=== PATIENT | female | born 1970 | race Caucasian/White ===

== ENCOUNTER → 2020-08-01 13:06 | Outpatient (CLI) | payer BC, SELFPAY ==
[2014-10-18 15:56] VITALS: BMI 43.9
[2020-08-03 12:58] LABS: HPV Reflexed? NOT INDICATED
== END ==
PROVIDERS: PCP Internal Medicine; Visit Provider Obstetrics & Gynecology
DX: Z12.4 Encounter for screening for malignant neoplasm of cervix (principal)
CPT/HCPCS: 88175; G0145

== ENCOUNTER → 2020-08-15 16:06 | Outpatient (CLI) | payer BC, SELFPAY ==
[2014-10-18 15:56] VITALS: BMI 43.9
--- NOTE | 2020-08-15 15:30 | EMB_PTH ---
PATIENT: ANTONINA KEITH LOC: [facility] U#:[id number] AGE/SX: 54/F ROOM: RE08/15/[address]: Dr. Kenneth Christian MD : 1970 BED: DIS: SPEC #: [id number] RECD: 08/15/20 17:12 STATUS: EMELINA REQ #: [id number] MT: 08/15/20 15:[address]: Kenneth Christian DEPT: SURGICAL PATHOLOGY RECD BY: Radha Mcwilliams ENTERED: 08/16/20 10:20 SP TYPE: ENDOM BX/C AARON DR: Dr. Ana Prakash MD Tissues: Endometrium, NOS Procedures: Surgery Specimen Level IV HEADER OPERATION: Endometrial biopsy PRE-OP DIAGNOSIS: N92.0 TISSUE SUBMITTED: Endometrial biopsy MICROSCOPIC DIAGNOSIS Endometrial biopsy: Proliferative endometrium. SJ:danielle 08/17/2020 MICROSCOPIC DESCRIPTION Slides are reviewed. GROSS DESCRIPTION Received in fixative is one container labeled with the patient's name and designated EM biopsy. The specimen consists of multiple fragments of hemorrhagic soft tissue mixed with campuzano mucoid tissue that in aggregate measure 3 x 2.5 x 0.3 cm. The specimen is totally submitted in one cassette. / SJ:danielle 08/16/20 TC:4 CPT: 74721
== END ==
PROVIDERS: PCP Internal Medicine; Visit Provider Obstetrics & Gynecology
DX: N92.0 Excessive and frequent menstruation with regular cycle (principal)
CPT/HCPCS: 88305

== ENCOUNTER 2020-09-24 05:22 | Day surgery (SDC) | payer BC, SELFPAY ==
[2020-09-19 17:45] LABS: Hematocrit 33.1 % (37-47); Hemoglobin 10.2 g/dL (12.0-15.0); Mean Corp Hgb Conc 30.8 g/dL (32-36); Mean Corpuscular Hgb 26.3 pg (27.0-32.0); Mean Corpuscular Volume 85.3 fL (81-99); Mean Platelet Vol. 9.5 fl (6.2-12.0); Platelet Count 312 K/mm3 (150-450); RBC Distribution Width CV 14.1 % (11.6-14.6); RBC Distribution Width SD 43.7 fl (35.1-43.9); Red Blood Count 3.88 M/mm3 (4.2-5.4); White Blood Count 10.7 K/mm3 (4.4-11.0)
[2020-09-19 18:23] LABS: ALB/GLOB Ratio 0.9 RATIO (0.9-2.4); AST(SGOT) 12 U/L (15-37); Alanine Aminotransfer ALT/SGPT 24 U/L (13-56); Albumin, Serum 3.5 g/dL (3.2-5.0); Alkaline Phosphatase 68 U/L (45-117); Anion Gap 4 (5-15); BUN 16 mg/dL (7-18); BUN/Creat Ratio 24.7 RATIO (10-20); Calcium,Total 8.4 mg/dL (8.5-10.1); Chloride 109 mmol/L (98-107); Creatinine, Serum 0.65 mg/dL (0.55-1.02); EST Glomerular Filtration Rate 103 mL/min (>60); Est Glom Filt Rate - Afr Amer 124 mL/min (>60); Globulin 3.7 g/dL (2.2-4.2); Glucose 90 mg/dL (74-106); Magnesium 2.1 mg/dL (1.6-2.6); Potassium 3.6 mmol/L (3.5-5.1); Protein, Total 7.2 g/dL (6.4-8.2); Sodium Level 139 mmol/L (136-145)
[2020-09-19 18:29] LABS: International Normalized Ratio 0.9
[2020-09-19 19:10] LABS: Partial Thromboplast Time 31.9 Seconds (24.1-36.2)
--- NOTE | 2020-09-21 11:49 | EKG12_ITS ---
Test Reason : PREOP Blood Pressure : / mmHG Vent. Rate : 078 BPM Atrial Rate : 078 BPM P-R Int : 172 ms QRS Dur : 084 ms QT Int : 398 ms P-R-T Axes : 040 011 036 degrees QTc Int : 453 ms Normal sinus rhythm Normal ECG Confirmed by SAAD FREEMAN, KAYLA ([id number]), city editor JEANNE CAMACHO ([id number]) on 09/24/2020 10:55:20 A M Referred By: Kenneth Christian Confirmed By:BRYAN NASH MD
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
[2020-09-24] VITALS (22 sets, daily range): BP systolic 122–167; BP diastolic 73–112; PULSE 65–95; RESP 16–22; TEMP 36.3–37.1; O2SAT 92–100; BMI 42.4
[2020-09-24 06:13] LABS: Internal QC Validated? YES +Cl - CLEAR BKGD; Pregnancy, Urine Negative Negative
[2020-09-24] MEDS: Lactated Ringers 1,000 ML 40 ML IV ×2 (06:31→11:24)
[2020-09-24] MEDS: Acetaminophen 500 MG Tablet 1000 MG PO ×2 (06:32→15:00)
[2020-09-24] MEDS: Gabapentin 600 MG Tablet PO (06:32)
[2020-09-24 07:20] LABS: Bedside Glucose 114 mg/dL (70-110)
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
[2020-09-24] MEDS: Cefazolin 2 GM in 0.9% Normal Saline 100 ML IV (07:27)
--- NOTE | 2020-09-24 07:27 | PCM.DC ---
Discharge Instructions Diet Discharge Diet: No restrictions Activity Discharge Activity: May Shower and May Take a Tub Bath May resume sexual activity in: 6 weeks (nothing in the vagina.) Lifting Restrictions: 25 pounds for 6 weeks. Dressing / Incision Call your doctor if your incision/area has: Continuous Slow Oozing, Sudden Increased Bleeding, Increased Pain/ Swelling, Increased Redness and Foul Smelling Discharge Call your doctor if you observe: Fever of 101 or Higher, Inability to urinate, Inability to have a bowel movement, Using more than 1 pad per hour and - (Some vaginal bleeding may be noted for up to 4-8 weeks.) Cleanse incision/area with: - (Let the soapy water run over your incision, rinse and pat dry.) Additional Dressing/Incision Instructions:: The white strips (Steri Strips) on your incisions will fall off on their own. If they fall off and it bothers you it is okay to put Band-Aids across the incisions. Follow Up Care Please Follow Up With: Kenneth Christian MD When: Call [phone] for an appointment to be seen in 2 weeks. Test Results: Test results from this visit will be discussed in further detail at your follow-up appointment, if applicable. Discharge Plan Admission Primary Reason for Your Visit: Robotic Vaginal Hysterectomy Attending Provider: Kenneth Christian Primary Care Provider: Ana Prakash Discharge Orders/Prescriptions Prescriptions: New oxycodone 5 mg capsule 5 mg PO Q6H PRN (Reason: pain) 7 Days Qty: 10 RF: 0 docusate sodium 100 mg tablet 100 mg PO BID PRN (Reason: constipation) Qty: 60 RF: 1 Continued acetaminophen 650 mg Tablet Extended Release 1,300 mg PO DAILY RF: 0 ascorbate calcium (vitamin C) 500 mg Tablet 1 g PO DAILY RF: 0 multivitamin Capsule 1 cap PO DAILY RF: 0 omega-3 fatty acids-vitamin E 1,000 mg Capsule 2,000 cap PO DAILY RF: 0 cholecalciferol (vitamin D3) [Vitamin D3] 125 mcg (5,000 unit) Tablet 125 mcg PO DAILY RF: 0 turmeric 400 mg Capsule 800 mg PO DAILY RF: 0 Pennsaid 2 % Solution In Packet 1 packet TOPICAL BID PRN (Reason: arthritis) RF: 0 Referrals / Follow Up: Ana Prakash MD [Primary Care Provider] - Disposition Disposition (needs filled in before D/C Order can be placed): Home, self care
--- NOTE | 2020-09-24 07:30 | HYST_PTH ---
PATIENT: ANTONINA KEITH LOC: [facility] [place] U#:[id number] AGE/SX: 50/F ROOM: RE09/24/[address]: Dr. Kenneth Christian MD : 1970 BED: DIS: 09/24/2020 SPEC #: [id number] RECD: 09/24/20 12:28 STATUS: EMELINA REManny #: [id number] MT: 09/24/20 07:[address]: Kenneth Christian DEPT: SURGICAL PATHOLOGY RECD BY: Radha Mcwilliams ENTERED: 09/24/20 12:49 SP TYPE: HYSTERECT OTHR DR: Dr. Ana Prakash MD Tissues: Uterus, NOS Procedures: Surgery Specimen Level V HEADER OPERATION: ERAS, lap robotic hysterectomy, BSO PRE-OP DIAGNOSIS: Menorrhagia, pelvic pain, dysmenorrhea TISSUE SUBMITTED: Uterus, bilateral fallopian tubes and ovaries MICROSCOPIC DIAGNOSIS Uterus, hysterectomy: Cervix ? nabothian cysts, squamous metaplasia and mild chronic inflammation. Endometrium ? secretory endometrium. Myometrium ? leiomyomas. Right ovary ? corpus luteal cysts and corpora albicantia. Right fallopian tube ? no pathologic change. Left ovary ? follicular cysts and corpora albicantia. Left fallopian tube ? no pathologic change. AM:danielle 09/25/2020 MICROSCOPIC DESCRIPTION Slides are reviewed. GROSS DESCRIPTION Received in fixative is one container labeled with the patient's name and designated uterus, bilateral fallopian tubes and ovaries. The specimen consists of a hysterectomy specimen consisting of uterus with cervix with portion of anterior uterine wall missing and several detached pieces and attached bilateral fallopian tubes and ovary. The uterus with cervix and detached pieces weigh in aggregate 251 gm. The uterus with cervix measures 11 x 8 x 9 cm. The detached pieces of uterine measures in aggregate 6 x 5 x 3.5 cm. The serosal surface is campuzano, glistening. The ectocervical mucosa is unremarkable. The external os is circular in contour. The endocervical canal measures 5 cm in length and the endocervical mucosa is campuzano, glistening and unremarkable. The triangular endometrial cavity measures 4.5 cm in length and up to 4 cm in width. The endometrium is congested and measures up to 0.2 cm in thickness. No mass lesion is identified. The endometrium measures up to 0.7 cm in thickness. Sections of the attached pieces of anterior uterine wall do not reveal any mass lesion. Sections of the posterior uterine wall reveal multiple intramural nodular masses. The largest mass measures 5 cm in greatest dimension. Sections of these masses reveal campuzano whorled cut surfaces without areas of hemorrhage, necrosis or cystic degeneration. The uninvolved uterine wall measures up to 3 cm in thickness. Sections of the uterine wall in the right cornu shows a metallic coil device consistent with Essure device. The right fallopian tube measures 6 cm in length and up to 0.5 cm in diameter. The fimbrial end is identified. No tubo-ovarian adhesions are noted. Sections reveal unremarkable cut surfaces. The soft to cystic right ovary measures 4.5 x 3 x 2 cm. Sections of the ovary reveal multiple cysts filled with clear to hemorrhagic fluid. A corpus luteum is also noted measuring 1.5 cm in greatest dimension. The left fallopian tube measures 7 cm in length and 0.5 cm in diameter. The fimbrial end is identified. No tubo-ovarian adhesions are noted. Sections of the proximal portion of the fallopian tube shows a metallic coil device consistent with Essure device. The soft to cystic left ovary measures 2.5 x 2.5 x 1.5 cm. Sections reveal a few cysts filled with clear to hemorrhagic fluid. Front End Manager sections are submitted in 14 cassettes as follows: 1 - anterior cervix, 2 - posterior cervix, 3 & 4 - anterior uterine wall, 5 & 6 - posterior uterine wall, 7 - largest nodular mass, 8 - intermediate size nodular mass, 9 - smaller nodular masses, 10 - right fallopian tube and ovary, 11 & 12 - more sections of right ovary, 13 - left fallopian tube and ovary, 14 - more sections of left ovary. / IRENE:danielle 09/24/20 TC:1 CPT: 54666
[2020-09-24] MEDS: Ropivacaine 0.5% 30 ML Vial (08:30)
[2020-09-24 11:25] LABS: Bedside Glucose 141 mg/dL (70-110)
[2020-09-24] MEDS: Ondansetron 4 MG/2 ML Vial IV (12:36)
[2020-09-24] MEDS: oxyCODONE 5 MG Tablet PO (13:02)
[2020-09-24] MEDS: Ipratropium/Albuterol Sulfate 3 ML AMPUL.NEB INHALATION (14:46)
== END 2020-09-24 17:22 | disposition home or self-care (01) ==
LOC: SDC 05:22 → AC 05:24
PROVIDERS: Anesthesiology; PCP Internal Medicine; Referring Provider Obstetrics & Gynecology; Visit Provider Obstetrics & Gynecology
PROC: 0UT94ZZ Resection of Uterus, Percutaneous Endoscopic Approach (ICD-10-PCS; CPT 58552; principal; 2020-09-24 07:10)
DX: N94.6 Dysmenorrhea, unspecified (principal); N92.0 Excessive and frequent menstruation with regular cycle; N73.6 Female pelvic peritoneal adhesions (postinfective); D25.0 Submucous leiomyoma of uterus; M19.90 Unspecified osteoarthritis, unspecified site; Z88.0 Allergy status to penicillin; Z98.891 History of uterine scar from previous surgery
CPT/HCPCS: 58552; 58660; 36415; 80053; 81025; 82962; 83735; 85027; 85610; 85730; 86850; 86900; 86901; 87426; 88307; 93005; 94640; C9803; J7120; J2405

== ENCOUNTER 2021-08-07 14:46 | Emergency (ER) | payer BC, SELFPAY ==
[2021-08-07 14:47] VITALS: BP 207/101; PULSE 95; RESP 18; TEMP 36.6; O2SAT 100; BMI 44.1
--- NOTE | 2021-08-07 15:05 | EKG12_ITS ---
Test Reason : NECK PAIN Blood Pressure : / mmHG Vent. Rate : 092 BPM Atrial Rate : 092 BPM P-R Int : 184 ms QRS Dur : 088 ms QT Int : 368 ms P-R-T Axes : 039 -07 069 degrees QTc Int : 455 ms Normal sinus rhythm Normal ECG Confirmed by SAAD FREEMAN, KAYLA ([id number]), digital editor JEANNE CAMACHO ([id number]) on 08/09/2021 8:13:37 AM Referred By: PHILLIP Confirmed By:BRYAN NASH MD
[2021-08-07] MEDS: Mag Hydrox/Al Hydrox/Simeth 30 ML UDC PO (15:17)
--- NOTE | 2021-08-07 15:23 | EX.ED.DYSGE1 ---
HPI History of Present Illness Chief Complaint: Other, Pain/Inj Detail of Chief Complaint: Chest pain, neck pain Informant: patient Onset/Context/Timing Onset: Today (Chest pain started this morning and was intermittent) and Yesterday (Posterior neck pain started yesterday and has been continuous) Context: Gradual Onset Timing: Continuous (Neck pain) and Intermittent (Chest pain) Quality: Chest discomfort described as a burning achy sensation, neck pain Location: Anterior mid chest and posterior neck bilaterally Current Severity: The chest pain is resolved. The neck pain has been persistent Maximum Severity: Moderate Worsened by: Chest pain now is worse with having patient flex her neck. Relieved by: Nothing Associated Symptoms Associated Symptoms: Nausea Narrative Narrative: Patient is a 51-year-old woman with history of gestational diabetes and elevated cholesterol who presents because of neck pain that is bilateral and started yesterday. There is no radicular pain. There is no paresthesia, anesthesia or motor weakness in the upper extremities. Nothing makes the pain better or worse. She informed me that she has history of L4-5 herniated disc. She has had no imaging of her neck. This morning while at work she has had intermittent chest pain described as burning sensation lasted 1 to 2 minutes. She denies history of GERD, reflux or hiatal hernia. She denies black or maroon-colored stool. She denies sour eructation. She states she has not taste anything sour in the back of her mouth because she lost taste and smell due to COVID contracted November 2020. Patient denies history of smoking. There is no family history of coronary disease at young age. She denies any dyspnea with exertion or chest discomfort with exertion. She denies history of VTE. She denies leg pain, swelling discoloration. Prior similar symptoms: No Recent Illness/Hospitalization: No [facility] Medical History Arthritis Encounter for Essure implantation History of edema History of pain when walking Injury of back Leg cramps Non-smoker Shortness of breath on exertion Wears glasses Home Medications Pennsaid 1 packet TOPICAL BID PRN 09/17/20 [History Last Taken Unknown] acetaminophen 1,300 mg PO DAILY 09/17/20 [History Last Taken Unknown] ascorbate calcium (vitamin C) 1 g PO DAILY 09/17/20 [History Last Taken Unknown] cholecalciferol (vitamin D3) [Vitamin D3] 125 mcg PO DAILY 09/17/20 [History Last Taken Unknown] multivitamin 1 cap PO DAILY 09/17/20 [History Last Taken Unknown] omega-3 fatty acids-vitamin E 2,000 cap PO DAILY 09/17/20 [History Last Taken Unknown] turmeric 800 mg PO DAILY 09/17/20 [History Last Taken Unknown] docusate sodium 100 mg PO BID PRN #60 tab 09/24/20 [Rx Last Taken Unknown] oxycodone 5 mg PO Q6H PRN 7 Days #10 cap 09/24/20 [Rx Last Taken Unknown] pantoprazole [Protonix] 40 mg PO DAILY #30 tab 08/07/21 [Rx Last Taken Unknown] Allergy/AdvReac Type Severity Reaction Status Date / Time penicillin Allergy Unknown Verified 08/07/21 14:49 Surgical History History of History of nephrectomy, left Hx of discectomy Hx of foot surgery Social History (Updated 08/07/21 @ 15:[address] Pj Powell MD) household members: none Smoking Status: Never smoker substance use type: does not use ROS ROS ED Constitutional Constitutional ED: Denies chills, fever(s), subjective, sweats or weight loss Eyes Eyes: Denies blurry vision, change in vision or diplopia ENT ENT ED: Denies ear pain, rhinorrhea or sore throat Cardiovascular Cardiovascular: Reports chest pain; Denies orthopnea, palpitations, paroxysmal nocturnal dyspnea or racing heartbeat Respiratory/Chest Respiratory/Chest: Denies cough, dyspnea, dyspnea on exertion, orthopnea, paroxysmal nocturnal dyspnea or sputum Gastrointestinal Gastrointestinal: Reports nausea; Denies abdominal pain, constipation, diarrhea, melena or vomiting Genitourinary Genitourinary ED: Denies dysuria, hematuria or urinary frequency Musculoskeletal Musculoskeletal: Reports neck pain; Denies arthralgias, back pain or myalgias Integumentary Denies rash Neurologic Neurologic: Denies headache(s), paresthesias or weakness Allergic/Immunologic Allergic/Immunologic ED: Denies mouth swelling, tongue swelling or urticaria EXAM Physical Exam Const Vital Signs: 08/07/21 14:47 08/07/21 15:24 08/07/21 15:42 Temperature 98 F Temperature Source Temporal Pulse Rate 95 87 Respiratory Rate 18 24 H Blood Pressure 207/101 H Blood Pressure Mean 136 Pulse Ox 100 97 Oxygen Delivery Method Room Air Room Air Room Air Positive well nourished, well developed and obese General Appearance ED: well developed, NAD and pallor; Negative for cyanotic or diaphoretic Nutritional Appearance: obese HEENT Reports TM's clear and moist mucous membranes HEENT Narrative: Nares patent. Posterior pharynx not erythema or exudate. Uvula is midline. Negative for trauma or tenderness Tympanic Membrane ED: Yes TM's clear Eyes PERRL and EOMs intact bilaterally General Eye ED: Negative for pale conjunctiva or scleral icterus Neck no lymphadenopathy, supple and no JVD Neck Narrative: There is no carotid bruit. There is no reproducible pain. There is no cervical lymphadenopathy. Chest Wall inspection of chest normal and palpation of chest normal Resp normal respiratory effort and clear to auscultation bilaterally Cardio regular rate, regular rhythm, S1 normal heart sound, S2 normal heart sound and no murmurs GI normal to inspection, nondistended, normoactive bowel sounds, non-tender and non-distended GI Narrative: Patient is status post , hysterectomy and cholecystectomy. Palpation: soft Back/Spine no CVA tenderness Cervical Spine: cervical spine tenderness Thoracic Spine / Upper Back: paraspinal muscle tenderness; Negative for thoracic spinal tenderness Lumbar Spine / Lower Back: Negative for lumbar spinal tenderness Extremity normal to inspection Extremity Narrative: There is no asymmetry, swelling, discoloration, leg vein distention, palpable cords or tenderness along the distribution of the deep venous system. General Extremety ED: Negative for edema or tenderness General Extremity: Negative for edema Neuro oriented x3, CN's II-XII intact bilaterally and no sensory deficits noted Sensorium / Orientation: alert Motor Exam: strength 5/5 throughout Psych mental status grossly normal Skin no rashes or lesions noted, no wounds and skin turgor normal General Skin Exam: pallor; Negative for elasticity normal or jaundice MDM MDM MDM Narrative Medical decision making narrative: Believe patient's neck pain is musculoskeletal. X-ray was obtained since she is never had imaging. Chest pain is probably noncardiac. Since she is a middle-aged woman will obtain EKG and appropriate blood work. Lab Data Attestation: I reviewed the patient's lab results. Lab results narrative: With a troponin less than 3 negative predictive value for cardiac disease is 100%. Patient's is now in the examination room. He informed that she has been taking a lot of ibuprofen over the past several days because of back pain due to L4-5 herniated disc. Patient was instructed to stop taking the Advil especially since she only has 1 kidney. Furthermore, the GI cocktail helped her discomfort markedly. Will discharge patient on PPI. Labs: Laboratory Results - last 24 hr 08/07/21 08/07/21 15:40 15:40 WBC 10.6 RBC 4.12 L Hgb 11.2 L Hct 35.0 L MCV 85.0 MCH 27.2 MCHC 32.0 RDW Std Deviation 40.7 RDW Coeff of Fior 13.2 Plt Count 284 MPV 9.3 Immature Gran % (Auto) 0.600 Neut % (Auto) 74.2 H Lymph % (Auto) 17.8 L [place] % (Auto) 5.1 Eos % (Auto) 2.0 Baso % (Auto) 0.3 Absolute Neuts (auto) 7.9 H Absolute Lymphs (auto) 1.89 Nucleated RBC % 0 Sodium 140 Potassium 3.7 Chloride 107 Carbon Dioxide 29.0 Anion Gap 4 L BUN 16 Creatinine 0.70 Estim Creat Clear Calc 78.65 Est GFR (MDRD) Af Amer 114 Est GFR (MDRD) Non-Af 94 BUN/Creatinine Ratio 23.0 H Glucose 90 Calcium 9.0 Troponin I High Sens < 3 L Radiography Chest X-Ray - ED: 1 View (Independently reviewed and interpreted chest x-ray by me at 1622), Read by ED Physician (Three-view x-ray of the C-spine reveals mild degenerative changes. There is no evidence of fracture, no spondylolisthesis or spondylolisthesis. There is no malalignment.), Normal, Heart, Mediastinum, Bony Structures, No Acute Disease and Chronic Changes Diagnostic Testing: Clinical Impression(s) from Imaging Studies Cervical Spine X-Ray 08/07/21 16:00 IMPRESSION: No evidence of acute fracture or spondylolisthesis. Mild multilevel degenerative disc disease and spondylosis. Electronically Signed: Young Martinez MD at 16:31 EDT , Chest X-Ray 08/07/21 16:00 IMPRESSION: No acute radiographic abnormalities. Electronically Signed: Young Martinez MD at 16:31 EDT , EKG Initial EKG: Attestation: I personally reviewed and interpreted this EKG as follows: Interpretation: Sinus Rhythm (The EKG is normal. Rate is 92. [place] interval is 184 ms. QRS duration 88 ms. QT duration 368 ms. [place] is normal.) Discharge Plan Triage Chief Complaint: Other, Pain/Inj ED Provider: Pj Powell Dx/Rx/DC Orders Clinical Impression: Gastritis, Esophagitis, DDD (degenerative disc disease), cervical Instructions: ED Gastritis (Adult), ED Neck Pain Prescriptions: New pantoprazole [Protonix] 40 mg tablet,delayed release (DR/EC) 40 mg PO DAILY Qty: 30 RF: 0 No Action acetaminophen 650 mg Tablet Extended Release 1,300 mg PO DAILY RF: 0 ascorbate calcium (vitamin C) 500 mg Tablet 1 g PO DAILY RF: 0 multivitamin Capsule 1 cap PO DAILY RF: 0 omega-3 fatty acids-vitamin E 1,000 mg Capsule 2,000 cap PO DAILY RF: 0 cholecalciferol (vitamin D3) [Vitamin D3] 125 mcg (5,000 unit) Tablet 125 mcg PO DAILY RF: 0 turmeric 400 mg Capsule 800 mg PO DAILY RF: 0 Pennsaid 2 % Solution In Packet 1 packet TOPICAL BID PRN (Reason: arthritis) RF: 0 oxycodone 5 mg capsule 5 mg PO Q6H PRN (Reason: pain) 7 Days Qty: 10 RF: 0 docusate sodium 100 mg tablet 100 mg PO BID PRN (Reason: constipation) Qty: 60 RF: 1 Primary Care Provider: Ana Prakash Referrals: Ana Prakash MD [Primary Care Provider] - 1-2 Weeks Activity Restrictions/Additional Instructions: 1. You should not take ibuprofen or Aleve for your pain since you only have 1 kidney and the medicine is causing irritation of your esophagus and stomach Disposition Disposition: Home, Self Care
[2021-08-07 15:42] VITALS: PULSE 87; RESP 24; O2SAT 97
[2021-08-07 15:54] LABS: Absolute Lymphocyte Count 1.89 X10^3/uL (0.83-4.51); Absolute Neutrophil Count 7.9 X10^3/uL (2.0-7.7); Basophil# 0.03 X10^3/uL; Basophil% 0.3 % (0-1); Eosinophil# 0.21 X10^3/uL; Hemoglobin 11.2 g/dL (12.0-15.0); Lymphocyte # 1.89 X10^3/ul (0.83-4.51); Lymphocyte % 17.8 % (19-41); Mean Corpuscular Hgb 27.2 pg (27.0-32.0); Mean Platelet Vol. 9.3 fl (6.2-12.0); Monocyte# 0.54 X10^3/uL; Monocyte% 5.1 % (0-10); NRBC Flagged by Analyzer 0 % (0-5); Neutrophil # 7.87 X10^3/uL (2.7-7.7); Neutrophil % 74.2 % (47-70); Platelet Count 284 K/mm3 (150-450); RBC Distribution Width CV 13.2 % (11.6-14.6); RBC Distribution Width SD 40.7 fl (35.1-43.9); Red Blood Count 4.12 M/mm3 (4.2-5.4); White Blood Count 10.6 K/mm3 (4.4-11.0)
--- NOTE | 2021-08-07 16:00 | RAD_ITS ---
INDICATION: chest pain EXAMINATION/TECHNIQUE: X-RAY - XR Chest 1 View COMPARISON: None. FINDINGS: The lungs are clear. The cardiomediastinal silhouette is unremarkable. No pleural effusion or pneumothorax. No acute osseous abnormalities. RAD/Chest 1 View (Portable) IMPRESSION: No acute radiographic abnormalities. Electronically Signed: Young Martinez MD at 16:31 EDT ,
--- NOTE | 2021-08-07 16:00 | RAD_ITS ---
INDICATION: posterior neck pain EXAMINATION/TECHNIQUE: X-RAY - XR Spine Cervical 2 or 3 Views COMPARISON: None. FINDINGS: VERTEBRAE: Preserved vertebral body height. No fracture. No spondylolisthesis. Preservation of the normal cervical lordosis. Mild multilevel facet arthropathy. DISCS: Mild multilevel degenerative disc disease and spondylosis. NECK SOFT TISSUES: No prevertebral soft tissue widening. LUNG APICES: Clear. RAD/Cerv Spine 2 or 3 Views IMPRESSION: No evidence of acute fracture or spondylolisthesis. Mild multilevel degenerative disc disease and spondylosis. Electronically Signed: Young Martinez MD at 16:31 EDT ,
[2021-08-07 16:13] LABS: Anion Gap 4 (5-15); BUN 16 mg/dL (7-18); Chloride 107 mmol/L (98-107); EST Glomerular Filtration Rate 94 mL/min (>60); Est Glom Filt Rate - Afr Amer 114 mL/min (>60); Estimated Creatinine Clearance 78.65 ml/min; Glucose 90 mg/dL (74-106); Potassium 3.7 mmol/L (3.5-5.1); Sodium Level 140 mmol/L (136-145); Troponin-I HS (w/2H Reflex) < 3 pg/mL (3.0-54.0)
[2021-08-07 17:11] VITALS: PULSE 86; RESP 18; O2SAT 97
[2021-08-07 17:45] LABS: Reflex Troponin-HS? (from REC) Y
== END 2021-08-07 17:12 | disposition home or self-care (01) ==
PROVIDERS: Emergency Provider Emergency Medicine; PCP Internal Medicine; Visit Provider Emergency Medicine
DX: K29.70 Gastritis, unspecified, without bleeding (principal); M51.26 Other intervertebral disc displacement, lumbar region; M50.30 Other cervical disc degeneration, unspecified cervical region; K20.90 Esophagitis, unspecified without bleeding; E78.00 Pure hypercholesterolemia, unspecified
CPT/HCPCS: 71045; 72040; 80048; 84484; 85025; 93005; 99284

== ENCOUNTER → 2022-11-06 | Outpatient (CLI) | payer BC, SELFPAY ==
--- NOTE | 2022-11-06 17:47 | MRI_ITS ---
STUDY: MRI LEFT KNEE REASON FOR EXAM: Female, 52 years old. Knee pain. TECHNIQUE: Standardized fat and water weighted pulse sequences were obtained in all 3 orthogonal planes. COMPARISON: Left knee x-rays dated October 20, 2022 showing mild medial and patellofemoral compartmental arthrosis. FINDINGS: Complex tear posterior horn of medial meniscus including a partial thickness radial tear near the meniscal root with extrusion of the truncated body and anterior horn of the meniscus. Moderate thinning of the articular cartilage of the medial femorotibial compartment (coronal series 7 images 15-27). Mild MCL sprain (coronal series 7 image 21). Normal distal semimembranosus, gracilis and semitendinosus tendons. Normal lateral meniscus. Moderate thinning of the articular cartilage of the lateral femorotibial compartment (coronal series 7 images 17-24). Normal lateral femoral condyle and tibial plateau. Normal proximal tibiofibular articulation. Normal lateral collateral (fibular) ligament. Normal popliteus tendon. Normal biceps femoris tendon. Normal anterior cruciate ligament (ACL). Normal posterior cruciate ligament (PCL). Normal congruent patellofemoral articulation. Mild thinning of the articular cartilage of the femoral trochlea and central portion of the patellar articular cartilage (axial series 3 images 8-15). Normal medial and lateral patellar retinaculum. Normal quadriceps tendon. Normal patellar tendon. Normal Hoffa''s fat pad. Moderate-sized joint effusion with both medial and lateral plicae (axial series 3 images 1-7). Large septated dissecting popliteal cyst with a rupture distally (axial series 3 images 8-27). Marked prepatellar subcutaneous soft tissue edema (sagittal series 5 images 9-17). Normal visualized osseous structures. MRI/Lower Ext Joint Only (Routine) IMPRESSION: Complex tear of the posterior horn of the medial meniscus with extrusion of the truncated body and anterior horn. Moderate thinning of the articular cartilage of the medial femorotibial compartment. Mild MCL sprain. Moderate thinning of the articular cartilage of the lateral femorotibial compartment. Mild thinning of the central portion of the articular cartilage of the patellofemoral compartment. Marked prepatellar subcutaneous soft tissue edema. Moderate-sized joint effusion with medial and lateral plicae. Large septated dissecting popliteal cyst which has ruptured distally. Electronically Signed: Enrico Hook MD at 11:30 EDT ,
== END | disposition home or self-care (01) ==
LOC: MRI 17:45
PROVIDERS: PCP Internal Medicine; Referring Provider Orthopaedic Surgery; Visit Provider Orthopaedic Surgery
DX: M23.92 Unspecified internal derangement of left knee (principal)
CPT/HCPCS: 73721

== ENCOUNTER 2022-12-02 05:57 | Day surgery (SDC) | payer BC, SELFPAY ==
[2022-12-02] VITALS (8 sets, daily range): BP systolic 139–157; BP diastolic 84–99; PULSE 71–91; RESP 16–18; TEMP 36.1–36.6; O2SAT 95–100; BMI 44.5
[2022-12-02] MEDS: Lactated Ringers 1,000 ML 15 ML IV ×2 (06:30→09:04)
--- NOTE | 2022-12-02 07:14 | PCM.HP.BLA ---
History and Physical Date of Admission: 12/02/22 [facility] [id number] [place] [address] OFFICE VISIT Date of Service: 11/12/22 MR#: [id number] Acct: [id number] Name: ANTONINA KEITH Rep #: [id number] : 1970 Provider: Dr. Toy Soriano DO Age/Sex: 52/F Location: [email or web address] Status: Signed Intake Vital Signs 10/20/2312:18 Height 5 ft 3 in Weight: 251 lb BMI 44.4 Intake Visit Reasons: LEFT KNEE Chief Complaint: left knee Is patient in pain?: Yes (left knee) Pain scale (1-10): 8 Allergies penicillin Allergy (Verified 11/12/22 13:53) Unknown Medications acetaminophen 650 mg tablet,extended release 1,300 mg PO DAILY 09/17/20 [History Confirmed 11/12/22] ibuprofen 200 mg tablet 800 mg PO Q6H PRN 10/20/22 [History Confirmed 11/12/22] losartan 100 mg tablet 100 mg PO DAILY 10/20/22 [History Confirmed 11/12/22] PFSH Medical History Arthritis Encounter for Essure implantation History of edema History of pain when walking Injury of back Leg cramps Non-smoker Shortness of breath on exertion Wears glasses Surgical History History of History of nephrectomy, left Hx of discectomy Hx of foot surgery Social History household members: none Smoking Status: Never smoker substance use type: does not use HPI LEFT KNEE Chief Complaint: left knee pain Details: Parts of this documentation were recorded by a scribe, this documentation accurately reflects the service provided and the decisions made by me, Dr. Toy Soriano DO 11/12/22 0910. ANTONINA KEITH is a 52 year old F here today for left knee MRI review. Pt. advises her constant left knee pain continues. She states it feels warm and slightly swollen which restricts her ROM. No redness noted. She states her pain worsens as she is on it as the day goes on. She continues to have painful medial sided mechanical knee pain of her left knee. She has failed bracing and NSAIDs. Ortho Exam General General: Yes no acute distress Neurologic: Yes alert and Yes oriented x3 Psychologic: Yes reasonable and appropriate Left Knee Skin/Wound: Yes CDI, No ecchymosis, No erythema and No swelling Homans Sign: No Knee ROM: Yes ROM-Extension -20 to 0, Yes ROM-Flexion 0-140 (78) and Yes ROM-Passive Flexion 0-140 (painful- 80) Examination: Yes med jt line tenderness, No Lat jt line tenderness, Yes Misael's Test, No Paula's and No TTP Pes Anserine Stability: NML: Anterior Drawer, NML: Posterior Drawer, NML: Valgus 30 (3mm medial gapping) and NML: Varus 30 Apprehension with Lateral Translation: No Patella Grind: No KNEE: synovial hypertrophy. no pop but pain with medial misael, lateral misael caused medial click and pain head: Normocephalic Atraumatic Chest: symmetrical rise, non-labored breathing, no audible wheeze Abdomen: no guarding, non-rigid Supplemental Info 11/06/2022 MRI left knee: Complex tear posterior horn medial meniscus with extrusion of the truncated body and anterior horn, there is moderate thinning of the articular cartilage of the medial compartment mild thinning of the patellofemoral compartment marked prepatellar soft tissue edema, joint effusion 10/20/2022 x-ray left knee :there is medial joint space narrowing Coding Level of Care Code Off vis,est,level 3 Diagnoses Complex tear of medial meniscus of left knee as current injury, subsequent encounter S83.232D Tear current or old: current Encounter type: subsequent encounter Meniscus tear of knee type: complex Primary osteoarthritis of left knee M17.12 Osteoarthritis type: primary Assessment and Plan Assessment and Plan (1) Tear of medial meniscus of left knee: Status: Acute Qualifiers: Tear current or old: current Encounter type: subsequent encounter Meniscus tear of knee type: complex Qualified Code(s): S83.232D - Complex tear of medial meniscus, current injury, left knee, subsequent encounter (2) Osteoarthritis of left knee: Status: Acute Qualifiers: Osteoarthritis type: primary Qualified Code(s): M17.12 - Unilateral primary osteoarthritis, left knee Plan Patient educated that she does have a complex medial meniscus tear along with some arthritis of the knee. Recommended treatment is to have a left knee arthroscopic partial medial meniscectomy. Reviewed the pre-operative plans with the patient. Risks and benefits of the procedure were fully explained, including but not limited to infection, neurovascular injury, continued pain, arthritis, stiffness, need for further surgery, re-injury, DVT, PE, general risks of anesthesia, and loss of limb or life. The patient understands all the risks and does wish to proceed with written consent. Educated that she may still have pain after surgery from inflammation and arthritis of the knee which can then be treated with injections and NSAIDs post op. She would be off work for 2-8 weeks from surgery . Follow up 2 weeks post op or sooner if pain, swelling, numbness or associated symptoms, or concerns develop. All questions answered. Patient in agreement of plan. 11/12/22 1457 <Electronically signed by Toy Soriano DO> Date Toy Soriano DO Cosigner Signature: Date (if applicable) I have examined the patient and the H&P has been reviewed. There are no clinical changes since date of exam.
[2022-12-02] MEDS: Cefazolin 2 GM in 0.9% Normal Saline 100 ML IV (07:35)
[2022-12-02] MEDS: Lidocaine 1%/Epi 1:100 (30ml) 30 ML VIAL (07:54)
[2022-12-02] MEDS: Epinephrine (1 mg/ml) 1 MG/ML VIAL (07:54)
[2022-12-02] MEDS: MethylPREDNISolone Acetate 40 MG/ML Vial IM (08:20)
[2022-12-02] MEDS: Bupivacaine Mpf 0.5% 30 ML VIAL (08:20)
--- NOTE | 2022-12-02 08:30 | OP.PCM_ITS ---
Operative Report Date of Procedure: 12/02/22 Preop diagnosis: Left knee medial meniscus tear DJD Postoperative diagnosis: Left knee complex tear posterior horn and anterior horn medial meniscus grade IV chondromalacia medial femoral condyle and small area of trochlea diffuse grade 3 remainder of trochlea and patella Procedure: Left knee arthroscopic partial medial meniscectomy and chondroplasty Anesthesia: General Estimated blood loss: 5 mL Tourniquet time: 25 minutes 300 mmHg Complications: none Indication for procedure: 52-year-old female patient who has had ongoing mechanical knee pain who did have MRI evidence of medial meniscus tear and DJD the patient did wish to proceed with an elective arthroscopic surgery to attempt to alleviate the symptoms. Risk benefits and alternatives of the procedure were reviewed including risk of bleeding infection nerve artery tissue damage need for further surgery continued pain and expected postoperative course. Procedure: The patient was met in the preoperative holding area. The operative extremity was identified by both patient and physician and family and marked. Patient was brought back to the operating room on a wheeled cart and transferred to the operating table in the supine position. Anesthesia was started. A well- padded tourniquet was placed on the operative extremity. A lower extremity leg ewing was secured to the operative extremity. The contralateral extremity was well-padded and the end of the bed was flexed to 90 degrees. The patient was prepped and draped in the usual sterile fashion. A timeout was called to ensure the proper patient, procedure, and extremity were being contemplated. 0.5% Marcaine with epinephrine was injected into the planned incisional areas under the skin only. An Esmarch was used to exsanguinate the extremity and the tourniquet was inflated. An 11 blade scalpel was used to make a stab incision in the anterior lateral portal. The arthroscope was inserted into the intercondylar notch and inflow and outflow tubes were attached. Arthroscopic visualization began. The medial compartment was entered. An 18-gauge spinal needle was used to establish the placement for anterior medial portal. An 11 blade scalpel was used to make a stab incision. Blunt probe was inserted followed by a meniscal probe. The medial compartment did have high-grade cartilage wear of the entire medial femoral condyle with most areas of grade 3 and 4 changes there was loose cartilage that was debrided with a shaver performing a gentle chondroplasty there was a complex tear of the posterior horn and anterior horn of the medial meniscus which was debrided with a shaver performing a partial medial meniscectomy the ACL was found to be intact. The lateral compartment was entered was free of meniscal or cartilage pathology The arthroscope was switched to the medial portal to complete the procedure. The medial and lateral gutters were inspected and were free of loose bodies. The patellofemoral joint was inspected and had small area of grade 4 in the remainder of the trochlea had areas of grade II and III chondromalacia as well as the patella. There was good patellar tracking. The knee was thoroughly irrigated and drained. An intra-articular injection with 5 cc 0.5% Marcaine plain and 40 mg of Depo-Medrol was injected intra-articularly. The arthroscope was removed the portals were closed with 3-0 nylon arthroscopic stitches. Followed by Xeroform 4 x 4's ABDs web roll and an Anthony wrap. The tourniquet was let down and the drapes were removed. All counts were correct. The patient was brought back to the PACU in stable condition.
--- NOTE | 2022-12-02 08:33 | DCINST_ITS ---
Discharge Instructions Diet Discharge Diet: No restrictions Activity Keep extremity elevated above heart level: Operative Extremity Dressing / Incision Call your doctor if you observe: Shortness of breath and Chest pain Additional Dressing/Incision Instructions:: Ice and elevate next 72 hours .keep dressing on clean and dry for 48 hours then may remove begin showering daily but do not submerge in tub or pool. After shower may apply Band-Aids . Encourage knee range of motion weightbearing as tolerated, use crutches until confident in knee then may discontinue. No strenuous activity. When not ambulating keep iced and elevated next 72 hours. Do not mix pain medication with recreational drugs or alcohol only take as prescribed can be addictive and abusive, call with any questions or concerns. Follow Up Care Please Follow Up With: Toy Soriano DO When: 2 weeks Test Results: Test results from this visit will be discussed in further detail at your follow- up appointment, if applicable. Discharge Plan Admission Primary Reason for Your Visit: Left knee arthroscopy Attending Provider: Toy Soriano Primary Care Provider: Ana Prakash Discharge Orders/Prescriptions Prescriptions: New oxycodone 5 mg tablet 5 - 10 mg PO Q4H PRN (Reason: pain) 5 Days Qty: 25 0RF Continued losartan 100 mg tablet 100 mg PO DAILY ibuprofen 200 mg tablet 800 mg PO BID acetaminophen 650 mg Tablet Extended Release 1,300 mg PO BID Referrals / Follow Up: Ana Prakash MD [Primary Care Provider] - Disposition Disposition (needs filled in before D/C Order can be placed): Home, Self Care
[2022-12-02] MEDS: Oxycodone/Apap 5/325 Tablet PO (09:59)
== END 2022-12-02 11:04 | disposition home or self-care (01) ==
LOC: SDC 05:58 → AC 06:02
PROVIDERS: PCP Internal Medicine; Referring Provider Orthopaedic Surgery; Visit Provider Orthopaedic Surgery
PROC: (CPT 29870; principal; 2022-12-02 07:10)
DX: M17.12 Unilateral primary osteoarthritis, left knee (principal); S83.232D Complex tear of medial meniscus, current injury, left knee, subsequent encounter; I10 Essential (primary) hypertension; Z96.619 Presence of unspecified artificial shoulder joint
CPT/HCPCS: 29881; 01400; J7120; J2405

== ENCOUNTER → 2023-02-02 | Outpatient (CLI) | payer BC, SELFPAY ==
--- NOTE | 2023-02-02 14:45 | MRI_ITS ---
INDICATION: pain, LOW BACK PAIN RADIATING DOWN LEGS EXAMINATION: MRI - MR Spine Lumbar W/O Contrast TECHNIQUE: Multiplanar and multisequence MR images of the lumbar spine without contrast. IV Contrast Dosage and Agent: None. COMPARISON: Lumbar spine radiograph January 15, 2023. Lumbar spine MRI March 05, 2015. FINDINGS: VERTEBRAE: Normal bone marrow signal. No fracture or compression deformity. Facet no aggressive osseous lesion. Preserved lumbar lordosis. Minimal degenerative grade 1 anterolisthesis L4 on L5 . CORD: Conus medullaris at T12-L1. Imaged portion of the cord is normal signal. Cauda equina layer dependently.. T9-T10: Circumferential disc bulge with small broad-based posterior disc protrusion, causing mild spinal canal stenosis without cord compression. L1/L2: Normal disc height and morphology. Normal spinal canal, lateral recesses and neuroforamina. L2/L3: Normal disc height and morphology. Normal spinal canal, lateral recesses and neuroforamina. L3/L4: Normal disc height and morphology. Mild bilateral ligamentum flavum hypertrophy. No evidence of significant spinal canal, lateral recess or neuroforamina stenosis.. L4/L5: Slight uncovering of the posterior superior disc due to grade 1 listhesis. Severe bilateral facet arthropathy with mild ligamentum flavum hypertrophy. Moderate spinal canal narrowing. Moderate right neural foraminal narrowing with disc likely contacting the exiting L4 nerve root. Mild left neural foraminal narrowing.. L5/S1: Disc height loss with minimal posterior disc bulge. Moderate to severe bilateral facet arthropathy. Together findings cause no significant central spinal canal stenosis. Mild left neural foraminal narrowing. SOFT TISSUES: Unremarkable. MRI/Spine Lumbar (Routine) IMPRESSION: Lower thoracic and lower lumbar spondylosis as above with up to moderate view spinal canal stenosis at L4-5. Up to moderate right neural foraminal narrowing L4-5 with disc likely contacting the exiting L4 nerve root, new or worsened from March 05, 2015. Electronically Signed: Jesús Rangel MD at 2:54 EDT ,
== END | disposition home or self-care (01) ==
LOC: MRI 14:16
PROVIDERS: PCP Internal Medicine; Referring Provider Orthopaedic Surgery; Visit Provider Orthopaedic Surgery
DX: M43.10 Spondylolisthesis, site unspecified (principal)
CPT/HCPCS: 72148

== ENCOUNTER 2023-04-09 15:00 | Outpatient (RCR) | payer BC, SELFPAY ==
--- NOTE | 2023-03-26 08:58 | HP.PTEVAL_ITS ---
Patient's Visit Information Visit Information Visit Information: ANTONINA KEITH is a 52 year old F referred to Physical Therapy by Dr. Tamara Martinez DPM with a diagnosis of Achilles tendonitis, M76.61. Date of Evaluation: 03/26/23 Physical Therapist: Efren Vicente Visit Plan Frequency: 2x /Week Duration: 6 Weeks Plan: Continue with eccentric calf strengthening, ankle strengthening, and bal ance exercises. Use manual therapy and modalities as needed for pain control. Subjective Subjective: Pt. is a 52 y.o. female who has been having right Achilles tendon pain for about a year with no specific injury that she is aware of. Her PLOF includes history of right foot plantar fasciitis. She has x-ray of her ankle which showed bone spur on her calcaneus. Pt. denies any numbness or tingling in her foot. She has difficulty with standing/walking while wearing shoes, occasionally sleeping, walking on uneven ground, housework, yard work, and work activity. Pt. works at [employer]. Her goal with physical therapy is to be pain free. Pt. has had previous physical therapy for her back and shoulder. Pt. rates Achilles pain at 1/10 currently, at worst 8/10 and describes the pain as throbbing. She takes Tylenol for pain. Her PMH includes right total shoulder replacement, left knee meniscectomy, kidney removed, lumbar L5-S1 discectomy, hysterectomy, and left plantar fascia surgery. Her hobbies include farming and gardening. Objective Objective: Palpation- No tenderness to palpation Left ankle DF 10 degrees, PF 37 degrees, Inv 32 degrees, Eversion 15 degrees Right ankle DF 8 degrees, PF 36 degrees, Inv 30 degrees, Eversion 17 degrees Left LE strength hip flexion 5/5, abduction 5/5, adduction 5/5, extension 5/5, knee flexion 5/5, knee extension 5/5, ankle DF 5/5, PF 5/5, Inv 5/5, Ev 5/5 Right LE strength hip flexion 5/5, abduction 5/5, adduction 5/5, extension 5/5, knee flexion 5/5, knee extension 5/5, ankle DF 5/5, PF 4+/5, Inv 5/5, Ev 5/5 Tandem stance right 30 secs, left 30 secs SLS right 8 secs, left 10 secs Special tests- Anterior drawer [-], Talar tilt [-], Metatarsal squeeze [-], Windlass test [-] Gait- Pt. ambulates with no noticeable gait deviations. Balance/Special Test Scores Lower Extremity Functional Score: 40 Goals Goal 1:: Pt. will improve right ankle strength to 5/5 for all motions in order to ambulate longer distances. Goal Time Frame: 4-6 Weeks Goal 2:: Pt. will be able to stand/walk for at least 20 minutes with right heel pain < 3/10. Goal Time Frame: 4-6 Weeks Goal 3:: Pt. will be able to sleep a full night with no right heel pain. Goal Time Frame: 4-6 Weeks Goal 4:: Pt. will rate right heel pain at worst at 3/10 after a full day of work activity. Goal Time Frame: 4-6 Weeks Goal 5:: Pt. will improve LEFS score < 40% disability in order to improve ADL's and IADL's. Goal Time Frame: 4-6 Weeks Rehabilitation Potential Physical Therapy Diagnosis: Decreased right ankle strength, difficulty walking, and pain. Pt. 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 Rehabilitation Potential: Good Anticipated Interventions Patient/Client Instruction: Educate patient on: Condition, Plan of Care and Benefits of Fitness Program For the Purpose of:: To decrease pain, To improve ability to perform ADL's, To improve performance and independence with ADL's, To increase flexibility/ROM, To assume or resume ADL's and To improve tolerance to ADL's Therapeutic Exercise to Include: Strength training, Balance training, Gait and locomotor training, Passive ROM and Active ROM Comment: Continue with ankle strengthening and balance exercises. For the Purpose of:: To decrease pain, To increase ROM, To improve ability to perform ADL's, To improve performance and independence with ADL's, To increase flexibility/ROM, To assume or resume ADL's and To improve tolerance to ADL's Functional Training to Include: ADL Training and Gait training For the Purpose of:: To decrease pain, To improve ability to perform ADL's, To improve performance and independence with ADL's, To assume or resume ADL's and To improve tolerance to ADL's Manual Therapy Techniques to Include: Mobilization, Passive ROM and Soft tissue mobilization For the Purpose of:: To decrease pain, To decrease swelling/inflammation, To increase ROM, To improve ability to perform ADL's, To improve performance and independence with ADL's, To increase flexibility/ROM, To assume or resume ADL's and To improve tolerance to ADL's Iontophoresis (with Dexamethozone, with Acetic acid): Yes TENS: Yes IF ES: Yes Cryotherapy (ice pack, ice massage): Yes Thermo therapy (hot pack): Yes Ultrasound (thermal/non thermal): Yes For the Purpose of:: To decrease pain, To decrease swelling/inflammation, To increase ROM, To improve ability to perform ADL's, To improve performance and independence with ADL's, To decrease soft tissue restriction, To increase flexibility/ROM, To assume or resume ADL's and To improve tolerance to ADL's Text: Thank you for the opportunity to evaluate your patient. For Medicare and Medicare HMO plans, please review the plan of care and approve it. It will need to be FAXED BACK to us at [phone] for Medicare purposes. For Medicare only, by signing this I certify the plan of care. Please let me know if there are questions or concerns regarding this plan of care. Physician Signature: Date:
--- NOTE | 2023-07-14 15:50 | HP.PT.NRP ---
Patient Information Patient Information: ANTONINA KEITH was seen in my office for initial evaluation on 03/26/23. The following Plan of Care was established for this patient: POC Established Initial Frequency: 2x /Week Initial Duration: 6 Weeks Anticipated Interventions Patient/Client Instruction: Educate patient on: Condition, Plan of Care and Benefits of Fitness Program For the Purpose of:: To decrease pain, To improve ability to perform ADL's, To improve performance and independence with ADL's, To increase flexibility/ROM, To assume or resume ADL's and To improve tolerance to ADL's Therapeutic Exercise to Include: Strength training, Balance training, Gait and locomotor training, Passive ROM and Active ROM For the Purpose of:: To decrease pain, To increase ROM, To improve ability to perform ADL's, To improve performance and independence with ADL's, To increase flexibility/ROM, To assume or resume ADL's and To improve tolerance to ADL's Functional Training to Include: ADL Training and Gait training For the Purpose of:: To decrease pain, To improve ability to perform ADL's, To improve performance and independence with ADL's, To assume or resume ADL's and To improve tolerance to ADL's Manual Therapy Techniques to Include: Mobilization, Passive ROM and Soft tissue mobilization For the Purpose of:: To decrease pain, To decrease swelling/inflammation, To increase ROM, To improve ability to perform ADL's, To improve performance and independence with ADL's, To increase flexibility/ROM, To assume or resume ADL's and To improve tolerance to ADL's Iontophoresis (with Dexamethozone, with Acetic acid): Yes TENS: Yes IF ES: Yes Cryotherapy (ice pack, ice massage): Yes Thermo therapy (hot pack): Yes Ultrasound (thermal/non thermal): Yes For the Purpose of:: To decrease pain, To decrease swelling/inflammation, To increase ROM, To improve ability to perform ADL's, To improve performance and independence with ADL's, To decrease soft tissue restriction, To increase flexibility/ROM, To assume or resume ADL's and To improve tolerance to ADL's Last Seen Last Seen: This patient was last seen in our office 04/07/23. Pertinent comments regarding their Physical therapy will appear below: Pt seen 5 visits of POC but did not return for any further visits. At this point, it has been over 3 months and I will discontinue due to nonattendance. At this point I will be discontinuing this patient from physical therapy. I would be happy to see this patient again in the future if found appropriate by the physician. Thank you! Celso Looney, DPT, OCS, CSCS Balance/Gait/Functional tests Balance/Special Test Scores Lower Extremity Functional Score: 40
== END 2023-04-09 19:00 | disposition home or self-care (01) ==
LOC: PT 15:00
PROVIDERS: PCP Internal Medicine; Referring Provider Podiatrist; Visit Provider Podiatrist
DX: M76.61 Achilles tendinitis, right leg (principal)
CPT/HCPCS: 97035; 97110; 97140; 97161

== ENCOUNTER → 2023-04-11 | Outpatient (CLI) | payer BC, SELFPAY ==
--- NOTE | 2023-04-11 08:59 | MRI_ITS ---
EXAM: MR RIGHT LOWER EXTREMITY WITHOUT INTRAVENOUS CONTRAST, ANKLE CLINICAL INDICATION: ACHILLES TENDONITIS, PAINFUL LUMP X 1 YR TECHNIQUE: Multiplanar and multisequence MR images of the right ankle without intravenous contrast. COMPARISON: No relevant prior studies available. FINDINGS: LIGAMENTS: ANTERIOR TALOFIBULAR: Unremarkable. Intact. POSTERIOR TALOFIBULAR: Thickening of the anterior and posterior talofibular ligaments and calcaneofibular ligament from a previous injury. ANTERIOR TIBIOFIBULAR: Unremarkable. Intact. POSTERIOR TIBIOFIBULAR: Unremarkable. Intact. CALCANEOFIBULAR: See above. DELTOID: Signal alteration concerning for a moderate grade sprain injury involving the superficial and deep fibers of the deltoid ligamentous complex. SPRING: Unremarkable. Intact. LISFRANC: Unremarkable. Intact. TENDONS: ACHILLES: Moderate grade focal partial thickness tear involving the Achilles tendon with failure located at the calcaneal attachment of the Achilles tendon. FLEXOR: Mild medial flexor tenosynovitis without tendon tear. EXTENSOR: Unremarkable. Intact. PERONEAL: Mild peroneal tenosynovitis without tendon tear. TIBIALIS ANTERIOR: Unremarkable. Intact. TIBIALIS POSTERIOR: Unremarkable. Intact. MUSCLES: Unremarkable. Normal bulk and signal. FLUID: Moderate posterior subtalar and posterior tibiotalar joint effusion. Moderate thickening of the central cord of plantar aponeurosis with no adjacent fluid or inflammation to suggest active fasciitis. SINUS TARSI: Unremarkable. Normal fat in the sinus tarsi. TARSAL TUNNEL: Unremarkable. PLANTAR FASCIA: Prominent plantar calcaneal spur and moderate thickening of the central cord of plantar aponeurosis without adjacent fluid or inflammation. CARTILAGE: Unremarkable. No osteochondral lesion. Articular cartilage intact. BONES/JOINTS: Ankle mortise is intact. Focal edema involving the lateral talar dome may reflect an overlying subtle osteochondral injury. OTHER SOFT TISSUES: Unremarkable. MRI/Lower Ext Joint Only (Routine) IMPRESSION: 1. Moderate grade focal intrasubstance partial-thickness tear of the Achilles tendon at the proximal calcaneal attachment on a background of at least moderate Achilles tendinosis. 2. Moderate deltoid ligamentous complex sprain. 3. Remote injury involving the lateral collateral ligamentous complex. 4. Focal edema involving the lateral talar dome may reflect an overlying subtle osteochondral injury. Electronically Signed: Cyrus Ly, MD at 4:53 EST ,
--- OUTSIDE RECORDS SUMMARY | 2023-04-11 09:17 | XMS RPT_ITS | CCD ---
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 - Closed Specialty Diagnoses / Procedures Referred By Contac t Referred To Contact XR IMAGING Diagnoses Injury of right shoulder, initial encounter Procedures XR SHOULDER GENERAL 3V OR MORE AP/TRUE AP/OTHER RIGHT RADEX SHOULDER COMPLETE MINIMUM 2 VIEWS Douglas Tee APRN.BONE DRIER OPERATOR [address] [place] [address] Xr Imaging Referral ID Status Reason Start Date Expiration Date V isits Requested Visits Authorized [id number] Closed Auto-Generate d Referral 09/27/2021 10/27/2022 1 1 * Diagnostic Procedure Only (Urgent) - Closed Specialty Diagnoses / Procedures Referred By Contac t Referred To Contact XR IMAGING Diagnoses Acute pain of left knee Procedures XR KNEE GENERAL 4V AP BOTH/PA BOTH/LAT/MERC LEFT RADIOLOGIC EXAM KNEE COMPLETE 4/MORE VIEWS Douglas Tee APRN.BONE DRIER OPERATOR [address] [place] [address] Xr Imaging Referral ID Status Reason Start Date Expiration Date V isits Requested Visits Authorized [id number] Closed Auto-Generate d Referral 09/27/2021 10/27/2022 1 1 [facility] for referral (narrative)* Outpatient Procedure (Routine) - Additional Clinical Info Needed Specialty Diagnoses / Procedures Referred By Contac t Referred To Contact [facility] Diagnoses Pain of left lower extremity Procedures US LEG VEIN DVT UNL VAS LAB DUP-SCAN XTR VEINS UNILATERAL/LIMITED STUDY Trell Lau MD [address] [place] [address] [facility] [address] [place] [address] Referral ID Status Reason Start Date Expiration Date Visits Requested Visits Authorized [id number] Additional Clinical Info Needed Auto-Generat ed Referral 08/15/2022 08/15/2023 1 1 [facility] for referral (narrative)* Diagnostic Procedure Only (Routine) - Closed Specialty Diagnoses / Procedures Referred By Raymond t Referred To Contact BR IMAGING Diagnoses Encounter for screening mammogram for breast cancer Procedures THIERNO SCREENING W CONNIE SCREENING DIGITAL BREAST TOMOSYNTHESIS BI SCREENING MAMMOGRAPHY BI 2-VIEW BREAST INC CAD Trell Lau MD [address] [place] [address] [facility] [address] [place] [address] Referral ID Status Reason Start Date Expiration Date V isits Requested Visits Authorized [id number] Closed Auto-Generate d Referral 09/18/2021 10/18/2022 1 1 [facility] for visit Narrative* Diagnostic Procedure Only (Routine) - Closed Specialty Diagnoses / Procedures Referred By Contac t Referred To Contact XR IMAGING Diagnoses Radiculopathy, lumbar region Procedures XR LUMBAR LIMITED 2V FLEX/EXT RADEX SPINE LUMBOSACRAL 2/3 VIEWS Arlette Wilson I, MD [address] [place] [address] Xr Imaging Referral ID Status Reason Start Date Expiration Date V isits Requested Visits Authorized [id number] Closed Auto-Generate d Referral 09/06/2021 10/06/2022 1 1 [facility] for visit Narrative* Diagnostic Procedure Only (Routine) - Closed Specialty Diagnoses / Procedures Referred By Contdeandre t Referred To Contact BR IMAGING Diagnoses Encounter for screening mammogram for breast cancer Procedures THIERNO SCREENING W CONNIE SCREENING DIGITAL BREAST TOMOSYNTHESIS BI SCREENING MAMMOGRAPHY BI 2-VIEW BREAST INC CAD Trell Lau MD [address] [place] [address] [facility] [address] [place] [address] Referral ID Status Reason Start Date Expiration Date V isits Requested Visits Authorized [id number] Closed Auto-Generate d Referral 09/18/2021 10/18/2022 1 1 [facility] Summary Purpose Family History No Family History Records FoundNo Family History Records FoundNo Family History Records Found Advance Directives No Advanced Directives Records FoundDocuments on File Type Date Recorded 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 Advance Directive(s) 08/15/2011 9:14 PM Documents on File Type Date Recorded 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 Advance Directive(s) 08/15/2011 9:14 PM Reason for Referral Specialty Diagnoses / Procedures Referred By Raymond henriquez Referred To Contact [facility] Diagnoses Right-sided low back pain with right-sided sciatica, unspecified chronicity Procedures CONSULT TO PHYSICAL THERAPY PHYSICAL THERAPY EVALUATION HIGH COMPLEX 45 MINS Trell Lau MD [address] [place] [address] [facility] [address] [place] [address] Referral ID Status Reason Start Date Expiration Date Visits Requested Visits Authorized [id number] Pending Review Auto-Generat ed Referral 06/25/2021 06/25/2022 1 1 Specialty Diagnoses / Procedures Referred By Raymond henriquez Referred To Contact XR IMAGING Diagnoses Right-sided low back pain with right-sided sciatica, unspecified chronicity Procedures XR LUMBAR GENERAL 3V AP/LAT/L5-S1 RADEX SPINE LUMBOSACRAL 2/3 VIEWS Trell Lau MD [address] [place] [address] Xr Imaging Referral ID Status Reason Start Date Expiration Date V isits Requested Visits Authorized [id number] Closed Auto-Generate d Referral 06/25/2021 07/25/2022 1 1 Specialty Diagnoses / Procedures Referred By Contac t Referred To Contact MR IMAGING Diagnoses Spinal stenosis of lumbar region with neurogenic claudication Procedures MRI LUMBAR SPINE WO IVCON MRI SPINAL CANAL LUMBAR W/O CONTRAST MATERIAL Trell Lau MD [address] [place] [address] Mr Imaging Referral ID Status Reason Start Date Expiration Date V isits Requested Visits Authorized [id number] Closed Auto-Generate d Referral 07/17/2021 08/15/2021 1 1 Specialty Diagnoses / Procedures Referred By Contac t Referred To Contact [facility] [place] [facility] Diagnoses Spinal stenosis at L4-L5 level Facet hypertrophy Procedures CONSULT TO [facility] OFF[facility]/OUTPATIENT [facility] MDM 60-74 MINUTES Older, CLEM Townsend.BONE DRIER OPERATOR [address] [place] [address] [facility] [address] [place] [address] Referral ID Status Reason Start Date Expiration Date Visits Requested Visits Authorized [id number] Authorized PCP Requested Referral 08/01/2021 08/01/2022 1 1 Specialty Diagnoses / Procedures Referred By Contac t Referred To Contact Pain Management Diagnoses Radiculopathy, lumbar region Spondylolisthesis of lumbar region Procedures CONSULT TO PAIN MGT Arlette Wilson I, MD [address] [place] [address] Referral ID Status Reason Start Date Expiration Date Visits Requested Visits Authorized [id number] Ref Not Required PCP Requested Referral 09/16/2021 12/15/2021 3 3 Specialty Diagnoses / Procedures Referred By Contac t Referred To Contact XR IMAGING Diagnoses Radiculopathy, lumbar region Procedures XR LUMBAR LIMITED 2V FLEX/EXT RADEX SPINE LUMBOSACRAL 2/3 VIEWS Arlette Wilson I, MD [address] [facility] [place] [address] Xr Imaging Referral ID Status Reason Start Date Expiration Date V isits Requested Visits Authorized [id number] Closed Auto-Generate d Referral 09/06/2021 10/06/2022 1 1 Specialty Diagnoses / Procedures Referred By Contac t Referred To Contact Orthopedics Diagnoses Pain Procedures CONSULT TO ORTHOPAEDICS OFFICE/OUTPATIENT [facility] MDM 60-74 MINUTES Adelaide Richards APRN.BONE DRIER OPERATOR [address] [place] [address] Referral ID Status Reason Start Date Expiration Date Visits Requested Visits Authorized [id number] Authorized PCP Requested Referral 02/17/2024 1 1 Specialty Diagnoses / Procedures Referred By Contac t Referred To Contact XR IMAGING Diagnoses Pain Procedures XR SHOULDER LIMITED 2V AP/TRUE AP LEFT RADEX SHOULDER COMPLETE MINIMUM 2 VIEWS Adelaide Richards APRN.BONE DRIER OPERATOR [address] [place] [address] [place] [address] Referral ID Status Reason Start Date Expiration Date V isits Requested Visits Authorized [id number] Closed Auto-Generate d Referral 02/17/2023 03/18/2024 1 1 Medications Administered Section Inactive Administered Medications - up to 3 most recent administrations Medication Order MAR Action Action Date Dose Rate Site 0.9% NaCl 10 mL flush 10 mL, OTHER, ONCE, 1 dose, On Thu09/24/21 at 1430 Given by [facility] 09/24/2021 2:15 PM EDT 10 mL iohexol 300 mg IV injection (OMNIPAQUE 300) 300 mg, OTHER, ONCE, 1 dose, On Thu09/24/21 at 1430 Given by [facility] 09/24/2021 2:16 PM EDT 300 mg lidocaine (PF) 10 mg/mL (1 %) 50 mg injection (XYLOCAINE) 50 mg (5 mL), OTHER, ONCE, 1 dose, On Thu09/24/21 at 1430 Given by [facility] 09/24/2021 2:16 PM EDT 50 mg lidocaine (PF) 20 mg/mL (2 %) 100 mg injection (XYLOCAINE) 100 mg (5 mL), OTHER, ONCE, 1 dose, On Thu09/24/21 at 1430 Given by [facility] 09/24/2021 2:17 PM EDT 100 mg methylPREDNISolone acetate 40 mg injection (DEPO-Medrol) 40 mg, OTHER, ONCE, 1 dose, On Thu09/24/21 at 1430 Given by [facility] 09/24/2021 2:17 PM EDT 40 mg Inactive Administered Medications - up to 3 most recent administrations Medication Order MAR Action Action Date Dose Rate Site 0.9% NaCl 5 mL flush 5 mL, OTHER, ONCE, 1 dose, On Thu05/05/22 at 1530 Given by [facility] 05/05/2022 3:07 PM EST 5 mL iohexol 300 mg IV injection (OMNIPAQUE 300) 300 mg, OTHER, ONCE, 1 dose, On Thu05/05/22 at 1530 Given by [facility] 05/05/2022 3:07 PM EST 300 mg lidocaine (PF) 10 mg/mL (1 %) 50 mg injection (XYLOCAINE) 50 mg (5 mL), OTHER, ONCE, 1 dose, On Thu05/05/22 at 1530 Given by [facility] 05/05/2022 3:06 PM EST 50 mg lidocaine (PF) 20 mg/mL (2 %) 100 mg injection (XYLOCAINE) 100 mg (5 mL), OTHER, ONCE, 1 dose, On Thu05/05/22 at 1530 Given by [facility] 05/05/2022 3:06 PM EST 100 mg methylPREDNISolone acetate 40 mg injection (DEPO-Medrol) 40 mg, OTHER, ONCE, 1 dose, On Thu05/05/22 at 1530 Given by [facility] 05/05/2022 3:07 PM EST 40 mg Inactive Administered Medications - up to 3 most recent administrations Medication Order MAR Action Action Date Dose Rate Site 0.9% NaCl 10 mL flush 10 mL, OTHER, ONCE, 1 dose, On Thu12/29/22 at 1430 Given by [facility] 12/29/2022 3:55 PM EDT 10 mL iohexol 300 mg IV injection (OMNIPAQUE 300) 300 mg, OTHER, ONCE, 1 dose, On Thu12/29/22 at 1430 Given by [facility] 12/29/2022 3:55 PM EDT 300 mg lidocaine (PF) 10 mg/mL (1 %) 100 mg injection (XYLOCAINE) 100 mg, OTHER, ONCE, 1 dose, On Thu12/29/22 at 1430 Given by [facility] 12/29/2022 3:55 PM EDT 100 mg methylPREDNISolone acetate 40 mg injection (DEPO-Medrol) 40 mg, OTHER, ONCE, 1 dose, On Thu12/29/22 at 1430 Given by [facility] 12/29/2022 3:56 PM EDT 40 mg Additional Source Comments INFORMATION SOURCE (unrecogn ized section and content) DATE CREATED AUTHOR AUTHOR'S ORGANIZ ATION 03/16/2023 [facility] DATE CREATED AUTHOR AUTHOR'S ORGANIZ ATION 03/19/2023 [facility] Source Comments (unrecognize d section and content) In the event this informatio n is protected by the Federal Confidentiality of Alcohol and Drug Abuse Patient Records regulations: The Federal rules restrict any use of the information to criminally investigate or prosecute any alcohol or drug abuse patient.[facility] the event this information is protected by the Federal Confidentiality of Alcohol and Drug Abuse Patient Records regulations: The Federal rules restrict any use of the information to criminally investigate or prosecute any alcohol or drug abuse patient.[facility] the event this information is protected by the Federal Confidentiality of Alcohol and Drug Abuse Patient Records regulations: The Federal rules restrict any use of the information to criminally investigate or prosecute any alcohol or drug abuse patient.[facility] the event this information is protected by the Federal Confidentiality of Alcohol and Drug Abuse Patient Records regulations: The Federal rules restrict any use of the information to criminally investigate or prosecute any alcohol or drug abuse patient.[facility] the event this information is protected by the Federal Confidentiality of Alcohol and Drug Abuse Patient Records regulations: The Federal rules restrict any use of the information to criminally investigate or prosecute any alcohol or drug abuse patient.[facility] the event this information is protected by the Federal Confidentiality of Alcohol and Drug Abuse Patient Records regulations: The Federal rules restrict any use of the information to criminally investigate or prosecute any alcohol or drug abuse patient.[facility] Hospital[facility] the event this information is protected by the Federal Confidentiality of Alcohol and Drug Abuse Patient Records regulations: The Federal rules restrict any use of the information to criminally investigate or prosecute any alcohol or drug abuse patient.[facility] the event this information is protected by the Federal Confidentiality of Alcohol and Drug Abuse Patient Records regulations: The Federal rules restrict any use of the information to criminally investigate or prosecute any alcohol or drug abuse patient.[facility] the event this information is protected by the Federal Confidentiality of Alcohol and Drug Abuse Patient Records regulations: The Federal rules restrict any use of the information to criminally investigate or prosecute any alcohol or drug abuse patient.[facility] the event this information is protected by the Federal Confidentiality of Alcohol and Drug Abuse Patient Records regulations: The Federal rules restrict any use of the information to criminally investigate or prosecute any alcohol or drug abuse patient.[facility] HospitalIn the event this information is protected by the Federal Confidentiality of Alcohol and Drug Abuse Patient Records regulations: The Federal rules restrict any use of the information to criminally investigate or prosecute any alcohol or drug abuse patient.[facility] HospitalIn the event this information is protected by the Federal Confidentiality of Alcohol and Drug Abuse Patient Records regulations: The Federal rules restrict any use of the information to criminally investigate or prosecute any alcohol or drug abuse patient.[facility] HospitalIn the event this information is protected by the Federal Confidentiality of Alcohol and Drug Abuse Patient Records regulations: The Federal rules restrict any use of the information to criminally investigate or prosecute any alcohol or drug abuse patient.[facility] Hospital[facility] the event this information is protected by the Federal Confidentiality of Alcohol and Drug Abuse Patient Records regulations: The Federal rules restrict any use of the information to criminally investigate or prosecute any alcohol or drug abuse patient.[facility] HospitalIn the event this information is protected by the Federal Confidentiality of Alcohol and Drug Abuse Patient Records regulations: The Federal rules restrict any use of the information to criminally investigate or prosecute any alcohol or drug abuse patient.[facility] HospitalIn the event this information is protected by the Federal Confidentiality of Alcohol and Drug Abuse Patient Records regulations: The Federal rules restrict any use of the information to criminally investigate or prosecute any alcohol or drug abuse patient.[facility] HospitalIn the event this information is protected by the Federal Confidentiality of Alcohol and Drug Abuse Patient Records regulations: The Federal rules restrict any use of the information to criminally investigate or prosecute any alcohol or drug abuse patient.[facility] HospitalIn the event this information is protected by the Federal Confidentiality of Alcohol and Drug Abuse Patient Records regulations: The Federal rules restrict any use of the information to criminally investigate or prosecute any alcohol or drug abuse patient.[facility] HospitalIn the event this information is protected by the Federal Confidentiality of Alcohol and Drug Abuse Patient Records regulations: The Federal rules restrict any use of the information to criminally investigate or prosecute any alcohol or drug abuse patient.[facility] HospitalIn the event this information is protected by the Federal Confidentiality of Alcohol and Drug Abuse Patient Records regulations: The Federal rules restrict any use of the information to criminally investigate or prosecute any alcohol or drug abuse patient.[facility] HospitalIn the event this information is protected by the Federal Confidentiality of Alcohol and Drug Abuse Patient Records regulations: The Federal rules restrict any use of the information to criminally investigate or prosecute any alcohol or drug abuse patient.[facility] HospitalIn the event this information is protected by the Federal Confidentiality of Alcohol and Drug Abuse Patient Records regulations: The Federal rules restrict any use of the information to criminally investigate or prosecute any alcohol or drug abuse patient.[facility] HospitalIn the event this information is protected by the Federal Confidentiality of Alcohol and Drug Abuse Patient Records regulations: The Federal rules restrict any use of the information to criminally investigate or prosecute any alcohol or drug abuse patient.[facility] HospitalIn the event this information is protected by the Federal Confidentiality of Alcohol and Drug Abuse Patient Records regulations: The Federal rules restrict any use of the information to criminally investigate or prosecute any alcohol or drug abuse patient.[facility] HospitalIn the event this information is protected by the Federal Confidentiality of Alcohol and Drug Abuse Patient Records regulations: The Federal rules restrict any use of the information to criminally investigate or prosecute any alcohol or drug abuse patient.[facility] HospitalIn the event this information is protected by the Federal Confidentiality of Alcohol and Drug Abuse Patient Records regulations: The Federal rules restrict any use of the information to criminally investigate or prosecute any alcohol or drug abuse patient.[facility] HospitalIn the event this information is protected by the Federal Confidentiality of Alcohol and Drug Abuse Patient Records regulations: The Federal rules restrict any use of the information to criminally investigate or prosecute any alcohol or drug abuse patient.[facility] HospitalIn the event this information is protected by the Federal Confidentiality of Alcohol and Drug Abuse Patient Records regulations: The Federal rules restrict any use of the information to criminally investigate or prosecute any alcohol or drug abuse patient.[facility] HospitalIn the event this information is protected by the Federal Confidentiality of Alcohol and Drug Abuse Patient Records regulations: The Federal rules restrict any use of the information to criminally investigate or prosecute any alcohol or drug abuse patient.[facility] HospitalIn the event this information is protected by the Federal Confidentiality of Alcohol and Drug Abuse Patient Records regulations: The Federal rules restrict any use of the information to criminally investigate or prosecute any alcohol or drug abuse patient.[facility] HospitalIn the event this information is protected by the Federal Confidentiality of Alcohol and Drug Abuse Patient Records regulations: The Federal rules restrict any use of the information to criminally investigate or prosecute any alcohol or drug abuse patient.[facility] HospitalIn the event this information is protected by the Federal Confidentiality of Alcohol and Drug Abuse Patient Records regulations: The Federal rules restrict any use of the information to criminally investigate or prosecute any alcohol or drug abuse patient.[facility] Reason for Visit (unrecogniz ed section and content) Specialty Diagnoses / Procedures Referred By Contdeandre t Referred To Contact [facility] Diagnoses Right-sided low back pain with right-sided sciatica, unspecified chronicity Procedures CONSULT TO PHYSICAL THERAPY PHYSICAL THERAPY EVALUATION HIGH COMPLEX 45 MINS THERAPEUTIC EXERCISES RE, EA 15 MIN. Trell Lau MD [address] [place] [address] [facility] [place] [address] [place] [address] Referral ID Status Reason Start Date Expiration Date V isits Requested Visits Authorized [id number] Authorized 06/26/2021 04/05/2022 20 20 Reason Comments F/U 3 Month Reason Comments Results Reason Comments PT Eval Specialty Diagnoses / Procedures Referred By Raymond t Referred To Contact [facility] IMAGING Diagnoses Spinal stenosis of lumbar region with neurogenic claudication Procedures MRI LUMBAR SPINE WO IVCON MRI SPINAL CANAL LUMBAR W/O CONTRAST MATERIAL Trell Lau MD [address] [place] [address] Mr Imaging Referral ID Status Reason Start Date Expiration Date V isits Requested Visits Authorized [id number] Closed Auto-Generate d Referral 07/17/2021 08/15/2021 1 1 Reason Comments Orders Reason Comments neck and shoulder pain x 1.5 days also h tin to swallow Reason Comments New Patient Evaluation Reason Comments Procedure Specialty Diagnoses / Procedures Referred By Contac t Referred To Contact PAIN MANAGEMENT Diagnoses Postlaminectomy syndrome, not elsewhere classified Procedures NJX DX/THER SBST INTRLMNR LMBR/SAC W/IMG GDN Ramy Jeffries MD [address] [address] [facility] [place] [address] [facility] [address] [place] [address] Referral ID Status Reason Start Date Expiration Date Visits Re quested Visits Authorized [id number] Closed 09/17/2021 04/05/2022 1 1 Reason Comments Procedure Follow Up Reason Comments Knee Pain L knee pain, fell do wn stairs last night Shoulder Injury R shoulder and upper back pain, fell down stairs last night Reason Comments Patient Question Reason Comments Cough Cough, sinus and sor e throat x 2 weks Reason Comments Follow Up Specialty Diagnoses / Procedures Referred By Contac t Referred To Contact Pain Management / PAIN MANAGEMENT Diagnoses Postlaminectomy syndrome, not elsewhere classified Caudal NASIR under fluro, no restrictions Procedures NJX DX/THER SBST INTRLMNR LMBR/SAC W/IMG GDN PROCEDURE Becki Beasley PA-C [address] [address] Ramy Jeffries MD [address] [place] [address] Referral ID Status Reason Start Date Expiration Date Visits Re quested Visits Authorized [id number] Closed 05/05/2022 04/05/2023 1 1 Specialty Diagnoses / Procedures Referred By Contac t Referred To Contact Pain Management / PAIN MANAGEMENT Diagnoses Follow-up exam follow up from NASIR Procedures OFFICE/OUTPATIENT ESTABLISHED MOD MDM 30-39 MIN PROVIDER SPECIALTY PHONE CALL Becki Beasley PA-C [address] [address] Becki Beasley PA-C [address] [facility] [address] [place] [address] Referral ID Status Reason Start Date Expiration Date Visits Re quested Visits Authorized [id number] Closed 04/06/2022 04/05/2023 1 1 Reason Comments Same Day Appointment high blood pressure issues and 1 montha go had left arm pain and left ankle swelling Reason Comments Physical Reason Comments Results Electronic Communication Reason Comments Appointment Reason Comments injection questions Specialty Diagnoses / Procedures Referred By Contac t Referred To Contact Pain Management / PAIN MANAGEMENT Diagnoses Postlaminectomy syndrome, not elsewhere classified caudal NASIR Procedures NJX DX/THER SBST INTRLMNR LMBR/SAC W/IMG GDN FLUOR NEEDLE/CATH SPINE/PARASPINAL DX/THER ADDON PROCEDURE Trell Lau MD [address] [place] [address] Ramy Jeffries MD [address] [facility] [address] [place] [address] Referral ID Status Reason Start Date Expiration Date Visits Re quested Visits Authorized [id number] Closed 04/06/2022 04/05/2023 1 1 Reason Comments Follow Up 12/29/22 caudal injec tion . Reason Comments Shoulder Injury Pain in left shoulde r x3 weeks. Reason Comments Follow Up Injection request Care Teams (unrecognized sec tion and content) Child Psychiatrist Relationship Specialty Start Date End Date Trell Lau MD [address] [place], [place] [id number] PCP - General Internal Medicine 05/02/13 Child Psychiatrist Relationship Specialty Start Date End Date Trell Lau MD [address] [place], [place] [id number] PCP - General Internal Medicine 05/02/13 Child Psychiatrist Relationship Specialty Start Date End Date Trell Lau MD [address] [place] [address] PCP - General Internal Medicine 05/02/13 Child Psychiatrist Relationship Specialty Start Date End Date Trell Lau MD [address] [place] [address] PCP - General Internal Medicine 05/02/13 Child Psychiatrist Relationship Specialty Start Date End Date Trell Lau MD [address] [place] [address] PCP - General Internal Medicine 05/02/13 Child Psychiatrist Relationship Specialty Start Date End Date Trell Lau MD [address] [place] [address] PCP - General Internal Medicine 05/02/13 Child Psychiatrist Relationship Specialty Start Date End Date Trell Lau MD [address] [place] [address] PCP - General Internal Medicine 05/02/13 Child Psychiatrist Relationship Specialty Start Date End Date Trell Lau MD [address] [place] [address] PCP - General Internal Medicine 05/02/13 Child Psychiatrist Relationship Specialty Start Date End Date Trell Lau MD [address] [place] [address] PCP - General Internal Medicine 05/02/13 Child Psychiatrist Relationship Specialty Start Date End Date Trell Lau MD [address] [place] [address] PCP - General Internal Medicine 05/02/13 Child Psychiatrist Relationship Specialty Start Date End Date Trell Lau MD [address] [place] [address] PCP - General Internal Medicine 05/02/13 Child Psychiatrist Relationship Specialty Start Date End Date Trell Lau MD [address] [place] [address] PCP - General Internal Medicine 05/02/13 Child Psychiatrist Relationship Specialty Start Date End Date Trell Lau MD [address] [place] [address] PCP - General Internal Medicine 05/02/13 Child Psychiatrist Relationship Specialty Start Date End Date Trell Lau MD [address] [place] [address] PCP - General Internal Medicine 05/02/13 Child Psychiatrist Relationship Specialty Start Date End Date Trell Lau MD [address] [place] [address] PCP - General Internal Medicine 05/02/13 Child Psychiatrist Relationship Specialty Start Date End Date Trell Lau MD [address] [place] [address] PCP - General Internal Medicine 05/02/13 Child Psychiatrist Relationship Specialty Start Date End Date Trell Lau MD [address] [place] [address] PCP - General Internal Medicine 05/02/13 Child Psychiatrist Relationship Specialty Start Date End Date Trell Lau MD [address] [place] [address] PCP - General Internal Medicine 05/02/13 Child Psychiatrist Relationship Specialty Start Date End Date Trell Lau MD [address] [place] [address] PCP - General Internal Medicine 05/02/13 Child Psychiatrist Relationship Specialty Start Date End Date Trell Lau MD [address] [place] [address] PCP - General Internal Medicine 05/02/13 Child Psychiatrist Relationship Specialty Start Date End Date Trell Lau MD [address] [facility] [place] [address] PCP - General Internal Medicine 05/02/13 Child Psychiatrist Relationship Specialty Start Date End Date Trell Lau MD [address] [facility] [place] [address] PCP - General Internal Medicine 05/02/13 Child Psychiatrist Relationship Specialty Start Date End Date Trell Lau MD [address] [facility] [place] [address] PCP - General Internal Medicine 05/02/13 Child Psychiatrist Relationship Specialty Start Date End Date Trell Lau MD [address] [facility] [place], [place] [address] PCP - General Internal Medicine 05/02/13 Child Psychiatrist Relationship Specialty Start Date End Date Trell Lau MD [address] [facility] [place], [place] [address] PCP - General Internal Medicine 05/02/13 FOR RECORDS PERTAINING TO PATIENTS WHO ARE OR HAVE BEEN ENROLLED IN A CHEMICAL DEPENDENCY/SUBSTANCEABUSE PROGRAM, SOME INFORMATION MAY BE OMITTED. This clinical summary was aggregated from multiple sources. Caution should be exercised in using it in the provision of clinical care. This summary normalizes information from multiple sources, and as a consequence, information in this document may materially change the coding, format and clinical context of patient data. In addition, data may be omitted in some cases. CLINICAL DECISIONS SHOULD BE BASED ON THE PRIMARY CLINICAL RECORDS. [employer] provides no warranty or guarantee of the accuracy or completeness of information in this document.
== END | disposition home or self-care (01) ==
PROVIDERS: PCP Internal Medicine; Referring Provider Podiatrist; Visit Provider Podiatrist
DX: M76.61 Achilles tendinitis, right leg (principal)
CPT/HCPCS: 73721

== ENCOUNTER 2023-12-25 14:30 | Outpatient (RCR) | payer BC, SELFPAY ==
--- NOTE | 2023-12-09 08:53 | HP.PTEVAL_ITS ---
Patient's Visit Information Visit Information Visit Information: ANTONINA KEITH is a 53 year old F referred to Physical Therapy by GERMÁN Saravia with a diagnosis of SPONDYLOLIISYHESIS ,LUMBAR. Date of Evaluation: 12/08/23 Physical Therapist: Noah Bolden, PT, Cert MDT, OCS Visit Plan Frequency: 2x /Week Duration: 4 Weeks Plan: PATIENT PLANS TO HAVE TSR 3 WEEKS AVOID USING LEFT SHOULDER [place] PT INTERVENTIONS FOCUSING ON DLS ,POSTURAL EX'S ,LE FLEXABILITY ACTIVITY MODIFICATION Subjective Subjective: This 53 y/o female presents to physical therapy with lumbar radiculopathy right > left leg . Patient has h/o lumbar discectomy 2014 . Patient has been intermittent over the years . Patient sees pain management with getting epidural injection ~ Nov [address] Jeffries. Patient symptoms worse in legs so seen Spine DR GERMÁN did x-rays showed spondylolisthesis 4 mm of anterolisthesis of L4 on L5 in the neutral position which increases to 9 mm on flexion and reduces to 2 mm on extension. Diffuse moderate lower thoracic and lumbosacral facet sclerosis.Intervertebral disc space narrowing at L3-4, L4-5 and to the greatest degree at L5-S1.Recommended PT and plan for MRI . Also patient will TSR on Dec 27 DR Rios in [place]. Patient located lumbar symmetrical with lateral hips knee below knee. Described throbbing . Patient has paresthesia/tingling . Aggravating walking ,standing extended ,extension backwards. Alleviating factors sitting ,bending ,ice/heat. Coughing/sneezing-. Bowel/bladder-. Patient pain affects sleeping. Patient condition affects QOL and function/job demands. 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 Pain Bilateral Back: Pain Intensity (Out of 10): 6 Pain Intensity Range: 10 Left Lower Extremity: Pain Intensity (Out of 10): 4 Pain Intensity Range: 10 Right Lower Extremity: Pain Intensity (Out of 10): 3 Pain Intensity Range: 10 Objective Objective: POSTURE: mild forward posture ,slight increase lordosis PALPATION: paraspinals lumbar /LS ,L4 GAIT: reciprocal pattern SYMMETRIES: align FLEXABILITY: hamstrings min tight LUMBAR ROM: flexion min/mod loss ,extension mod loss pain, side glides min loss MMT: quads/ham 4/5 ,hip flexion 4-/5 ,ankle 4/5 Special Tests L/S Slump test left side: Negative L/S Slump test right side: Negative L/S Left Straight Leg Raise: Negative L/S Right Straight Leg Raise: Negative Lumbar Standing: Flexion - Mechanical Response: No effect Lumbar Standing: Flexion - Symptoms During Testing: Increases Lumbar Standing: Flexion - Symptoms After Testing: No worse Lumbar Standing: Extension - Mechanical Response: No effect Lumbar Standing: Extension - Symptoms During Testing: Increases Lumbar Standing: Extension - Symptoms After Testing: No worse Lumbar Standing: Right Side Glides - Mechanical Response: No effect Lumbar Standing: Right Side [place] - Symptoms During Testing: No effect Lumbar Standing: Right Side [place] - Symptoms After Testing: No effect Lumbar Standing: Left Side [place] - Mechanical Response: No effect Lumbar Standing: Left Side [place] - Symptoms During Testing: No effect Lumbar Standing: Left Side [place] - Symptoms After Testing: No effect Lumbar Lying: Flexion - Mechanical Response: No effect Lumbar Lying: Flexion - Symptoms During Testing: Increases Lumbar Lying: Flexion - Symptoms After Testing: No worse Balance/Special Test Scores Oswestry Low Back Score: 27 Goals Goal 1:: Patient to be I with HEP for back Goal Time Frame: 4-6 Weeks Goal 2:: Patient to demonstrate 40% improvement with less pain and improved function Goal Time Frame: 4-6 Weeks Goal 3:: Patient to improve lumbar ROM for function of recovery to put on shoes Goal Time Frame: 4-6 Weeks Goal 4:: Patient to improve back oswestry score by 5 points to improve QOL Goal Time Frame: 4-6 Weeks Rehabilitation Potential Physical Therapy Diagnosis: This patient lumbar pain with radicular symptoms in leg with h/o lumbar discectomy 2015 with MRI last year showed severe stenosis and current x ray showed spondylolisthesis with symptoms worse with walking/standing position an motion testing thus benefit from skilled PT PT Rehabilitation Potential: Good Anticipated Interventions Patient/Client Instruction: Educate patient on: Condition and Plan of Care For the Purpose of:: To decrease pain, To increase ROM, To improve muscle performance and motor function, To improve ability to perform ADL's, To increase tolerance to activity/condition/position, To improve ability of physical actions for home/community/work/leisure, To improve health of tissue, To decrease soft tissue restriction, To increase flexibility/ROM and To prevent re-injury Therapeutic Exercise to Include: Strength training, Endurance training, Balance training, Body mechanics, Postural training, Flexibilty training and Dynamic Lumbar Stabilization For the Purpose of:: To decrease pain, To increase ROM, To improve muscle performance and motor function, To improve ability to perform ADL's, To increase tolerance to activity/condition/position, To improve gait and locomotor functions, To improve health of tissue, To decrease soft tissue restriction and To reduce risk of recurrence TENS: Yes IF ES: Yes Cryotherapy (ice pack, ice massage): Yes Thermo therapy (hot pack): Yes For the Purpose of:: To decrease pain, To increase ROM, To improve muscle performance and motor function, To improve health of tissue and To decrease soft tissue restriction Text: Thank you for the opportunity to evaluate your patient. For Medicare and Medicare HMO plans, please review the plan of care and approve it. It will need to be FAXED BACK to us at [phone] for Medicare purposes. For Medicare only, by signing this I certify the plan of care. Please let me know if there are questions or concerns regarding this plan of care. Physician Signature: Date:
--- NOTE | 2023-12-25 14:58 | HP.PTDCSUM ---
Discharge Summary D/C summary: It has been my pleasure to treat ANTONINA KEITH referred by GERMÁN Saravia, with the diagnosis of SPONDYLOLIISYHESIS ,LUMBAR for a total of 6 visit(s). Discharge Date: 12/25/23 Please see the following information for a summary of their discharge status. Subjective Subjective: Plan for surgery Thursday FOR TSR Pain Bilateral Back: Pain Intensity (Out of 10): 6 Left Lower Extremity: Pain Intensity (Out of 10): 6 Right Lower Extremity: Pain Intensity (Out of 10): 6 Overall Improvement % Improvement: 10 Objective Objective/Function: POSTURE: mild forward posture ,slight increase lordosis PALPATION: paraspinals lumbar /LS ,L4 GAIT: reciprocal pattern SYMMETRIES: align FLEXABILITY: hamstrings min tight LUMBAR ROM: flexion min/mod loss ,extension mod loss pain, side glides min loss MMT: quads/ham 4/5 ,hip flexion 4-/5 ,ankle 4/5 Goals Goal 1:: Patient to be I with HEP for back Goal Progress: Progressing Goal 2:: Patient to demonstrate 40% improvement with less pain and improved function Goal Progress: Progressing Goal 3:: Patient to improve lumbar ROM for function of recovery to put on shoes Goal Progress: Progressing Goal 4:: Patient to improve back oswestry score by 5 points to improve QOL Goal Progress: Progressing Goal Progress: Progressing Plan Plan: D/C D/C Information Discharge Comments: SCHEDULED FOR TSR d/c sentence: If there are questions or concerns regarding this patient's physical therapy, please feel free to call me at [phone]. Thank you for the referral of this patient. Sincerely, Noah Bolden, PT, Cert MDT, OCS Balance/Gait/Functional tests Balance/Special Test Scores Oswestry Low Back Score: 27 Improvement % Improvement: 10
== END 2023-12-25 15:03 | disposition home or self-care (01) ==
LOC: PT 14:30
PROVIDERS: PCP Nurse Practitioner; Referring Provider Student in an Organized Health Care Education/Training Program; Visit Provider Student in an Organized Health Care Education/Training Program
DX: M43.16 Spondylolisthesis, lumbar region (principal)
CPT/HCPCS: 97110; 97162; 97530

== ENCOUNTER 2024-10-22 09:14 | Emergency (ER) | payer BC, SELFPAY ==
[2024-10-22 09:15] VITALS: BP 189/83; PULSE 72; RESP 16; TEMP 37.1; O2SAT 100; BMI 45.0
--- NOTE | 2024-10-22 10:17 | EDS_ITS ---
HPI History of Present Illness Chief Complaint: Back Detail of Chief Complaint: Atraumatic back pain began yesterday. No fall injury or trauma. Informant: patient and spouse/S.O. Onset/Context/Timing Onset: Today and Yesterday Context: Gradual Onset Timing: Continuous Quality: Sharp Location: Lumbar, Buttock and Right Leg Current Severity: Moderate Maximum Severity: Moderate Worsened by: improves with Movement Relieved by: Nothing Associated Symptoms Associated Symptoms: Radiation to Right Leg; Negative for Numbness, Tingling, Fever, Abdominal Pain, Dysuria, Unable to Ambulate, Unable to Transfer, Urinary Retention, Urinary Incontinence, Constipation or Fecal Incontinence Narrative Narrative: 54-year-old female history of prior back problems with an L5-S1 discectomy. She also gets back injections every several months. She sees pains management through the [facility]. 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 She started developing right lower back pain over the buttock into her right groin and down her right leg since yesterday morning. Denies any fall injury or trauma. No fever. She is on no blood thinners. Denies any weakness to her lower extremities. Denies any bowel or bladder incontinence. This is similar to her prior back pain except for the radiation to her groin. Prior similar symptoms: Yes Recent Illness/Hospitalization: No [facility] Medical History Primary osteoarthritis, left shoulder Calcific tendonitis of left shoulder Impingement of left shoulder Left shoulder pain Wears glasses Low iron Back pain Hypertension Arthritis Injury of back Non-smoker Shortness of breath on exertion Leg cramps History of pain when walking History of edema Encounter for Essure implantation Home Medications ?Medication ?Instructions ?Recorded ?Last Taken ?Type acetaminophen 650 mg 1,300 mg PO BID 09/17/20 Unk nown History tablet,extended release ibuprofen 200 mg tablet 800 mg PO BID 10/20/22 Unkno wn History losartan 100 mg tablet 100 mg PO DAILY 10/20/22 History estradiol 1 mg tablet 1 mg PO QDAY 11/26/23 Unknow n History hydrocodone-acetaminophen 5-325mg 1 tab PO Q4H PRN patricia n 5 days #14 10/22/24 Unknown Rx 5mg-325mg tabs methylprednisolone 4 mg tablets in See Rx Instructions PO .COMPLEX 10/22/24 Unknown Rx a dose pack (Medrol (Mauricio)) #21 tabs Allergy/AdvReac Type Severity Reaction Status Date / Time penicillin Allergy Unknown Verified 10/22/24 09:14 Family History Father Hypertension Diabetes Mother Diabetes Surgical History History of left shoulder replacement Hx of hysterectomy Hx of shoulder replacement History of nephrectomy, left Hx of foot surgery History of Hx of discectomy Social History household members: none Smoking Status: Never smoker alcohol intake: never substance use type: does not use caffeine: Yes what type of physical activity do you participate in: none seatbelt use: always do you feel safe at home: Yes additional social history: - Amandeep ROS ROS ED ROS Narrative Denies recent illness. Constitutional Constitutional ED: Denies chills or fever(s) Eyes Eyes: Denies blurry vision ENT ENT ED: Denies ear pain Cardiovascular Cardiovascular: Denies chest pain or palpitations Respiratory/Chest Respiratory/Chest: Denies dyspnea or dyspnea on exertion Gastrointestinal Gastrointestinal: Denies abdominal pain Genitourinary Genitourinary ED: Denies dysuria or hematuria Musculoskeletal Musculoskeletal: Reports back pain; Denies arthralgias, myalgias or neck pain Integumentary Denies abscess or Abrasions Neurologic Neurologic: Denies headache(s) Psychiatric Psychiatric: Denies anxiety or depression Endocrine Endocrinology: Denies cold intolerance Hematologic/Lymphatic Hematologic/Lymphatic: Denies easy bleeding or easy bruising Allergic/Immunologic Allergic/Immunologic ED: Denies mouth swelling, tongue swelling or urticaria EXAM Physical Exam Narrative Exam Narrative: 54-year-old female sitting upright in bed. Vital signs are stable afebrile. at bedside. H EENT exam pupils are reactive light. Moist mucous membranes. Neck nontender. Lungs clear. Heart regular rhythm. Chest wall and ribs nontender. Abdomen soft nontender. Moving all 4 extremities. Normal strength and sensation. [address] recording monitor strength. Dorsi plantarflexion intact. No cauda equina. Normal medial thigh sensation. She can lift either leg off the bed she does have a positive straight leg raise on the right. Back No significant spine tenderness the paralumbar area iliac crest and SI joint area are all tender to palpation. There is no ecchymosis or bruising no redness or warmth. Neurologic exam is normal. Normal strength and sensation of both upper and lower extremities. Const Vital Signs: 10/22/24 09:15 Temperature 98.7 F Temperature Source Oral Pulse Rate 72 Respiratory Rate 16 Blood Pressure 189/83 H Blood Pressure Mean 118 Pulse Ox 100 Oxygen Delivery Method Room Air Positive well nourished and well developed; Negative for cachectic, contractures or unkempt General Appearance ED: well developed; Negative for unkempt, cachectic, contractures or pallor Nutritional Appearance: Negative for cachectic HEENT Reports moist mucous membranes Negative for trauma or tenderness Eyes PERRL and EOMs intact bilaterally Neck no lymphadenopathy, supple and no JVD Resp normal respiratory effort and clear to auscultation bilaterally Effort and Inspection: Negative for pain with movement Auscultation: Negative for rales, rhonchi, wheezes or diminished lung sounds Cardio regular rate, regular rhythm, S1 normal heart sound, S2 normal heart sound and no murmurs GI normal to inspection, nondistended, normoactive bowel sounds, soft to palpation, non-tender, non-distended and no masses Inspection: Negative for abdominal distention Palpation: Negative for tender, guarding or rebound tenderness present Back/Spine normal to inspection and no thoracic nor lumbar tenderness Back/Spine Narrative: Right-sided paralumbar tenderness. Right SI joint tenderness. Positive straight leg raise test on the right. No cauda equina. Normal strength sensation both lower extremities. Lumbar Spine / Lower Back: straight leg raise positive right Extremity normal to inspection and no clubbing, cyanosis or edema General Extremety ED: Negative for edema or tenderness General Extremity: Negative for edema Neuro oriented x3 and no sensory deficits noted Sensorium / Orientation: alert; Negative for confused, lethargic or stuporous Motor Exam: strength 5/5 throughout Psych mental status grossly normal Appearance: Negative for unkempt Skin no rashes or lesions noted and no wounds General Skin Exam: Negative for jaundice or pallor Lesions: No lesion noted Rashes: No rashes noted Trauma: Negative for abrasion or puncture Wounds: Negative for wounds noted MDM MDM MDM Narrative Medical decision making narrative: 54-year-old female prior back discectomy surgery years ago. Complaining of atraumatic back pain radiating her right groin and down her right leg. No weakness or numbness. No bowel or bladder incontinence or retention. No fever. No fall. Should be treated with prednisone. Medrol Dosepak [place] for pain. She did not want an injection. She will follow-up with either Dr. Mari of spine or her [facility] physicians. She does not need emergent MRI she has no neurological findings. Her exam is consistent with an lumbar radiculopathy. History & Record Review Discussion w/independent historian: Patient and Significant other Discharge Plan Triage Chief Complaint: Back ED Provider: Gordon Chu Dx/Rx/DC Orders Clinical Impression: Back pain, Lumbar back pain with radiculopathy affecting right lower extremity, History of discectomy Instructions: Understanding Lumbar Radiculopathy Prescriptions: New hydrocodone-acetaminophen 5-325 mg tablet 1 tab PO Q4H PRN (Reason: pain) 5 Days Qty: 14 0RF methylprednisolone [Medrol (Mauricio)] 4 mg tablets,dose pack See Rx Instructions .ROUTE .COMPLEX Qty: 21 0RF Rx Instructions: for 6 days No Action losartan 100 mg tablet 100 mg PO DAILY ibuprofen 200 mg tablet 800 mg PO BID estradiol 1 mg tablet 1 mg PO QDAY acetaminophen 650 mg Tablet Extended Release 1,300 mg PO BID Primary Care Provider: TRAV SHAH Referrals: Keith Jim MD [Med Staff - Active Staff] - As soon as possible TRAV SH[facility] [employer] [facility] OPERATOR-C [Primary Care Provider] - Activity Restrictions/Additional Instructions: Follow-up with the your pain management or spine doctor at the [facility] or Dr. Jim here at [facility]. [place] for pain. Medrol dose pack steroid. Follow-up if not improving. Print Language: Faroese Disposition Disposition: Home, Self Care
[2024-10-22] MEDS: HYDROcodone Bitartrate/Apap 5/325 Tablet PO (10:30)
--- OUTSIDE RECORDS SUMMARY | 2024-10-22 10:30 | XMS RPT_ITS | CCD ---
Author Organization [facility] Care Team Providers Care 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 Name Role Phone CHERIE RIOS Referring CHERIE Ramos Admitting Ryland Lau MD, Ana Primary Care Provider Ana Lau MD Primary Care Provider Ana Lau MD Primary Care Provider 1([facility])[phone] Dr. Ana Lau Primary Care Provider Dr. Ana Lau Referring Provider Dr. Toy Soriano Attending Provider 1([facility])[phone] Dr. Alfredo Valencia Attending Provider 1([facility])-[phone] Toy Soriano Referring Provider Dr. Toy Soriano Other Provider 1([facility])[phone] Ana Lau Primary Care Provider 1([facility])[phone] Dr. Ana Lau Referring Provider 1([facility])[phone] Janes Fletcher Attending Provider Dr. Alfredo Valencia Attending Provider 1([facility])[phone] MD Joshua Mayo Attending Provider Dr. Ana Lau Primary Care Provider Dr. Ana Lau Referring Provider Dr. Toy Soriano Attending Provider Dr. Alfredo Valencia Attending Provider 1([facility])-[phone] ANA LAU Primary Care Unavailable PROVIDER, UNKNOWN Referring Unavailable ANA LAU Primary Care Unavailable Ganta Ana FREEMAN Primary Care Provider Erik, [place] Attending Unavailable Ganta, Ana Primary Care Unavailable Ganta, Ana Primary Care Unavailable Erik, [place] Attending Unavailable Fletcher Janes Attending Unavailable Ganta, Ana Primary Care Unavailable Ganta, Ana Referring Unavailable Ganta, Ana Primary Care Unavailable Joshua Mayo Attending Unavailable Ganta, Ana Referring Unavailable Fletcher, Janes Attending Unavailable Fletcher, Janes Referring Unavailable Ganta, Ana Primary Care Unavailable OLDER, TRAV Primary Care Unavailable Anali Deutsch Attending Unavailabl e Ganta, Ana Referring Unavailable OLDER, TRAV Primary Care Unavailable Vashti, Rebecca Attending Unavailable Vashti, Rebecca Referring Unavailable OLDER, TRAV Primary Care Unavailable Vashti, Rebecca Attending Unavailable Vashti, Rebecca Referring Unavailable Ganta, Ana Primary Care Unavailable Horn, Tamara Attending Unavailable Horn, Tamara Referring Unavailable Ganta, Ana Primary Care Unavailable Horn, Tamara Attending Unavailable Horn, Tamraa Referring Unavailable Toy Soriano Attending Unavailable Ganta, Ana Referring Unavailable Ganta, Ana Primary Care Unavailable ErikLibrado onealril Attending Unavailable Ganta, Ana Primary Care Unavailable Vashti Rebecca Attending Unavailable Ganta, Ana Referring Unavailable Ganta, Ana Primary Care Unavailable Kaitlynn PA-C, Yocasta L Unavailable 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, Trav Unavailable Bogner PA-C, Beulah Unavailable Denbow PA-C, Yocasta L Unavailable Bogner PA-C, Beulah Unavailable GANTA, ANA Referring Unavailable GANTA, ANA Primary Care Unavailable GANTA, ANA Primary Care Unavailable OLDER, TRAV Attending Unavailable GANTA, ANA Primary Care Unavailable ROSALIA WILSON Referring Unavailable GANTA, ANA Primary Care Unavailable OLDER, TRAV Attending Unavailable VETOVITZ, LARISA Attending Unavailable VETOVITZ, LARISA Referring Unavailable GANTA, ANA Primary Care Unavailable GANTA, ANA Primary Care Unavailable MONA SEE Attending Unavailable GANTA, ANA Primary Care Unavailable JABIER MART Referring Unavailable GANTA, ANA Primary Care Unavailable VETOVITZ, LARISA Referring Unavailable JABIER MART Attending Unavailable GANTA, ANA Primary Care Unavailable GANTA, ANA Primary Care Unavailable MONA SEE Attending Unavailable VETOVITZ, LARISA Referring Unavailable GANTA, ANA Primary Care Unavailable GANTA, ANA Primary Care Unavailable OLDER, TRAV Referring Unavailable VETOVITZ, LARISA Attending Unavailable VETOVITZ, LARISA Referring Unavailable GANTA, ANA Primary Care Unavailable VETOVITZ, LARISA Attending Unavailable VETOVITZ, LARISA Referring Unavailable GANTA, ANA Primary Care Unavailable VETOVITZ, LARISA Referring Unavailable GANTA, ANA Primary Care Unavailable JUAN ARGUETA Attending Unavailable GANTA, ANA Primary Care Unavailable GANTA, ANA Attending Unavailable GANTA, ANA Primary Care Unavailable OLDERJOHNY Attending Unavailable GANTA, ANA Primary Care Unavailable OLDER, TRAV Referring Unavailable GANTA, ANA Primary Care Unavailable OLDER, TRAV Attending Unavailable GANTA, ANA Primary Care Unavailable OLDER, TRAV Referring Unavailable GANTA, ANA Primary Care Unavailable VETOVITZ, LARISA Attending Unavailable VETOVITZ, LARISA Referring Unavailable VETOVITZ, LARISA Attending Unavailable GANTA, ANA Primary Care Unavailable VETOVITZ, LARISA Attending Unavailable VETOVITZ, LARISA Referring Unavailable GANTA, ANA Primary Care Unavailable GANTA, ANA Primary Care Unavailable LUIZA HAMPTON Attending Unavailable OLDER, TRAV Referring Unavailable OLDER, TRAV Referring Unavailable ESAMONA RICHMOND Attending Unavailable GANTA, ANA Primary Care Unavailable VETOVITZ, LARISA Attending Unavailable [facility] Primary Care Unavailable MAURY CERNA Attending Unavailable GANTA, ANA Primary Care Unavailable HODAKIPANCHITOICTOMASA Attending Unavailab le AHMED, JITENDRA Referring Unavailable GANTA, ANA Primary Care Unavailable RAMY JEFFRIES Attending Unavailable AHMED, JITENDRA Referring Unavailable GANTA, ANA Primary Care Unavailable HODAKITOMASA QUINTERO Attending Unavailab le GANTA, ANA Primary Care Unavailable ROSALIA WILSON Attending Unavailable GANTA, ANA Primary Care Unavailable HODAKITOMASA QUINTERO Attending Unavailab le GANTA, ANA Primary Care Unavailable KENNETH FELIX Attending Unavailable TOMASA GONZALEZ Referring Unavailab le GANTA, ANA Primary [facility] Unavailable TOMASA GONZALEZ [facility] JACKMAURY Attending Unavailable [facility] [place] Unavailable KENNETH FELIX Attending Unavailable MAURY CERNA Referring Unavailable [facility] Unavailable Allergies Allergy Classification Reported Allergen(s) Allergy Type Date of Onset Reaction(s) Facility Penicillins (antibiotic) (4 sources) Penicillins Drug Allergy 6 [facility] POISON YUSRA EXTRACT (4 sources) POISON YUSRA EXTRACT Drug Allergy 9 Itching [facility] Work Phone: (20 sources) Penicillins; Translations: [PENICILLINS] Propensity to adverse reactions 6 [facility] Work Phone: (20 sources) POISON YUSRA EXTRACT; Translations: [POISON YUSRA] Drug Allergy 9 Itching [facility] Work Phone: (20 sources) Penicillins Propensity to adverse reactions 6 [facility] Work Phone: (1 source) Penicillin Drug Allergy [facility] (13 sources) Penicillins Propensity to adverse reactions 6 [facility] Medications Current Medications Medication Drug Class(es) Dates Sig (Normalized) Sig (Original) 8 hr acetaminophen 650 mg extended release oral tablet (20 sources) Start: 09-17-2020 take 1300 mg by mouth twice daily Acetaminophen Active 1300 MG PO TWICE A DAY September 17, 2020 12:00am Start: 09-17-2020 take 1300 mg by mout h once daily Acetaminophen Active 1300 MG PO DAILY September 17, 2020 10:07am acetaminophen 32 5 mg cap Take by mouth as needed for pain. Active End: 06-20-2024 acetaminophen (TYLENOL ARTHR ITIS ORAL) Take by mouth as needed (pain). 06/20/2024 Discontinued acetaminophen (T YLENOL ARTHRITIS ORAL) Take by mouth as needed (pain). Active acetaminophen (T YLENOL ARTHRITIS ORAL) Take by mouth as needed (pain). 0 Active Comment on above: Take by mouth as nee ded (pain). Blood Pressure Kit-Extra Large kit (20 sources) Start: 08-05-2023 Blood Pressure Kit-Extra Large kit Indications: Essential hypertension 1 Each once daily. 1 Kit 08/05/2023 Active Start: 08-05-2023 Blood Pressure Kit-Extra Large kit Indications: Essential hypertension 1 Each once daily. 1 Kit 0 08/05/2023 Active Start: 07-16-2023 End: 08-05-2023 Blood Pressure Kit-Extra Lar ge kit Indications: Essential hypertension 1 Each once daily. 1 Kit 07/16/2023 08/05/2023 Discontinued Start: 07-16-2023 End: 08-05-2023 Blood Pressure Kit-Extra Lar ge kit Indications: Essential hypertension 1 Each once daily. 1 Kit 0 07/16/2023 08/05/2023 Discontinued Start: 07-16-2023 Blood Pressure Kit-Extra Large kit Indications: Essential hypertension 1 Each once daily. 1 Kit 0 07/16/2023 Active Start: 06-15-2023 End: 07-16-2023 Blood Pressure Kit-Extra Lar ge kit Indications: Essential hypertension 1 Each once daily. 1 Kit 0 06/15/2023 07/16/2023 Discontinued Start: 06-15-2023 Blood Pressure Kit-Extra Large kit Indications: Essential hypertension 1 Each once daily. 1 Kit 0 06/15/2023 Active Comment on above: 1 Each once daily. Blood Pressure Monitor (20 sources) Start: 07-27-2023 Blood Pressure Monitor Indications: Essential hypertension For home monitoring Dx: I10 1 Each 07/27/2023 Active Start: 07-27-2023 Blood Pressure Monitor Indications: Essential hypertension For home monitoring Dx: I10 1 Each 0 07/27/2023 Active Comment on above: For home monitoring Dx: I10 cyclobenzaprine hydrochloride 10 mg oral tablet (2 sources) Muscle Relaxant Start: 11-24-19 End: 11-29-19 take 1 tablet by mouth every eight hours as needed cyclobenzaprine (FLEXERIL) 10 mg tablet Take 1 tablet by mouth every 8 hours as needed for up to 5 days. 10 tablet 11/24/2023 11/29/2023 Active doxycycline monohydrate 100 mg oral tablet (1 source) Tetracycline-class Drug Start: 03-18-20 End: 03-23-20 take 1 tablet by mouth twice daily doxycycline monohydrate 100 mg tablet Indications: Acute non-recurrent sinusitis, unspecified location Take 1 tablet by mouth twice daily for 5 days. 10 tablet 0 03/18/2022 03/23/2022 Active Comment on above: Take 1 tablet by cynthia th twice daily for 5 days. estradiol 1 mg oral tablet (20 sources) Estrogen Start: 07-07-19 take 1 tablet by mouth once estradiol (ESTRACE) 1 mg tablet Take 1 tablet by mouth every afternoon. 07/07/2023 Active Start: 09-04-2021 End: 03-28-2022 take 1 tablet by mouth once daily estradiol (ESTRACE) 1 mg tablet Take 1 mg by mouth once daily. 09/04/2021 03/28/2022 Discontinued End: 09-16-2021 take 1 tablet by mouth once daily estradiol (ESTRACE ORAL) Take 1 tablet by mouth once daily. 0 09/16/2021 Discontinued take 1 tablet by cynthia th once daily estradiol (ESTRACE ORAL) Take 1 tablet by mouth once daily. 0 Active Comment on above: Take 1 tablet by cynthia th once daily. Take 1 mg by mouth o nce daily. Take 1 tablet by cynthia th every afternoon. ibuprofen 200 mg oral tablet (20 sources) Nonsteroidal Anti-inflammatory Drug Start: 10-20-2022 take 800 mg by mouth twice daily Ibuprofen Active 800 MG PO TWICE A DAY October 20, 2022 12:00am Start: 10-20-2022 take 800 mg by mouth every six hours Ibuprofen Active 800 MG PO EVERY 6 HOURS October 20, 2022 12:00am End: 11-30-2023 take 4 tablets by mouth every six hours as needed ibuprofen (MOTRIN) 200 mg tablet Take 800 mg by mouth every 6 hours as needed. 11/30/2023 Discontinued Comment on above: Take 800 mg by mouth every 6 hours as needed. losartan potassium 100 mg oral tablet (20 sources) Angiotensin 2 Receptor David Start: 09-09-2022 End: 03-18-2024 take 1 tablet by mouth once daily losartan (COZAAR) 100 mg tablet Take 1 tablet by mouth once daily. 90 tablet 3 03/18/2024 Active Start: 08-15-2022 End: 09-09-2022 take 1 tablet by mouth once daily losartan (COZAAR) 50 mg tablet Take 1 tablet by mouth once daily. 30 tablet 5 08/15/2022 09/09/2022 Discontinued Start: 01-08-2021 End: 03-28-2022 take 1 tablet by mouth once daily losartan (COZAAR) 50 mg tablet Indications: Essential hypertension Take 1 tablet by mouth once daily. 30 tablet 5 06/25/2021 03/28/2022 Discontinued Comment on above: Take 1 tablet by cynthia once daily. Multivitamin preparation (5 sources) Start: 09-17-2020 take 1 capsule by mouth once daily Multivitamin Active 1 CAP PO DAILY September 17, 2020 10:07am Start: 09-17-2020 End: 10-20-2022 take 1 capsule by mouth once daily Multivitamin Discontinued 1 CAP PO DAILY September 16, 2020 11:00pm October 20, 2022 12:25pm Start: 09-17-2020 End: 10-20-2022 take 1 capsule by mouth once daily Multivitamin Discontinued 1 CAP PO DAILY September 17, 2020 12:00am October 20, 2022 1:25pm [place]-3 Fatty Acids-Vitamin E (5 sources) Start: 09-17-2020 take 1 capsule by mouth once daily [place]-3 Fatty Acids-Vitamin E Active 1999 CAP PO DAILY September 17, 2020 10:07am Start: 09-17-2020 End: 10-20-2022 take 1 capsule by mouth once daily [place]-3 Fatty Acids-Vitamin E Discontinued 1999 CAP PO DAILY September 16, 2020 11:00pm October 20, 2022 12:25pm Start: 09-17-2020 End: 10-20-2022 take 1 capsule by mouth once daily [place]-3 Fatty Acids-Vitamin E Discontinued 1999 CAP PO DAILY September 17, 2020 12:00am October 20, 2022 1:25pm progesterone 200 mg oral capsule (20 sources) Progesterone Start: 10-16-2023 End: 11-30-2023 progesterone micronized (PROMETRIUM) 200 mg capsule 10/16/2023 11/30/2023 Discontinued Start: 07-07-2023 End: 10-19-2023 take 2 capsules by mouth once progesterone micronized (PROMETRIUM) 100 mg capsule Take 2 capsules by mouth every afternoon. 0 07/07/2023 10/19/2023 Discontinued Comment on above: Take 2 capsules by m outh every afternoon. Turmeric extract (20 sources) Start: 09-17-2020 take 800 mg by mouth once daily Turmeric Active 800 MG PO DAILY September 17, 2020 10:07am Start: 09-17-2020 End: 10-20-2022 take 800 mg by mouth once daily Turmeric Discontinued 800 MG PO DAILY September 16, 2020 11:00pm October 20, 2022 12:25pm Start: 09-17-2020 End: 10-20-2022 take 800 mg by mouth once daily Turmeric Discontinued 800 MG PO DAILY September 17, 2020 12:00am October 20, 2022 1:25pm End: 03-28-2022 TURMERIC ORAL Take by mouth. 03/28/2022 Discontinued End: 03-28-2022 TURMERIC ORAL Take by mouth. 0 03/28/2022 Discontinued TURMERIC ORAL Ta ke by mouth. 0 Active Comment on above: Take by mouth. Completed/Discontinued Medications Medication Drug Class(es) Dates Sig (Normalized) Sig (Original) 0.9% NaCl 10 mL flush (8 sources) Start: 08-04-2024 End: 08-04-2024 0.9% NaCl 10 mL flush Start: 08-04-2024 End: 08-04-2024 10 mL, OTHER, ONCE, 1 dose, On Brandi 08/04/24 at 1430 Start: 03-24-2024 End: 03-24-2024 0.9% NaCl 10 mL flush Start: 03-24-2024 End: 03-24-2024 10 mL, OTHER, ONCE, 1 dose, On Brandi 03/24/24 at 1400 Start: 11-16-2023 End: 11-16-2023 0.9% NaCl 10 mL flush Start: 12-29-2022 End: 12-29-2022 0.9% NaCl 10 mL flush Start: 09-24-2021 End: 09-24-2021 0.9% NaCl 10 mL flush 0.9% NaCl 5 mL flush (1 source) Start: 05-05-2022 End: 05-05-2022 0.9% NaCl 5 mL flush Ascorbic Acid / Bioflavonoids (20 sources) Vitamin C End: 03-28-2022 take 1000 mg by mouth once daily ascorbic acid/bioflavonoids (RITA C ORAL) Take 1,000 mg by mouth once daily. 03/28/2022 Discontinued End: 03-28-2022 take 1000 mg by mouth once daily ascorbic acid/bioflavonoids (RITA C ORAL) Take 1,000 mg by mouth once daily. 0 03/28/2022 Discontinued take 1000 mg by mout h once daily ascorbic acid/bioflavonoids (RITA C ORAL) Take 1,000 mg by mouth once daily. 0 Active Comment on above: Take 1,000 mg by cynthia th once daily. benzonatate 100 mg oral capsule (2 sources) Non-narcotic Antitussive Start: End: take 1-2 capsules by mouth three times daily as needed for cough benzonatate (TESSALON PERLES) 100 mg capsule Indications: Acute non-recurrent sinusitis, unspecified location Take 1-2 capsules by mouth three times daily as needed for cough. 30 capsule 0 03/18/2022 03/28/2022 Discontinued Comment on above: Take 1-2 capsules by mouth three times daily as needed for cough. betamethasone 3 mg/ml / betamethasone acetate 3 mg/ml injectable suspension (3 sources) Corticosteroid Start: End: betamethasone acetate-betamethason e sodium phosphate 6 mg injection (CELESTONE) Start: 07-08-2023 End: 07-08-2023 betamethasone acetate-betame thasone sodium phosphate 6 mg injection (CELESTONE) Start: 06-06-2019 End: 09-05-2020 betamethasone acetate-betame thasone sodium phosphate 6 mg injection (CELESTONE) calcium ascorbate 500 mg oral tablet (5 sources) Start: 09-17-2020 End: 10-20-2022 take 1 g by mouth once daily Ascorbate Calcium (Vitamin C) Discontinued 1 GM PO DAILY September 17, 2020 12:00am October 20, 2022 1:25pm cholecalciferol 0.125 mg oral tablet (5 sources) Vitamin D Start: 09-17-2020 End: 10-20-2022 take 1 tablet by mouth once daily Cholecalciferol (Vitamin D3) (Vitamin D3) 125 mcg (5,000 unit) Tablet Discontinued 125 MCG PO DAILY September 17, 2020 12:00am October 20, 2022 1:25pm cholecalciferol 5000 unt / folic acid 1 mg oral tablet (20 sources) Vitamin D End: 03-28-2022 take 1 tablet by mouth once daily vitamin D3-folic acid 5,000 unit- 1 mg tab Take 1 tablet by mouth once daily. 03/28/2022 Discontinued Comment on above: Take 1 tablet by [facility] once daily. 1 ml dexamethasone phosphate 10 mg/ml injection (2 sources) Corticosteroid Start: 08-04-2024 End: 08-04-2024 dexAMETHasone sodium phosphate 10 mg injection (DECADRON) Start: 08-04-2024 End: 08-04-2024 10 mg, OTHER, ONCE, 1 dose, On Brandi 08/04/24 at 1430, Administer over 5 minutes. diclofenac sodium 20 mg/ml topical solution (20 sources) Nonsteroidal Anti-inflammatory Drug Start: 10-22-2020 End: 03-28-2022 diclofenac sodium (PENNSAID) 20 mg/gram /actuation(2 %) Indications: Glenohumeral arthritis, right Apply 1 Ampule to affected area twice daily. 100 g 3 10/22/2020 03/28/2022 Discontinued Start: 09-17-2020 End: 10-20-2022 Diclofenac Sodium (Pennsaid) 2 % Solution In Packet Discontinued 1 PACKET TOPICAL TWICE A DAY September 17, 2020 12:00am October 20, 2022 1:25pm Start: 06-06-2019 End: 10-22-2020 diclofenac sodium (PENNSAID) 20 mg/gram /actuation(2 %) sopm Indications: Primary osteoarthritis of right knee Apply 1 Ampule to affected area twice daily. 1 Bottle 3 06/06/2019 10/22/2020 Discontinued Comment on above: Apply 1 Ampule to af fected area twice daily. docusate sodium 100 mg oral tablet (5 sources) Start: End: take 100 mg by mouth twice daily Docusate Sodium Discontinued 100 MG PO TWICE A DAY 60 September 24, 2020 12:00am October 20, 2022 1:25pm fluticasone propionate 0.05 mg/actuat metered dose nasal spray (19 sources) Corticosteroid Start: 2 End: 2 take 2 spray(s) by mouth once daily fluticasone (FLONASE) 50 mcg/actuation nasal spray Use 2 Sprays in each nostril once daily. Rinse mouth after use. 11.1 mL 05/08/2021 03/28/2022 Discontinued Comment on above: Use 2 Sprays in each nostril once daily. Rinse mouth after use. 2 ml sodium hyaluronate 15 mg/ml prefilled syringe (20 sources) Start: End: Sodium Hyaluronate 30 mg (ORTHOVISC) Start: 08-22-2024 End: 08-22-2024 30 mg, Injection - FOR ORTHO USE ONLY, ONCE, 1 dose, Starting on Thu08/22/24 at 1408, Until Thu08/22/24 at 1408 Start: 08-16-2024 End: 08-16-2024 Sodium Hyaluronate 30 mg (OR THOVISC) Start: 08-16-2024 End: 08-16-2024 30 mg, Injection - FOR ORTHO USE ONLY, ONCE, 1 dose, Starting on Tu08/16/24 at 1105, Until Tu08/16/24 at 1105 Start: 08-08-2024 End: 08-08-2024 Sodium Hyaluronate 30 mg (OR THOVISC) Start: 08-08-2024 End: 08-08-2024 30 mg, Injection - FOR ORTHO USE ONLY, ONCE, 1 dose, Starting on Thu08/08/24 at 1129, Until Thu08/08/24 at 1129 Start: 07-11-2024 Sodium Hyaluro kim (HYALURONAN) 30 mg/2 mL syrg Indications: Primary osteoarthritis of left knee 1 syringe, 30mg /2ml hyaluronate sodium, injected in left knee weekly for a total of 3 weeks. 3 each 07/11/2024 Active Start: 06-07-2024 End: 07-11-2024 sodium hyaluronate 10 mg/mL injection Indications: Primary osteoarthritis of left knee 1 syringe of 2 ml sodium hyaluronate 10mg/ml intra articular injection in left knee weekly for 3 weeks, total of 3 injections. 3 Each 06/07/2024 07/11/2024 Discontinued (Discontinued by another Health Care Provider) Start: 11-16-2023 End: 11-16-2023 sodium hyaluronate 20 mg inj ection (EUFLEXXA) Start: 10-26-2023 End: 03-21-2024 sodium hyaluronate (EUFLEXXA ) 10 mg/mL(mw 2.4 -3.6 million) injection Indications: Primary osteoarthritis of left knee , Chronic pain of left knee 2 mL by INTRA-ARTICULAR route three times a week. 1 intra-articular injection of sodium hyaluronate 10 mg/ml weekly for 3 weeks. Dispense 3 syringes. 3 Each 10/26/2023 03/21/2024 Discontinued iohexol 300 mg injection (OMNIPAQUE 300) (6 sources) Start: 08-04-2024 End: 08-04-2024 iohexol 300 mg injection (OMNIPAQUE 300) Start: 08-04-2024 End: 08-04-2024 300 mg, OTHER, ONCE, 1 dose, On Brandi 08/04/24 at 1430 Start: 03-24-2024 End: 03-24-2024 iohexol 300 mg injection (OM NIPAQUE 300) Start: 03-24-2024 End: 03-24-2024 300 mg, OTHER, ONCE, 1 dose, On Brandi 03/24/24 at 1400 Start: 11-16-2023 End: 11-16-2023 iohexol 300 mg injection (OM NIPAQUE 300) iohexol 300 mg IV injection (OMNIPAQUE 300) (3 sources) Start: 12-29-2022 End: 12-29-2022 iohexol 300 mg IV injection (OMNIPAQUE 300) Start: 05-05-2022 End: 05-05-2022 iohexol 300 mg IV injection (OMNIPAQUE 300) Start: 09-24-2021 End: 09-24-2021 iohexol 300 mg IV injection (OMNIPAQUE 300) 10 ml lidocaine hydrochloride 10 mg/ml injection (14 sources) Antiarrhythmic, Amide Local Anesthetic Start: 08-04-2024 End: 08-04-2024 lidocaine (PF) 10 mg/mL (1 %) 100 mg injection (XYLOCAINE) Start: 08-04-2024 End: 08-04-2024 100 mg, OTHER, ONCE, 1 dose, On Brandi 08/04/24 at 1430 Start: 03-24-2024 End: 03-24-2024 lidocaine (PF) 10 mg/mL (1 % ) 100 mg injection (XYLOCAINE) Start: 03-24-2024 End: 03-24-2024 100 mg, OTHER, ONCE, 1 dose, On Brandi 03/24/24 at 1400 Start: 11-16-2023 End: 11-16-2023 lidocaine (PF) 10 mg/mL (1 % ) 100 mg injection (XYLOCAINE) Start: 11-16-2023 End: 11-16-2023 lidocaine (PF) 10 mg/mL (1 % ) 100 mg injection (XYLOCAINE) Start: 07-21-2023 End: 07-21-2023 lidocaine (PF) 10 mg/mL (1 % ) 4 mL injection (XYLOCAINE) Start: 07-08-2023 End: 07-08-2023 lidocaine (PF) 10 mg/mL (1 % ) 4 mL injection (XYLOCAINE) Start: 12-29-2022 End: 12-29-2022 lidocaine (PF) 10 mg/mL (1 % ) 100 mg injection (XYLOCAINE) Start: 05-05-2022 End: 05-05-2022 lidocaine (PF) 10 mg/mL (1 % ) 50 mg injection (XYLOCAINE) Start: 05-05-2022 End: 05-05-2022 lidocaine (PF) 20 mg/mL (2 % ) 100 mg injection (XYLOCAINE) Start: 09-24-2021 End: 09-24-2021 lidocaine (PF) 10 mg/mL (1 % ) 50 mg injection (XYLOCAINE) Start: 09-24-2021 End: 09-24-2021 lidocaine (PF) 20 mg/mL (2 % ) 100 mg injection (XYLOCAINE) Start: 06-06-2019 End: 09-05-2020 lidocaine (PF) 10 mg/mL (1 % ) 5 mL injection (XYLOCAINE) 1 ml methylPREDNISolone acetate 40 mg/ml injection (9 sources) Corticosteroid Start: 03-24-2024 End: 03-24-2024 methylPREDNISolone acetate 40 mg injection (DEPO-Medrol) Start: 03-24-2024 End: 03-24-2024 40 mg, OTHER, ONCE, 1 dose, On Brandi 03/24/24 at 1400 Start: 11-16-2023 End: 11-16-2023 methylPREDNISolone acetate 4 0 mg injection (DEPO-Medrol) Start: 11-16-2023 End: 11-16-2023 methylPREDNISolone acetate 4 0 mg injection (DEPO-Medrol) Start: 12-29-2022 End: 12-29-2022 methylPREDNISolone acetate 4 0 mg injection (DEPO-Medrol) Start: 05-05-2022 End: 05-05-2022 methylPREDNISolone acetate 4 0 mg injection (DEPO-Medrol) Start: 09-24-2021 End: 09-24-2021 methylPREDNISolone acetate 4 0 mg injection (DEPO-Medrol) Start: 06-25-2021 End: 07-01-2021 methylPREDNISolone (MEDROL, JALEESA,) 4 mg Dose-Pack Follow dosing instructions, take with food. 1 Package 0 06/25/2021 07/01/2021 Active Comment on above: Follow dosing instru ctions, take with food. naproxen 500 mg oral tablet (20 sources) Nonsteroidal Anti-inflammatory Drug Start: End: take 1 tablet by mouth twice daily as needed for pain naproxen (NAPROSYN) 500 mg tablet Indications: Pain of right heel Take 1 tablet by mouth twice daily as needed (for pain/inflammation). Take with food. 60 tablet 03/23/2018 03/24/2021 Discontinued (Course of therapy completed) End: 03-28-2022 naproxen sodium (ALEVE) 220 mg cap Take by mouth. 03/28/2022 Discontinued Comment on above: Take by mouth. OMEGA-3/DHA/EPA/FISH OIL (OMEGA-3 FISH OIL ORAL) (20 sources) End: 03-28-2022 OMEGA-3/DHA/EPA/FISH OIL (OMEGA-3 FISH OIL ORAL) Take by mouth. Pt takes 3 gel caps daily. 03/28/2022 Discontinued End: 03-28-2022 OMEGA-3/DHA/EPA/FISH OIL (OM EGA-3 FISH OIL ORAL) Take by mouth. Pt takes 3 gel caps daily. 0 03/28/2022 Discontinued OMEGA-3/DHA/EPA/ FISH OIL (OMEGA-3 FISH OIL ORAL) Take by mouth. Pt takes 3 gel caps daily. 0 Active Comment on above: Take by mouth. Pt ta kes 3 gel caps daily. oxyCODONE hydrochloride 5 mg oral tablet (8 sources) Opioid Agonist Start: 12-02-2022 End: 12-15-2022 take 5-10 mg by mouth every four hours Oxycodone Discontinued 5 - 10 MG PO Q4H 25 5 December 02, 2022 December 15, 2022 9:49am Start: 09-24-2020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 200 mg tablet Take 800 mg by mouth every 6 hours as needed. - acetaminophen (TYLENOL ARTHRITIS ORAL) Take by mouth as needed (pain). Problem List As Of Date 11/16/2023 Noted Resolved Mixed hyperlipidemia [E78.2] DYSMETABOLIC SYNDROME [...] 09/16/2021 Spondylolisthesis of lumbar region [M43.16] 09/16/2021 Primary osteoarthritis of both knees [M17.0] 08/14/2023 Prescriptions ordered this encounter Disp Refills Start End SODIUM HYALURONATE 10 MG/ML(MW 2.4-3* 11/16/2023 11/16/2023 Route: Inj-ORTHO Encounter Status:Closed by LARISA BERNSTEIN on 11/16/23 Normal [facility] Large Joint Arthro/Inj: L kn ee jointon 11-16-2023 Larisa Bernstein PA -C 11/16/2023 1:19 PM Large Joint Arthro/Inj: L knee joint Informed Consent Consent Obtained: Verbal [place] Protocol A moment to CARE was completed. SIGN IN Sign in communication not applicable due to emergent procedure. Personnel directly involved with the procedure wore the appropriate PPE. Special Equipment: N/A Patient/Surrogate Stated/Verified: Patient name, Date of , Relevant allergies and Intended procedure TIME OUT Intended patient and procedure match the source document(s). Consent documented and matches the intended procedure. Relevant labs, photos, and/or imaging studies have been reviewed. Correct side/site marked and visible. Medications required for procedure verified. No fire risk assessment and interventions applicable. No implant(s) inserted. 11/16/2023 1:02 PM The procedure site was prepped in the usual sterile fashion. Site: L knee joint Medications: 20 mg sodium hyaluronate 10 mg/mL(mw 2.4 -3.6 million) Outcome: Tolerated well, no immediate complications Post-injection instructions were reviewed with the patient and the patient voiced understanding of these instructions. SIGN OUT No instruments, equipment or retained foreign bodies applicable. [facility] KHADIJAH MAHMOOD ([id number]) 1970 F Date Time Provider Department 10/27/23 RAMY JEFFRIES AGSPINE3 During your visit today, we recorded the following information about you: Olivia Klein 10/27/2023 8:28 AM Signed ----- Message from Young Mistry sent at 10/26/2023 3:47 PM EDT ----- Regarding: Medicine / [jeffries / [injection provider ] Subject Line Format: Medicine / [jeffries / [injection provider ] Patient: Khadijah Mahmood Date of : 1970 Primary Care Provider: Ana Lau MD Patient has been identified by name and Date of (Y/N): yes Patient: Khadijah Mahmood Date of : 1970 Provider for this encounter: Ana Lau MD Reason for the call/escalation: pt has and injection for 12/01/2023 with darlene pt sheldon jeffries Was Patient Referred to [facility]/Seek Emergency Treatment (Y/N): no Did Patient Agree (Y/N): no Was An Attempt Made To Transfer The Patient To The Office (Y/N): no Were You Able To Reach Someone At The Office (Y/N): no If Yes - Patient Was Transferred To (Caregivers Name): no If No - Which [facility] Leadership 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 Did You Speak With Regarding This Patient: no Was an appointment scheduled (Y/N): no Reason patient was requesting visit (RFV/signs and symptoms/diagnosis) : pain managament injection Person calling if other than patient: no Return call to if other than patient: no Best contact number: [phone] Thank you, Young Mistry October 26, 2023 3:47 PM Elle Wood 10/27/2023 9:18 AM Signed Patient has been rescheduled with Dr. Jeffries. Elle Wood Allergies As of Date: 10/27/2023 Noted Allergy Reaction PENICILLINS 05/16/2005 Comments: can take amoxicillin POISON YUSRA 01/12/2009 9 - Itching Date Reviewed: 10/26/2023 Reviewed by: Hanna Deleon RN - Fully Assessed Reason for Visit: Returning Patient's Call [408] Prescriptions as of 10/27/2023 - sodium hyaluronate (EUFLEXXA) 10 mg/mL(mw 2.4 -3.6 million) injection 2 mL by INTRA-ARTICULAR route three times a week. 1 intra-articular injection of sodium hyaluronate 10 mg/ml weekly for 3 weeks. Dispense 3 syringes. - progesterone micronized (PROMETRIUM) 200 mg capsule - Blood Pressure Kit-Extra Large kit 1 Each once daily. - Blood Pressure Monitor For home monitoring Dx: I10 - losartan (COZAAR) 100 mg tablet Take 1 tablet by mouth once daily. - estradiol (ESTRACE) 1 mg tablet Take 1 tablet by mouth every afternoon. - ibuprofen (MOTRIN) 200 mg tablet Take 800 mg by mouth every 6 hours as needed. - acetaminophen (TYLENOL ARTHRITIS ORAL) Take by mouth as needed (pain). Problem List As Of Date 10/27/2023 Noted Resolved Mixed hyperlipidemia [E78.2] DYSMETABOLIC SYNDROME [...] 09/16/2021 Spondylolisthesis of lumbar region [M43.16] 09/16/2021 Primary osteoarthritis of both knees [M17.0] 08/14/2023 Encounter Status:Closed by RIDDLE, OLIVIA on 10/27/23 [facility] CNOVon 10-26-2023 CNOV Office Visit (ORTHWS ) -------- KHADIJAH MAHMOOD ([id number]) 1970 F Date Time Provider Department 10/26/23 10:00 AM LARISA BERNSTEIN During your visit today, we recorded the following information about you: Hanna Deleon, GERONIMO 10/26/2023 10:48 AM Signed AMB ROOMING INTAKE FLOWSHEET DATA Pain Pain Level: 8 Pain Location: (left shoulder does go down arm) Description: (achy, throbbing) Frequency: Continuous Intervention/Comfort measure: (advil, tylenol - takes edge off. reposition.) Patient presents with: Left Shoulder - Established Patient MRI results Left shoulder Larisa Bernstein PA-C 10/26/2023 10:48 AM Signed Larisa Bernstein PA-C Department of Orthopaedics Orthopaedics [address] [facility] [address] Dept: [phone] Dept October 26, 2023 CHIEF COMPLAINT: Established Patient of the Left Shoulder and MRI results Left shoulder. ASSESSMENT: M19.012 Glenohumeral arthritis, left (primary encounter diagnosis) M17.12 Primary osteoarthritis of left knee M25.562, G89.29 Chronic pain of left knee M25.512, G89.29 Chronic left shoulder pain SUMMARY/PLAN: Patient presents to discuss results of her recent left shoulder MRI. She has had worsening left shoulder pain for several months. She tried [id number] anti-inflammatories and subacromial corticosteroid injections with little to no improvement. She has had a previous right shoulder replacement but reports that her left shoulder pain feels different than her arthritis pain that she had in the other shoulder. Her MRI does confirm that she in fact has severe glenohumeral joint arthritis. No tear of the rotator cuff is noted. We discussed the patient's surgical options, she had her previous right shoulder replacement done by a provider in [place]. She is not sure if she would like to see that surgeon to discuss a left shoulder replacement and or try a glenohumeral corticosteroid injection. She will contact us when she has made her decision. She also complains of worsening medial left knee pain. Has been taking Advil which is only somewhat helpful for her knee pain. She had a previous corticosteroid injection in the knee and reports only a few weeks of relief. She has a knee brace that she wears when she is walking longer distances, brace is somewhat helpful. She was interested in trying some viscosupplementation. Unfortunately her insurance company does not cover it. She was told if the medication was sent to [facility] that it would be covered. We will try to see if we can get her Euflexxa sent in through the mail pharmacy. We briefly discussed her surgical options as far as a total knee replacement. Unfortunately this is complicated by her concurrent shoulder issues. Imaging: IMPRESSION: Rotator cuff tendinosis without tear. There is calcific tendinosis of the supraspinatus tendon. Moderate osteoarthritis of the glenohumeral joint. Mild subdeltoid/subacromial bursal distention. Test Baker: LAURA Transcribe Date/Time: Oct 22 2023 12:48P Dictated by : GIANNA JACOME MD This examination was interpreted and the report reviewed and electronically signed by: JL BOLIVAR MD on Oct 22 2023 2:23PM EST Results-Findings * * *Final Report* * * DATE OF EXAM: Oct 22 2023 11:07AM WR 0239 - MRI SHOULDER WO [facility] / PROCEDURE REASON: multiple diagnoses * * * * Physician Interpretation * * * * EXAMINATION: MRI SHOULDER WO IVCON HISTORY: Chronic left shoulder pain. Anterior discomfort, specifically at night. TECHNIQUE: Routine non-contrast MRI of the shoulder. MQ: MRS_1A COMPARISON: Radiographs dated 02/17/2023 and shoulder ultrasound 06/12/2023 RESULT: TENDONS: Rotator cuff tendons: -Supraspinatus: Intact with tendinosis with small calcification anteriorly -Infraspinatus: Intact with mild tendinosis -Subscapularis: Intact with tendinosis -Teres Minor: Intact tendon Biceps (Long head) Tendon: Intact , with normal course MUSCLES: Rotator cuff muscles: -Supraspinatus: Preserved bulk and no fatty changes. -Infraspinatus: Preserved bulk and no fatty changes. -Subscapularis: Preserved bulk and no fatty changes. -Teres Minor: Preserved bulk and no fatty changes. Other muscles: Preserved signal and bulk in the deltoid. JOINTS: Glenohumeral Joint: -Labrum: Degeneration and tearing in the anterior, superior, and posterior labrum -Cartilage: Large area(s) of predominantly high grade (greater than 50% thickness) cartilage loss and or fissuring with smaller area(s) of full thickness cartilage loss and or fissuring with reactive subchondral cysts in the anterior glenoid -Joint Fluid: Small effusion . Mild synovitis. Acromioclavicular Joint: Mild hypertrophic degenerative changes BONES AND MARROW: No evidence of fracture or suspicious bone marrow repl (more content not included)... Normal [facility] MR Shoulder - left JOVANI hernández 10-22-2023 IMPRESSION: Rotator cuff tendinosis without tear. There is calcific tendinosis of the supraspinatus tendon. Moderate osteoarthritis of the glenohumeral joint. Mild subdeltoid/subacromial bursal distention. Test Baker: [facility] Transcribe Date/Time: Oct 22 2023 12:48P Dictated by : GIANNA JACOME MD This examination was interpreted and the report reviewed and electronically signed by: JL BOLIVAR MD on Oct 22 2023 2:23PM [facility] DIVISION OF RADIOLOGY * * *Final Report* * * DATE OF EXAM: Oct 22 2023 11:07AM WRM [id number] - MRI SHOULDER [facility] / PROCEDURE REASON: multiple diagnoses * * * * Physician Interpretation * * * * EXAMINATION: MRI SHOULDER WO [facility] HISTORY: Chronic left shoulder pain. Anterior discomfort, specifically at night. TECHNIQUE: Routine non-contrast MRI of the shoulder. MQ: MRS_1A COMPARISON: Radiographs dated 02/17/2023 and shoulder ultrasound 06/12/2023 RESULT: TENDONS: Rotator cuff tendons: -Supraspinatus: Intact with tendinosis with small calcification anteriorly -Infraspinatus: Intact with mild tendinosis -Subscapularis: Intact with tendinosis -Teres Minor: Intact tendon Biceps (Long head) Tendon: Intact , with normal course MUSCLES: Rotator cuff muscles: -Supraspinatus: Preserved bulk and no fatty changes. -Infraspinatus: Preserved bulk and no fatty changes. -Subscapularis: Preserved bulk and no fatty changes. -Teres Minor: Preserved bulk and no fatty changes. Other muscles: Preserved signal and bulk in the deltoid. JOINTS: Glenohumeral Joint: -Labrum: Degeneration and tearing in the anterior, superior, and posterior labrum -Cartilage: Large area(s) of predominantly high grade (greater than 50% thickness) cartilage loss and or fissuring with smaller area(s) of full thickness cartilage loss and or fissuring with reactive subchondral cysts in the anterior glenoid -Joint Fluid: Small effusion . Mild synovitis. Acromioclavicular Joint: Mild hypertrophic degenerative changes BONES AND MARROW: No evidence of fracture or suspicious bone marrow replacing process OTHER: Subdeltoid/Subacromial Bursa: Mild bursal distention Other: No other significant findings. Localizer images: Unremarkable. DIVISION OF RADIOLOGY Provider, [facility] - 10/22/2023 * * *Final Report* * * DATE OF EXAM: Oct 22 2023 11:07AM WR 0239 - MRI SHOULDER WO [facility] / PROCEDURE REASON: multiple diagnoses * * * * Physician Interpretation * * * * EXAMINATION: MRI SHOULDER WO [facility] HISTORY: Chronic left shoulder pain. Anterior discomfort, specifically at night. TECHNIQUE: Routine non-contrast MRI of the shoulder. MQ: MRS_1A COMPARISON: Radiographs dated 02/17/2023 and shoulder ultrasound 06/12/2023 RESULT: TENDONS: Rotator cuff tendons: -Supraspinatus: Intact with tendinosis with small calcification anteriorly -Infraspinatus: Intact with mild tendinosis -Subscapularis: Intact with tendinosis -Teres Minor: Intact tendon Biceps (Long head) Tendon: Intact , with normal course MUSCLES: Rotator cuff muscles: -Supraspinatus: Preserved bulk and no fatty changes. -Infraspinatus: Preserved bulk and no fatty changes. -Subscapularis: Preserved bulk and no fatty changes. -Teres Minor: Preserved bulk and no fatty changes. Other muscles: Preserved signal and bulk in the deltoid. JOINTS: Glenohumeral Joint: -Labrum: Degeneration and tearing in the anterior, superior, and posterior labrum -Cartilage: Large area(s) of predominantly high grade (greater than 50% thickness) cartilage loss and or fissuring with smaller area(s) of full thickness cartilage loss and or fissuring with reactive subchondral cysts in the anterior glenoid -Joint Fluid: Small effusion . Mild synovitis. Acromioclavicular Joint: Mild hypertrophic degenerative changes BONES AND MARROW: No evidence of fracture or suspicious bone marrow replacing process OTHER: Subdeltoid/Subacromial Bursa: Mild bursal distention Other: No other significant findings. Localizer images: Unremarkable. IMPRESSION IMPRESSION: Rotator cuff tendinosis without tear. There is calcific tendinosis of the supraspinatus tendon. Moderate osteoarthritis of the glenohumeral joint. Mild subdeltoid/subacromial bursal distention. Test Baker: LAURA Transcribe Date/Time: Oct 22 2023 12:48P Dictated by : GIANNA JACOME MD This examination was interpreted and the report reviewed and electronically signed by: JL BOLIVAR MD on Oct 22 2023 2:23PM EST [facility] Radiology Study observation (narrative) [facility] MR Shoulder - left WO contra stOrdered By: [facility] Provider on 10-22-2023 [facility] MRI SHOULDER WO IVCON LTon 0 10-22-2023 MRI SHOULDER WO IVCON LT * * *Final Report* * * DATE OF EXAM: Oct 22 2023 11:07AM WRM [id number] - MRI SHOULDER WO [facility] / PROCEDURE REASON: multiple diagnoses * * * * Physician Interpretation * * * * EXAMINATION: MRI SHOULDER WO [facility] LT HISTORY: Chronic left shoulder pain. Anterior discomfort, specifically at night. TECHNIQUE: Routine non-contrast MRI of the shoulder. MQ: MRS_1A COMPARISON: Radiographs dated 02/17/2023 and shoulder ultrasound 06/12/2023 RESULT: TENDONS: Rotator cuff tendons: -Supraspinatus: Intact with tendinosis with small calcification anteriorly -Infraspinatus: Intact with mild tendinosis -Subscapularis: Intact with tendinosis -Teres Minor: Intact tendon Biceps (Long head) Tendon: Intact , with normal course MUSCLES: Rotator cuff muscles: -Supraspinatus: Preserved bulk and no fatty changes. -Infraspinatus: Preserved bulk and no fatty changes. -Subscapularis: Preserved bulk and no fatty changes. -Teres Minor: Preserved bulk and no fatty changes. Other muscles: Preserved signal and bulk in the deltoid. JOINTS: Glenohumeral Joint: -Labrum: Degeneration and tearing in the anterior, superior, and posterior labrum -Cartilage: Large area(s) of predominantly high grade (greater than 50% thickness) cartilage loss and or fissuring with smaller area(s) of full thickness cartilage loss and or fissuring with reactive subchondral cysts in the anterior glenoid -Joint Fluid: Small effusion . Mild synovitis. Acromioclavicular Joint: Mild hypertrophic degenerative changes BONES AND MARROW: No evidence of fracture or suspicious bone marrow replacing process OTHER: Subdeltoid/Subacromial Bursa: Mild bursal distention Other: No other significant findings. Localizer images: Unremarkable. IMPRESSION: Rotator cuff tendinosis without tear. There is calcific tendinosis of the supraspinatus tendon. Moderate osteoarthritis of the glenohumeral joint. Mild subdeltoid/subacromial bursal distention. Test Baker: LAURA Transcribe Date/Time: Oct 22 2023 12:48P Dictated by : GIANNA JACOME MD This examination was interpreted and the report reviewed and electronically signed by: JL BOLIVAR MD on Oct 22 2023 2:23PM EST [id number] Normal [facility] -------- KHADIJAH MAHMOOD F ([id number]) 1970 F Date Time Provider Department 10/20/23 TOMASA GONZALEZ AGSPINE3 During your visit today, we recorded the following information about you: Rosalia Tay 10/20/2023 2:27 PM Signed Procedure(s) being scheduled: 1.Are you diabetic No 2. Are you on any blood thinners? No If yes, does it require a hold? No If yes, was approval letter sent? No 3. Are you taking any aspirin? No 4. Are you currently taking any antibiotics? No If yes, is it prophylactic or for treatment of an infection? NA 5. Do you have any allergies to latex? No 6. Do you have any allergies to seafood or shellfish? No 7. Do you have any allergies to x-ray dye? No 8. Did the physician instruct you to take any medication prior to your procedure? No 9. Does this procedure require a recycle driver? Yes If yes, has patient been notified that a recycle driver is needed and must be present at check in? YES 10. Were the pre-procedure instructions explained and provided to the patient? Yes 11. Do you have a pacemaker? No 12. Do you have an internal stimulator of any kind? No If yes, please bring the remote with you to your procedure visit. 13. Have you received the COVID-19 Vaccine? No. If yes, date(s) received: NA (Patient should not receive a procedure including steroids 14 days prior to their first dose of the COVID vaccine. They should not receive any procedure containing steroids in the time frame between their 1st and 2nd doses of the COVID vaccine. They should not receive a procedure containing steroids 14 days after their 2nd dose of the COVID vaccine.) Allergies As of Date: 10/20/2023 Noted Allergy Reaction PENICILLINS 05/16/2005 Comments: can take amoxicillin POISON YUSRA 01/12/2009 9 - Itching Date Reviewed: 10/20/2023 Reviewed by: Tomasa Gonzalez APRN.NIGHT TIME BABYSITTER - Fully Assessed Reason for Visit: injection questions [Other] Prescriptions as of 10/20/2023 - progesterone micronized (PROMETRIUM) 200 mg capsule - Blood Pressure Kit-Extra Large kit 1 Each once daily. - Blood Pressure Monitor For home monitoring Dx: I10 - losartan (COZAAR) 100 mg tablet Take 1 tablet by mouth once daily. - estradiol (ESTRACE) 1 mg tablet Take 1 tablet by mouth every afternoon. - ibuprofen (MOTRIN) 200 mg tablet Take 800 mg by mouth every 6 hours as needed. - acetaminophen (TYLENOL ARTHRITIS ORAL) Take by mouth as needed (pain). Problem List As Of Date 10/20/2023 Noted Resolved Mixed hyperlipidemia [E78.2] DYSMETABOLIC SYNDROME [...] 09/16/2021 Spondylolisthesis of lumbar region [M43.16] 09/16/2021 Primary osteoarthritis of both knees [M17.0] 08/14/2023 Encounter Status:Closed by ROSALIA TAY on 10/20/23 [facility] Jade 10-19-2023 CNOV Office Visit (NEAGCL M) -------- KHADIJAH MAHMOOD ([id number]) 1970 F Date Time Provider Department 10/19/23 10:45 AM ROSALIA WILSON I NEAGCLM During your visit today, we recorded the following information about you: Pulse Respiration Blood pressure Weight 76/minute 16/minute 130/83 114.9 kg Height 1.626 m Rosalia Wilson I, MD 10/19/2023 11:13 AM Signed NEUROSURGERY FOLLOW UP OFFICE NOTE Chair, Clinical Neurosciences Director, Spinal Neurosurgery [facility] Date of visit: October 19, 2023 Patient Name: Ms.Pamela Naila Mahmood Date of : 1970 Current Age: [age] year old Sex: female MRN/E# [id number] Last Office Visit: Visit date not found Chief Complaint: Patient presents with: Established Patient Past Medical/Surgical History: Khadijah Mahmood is a 53 year old female with a history of COVID-19 infection, DM, dysmetabolic syndrome, plantar fascitis and HLD. She has a history of left partial nephrectomy. Surgical Risk Factors: Smoking status: Denies Alcohol use: No Anticoagulants/antiplate lets: no Diabetic: yes, last hgbA1c 6.1% 06/08/2023 BMI: 43.48 BMI 42.36 09/16/2021 HPI: The patient presented to the office 09/16/2021 as a new patient with MRI and x-rays of the lumbar spine. She stated that her pain started in May of 2021 with no inciting event. She reported a history of lumbar surgery in 2014 for low back pain into the LLE. She did well post operatively. Stated that she noticed similar symptoms in May of 2021, no inciting, although in the RLE. She described right low back pain into the right gluteal/right hip that traveled the posterior/lateral aspect of the RLE into her foot and all toes with numbness and tingling. She denied any weakness or bowel/bladder dysfunction. Also noted burning pain in between shoulder blades since that time and some chronic neck pain for many years. She denied any difficulties with hands or gait/balance issues. She had participated in 4 sessions of PT and had to stop because she could not tolerate. Her back pain was more bothersome than the leg pain. I had an extensive conversation with the patient in clinic regarding her imaging. I thought she had disc degeneration at multiple levels. That said I thought she was most likely symptomatic from her L4-5 spinal listhesis given her right-sided symptoms and moderate to severe stenosis seen there. Options for treatment included further physical therapy including pool therapy to offload her lumbar spine, epidural injections at L4-5. Surgery was also an option but would entail an L4-5 interbody fusion. Given her body habitus/BMI at the time, she was not a candidate. She needed to target a BMI of less than 35 to undertake that. Regardless even if her BMI was in that range at the present time I still advocated a conservative approach to start with the understanding that at some point in the future she may well require surgical intervention if we could not control her symptoms. To that end we discussed a combination of aqua therapy as well as injections. I placed a referral to our pain management physicians to help that. In the meantime , recommended engaging in a weight loss program for substantial weight loss of just over 40 pounds. She could follow-up with me on a as needed basis if symptoms were not improving. The patient presents to the office today for follow up and image review. She states that since last visit she has routinely followed with pain management and underwent caudal NASIR that has been significantly beneficial for both the right low back pain and RLE symptoms. She states the injections last about 6 months. She does continue with same symptoms as last visit. Reports right low back pain into the right gluteal/right lateral hip region that travels posteriorly/laterally down the leg into her foot with numbness/tingling present. She recently established care with a spray crew and has seen them 2 times thus far with plans to continue follow up. She states that her symptoms are still present once the injection wears off, however would like to discuss next steps and how long she should continue conservative treatment. She is here for evaluation and plan of care. PREVIOUS CONSERVATIVE TREATMENTS: Pain Management Tylenol Motrin Caudal NASIR 09/24/2021, 05/05/2022, 12/29/2022, 04/27/2023 (significant symptom relief for 6 months) PT/OT in Fall 2022 at [facility] for left knee s/p left knee meniscus repair in summer PREVIOUS SURGERY: SURGERY #1: L5-S1 discectomy by Dr. Atkinson in 2015 for LBP into the LLE PAIN EVALUATION 10/17/20232030 Pain Level: 8 Pain Location: Back-Lower Description: Aching;Radiating;Sore;St iffness;Tightness Duration Units: Months Frequency: Continuous Intervention/Comfort measure: Medication;Reposition;Po sitioni (more content not included)... Normal [facility] XR Lumbar spine Views W flex ion and W extensionon 10-18-2023 IMPRESSION: Lumbar s pine degenerative changes with L4-5 disc space narrowing. Test Baker: LAURA Transcribe Date/Time: Oct 18 2023 4:13P Dictated by : BETTIE WHITEHEAD MD This examination was interpreted and the report reviewed and electronically signed by: BETTIE WHITEHEAD MD on Oct 18 2023 4:15PM [facility] DIVISION OF RADIOLOGY * * *Final Report* * * DATE OF EXAM: Oct 15 2023 2:36PM [id number] - XR LUMBAR 4V AP/LAT/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 Unknown Medications acetaminophen 650 mg tablet,extended release 1,300 mg PO BID 09/17/20 [History Confirmed 04/20/23] ibuprofen 200 mg tablet 800 mg PO BID 10/20/22 [History Confirmed 04/20/23] losartan 100 mg tablet 100 mg PO DAILY 10/20/22 [History Confirmed 04/20/23] [facility] Medical History (Updated 02/24/23 @ 11:16 by Joshua Mayo MD) Arthritis Back pain Calcific tendonitis of left shoulder Encounter for Essure implantation History of edema History of pain when walking Hypertension Impingement of left shoulder Injury of back Left shoulder pain Leg cramps Low iron Non-smoker Primary osteoarthritis, left shoulder Shortness of breath on exertion Wears glasses Surgical History History of History of nephrectomy, left Hx of discectomy Hx of foot surgery Hx of hysterectomy Hx of shoulder replacement Social History household members: none Smoking Status: Never smoker substance use type: does not use HPI LEFT KNEE Details: This documentation accurately reflects the service provided and the decisions made by me, Dr. Toy Soriano, DO 04/20/23 0759. Part of today???s visit was documented by [ ], acting as scribe. KHADIJAH MAHMOOD is a 52 year old F here today for left knee pain. Patient states that she was doing pretty well after surgery until about the week before Greta she was doing stretches and exercises mostly for her lumbar spine, and her knee started hurting. Patients was then hit by a dog into her knee. She complains of pain over her medial knee. Patient has increased pain with ambulation. She has popping which is not painful. Patient has had a few episodes of instability. She has an OTC knee brace. She has been icing and taking ibuprofen 800 mg twice daily and tylenol twice daily for pain regularly for other issues . BMI 45.1 She had a knee arthroscopy on 12/02/22. Ortho Exam General General: Yes no acute distress Neurologic: Yes alert and Yes oriented x3 Psychologic: Yes reasonable and appropriate Right Knee Patella Translation: 1 Left Knee Skin/Wound: Yes CDI, No ecchymosis, No erythema and No swelling Knee ROM: Yes ROM-Extension -20 to 0 and Yes ROM-Flexion 0-140 (88) Examination: Yes med jt line tenderness, No Lat jt line tenderness, No Paula's and No TTP Pes Anserine Stability: NML: Anterior Drawer, NML: Posterior Drawer, NML: Valgus 0, NML: Varus 0 and NML: Varus 30 and 1+: Valgus 30 (4mm medial gapping due to joint space narrowing) Patella Translation: 1 Patella Grind: No KNEE: No joint effusion previous surgical scars are well-healed no signs of infection or blood clot Office Procedures Ortho Injections Injections Yes Knee Left Details: Obtained consent for injection. Under sterile conditions, injected the patient's left knee with 1.5cc bupivacaine, 1.5cc lidocaine and 1cc depomedrol. The patient tolerated the injection well without any noted complication. Patient should call our office if redness develops, pain worsens or if they have any concerns. Office Meds Depo-Medrol 40 mg/mL suspension for injection Performing Provider: Toy Soriano DO Performing Location: [facility] Administered by: Toy Soriano DO on 04/20/23 10:33 Dose Route Admin Location Dispensed Lot Number Expiration Date NDC Man ufacturer 40 mg intra-articular left knee 1 mL [id number] 07/05/24 6421-6472-79 [facility] Supplemental Info 04/20/2023 x-ray left knee: Moderate medial joint space narrowing there is spurring noted also in the lateral compartment 12/02/2022 operative report left knee arthroscopy:Postoperativ e diagnosis: Left knee complex tear posterior horn and anterior horn medial meniscus grade IV chondromalacia medial femoral condyle and small area of trochlea diffuse grade 3 remainder of trochlea and patella. Procedure: Left knee arthroscopic partial medial meniscectomy and chondroplasty 11/06/2022 MRI left knee: Complex tear posterior horn medial meniscus with extrusion of the truncated body and anterior horn, there is moderate thinning of the articular cartilage of the medial compartment mild thinning of the patellofemoral com (more content not included)... [facility] Lower Ext Joint Only (Routin e)on 04-11-2023 Lower Ext Joint Only (Routine) [facility] Imaging Services [address] [place] [address] Lower Ext Joint Only (Routine) MR#: [id number] Acct: [id number] Name: KHADIJAH MAHMOOD Rep #: [id number] : 1970 F 52 From: Cyrus Rendon MD PCP: Dr. Ana Lau MD Status: REG CLI Study: Lower Ext Joint Only (Routine) Date of Exam: 0 04/11/23 Exam# [id number] Ordering Dr: Tamara Martinez DPM [id number] EXAM: MR RIGHT LOWER EXTREMITY WITHOUT INTRAVENOUS CONTRAST, ANKLE CLINICAL INDICATION: ACHILLES TENDONITIS, PAINFUL LUMP X 1 YR TECHNIQUE: Multiplanar and multisequence MR images of the right ankle without intravenous contrast. COMPARISON: No relevant prior studies available. FINDINGS: LIGAMENTS: ANTERIOR TALOFIBULAR: Unremarkable. Intact. POSTERIOR TALOFIBULAR: Thickening of the anterior and posterior talofibular ligaments and calcaneofibular ligament from a previous injury. ANTERIOR TIBIOFIBULAR: Unremarkable. Intact. POSTERIOR TIBIOFIBULAR: Unremarkable. Intact. CALCANEOFIBULAR: See above. DELTOID: Signal alteration concerning for a moderate grade sprain injury involving the superficial and deep fibers of the deltoid ligamentous complex. SPRING: Unremarkable. Intact. LISFRANC: Unremarkable. Intact. TENDONS: ACHILLES: Moderate grade focal partial thickness tear involving the Achilles tendon with failure located at the calcaneal attachment of the Achilles tendon. FLEXOR: Mild medial flexor tenosynovitis without tendon tear. EXTENSOR: Unremarkable. Intact. PERONEAL: Mild peroneal tenosynovitis without tendon tear. TIBIALIS ANTERIOR: Unremarkable. Intact. TIBIALIS POSTERIOR: Unremarkable. Intact. MUSCLES: Unremarkable. Normal bulk and signal. FLUID: Moderate posterior subtalar and posterior tibiotalar joint effusion. Moderate thickening of the central cord of plantar aponeurosis with no adjacent fluid or inflammation to suggest active fasciitis. SINUS TARSI: Unremarkable. Normal fat in the sinus tarsi. TARSAL TUNNEL: Unremarkable. PLANTAR FASCIA: Prominent plantar calcaneal spur and moderate thickening of the central cord of plantar aponeurosis without adjacent fluid or inflammation. CARTILAGE: Unremarkable. No osteochondral lesion. Articular cartilage intact. BONES/JOINTS: Ankle mortise is intact. Focal edema involving the lateral talar dome may reflect an overlying subtle osteochondral injury. OTHER SOFT TISSUES: Unremarkable. MRI/Lower Ext Joint Only (Routine) IMPRESSION: 1. Moderate grade focal intrasubstance partial-thickness tear of the Achilles tendon at the proximal calcaneal attachment on a background of at least moderate Achilles tendinosis. 2. Moderate deltoid ligamentous complex sprain. 3. Remote injury involving the lateral collateral ligamentous complex. 4. Focal edema involving the lateral talar dome may reflect an overlying subtle osteochondral injury. Electronically Signed: Cyrus Rendon MD at 4:53 EST Reading Location ID and State: [facility] / [place] Tel , Service support , CC: ISAURO Martinez; Dr. Ana Lau MD Test Baker: Signed [facility] Inital Evaluation (1) - PTon 03-26-2023 Inital Evaluation (1) - [facility] [address] [place] [address] [address] [place] [address] / REHABILITATION SERVICES INITIAL EVALUATION MR#: [id number] Acct: [id number] Name: KHADIJAH MAHMOOD Rep #: [id number] : 1970 52 From: Efren Vicente Referring Dr.: ISAURO Martinez Status: REG RCR Insurance: [employer] INSURANCE Patient's Visit Information Visit Information Visit Information: KHADIJAH MAHMOOD is a 52 year old F referred to Physical Therapy by Dr. Tamara Martinez DPM with a diagnosis of Achilles tendonitis, M76.61. Date of Evaluation: 03/26/23 Physical Therapist: Efren Vicente Visit Plan Frequency: 2x /Week Duration: 6 Weeks Plan: Continue with eccentric calf strengthening, ankle strengthening, and balance exercises. Use manual therapy and modalities as needed for pain control. Subjective Subjective: Pt. is a 52 y.o. female who has been having right Achilles tendon pain for about a year with no specific injury that she is aware of. Her PLOF includes history of right foot plantar fasciitis. She has x-ray of her ankle which showed bone spur on her calcaneus. Pt. denies any numbness or tingling in her foot. She has difficulty with standing/walking while wearing shoes, occasionally sleeping, walking on uneven ground, housework, yard work, and work activity. Pt. works at [employer]. Her goal with physical therapy is to be pain free. Pt. has had previous physical therapy for her back and shoulder. Pt. rates Achilles pain at 1/10 currently, at worst 8/10 and describes the pain as throbbing. She takes Tylenol for pain. Her PMH includes right total shoulder replacement, left knee meniscectomy, kidney removed, lumbar L5-S1 discectomy, hysterectomy, and left plantar fascia surgery. Her hobbies include farming and gardening. Objective Objective: Palpation- No tenderness to palpation Left ankle DF 10 degrees, PF 37 degrees, Inv 32 degrees, Eversion 15 degrees Right ankle DF 8 degrees, PF 36 degrees, Inv 30 degrees, Eversion 17 degrees Left LE strength hip flexion 5/5, abduction 5/5, adduction 5/5, extension 5/5, knee flexion 5/5, knee extension 5/5, ankle DF 5/5, PF 5/5, Inv 5/5, Ev 5/5 Right LE strength hip flexion 5/5, abduction 5/5, adduction 5/5, extension 5/5, knee flexion 5/5, knee extension 5/5, ankle DF 5/5, PF 4+/5, Inv 5/5, Ev 5/5 Tandem stance right 30 secs, left 30 secs SLS right 8 secs, left 10 secs Special tests- Anterior drawer [-], Talar tilt [-], Metatarsal squeeze [-], Windlass test [-] Gait- Pt. ambulates with no noticeable gait deviations. Balance/Special Test Scores Lower Extremity Functional Score: 40 Goals Goal 1:: Pt. will improve right ankle strength to 5/5 for all motions in order to ambulate longer distances. Goal Time Frame: 4-6 Weeks Goal 2:: Pt. will be able to stand/walk for at least 20 minutes with right heel pain < 3/10. Goal Time Frame: 4-6 Weeks Goal 3:: Pt. will be able to sleep a full night with no right heel pain. Goal Time Frame: 4-6 Weeks Goal 4:: Pt. will rate right heel pain at worst at 3/10 after a full day of work activity. Goal Time Frame: 4-6 Weeks Goal 5:: Pt. will improve LEFS score < 40% disability in order to improve ADL's and IADL's. Goal Time Frame: 4-6 Weeks Rehabilitation Potential Physical Therapy Diagnosis: Decreased right ankle strength, difficulty walking, and pain. Pt. 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 Rehabilitation Potential: Good Anticipated Interventions Patient/Client Instruction: Educate patient on: Condition, Plan of Care and Benefits of Fitness Program For the Purpose of:: To decrease pain, To improve ability to perform ADL's, To improve performance and independence with ADL's, To increase flexibility/ROM, To assume or resume ADL's and To improve tolerance to ADL's Therapeutic Exercise to Include: Strength training, Balance training, Gait and locomotor training, Passive ROM and Active ROM Comment: Continue with ankle strengthening and balance exercises. For the Purpose of:: To decrease pain, To increase ROM, To improve ability to perform ADL's, To improve performance and independence with ADL's, To increase flexibility/ROM, To assume or resume ADL's and To improve tolerance to ADL's Functional Training to Include: ADL Training and Gait training For the Purpose of:: To decrease pain, To improve ability to perform ADL's, To improve performance and independence with ADL's, To assume or resume ADL's and To improve tolerance to ADL's Manual Therapy Techniques to Include: Mobilization, Passive ROM and Soft tissue mobilization For the Purpose of:: To decrease pain, To decrease swelling/inflammation, To increase ROM, To improve ability to perform ADL's, To improve performance and independence with ADL's, To increase flexibility/ROM, To assume or resume ADL's and (more content not included)... [facility] Orthopedic Visit Reporton Orthopedic Visit Report [facility] [address] [place] [address] OFFICE VISIT Date of Service: 02/24/23 MR#: [id number] Acct: [id number] Name: KHADIJAH MAHMOOD Rep #: [id number] : 1970 Provider: Dr. Joshua richmond MD Age/Sex: 52/F [place] [facility] Status: Signed Intake Vital Signs 12/02/22 06:17 Height 5 ft 3 in Intake Visit Reasons: LEFT SHOULDER Accompanied by: Self Is patient in pain?: Yes Allergies penicillin Allergy (Verified 02/24/23 10:57) Unknown Medications acetaminophen 650 mg tablet,extended release 1,300 mg PO BID 09/17/20 [History Confirmed 02/24/23] ibuprofen 200 mg tablet 800 mg PO BID 10/20/22 [History Confirmed 02/24/23] losartan 100 mg tablet 100 mg PO DAILY 10/20/22 [History Confirmed 02/24/23] [facility] Medical History (Updated 02/24/23 @ 11:16 by Joshua Mayo MD) Arthritis Back pain Calcific tendonitis of left shoulder Encounter for Essure implantation History of edema History of pain when walking Hypertension Impingement of left shoulder Injury of back Left shoulder pain Leg cramps Low iron Non-smoker Primary osteoarthritis, left shoulder Shortness of breath on exertion Wears glasses Surgical History History of History of nephrectomy, left Hx of discectomy Hx of foot surgery Hx of hysterectomy Hx of shoulder replacement Social History household members: none Smoking Status: Never smoker substance use type: does not use HPI LEFT SHOULDER Details: This documentation accurately reflects the service provided and the decisions made by me, Dr. Joshua Mayo MD 02/24/23 1054. Part of today???s visit was documented by [ ], acting as scribe. KHADIJAH MAHMOOD is a 52 year old F here today for L shoulder pain, been bothering for a few weeks, had an xray at [facility], was told mild widening of AC joint. had a shoulder replacement. carries a backpack on left shoulder, RHD. worse at night and witrh abduction, no injections, no injuries. 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 Ortho Exam General General: Yes no acute distress Neurologic: Yes alert and Yes oriented x3 Psychologic: Yes reasonable and appropriate Left Shoulder Skin/Wound: Yes CDI, No ecchymosis, No erythema and No swelling Testing: Yes Hawkin's, Yes Neer's, Yes Speed's, No TTP Biceps, No TTP AC Joint, No Drop Arm, Yes AROM-Forward Elevation 0-180, Yes AROM-External Rotation at side 0-60, Yes empty can, No [place], No scapular winging and Yes belly press normal SHOULDER: normal motor and sens to axillary N, MRU and AIN/PIN. Hand warm well perfused normal radial pulse strength fe and er 5/5 Supplemental Info XR 4 views L shoulder - nil acute, mild calcific tendonitis, mild posterior OA, ACJ looks normal Coding Level of Care Code Off vis,est,level 3 Diagnoses Left shoulder pain M25.512 Impingement of left shoulder M25.812 Calcific tendonitis of left shoulder M75.32 Primary osteoarthritis, left shoulder M19.012 Assessment and Plan Assessment and Plan (1) Left shoulder pain: Status: Acute Plan: 52 yr F L shoulder pain, likely impingement syndrome. To me the AC joint looks normal and there is no history of an injury. There is mild osteoarthritis but would not recommend a total shoulder arthroplasty at this point. The next step in the workup would be an MRI although the patient has tried minimal nonoperative things they can try rest ice anti-inflammatories pt would like to start there. Also recommended physical therapy could try cortisone injection to the patient declined for now we will follow-up on an as-needed basis if there are any further or ongoing concerns. I agree with the plan no further questions or concerns. (2) Impingement of left shoulder: Status: Acute (3) Calcific tendonitis of left shoulder: Status: Acute (4) Primary osteoarthritis, left shoulder: Status: Acute Orders: Orders Shoulder min 2 Views Today M25.512 - Pain in left shoulder 02/24/23 1120 Date [facility]: Date (if applicable) CC: [facility] Shoulder min 2 Viewson 02-24 Shoulder min 2 Views [facility] [place] [facility] [address] [place] [address] Shoulder min 2 Views MR#: [id number] Acct: [id number] Name: KHADIJAH MAHMOOD Rep #: [id number] : 1970 F 52 From: Cristian Gaines MD PCP: Dr. Ana Lau MD Status: DEP AMB Study: Shoulder min 2 Views Date of Exam: 02/24/23 Exam# [id number] Ordering Dr: Joshua Mayo MD [id number] STUDY: X-RAY - LEFT SHOULDER REASON FOR EXAM: Female, 52 years old. Pain. TECHNIQUE: 4 views of the left shoulder. COMPARISON: None. FINDINGS: Normal glenohumeral articulation. Normal acromioclavicular joint. Normal acromion. There is mild calcification adjacent to the greater tuberosity of the humeral head, suspicious for mild calcific tendinitis of the rotator cuff. Normal humeral head and visualized proximal humerus. The soft tissue structures are unremarkable. There is no demonstrated fracture. Normal visualized pulmonary apex. RAD/Shoulder min 2 Views IMPRESSION: Suspected mild calcific tendinitis of the rotator cuff. No demonstrated fracture. Electronically Signed: Cristian Gaines MD at 12:24 EST Reading Location ID and State: [facility] / [place] , Service support , CC: Dr. Ana Lau MD; Dr. Joshua Mayo MD Test Baker: Signed [facility] XR SHOULDER LIMITED 2V AP/TR UE AP LEFTon 02-17-2023 [facility] XR Shoulder - left 2 Viewson 02-17-2023 IMPRESSION: Question mild widening of the acromioclavicular joint on one view only. Ligamentous injury not excluded. Test Baker: [facility] Transcribe Date/Time: Feb 17 2023 3:41P Dictated by : CHERI MOULTON MD This examination was interpreted and the report reviewed and electronically signed by: CHERI MOULTON MD on Feb 17 2023 3:43PM [facility] DIVISION OF RADIOLOGY * * *Final Report* * * DATE OF EXAM: Feb 17 2023 3:23PM WOX 5254 - XR SHOULDER 2V AP/TRUE AP LT / PROCEDURE REASON: Pain * * * * Physician Interpretation * * * * TITLE: XR SHOULDER 2V AP/TRUE AP LT CLINICAL INDICATION: Pain TECHNIQUE: 3 view radiographic study of the left shoulder COMPARISON: None FINDINGS: No acute fracture. Glenohumeral relationship preserved. Question mild widening of the acromioclavicular joint on one view only. DIVISION OF RADIOLOGY Provider, [facility] - 02/17/2023 * * *Final Report* * * DATE OF EXAM: Feb 17 2023 3:23PM WOX 5254 - XR SHOULDER 2V AP/TRUE AP LT / PROCEDURE REASON: Pain * * * * Physician Interpretation * [...] one view only. Ligamentous injury not excluded. Test Baker: [facility] Transcribe Date/Time: Feb 17 2023 3:41P Dictated by : CHERI MOULTON MD This examination was interpreted and the report reviewed and electronically signed by: CHERI MOULTON MD on Feb 17 2023 3:43PM EST [facility] Radiology Study observation (narrative) [facility] XR Shoulder - left 2 ViewsOr dered By: [facility] Provider on 02-17-2023 [facility] Orthopedic Visit Reporton Orthopedic Visit Report [facility] [address] [place] [address] OFFICE VISIT Date of Service: 02/04/23 MR#: [id number] Acct: [id number] Name: KHADIJAH MAHMOOD Rep #: [id number] : 1970 Provider: Dr. Janes koenig DO Age/Sex: 52/F [place] [facility] [place] Status: Signed Intake Vital Signs 12/02/22 06:17 Height 5 ft 3 in Intake Visit Reasons: LUMBAR SPINE Chief Complaint: Lumbar spine MRI review Accompanied by: Self Is patient in pain?: Yes Pain scale (1-10): 5 Allergies penicillin Allergy (Verified 02/04/23 13:29) Unknown Medications acetaminophen 650 mg tablet,extended release 1,300 mg PO BID 09/17/20 [History Confirmed 02/04/23] ibuprofen 200 mg tablet 800 mg PO BID 10/20/22 [History Confirmed 02/04/23] losartan 100 mg tablet 100 mg PO DAILY 10/20/22 [History Confirmed 02/04/23] PFSH Medical History Arthritis Back pain Encounter for Essure implantation History of edema History of pain when walking Hypertension Injury of back Leg cramps Low iron Non-smoker Shortness of breath on exertion Wears glasses Surgical History History of History of nephrectomy, left Hx of discectomy Hx of foot surgery Hx of hysterectomy Hx of shoulder replacement Social History household members: none Smoking Status: Never smoker substance use type: does not use HPI LUMBAR SPINE Details: This documentation accurately reflects the service provided and the decisions made by me, Dr. Janes Fletcher, 02/04/23 1326. Part of today???s visit was documented by [ ], acting as scribe. KHADIJAH MAHMOOD is a 52 year old F here today for MRI review of lumbar spine. Pt was stacking hay on 12/27/22 and injured her back lifting and twisting. Pt states that the pain has got little better. Left side is still worse than the right. Pt still states that she has numbness in left thigh. Returns for follow-up. She had her MRI done. It demonstrates a herniation at L5-S1 on the right side which was not called by the radiologist. But it is there. He has some stenosis at L4-5 where she has her degenerative listhesis of L4 and L5. She has decreased disc space specially at L5-S1 where her original surgery was probably on the right at L5-S1 but she also has a decreased to space at L4-5 with a degenerative spondylolisthesis is. At this point time she is functional she does her job every day she takes care of her family. Surgery is always a possibility in the future and now she is well aware of that. Dr. Jeffries is her pain management doctor and periodically she has to go see him and get an injection. The last when she had was a couple of months ago but before that it had been almost 9 months before she had had 1. So she gets 1 occasionally plan perhaps twice a year I think that is perfectly reasonable. I explained to Khadijah we can always stop and do her surgery. If she were to have a surgery I believe that we should probably fused both levels and decompress L5- S1 on the right with a repeat Lami. The left thigh pain is in the anterior lateral thigh mostly and I am suspicious that this could be the lateral femoral cutaneous nerve and that she suffers from meralgia paresthetica. She has gained some weight over the last several months. Nonetheless for now we will simply sit on this thing and see how she does over time I will see her on a as needed basis. Coding Level of Care Code Off vis,est,level 3 Diagnoses Degenerative spondylolisthesis M43.10 Herniated nucleus pulposus, L5-S1 M51.27 Time Spent (min) 25 Assessment and Plan Assessment and Plan (1) Degenerative spondylolisthesis: Status: Acute (2) Herniated nucleus pulposus, L5-S1: Status: Acute 02/04/23 1409 Date Janes Barros Signature: Date (if applicable) CC: Dr. Ana Lau MD [facility] Spine Lumbar (Routine)on Spine Lumbar (Routine) [facility] [address] [place] [address] Spine Lumbar (Routine) MR#: [id number] Acct: [id number] Name: KHADIJAH MAHMOOD Rep #: [id number] : 1970 F 52 From: Jesús Rangel MD PCP: Dr. Ana Lau MD Status: [facility] CLI Study: Spine Lumbar (Routine) Date of Exam: 02/02/23 Exam# [id number] Ordering Dr: Janes Fletcher DO [id number] INDICATION: pain, LOW BACK PAIN RADIATING DOWN LEGS EXAMINATION: MRI - MR Spine Lumbar W/O Contrast TECHNIQUE: Multiplanar and multisequence MR images of the lumbar spine without contrast. IV Contrast Dosage and Agent: None. COMPARISON: Lumbar spine radiograph January 15, 2023. Lumbar spine MRI March 05, 2015. FINDINGS: VERTEBRAE: Normal bone marrow signal. No fracture or compression deformity. Facet no aggressive osseous lesion. Preserved lumbar lordosis. Minimal degenerative grade 1 anterolisthesis L4 on L5 . CORD: Conus medullaris at T12-L1. Imaged portion of the cord is normal signal. Cauda equina layer dependently.. T9-T10: Circumferential disc bulge with small broad-based posterior disc protrusion, causing mild spinal canal stenosis without cord compression. L1/L2: Normal disc height and morphology. Normal spinal canal, lateral recesses and neuroforamina. L2/L3: Normal disc height and morphology. Normal spinal canal, lateral recesses and neuroforamina. L3/L4: Normal disc height and morphology. Mild bilateral ligamentum flavum hypertrophy. No evidence of significant spinal canal, lateral recess or neuroforamina stenosis.. L4/L5: Slight uncovering of the posterior superior disc due to grade 1 listhesis. Severe bilateral facet arthropathy with mild ligamentum flavum hypertrophy. Moderate spinal canal narrowing. Moderate right neural foraminal narrowing with disc likely contacting the exiting L4 nerve root. Mild left neural foraminal narrowing.. L5/S1: Disc height loss with minimal posterior disc bulge. Moderate to severe bilateral facet arthropathy. Together findings cause no significant central spinal canal stenosis. Mild left neural foraminal narrowing. SOFT TISSUES: Unremarkable. MRI/Spine Lumbar (Routine) IMPRESSION: Lower thoracic and lower lumbar spondylosis as above with up to moderate view spinal canal stenosis at L4-5. Up to moderate right neural foraminal narrowing L4-5 with disc likely contacting the exiting L4 nerve root, new or worsened from March 05, 2015. Electronically Signed: Jesús Rangel MD at 2:54 EDT , CC: Dr. Ana Lau MD; Dr. Janes Fletcher DO Test Baker: Signed [facility] THIERNO SCREENING W TOMOon 10-01 [facility] CBC W Auto Differential pane l (Bld)on 08-15-2022 Basophils (Bld) [#/Vol] 0.04 10*3/uL <0.11 k/uL [facility] Basophils/100 WBC (Bld) 0.6 % [facility] Differential cell count method Nom (Bld) Auto [facility] Eosinophils (Bld) [#/Vol] 0.25 10*3/uL <0.46 k/uL [facility] Eosinophils/100 WBC (Bld) 3.5 % [facility] Erythrocyte distribution width (RBC) [Ratio] 13.7 % 11.5 - 15.0 % [facility] Hematocrit (Bld) [Volume fraction] 34.2 % Low 36.0 - 46.0 % [facility] Hemoglobin (Bld) [Mass/Vol] 10.6 g/dL Low 11.5 - 15.5 g/dL [facility] Immature granulocytes (Bld) [#/Vol] 0.05 10*3/uL <0.10 k/uL [facility] Immature granulocytes/100 WBC (Bld) 0.7 % [facility] Lymphocytes (Bld) [#/Vol] 2.21 10*3/uL 1.00 - 4.00 k/uL [facility] Lymphocytes/100 WBC (Bld) 31.2 % [facility] MCH (RBC) [Entitic mass] 26.8 pg 26.0 - 34.0 pg [facility] MCHC (RBC) [Mass/Vol] 31.0 g/dL 30.5 - 36.0 g/dL [facility] MCV (RBC) [Entitic vol] 86.6 fL 80.0 - 100.0 fL [facility] Monocytes (Bld) [#/Vol] 0.51 10*3/uL <0.87 k/uL [facility] Monocytes/100 WBC (Bld) 7.2 % [facility] Neutrophils (Bld) [#/Vol] 4.03 10*3/uL 1.45 - 7.50 k/uL [facility] Neutrophils/100 WBC (Bld) 56.8 % [facility] Nucleated RBC (Bld) [#/Vol] <0.01 k/uL [facility] Nucleated RBC/100 WBC (Bld) [Ratio] 0.0 /100 WBC [facility] Platelet mean volume (Bld) [Entitic vol] 9.8 fL 9.0 - 12.7 fL [facility] Platelets (Bld) [#/Vol] 263 10*3/uL 150 - 400 k/uL [facility] RBC (Bld) [#/Vol] 3.95 10*6/uL 3.90 - 5.2 0 m/uL [facility] WBC (Bld) [#/Vol] 7.09 10*3/uL 3.70 - 11. 00 k/uL [facility] Urinalysis complete panel (U )on 08-15-2022 Bilirubin Ql (U) Negative Negative [facility] Clarity (Unsp spec) Clear Clear Al [facility] Color (U) Light Yellow Yellow [facility] Epithelial cells LM.HPF (Urine sed) [#/Area] Few [facility] Glucose Test strip (U) [Mass/Vol] Negative Trace, Negative [facility] Hemoglobin Ql (U) Trace Negative, Trace [facility] Ketones Ql (U) Negative Trace, Negative [facility] Leukocyte esterase Test strip Ql (U) Negative Negative, 25 Leora/uL [facility] Nitrite Ql (U) Negative Negative [facility] pH (U) 6.0 [pH] 5.0 - 8.0 [facility] Protein (U) [Mass/Vol] Trace Trace, Negative [facility] RBC LM.HPF (Urine sed) [#/Area] 0-3 /HPF 0-3 /HPF [facility] Specific gravity (U) [Rel density] 1.031 High 1.005 - 1.030 [facility] Urobilinogen Ql (U) Negative Negative [facility] WBC LM.HPF (Urine sed) [#/Area] 0-5 /HPF 0-5 /HPF [facility] No Panel Informationon 09-27 Radiology Study observation (narrative) [facility] XR Knee - left 4 Viewson IMPRESSION: Findings are suggestive of mild degenerative changes in the left knee. Test Baker: [facility] Transcribe Date/Time: Sep 27 2021 2:29P Dictated by : BETTIE WHITEHEAD MD This examination was interpreted and the report reviewed and electronically signed by: BETTIE WHITEHEAD MD on Sep 27 2021 2:30PM EST [facility]_DO_NOT_US E_DIVISION OF RADIOLOGY * * *Final Report* * * DATE OF EXAM: Sep 27 2021 2:19PM WOX 5202 - XR KNEE 4V AP/PA BOTH+LAT/KAROLINA LT / PROCEDURE REASON: Acute pain of left knee * * * * Physician Interpretation * * * * EXAM TITLE: XR KNEE 4V AP/PA BOTH+LAT/KAROLINA LT EXAM DATE/TIME: 09/27/2021 2:19 PM COMPARISON: None. CLINICAL INDICATION/HISTORY: Left knee pain. TECHNIQUE: AP/PA, lateral and sunrise views of the left knee are presented. FINDINGS: No acute fractures or subluxations are noted. Tricompartmental bony spurs visualized. Accessory bone/loose body noted. The joint spaces are grossly preserved. There is no evidence of joint effusion. The mineralization of the bones is normal. There is no significant soft tissue swelling. [facility]DO_NOT_US E_DIVISION OF RADIOLOGY Provider, Raul pastor Tiffin - 09/27/2021 * * *Final Report* * * DATE OF EXAM: Sep 27 2021 2:19PM WOX 5202 - XR KNEE 4V AP/PA BOTH+LAT/KAROLINA LT / PROCEDURE REASON: Acute pain of left knee * * * * Physician Interpretation * * * * EXAM TITLE: XR KNEE 4V AP/PA BOTH+LAT/KAROLINA LT EXAM DATE/TIME: 09/27/2021 2:19 PM COMPARISON: None. CLINICAL INDICATION/HISTORY: Left knee pain. TECHNIQUE: AP/PA, lateral and sunrise views of the left knee are presented. FINDINGS: No acute fractures or subluxations are noted. Tricompartmental bony spurs visualized. Accessory bone/loose body noted. The joint spaces are grossly preserved. There is no evidence of joint effusion. The mineralization of the bones is normal. There is no significant soft tissue swelling. IMPRESSION IMPRESSION: Findings are suggestive of mild degenerative changes in the left knee. Test Baker: [facility] Transcribe Date/Time: Sep 27 2021 2:29P Dictated by : BETTIE WHITEHEAD MD This examination was interpreted and the report reviewed and electronically signed by: BETITE WHITEHEAD MD on Sep 27 2021 2:30PM EST [facility] XR Knee - left 4 ViewsOrdere d By: Cc Provider on 09-27-2021 [facility] XR Shoulder - right 3 Viewso n 09-27-2021 IMPRESSION: Status p ost right shoulder resurfacing arthroplasty. Test Baker: [facility] Transcribe Date/Time: Sep 27 2021 2:32P Dictated by : BETTIE WHITEHEAD MD This examination was interpreted and the report reviewed and electronically signed by: BETTIE WHITEHEAD MD on Sep 27 2021 2:34PM EST [facility]DO_NOT_US E_DIVISION OF RADIOLOGY * * *Final Report* * * DATE OF EXAM: Sep 27 2021 2:19PM WOX 5253 - XR SHLDR >/=3V AP/LAYNE AP/OTHR RT / PROCEDURE REASON: Injury of right shoulder, initial encounter * * * * Physician Interpretation * * * * EXAM TITLE: XR SHLDR >/=3V AP/LAYNE AP/OTHR RT EXAM DATE/TIME: 09/27/2021 2:19 PM COMPARISON: X-ray shoulder on 11/12/2020. CLINICAL INDICATION/HISTORY: Pain after fall. TECHNIQUE: AP, true AP and Y views of the right shoulder are presented FINDINGS: Status post the right shoulder resurfacing arthroplasty. No acute fractures or subluxation seen. Sclerotic changes in the glenoid are visualized. The acromioclavicular joint appears unremarkable. The mineralization of the bones is normal. There is no significant soft tissue swelling. [facility]_DO_NOT_US E_DIVISION OF RADIOLOGY Provider, [facility] - 09/27/2021 * * *Final Report* * * DATE OF EXAM: Sep 27 2021 2:19PM WOX 5253 - XR SHLDR >/=3V AP/LAYNE AP/OTHR RT / PROCEDURE REASON: Injury of right shoulder, initial encounter * * * * Physician Interpretation * * * * EXAM TITLE: XR SHLDR >/=3V AP/LAYNE AP/OTHR RT EXAM DATE/TIME: 09/27/2021 2:19 PM COMPARISON: X-ray shoulder on 11/12/2020. CLINICAL INDICATION/HISTORY: Pain after fall. TECHNIQUE: AP, true AP and Y views of the right shoulder are presented FINDINGS: Status post the right shoulder resurfacing arthroplasty. No acute fractures or subluxation seen. Sclerotic changes in the glenoid are visualized. The acromioclavicular joint appears unremarkable. The mineralization of the bones is normal. There is no significant soft tissue swelling. IMPRESSION IMPRESSION: Status post right shoulder resurfacing arthroplasty. Test Baker: PSCB Transcribe Date/Time: Sep 27 2021 2:32P Dictated by : BETTIE WHITEHEAD MD This examination was interpreted and the report reviewed and electronically signed by: BETTIE WHITEHEAD MD on Sep 27 2021 2:34PM EST [facility] No Panel Informationon 09-16 [facility] Absolute lymphocyte counton 08-07-2021 Lymphocytes Auto (Unsp spec) [#/Vol] 1.89 10*3/uL 0.83-4.51 [facility] Work Phone: Basophil percentageon 2021 Basophils/100 WBC (Bld) 0.3 % 0-1 [facility] Work Phone: Chloride [Moles/Vol] 107 mmol/L 98-107 [facility] Work Phone: [phone] Eosinophils/100 WBC (Bld) 2.0 % 0-5 [facility] Work Phone: [phone] Glucose [Mass/Vol] 90 mg/dL 74-106 [facility] Work Phone: [phone] Neutrophils (Bld) [#/Vol] 7.9 10*3/uL 2.0-7.7 [facility] Work Phone: [phone] Neutrophils/100 WBC (Bld) 74.2 % 47-70 [facility] Work Phone: [phone] Potassium [Moles/Vol] 3.7 mmol/L 3.5-5.1 [facility] Work Phone: [phone] Sodium [Moles/Vol] 140 mmol/L 136-145 [facility] Work Phone: [phone] WBC (Bld) [#/Vol] 10.6 10*3/uL 4.4-11.0 [facility] Work Phone: [phone] Blood erythrocytes count (nu mber/volume)on 08-07-2021 RBC (Bld) [#/Vol] 4.12 10*6/uL 4.2-5.4 [facility] Work Phone: Blood hemoglobin measurement (mass/volume)on 08-07-2021 Hemoglobin (Bld) [Mass/Vol] 11.2 g/dL 12.0-15.0 [facility] Work Phone: Blood lymphocytes/100 leukoc yteson 08-07-2021 Lymphocytes/100 WBC (Bld) 17.8 % 19-41 [facility] Work Phone: Blood monocytes/100 leukocyt eson 08-07-2021 Monocytes/100 WBC (Bld) 5.1 % 0-10 [facility] Work Phone: Blood platelet mean volumeon 08-07-2021 Platelet mean volume (Bld) [Entitic vol] 9.3 fL 6.2-12.0 [facility] Work Phone: Determination of erythrocyte mean corpuscular volume (MCV)on 08-07-2021 MCV (RBC) [Entitic vol] 85.0 fL 81-99 [facility] Work Phone: Hematocrit Auto (Bld) [Volum e fraction]on 08-07-2021 Hematocrit (Bld) [Volume fraction] 35.0 % 37-47 [facility] Work Phone: Laboratory - Chemistry and C hemistry - challengeon 08-07-2021 CO2 [Moles/Vol] 29.0 mmol/L 21.0-32.0 [facility] Work Phone: Urea nitrogen/Creatinine [Mass ratio] 23.0 mg/mg 10-20 [facility] Work Phone: Laboratory - Hematology and Cell countson 08-07-2021 Erythrocyte distribution width (RBC) [Entitic vol] 40.7 fL 35.1-43.9 [facility] Work Phone: Erythrocyte distribution width (RBC) [Ratio] 13.2 % 11.6-14.6 [facility] Work Phone: Immature granulocytes/100 WBC (Bld) 0.600 % 0.0-0.9 [facility] Work Phone: [phone] Comment on above: IG% - Immature Granu locytes (promyelocytes, myelocytes and metamyelocytes) > 1% indicates that a LEFT SHIFT is Present. MCH (RBC) [Entitic mass] 27.2 pg 27.0-32.0 [facility] Work Phone: Nucleated RBC/100 WBC (Bld) [Ratio] 0 % 0-5 [facility] Work Phone: MCHC Auto (RBC) [Mass/Vol]on 08-07-2021 MCHC (RBC) [Mass/Vol] 32.0 g/dL 32-36 [facility] Work Phone: No Panel Informationon 08-07 Estimated Creatinine Clearance Calc 78.65 ml/min [facility] Work Phone: Estimated GFR (MDRD) Amer 114 mL/min >60 [facility] Work Phone: Comment on above: GFR Calc Estimated GFR (MDRD) Non-Af Amer 94 mL/min >60 [facility] Work Phone: Comment on above: Non- GFR Calc Troponin I High Sensitivity < 3 pg/mL 3.0-54.0 [facility] Work Phone: Comment on above: Please Note: New Alejandrina t Units and Gender Specific Reference Ranges. For more information see Policy Stat Procedure [place] High Sensitivity Troponin (TNIH) and attachments. Platelets bldon 08-07-2021 Platelets (Bld) [#/Vol] 284 10*3/uL 150-450 [facility] Work Phone: Serum or plasma calcium jose urement (mass/volume)on 08-07-2021 Calcium [Mass/Vol] 9.0 mg/dL 8.5-10.1 [facility] Work Phone: Serum or plasma creatinine m easurement (mass/volume)on 08-07-2021 Creatinine [Mass/Vol] 0.70 mg/dL 0.55-1.02 [facility] Work Phone: Comment on above: The validity of the calculated GFR & GFRAA in patients over 70 years has not been determined. Clinical correlation is essential. Serum or plasma urea nitroge n measurement (mass/volume)on 08-07-2021 Urea nitrogen [Mass/Vol] 16 mg/dL 7-18 [facility] Work Phone: Thin prep Papanicolaou smear with manual screeningon 08-07-2021 Thin prep Papanicolaou smear with manual screening 4 5-15 [facility] Work Phone: MRI LUMBAR SPINE WO IVCONon 08-01-2021 [facility] XR LUMBAR GENERAL 3V AP/LAT/ L5-S1on 06-25-2021 [facility] XR Lumbar spine 3 Viewson IMPRESSION: Scoliotic curvature and degenerative change as detailed in report. No acute process. Test Baker: LAURA Transcribe Date/Time: Jun 25 2021 4:39P Dictated by : RHYS JONES MD This examination was interpreted and the report reviewed and electronically signed by: RHYS JONES MD on Jun 25 2021 4:42PM [facility] DIVISION OF RADIOLOGY * * *Final Report* * * DATE OF EXAM: Jun 25 2021 4:29PM WOX [id number] - XR LUMBAR 3V AP/LAT/L5-S1 / PROCEDURE REASON: Right-sided low back pain with right-sided sciatica, unspecified chronicity * * * * Physician Interpretation * * * * EXAMINATION: XR LUMBAR 3V AP/LAT/L5-S1 HISTORY: Lower back pain, pain radiating down right leg. Right-sided low back pain with right-sided sciatica, unspecified chronicity. TECHNIQUE: XR LUMBAR 3V AP/LAT/L5-S1 Laterality: NOT APPLICABLE Number of different views (projections): 3 M: XB_1 COMPARISON: Comparison is made to prior lumbar spine dated 22 November 2014 RESULT: Counting reference: Lumbosacral junction. For the purposes of this report, L5-S1 is considered the last lumbar-type disc space and L4-5 is considered the level of the iliac crest. 3 Views of the lumbosacral spine with AP, lateral and cone-down radiographs demonstrate scoliotic curvature and multilevel degenerative change with vertebral body osteophytosis. There is intervertebral disc space narrowing at L4-5 and L5-S1 levels. There is hypertrophic facet change at lower 2 levels. There is grade 1 anterior spondylolisthesis of L4 with respect to L5. There is no associated pars interarticularis defect and the findings are likely degenerative in etiology. There are no compression fractures and alignment is well maintained. The soft tissues are unremarkable. DIVISION OF RADIOLOGY Provider, Raul Estes - 06/25/2021 * * *Final Report* * * DATE OF EXAM: Jun 25 2021 4:29PM WOX [id number] - XR LUMBAR 3V AP/LAT/L5-S1 / PROCEDURE REASON: Right-sided low back pain with right-sided sciatica, unspecified chronicity * * * * Physician Interpretation * * * * EXAMINATION: XR LUMBAR 3V AP/LAT/L5-S1 HISTORY: Lower back pain, pain radiating down right leg. Right-sided low back pain with right-sided sciatica, unspecified chronicity. TECHNIQUE: XR LUMBAR 3V AP/LAT/L5-S1 Laterality: NOT APPLICABLE Number of different views (projections): 3 M: XB_1 COMPARISON: Comparison is made to prior lumbar spine dated 22 November 2014 RESULT: Counting reference: Lumbosacral junction. For the purposes of this report, L5-S1 is considered the last lumbar-type disc space and L4-5 is considered the level of the iliac crest. 3 Views of the lumbosacral spine with AP, lateral and cone-down radiographs demonstrate scoliotic curvature and multilevel degenerative change with vertebral body osteophytosis. There is intervertebral disc space narrowing at L4-5 and L5-S1 levels. There is hypertrophic facet change at lower 2 levels. There is grade 1 anterior spondylolisthesis of L4 with respect to L5. There is no associated pars interarticularis defect and the findings are likely degenerative in etiology. There are no compression fractures and alignment is well maintained. The soft tissues are unremarkable. IMPRESSION IMPRESSION: Scoliotic curvature and degenerative change as detailed in report. No acute process. Test Baker: [facility] Transcribe Date/Time: Jun 25 2021 4:39P Dictated by : RHYS JONES MD This examination was interpreted and the report reviewed and electronically signed by: RHYS JONES MD on Jun 25 2021 4:42PM EST [facility] Radiology Study observation (narrative) [facility] XR Lumbar spine 3 ViewsOrder ed By: [facility]cf Provider on 06-25-2021 [facility] COVID-19, MOLECULARon 2020 SARS-CoV-2 (COVID-19) RNA ALFA+probe Ql (Unsp spec) Not detected Normal Not Detected [facility] Comment on above: Result Comment: This test was performed under the FDA's Emergency Use Authorization (EUA). Testing was performed using the Mila SARS-CoV-2 RT-PCR assay on the [employer] Mila 6800 System. This test has not been approved for use in asymptomatic patients and its performance in this patient population has not been evaluated. Negative results do not rule out the presence of SARS-CoV-2/COVID-19. Fact sheets for this EUA can be found at the following links: For Healthcare Providers: https://www.fda.gov/media/650955/download For Patients: https://www.fda.gov/media/533588/download Performed By: #### L [id number] #### [facility] [address] [place] [address] Efren Johnson M.D. [id number] XR Calcaneus - left 2 Viewso n 11-14-2020 IMPRESSION: Calcaneal enthesophytes Test Baker: LAURA Transcribe Date/Time: Nov 14 2020 8:17P Dictated by : RAMOS HINOJOSA MD This examination was interpreted and the report reviewed and electronically signed by: RAMOS HINOJOSA MD on Nov 14 2020 8:18PM [facility] DIVISION OF RADIOLOGY * * *Final Report* * * DATE OF EXAM: Nov 14 2020 7:41PM WOX 5306 - XR CALCANEUS 2V AXIAL/LAT LT / PROCEDURE REASON: Pain of left heel * * * * Physician Interpretation * * * * CLINICAL:..... Pain of left heel TECHNIQUE: AP and lateral views of the calcaneus, lateral FINDINGS: A large plantar calcaneal enthesophyte is present. A small posterior calcaneal enthesophyte is present.. DIVISION OF RADIOLOGY Provider, [facility] - 11/14/2020 * * *Final Report* * * DATE OF EXAM: Nov 14 2020 7:41PM WOX 5306 - XR CALCANEUS 2V AXIAL/LAT LT / PROCEDURE REASON: Pain of left heel * * * * Physician Interpretation * * * * CLINICAL:..... Pain of left heel TECHNIQUE: AP and lateral views of the calcaneus, lateral FINDINGS: A large plantar calcaneal enthesophyte is present. A small posterior calcaneal enthesophyte is present.. IMPRESSION IMPRESSION: Calcaneal enthesophytes [facility] Transcribe Date/Time: Nov 14 2020 8:17P Dictated by : RAMOS HINOJOSA MD This examination was interpreted and the report reviewed and electronically signed by: RAMOS HINOJOSA MD on Nov 14 2020 8:18PM EST [facility] Radiology Study observation (narrative) [facility] XR Calcaneus - left 2 ViewsO rdered By: [facility]cf Provider on 11-14-2020 [facility] XR Knee - bilateral 4 Viewso n 08-27-2020 IMPRESSION: Mild lateral patellar subluxation on the right with small amount of joint fluid. No acute bony process. Test Baker: [facility] Transcribe Date/Time: Aug 27 2020 2:12P Dictated by : RHYS JONES MD This examination was interpreted and the report reviewed and electronically signed by: RHYS JONES MD on Aug 27 2020 2:15PM EST DIVISION OF RADIOLOGY * * *Final Report* * * DATE OF EXAM: Aug 27 2020 12:38PM WOX [id number] - XR KNEE 4V AP/PA/LAT/MERCH SUZY / PROCEDURE REASON: multiple diagnoses * * * * Physician Interpretation * * * * EXAMINATION: XR KNEE 4V AP/PA/LAT/MERCH SUZY HISTORY: Chronic bilateral knee pain right medial and left anterior. No injury. TECHNIQUE: XR KNEE 4V AP/PA/LAT/MERCH SUZY Laterality: BILATERAL Number of different views (projections): 4 M: XB_1 COMPARISON: There are no prior relevant examinations available for comparison. RESULT: Standing frontal radiographs of the bilateral knees with bilateral PA flexion views, sunrise views and bilateral lateral views show no acute osseous or articular process. Joint spaces are preserved bilaterally. [place] view demonstrates mild lateral patellar subluxation on the right with minimal narrowing of the lateral patellofemoral joint space. Lateral views demonstrate small suprapatellar joint effusion on the right. DIVISION OF RADIOLOGY Provider, [facility] - 08/27/2020 * * *Final Report* * * DATE OF EXAM: Aug 27 2020 12:38PM WOX 5618 - XR KNEE 4V AP/PA/LAT/MERCH SUZY / PROCEDURE REASON: multiple diagnoses * * * * Physician Interpretation * * * * EXAMINATION: XR KNEE 4V AP/PA/LAT/MERCH SUZY HISTORY: Chronic bilateral knee pain right medial and left anterior. No injury. TECHNIQUE: XR KNEE 4V AP/PA/LAT/MERCH SUZY Laterality: BILATERAL Number of different views (projections): 4 M: XB_1 COMPARISON: There are no prior relevant examinations available for comparison. RESULT: Standing frontal radiographs of the bilateral knees with bilateral PA flexion views, sunrise views and bilateral lateral views show no acute osseous or articular process. Joint spaces are preserved bilaterally. [place] view demonstrates mild lateral patellar subluxation on the right with minimal narrowing of the lateral patellofemoral joint space. Lateral views demonstrate small suprapatellar joint effusion on the right. IMPRESSION IMPRESSION: Mild lateral patellar subluxation on the right with small amount of joint fluid. No acute bony process. Test Baker: [facility] Transcribe Date/Time: Aug 27 2020 2:12P Dictated by : RHYS JONES MD This examination was interpreted and the report reviewed and electronically signed by: RHYS JONES MD on Aug 27 2020 2:15PM EST [facility] Radiology Study observation (narrative) [facility] XR Knee - bilateral 4 ViewsO rdered By: [facility] Provider on 08-27-2020 [facility] No Panel Information [facility] Vital Signs Date Time Vital Sign Value Performing Clinician Facility 09-05-2024 07:39-0400 Body height 162.6 cm Tomasa Gonzalez APRN.CNP Work Phone: [facility] 09-05-2024 07:39-0400 Body mass index (BMI) [Ratio] 43.08 kg/m2 Tomasa Gonzalez APRN.CNP Work Phone: [facility] 09-05-2024 07:39-0400 Body weight 113.85 kg Tomasa Gonzalez APRN.CNP Work Phone: [facility] 08-04-2024 14:42-0400 Diastolic blood pressure 91 mm[Hg] Kenneth Felix MD Work Phone: [facility] 08-04-2024 14:42-0400 Heart rate 79 /min Kenneth Felix MD Work Phone: [facility] 08-04-2024 14:42-0400 Respiratory rate 20 /min Kenneth Felix MD Work Phone: [facility] 08-04-2024 14:42-0400 SaO2% (BldA) [Mass fraction] 97 % Kenneth Felix MD Work Phone: [facility] 08-04-2024 14:42-0400 Systolic blood pressure 159 mm[Hg] Kenneth Felix MD Work Phone: [facility] 07-06-2024 07:41-0400 Body height 162.6 cm Tomasa Gonzalez ART EDITOR.NIGHT TIME BABYSITTER Work Phone: [facility] 07-06-2024 07:41-0400 Body mass index (BMI) [Ratio] 43.08 kg/m2 Tomasa Buckakievic ART EDITOR.NIGHT TIME BABYSITTER Work Phone: [facility] 07-06-2024 07:41-0400 Body weight 113.85 kg Tomasa Campbellic ART EDITOR.NIGHT TIME BABYSITTER Work Phone: [facility] 06-20-2024 09:21-0400 Body mass index (BMI) [Ratio] 43.08 kg/m2 Trav 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 Work Phone: [facility] 06-20-2024 09:21-0400 Body weight 113.85 kg Trav 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 Work Phone: [facility] 06-20-2024 09:21-0400 Diastolic blood pressure 88 mm[Hg] Trav 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 Work Phone: [facility] 06-20-2024 09:21-0400 Heart rate 78 /min Trav 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 Work Phone: [facility] 06-20-2024 09:21-0400 Respiratory rate 16 /min Trav 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 Work Phone: [facility] 06-20-2024 09:21-0400 SaO2% (BldA) [Mass fraction] 97 % Trav 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 Work Phone: [facility] 06-20-2024 09:21-0400 Systolic blood pressure 138 mm[Hg] Trav 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 Work Phone: [facility] 04-14-2024 13:35-0500 Heart rate 90 /min Maury Prebish ART EDITOR.NIGHT TIME BABYSITTER Work Phone: [facility] 04-14-2024 13:35-0500 Respiratory rate 16 /min Maury Prebish ART EDITOR.NIGHT TIME BABYSITTER Work Phone: [facility] 04-14-2024 13:35-0500 SaO2% (BldA) [Mass fraction] 98 % Maury Prebish ART EDITOR.NIGHT TIME BABYSITTER Work Phone: [facility] 03-24-2024 14:14-0500 Diastolic blood pressure 92 mm[Hg] Kenneth Felix MD Work Phone: [facility] 03-24-2024 14:14-0500 Heart rate 79 /min Kenneth Felix MD Work Phone: [facility] 03-24-2024 14:14-0500 Respiratory rate 16 /min Kenneth Felix MD Work Phone: [facility] 03-24-2024 14:14-0500 SaO2% (BldA) [Mass fraction] 99 % Kenneth Felix MD Work Phone: [facility] 03-24-2024 14:14-0500 Systolic blood pressure 149 mm[Hg] Kenneth Felix MD Work Phone: [facility] 03-21-2024 08:42-0500 Body mass index (BMI) [Ratio] 42.91 kg/m2 Trav 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 Work Phone: [facility] 03-21-2024 08:42-0500 Body weight 113.4 kg Trav 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 Work Phone: [facility] 03-21-2024 08:42-0500 Diastolic blood pressure 86 mm[Hg] Trav 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 Work Phone: [facility] 03-21-2024 08:42-0500 Heart rate 106 /min Trva 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 Work Phone: [facility] 03-21-2024 08:42-0500 Respiratory rate 16 /min Trav 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 Work Phone: [facility] 03-21-2024 08:42-0500 SaO2% (BldA) [Mass fraction] 98 % Trav 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 Work Phone: [facility] 03-21-2024 08:42-0500 Systolic blood pressure 138 mm[Hg] Trav 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 Work Phone: [facility] 02-25-2024 14:33-0500 Heart rate 67 /min Maury Prebish ART EDITOR.NIGHT TIME BABYSITTER Work Phone: [facility] 02-25-2024 14:33-0500 Respiratory rate 18 /min Maury Prebish ART EDITOR.NIGHT TIME BABYSITTER Work Phone: [facility] 02-25-2024 14:33-0500 SaO2% (BldA) [Mass fraction] 97 % Maury Prebish ART EDITOR.NIGHT TIME BABYSITTER Work Phone: [facility] 12-01-2023 14:47-0400 Body height 162.6 cm Tomasa Gonzalez ART EDITOR.NIGHT TIME BABYSITTER Work Phone: [facility] 12-01-2023 14:47-0400 Body mass index (BMI) [Ratio] 42.57 kg/m2 Tomasa Zhaoic ART EDITOR.NIGHT TIME BABYSITTER Work Phone: [facility] 12-01-2023 14:47-0400 Body weight 112.49 kg Tomasa Gonzalez ART EDITOR.NIGHT TIME BABYSITTER Work Phone: [facility] 11-30-2023 08:16-0400 Body mass index (BMI) [Ratio] 42.57 kg/m2 Trav 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 Work Phone: [facility] 11-30-2023 08:16-0400 Body weight 112.49 kg Trav 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 Work Phone: [facility] 11-30-2023 08:16-0400 Diastolic blood pressure 80 mm[Hg] Trav 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 Work Phone: [facility] 11-30-2023 08:16-0400 Heart rate 88 /min Trav 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 Work Phone: [facility] 11-30-2023 08:16-0400 Respiratory rate 16 /min Trav 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 Work Phone: [facility] 11-30-2023 08:16-0400 SaO2% (BldA) [Mass fraction] 97 % ART EDITOR.NIGHT TIME BABYSITTER Work Phone: [facility] 11-30-2023 08:16-0400 Systolic blood pressure 122 mm[Hg] ART EDITOR.NIGHT TIME BABYSITTER Work Phone: [facility] 11-24-2023 14:47-0400 Body mass index (BMI) [Ratio] 42.05 kg/m2 [facility] ART EDITOR.NIGHT TIME BABYSITTER Work Phone: [facility] 11-24-2023 14:47-0400 Body temperature 97.81 [degF] [facility] ART EDITOR.NIGHT TIME BABYSITTER Work Phone: [facility] 11-24-2023 14:47-0400 Body weight 111.13 kg [facility] ART EDITOR.NIGHT TIME BABYSITTER Work Phone: [facility] 11-24-2023 14:47-0400 Diastolic blood pressure 82 mm[Hg] [facility] ART EDITOR.NIGHT TIME BABYSITTER Work Phone: [facility] 11-24-2023 14:47-0400 Heart rate 95 /min [facility] ART EDITOR.NIGHT TIME BABYSITTER Work Phone: [facility] 11-24-2023 14:47-0400 Respiratory rate 18 /min Douglas Tee ART EDITOR.NIGHT TIME BABYSITTER Work Phone: [facility] 11-24-2023 14:47-0400 SaO2% (BldA) [Mass fraction] 97 % Douglas Tee ART EDITOR.NIGHT TIME BABYSITTER Work Phone: [facility] 11-24-2023 14:47-0400 Systolic blood pressure 136 mm[Hg] Douglas Tee ART EDITOR.NIGHT TIME BABYSITTER Work Phone: [facility] 11-23-2023 08:41-0400 Body height 162.[address] [facility] 11-23-2023 08:41-0400 Body mass index (BMI) [Ratio] 42.12 kg/m2 Mona See RD [facility] 11-23-2023 08:41-0400 Body weight 111.[address] [facility] 11-16-2023 09:59-0400 Diastolic blood pressure 59 mm[Hg] Ramy Jeffries MD Work Phone: [facility] 11-16-2023 09:59-0400 Heart rate 80 /min Ramy Jeffries MD Work Phone: [facility] 11-16-2023 09:59-0400 Respiratory rate 17 /min Ramy Jeffries MD Work Phone: [facility] 11-16-2023 09:59-0400 SaO2% (BldA) [Mass fraction] 96 % Ramy Jeffries MD Work Phone: [facility] 11-16-2023 09:59-0400 Systolic blood pressure 99 mm[Hg] Ramy Jeffries MD Work Phone: [facility] 10-20-2023 07:34-0400 Body height 162.6 cm Tomasa Gonzalez ART EDITOR.NIGHT TIME BABYSITTER Work Phone: [facility] 10-20-2023 07:34-0400 Body mass index (BMI) [Ratio] 43.43 kg/m2 Tomasa Gonzalez ART EDITOR.NIGHT TIME BABYSITTER Work Phone: [facility] 10-20-2023 07:34-0400 Body weight 114.76 kg Tomasa Gonzalez ART EDITOR.NIGHT TIME BABYSITTER Work Phone: [facility] 10-19-2023 10:47-0400 Body height 162.6 cm Rosalia Lambert MD Work Phone: [facility] 10-19-2023 10:47-0400 Body mass index (BMI) [Ratio] 43.48 kg/m2 Rosalia Lambert MD Work Phone: [facility] 10-19-2023 10:47-0400 Body weight 114.9 kg Rosalia Lambert MD Work Phone: [facility] 10-19-2023 10:47-0400 Diastolic blood pressure 83 mm[Hg] Rosalia Lambert MD Work Phone: [facility] 10-19-2023 10:47-0400 Heart rate 76 /min Rosalia Lambert MD Work Phone: [facility] 10-19-2023 10:47-0400 Respiratory rate 16 /min Rosalia Lambert MD Work Phone: [facility] 10-19-2023 10:47-0400 SaO2% (BldA) [Mass fraction] 97 % Rosalia Lambert MD Work Phone: [facility] 10-19-2023 10:47-0400 Systolic blood pressure 130 mm[Hg] Rosalia Lambert MD Work Phone: [facility] 10-12-2023 08:03-0400 Body height 162.[address] [facility] 10-12-2023 08:03-0400 Body mass index (BMI) [Ratio] 42.98 kg/m2 Mona See RD [facility] 10-12-2023 08:03-0400 Body weight 113.[address] [facility] 10-05-2023 09:04-0400 Diastolic blood pressure 82 mm[Hg] Trav Kelley APRN.NIGHT TIME BABYSITTER Work Phone: [facility] Comment on above: true BP 5 intervals 10-05-2023 09:04-0400 Systolic blood pressure 132 mm[Hg] Trav 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 Work Phone: [facility] Comment on above: true BP 5 intervals 10-05-2023 08:50-0400 Body mass index (BMI) [Ratio] 44.08 kg/m2 Trav 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 Work Phone: [facility] 10-05-2023 08:50-0400 Body weight 116.48 kg Trav 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 Work Phone: [facility] 10-05-2023 08:50-0400 Heart rate 85 /min Trav 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 Work Phone: [facility] 10-05-2023 08:50-0400 SaO2% (BldA) [Mass fraction] 98 % Trav 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 Work Phone: [facility] 09-07-2023 08:44-0400 Body height 162.6 cm Mona See [facility] 09-07-2023 08:44-0400 Body mass index (BMI) [Ratio] 43.5 kg/m2 Mona See [facility] 09-07-2023 08:44-0400 Body weight 114.94 kg Mona See [facility] 09-07-2023 08:12-0400 Diastolic blood pressure 82 mm[Hg] Luiza Hampton MD Work Phone: [facility] 09-07-2023 08:12-0400 Systolic blood pressure 136 mm[Hg] Luiza Hampton MD Work Phone: [facility] 09-07-2023 08:11-0400 Body height 160 cm Luiza Hampton MD Work Phone: [facility] 09-07-2023 08:11-0400 Body mass index (BMI) [Ratio] 45.28 kg/m2 Luiza Hampton MD Work Phone: [facility] 09-07-2023 08:11-0400 Body temperature 96.69 [degF] Luiza Hampton MD Work Phone: [facility] 09-07-2023 08:11-0400 Body weight 115.94 kg Luiza Hampton MD Work Phone: [facility] 09-07-2023 08:11-0400 Heart rate 92 /min Luiza Hampton MD Work Phone: [facility] 09-07-2023 08:11-0400 SaO2% (BldA) [Mass fraction] 97 % Luiza Hampton MD Work Phone: [facility] 08-03-2023 14:35-0400 Body height 162.6 cm Mona Porteron [facility] 08-03-2023 14:35-0400 Body mass index (BMI) [Ratio] 43.77 kg/m2 Mona Esa [facility] 08-03-2023 14:35-0400 Body weight 115.67 kg Mona See [facility] 07-27-2023 09:06-0400 Diastolic blood pressure 88 mm[Hg] Trav 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 Work Phone: [facility] Comment on above: BP Layne 07-27-2023 09:06-0400 Systolic blood pressure 140 mm[Hg] Trav 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 Work Phone: [facility] Comment on above: BP Layne 07-27-2023 08:41-0400 Body mass index (BMI) [Ratio] 43.77 kg/m2 Trav 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 Work Phone: [facility] 07-27-2023 08:41-0400 Body weight 115.67 kg Trav 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 Work Phone: [facility] 07-27-2023 08:41-0400 Heart rate 84 /min Trav 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 Work Phone: [facility] 07-27-2023 08:41-0400 Respiratory rate 16 /min Trav 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 Work Phone: [facility] 07-27-2023 08:41-0400 SaO2% (BldA) [Mass fraction] 98 % Trav 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 Work Phone: [facility] 06-15-2023 08:40-0400 Diastolic blood pressure 82 mm[Hg] Trav 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 Work Phone: [facility] 06-15-2023 08:40-0400 Systolic blood pressure 127 mm[Hg] Trav 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 Work Phone: [facility] 06-15-2023 08:02-0400 Body weight 113.85 kg Trav 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 Work Phone: [facility] 06-15-2023 08:02-0400 Heart rate 84 /min Trav 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 Work Phone: [facility] 06-15-2023 08:02-0400 Respiratory rate 16 /min Trav 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 Work Phone: [facility] 06-15-2023 08:02-0400 SaO2% (BldA) [Mass fraction] 98 % Trav 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 Work Phone: [facility] 05-11-2023 12:34-0500 Body height 162.6 cm Shey Balbuena ART EDITOR.NIGHT TIME BABYSITTER Work Phone: [facility] 05-11-2023 12:34-0500 Body weight 115.21 kg Shey Balbuena ART EDITOR.NIGHT TIME BABYSITTER Work Phone: [facility] 04-20-2023 10:03-0500 Body height 160.[address] Ana Lau Work Phone: [facility] 04-20-2023 10:03-0500 Body mass index (BMI) [Ratio] 45.1 kg/m2 Dr. Ana Lau Work Phone: [facility] [facility] 04-20-2023 10:03-0500 Body weight 115.[address] Ana Lau Work Phone: [facility] 03-16-2023 17:38-0500 Body height 162.6 cm Shey Balbuena ART EDITOR.NIGHT TIME BABYSITTER Work Phone: [facility] 03-16-2023 17:38-0500 Body weight 115.21 kg Shey Balbuena ART EDITOR.NIGHT TIME BABYSITTER Work Phone: [facility] 02-17-2023 14:31-0500 Body temperature 97.3 [degF] Juliana Zamora APRN.NIGHT TIME BABYSITTER Work Phone: [facility] 02-17-2023 14:31-0500 Body weight 115.58 kg Juliana Zamora APRN.NIGHT TIME BABYSITTER Work Phone: [facility] 02-17-2023 14:31-0500 Diastolic blood pressure 82 mm[Hg] Juliana Zamora APRN.NIGHT TIME BABYSITTER Work Phone: [facility] 02-17-2023 14:31-0500 Heart rate 68 /min Juliana Zamora APRN.NIGHT TIME BABYSITTER Work Phone: [facility] 02-17-2023 14:31-0500 Respiratory rate 16 /min Juliana Zamora APRN.NIGHT TIME BABYSITTER Work Phone: [facility] 02-17-2023 14:31-0500 SaO2% (BldA) [Mass fraction] 98 % Juliana Zamora APRN.NIGHT TIME BABYSITTER Work Phone: [facility] 02-17-2023 14:31-0500 Systolic blood pressure 136 mm[Hg] Juliana Zamora APRN.NIGHT TIME BABYSITTER Work Phone: [facility] 01-12-2023 19:52-0400 Body height 162.6 cm Shey Balbuena ART EDITOR.NIGHT TIME BABYSITTER Work Phone: [facility] 01-12-2023 19:52-0400 Body weight 113.85 kg Shey Balbuena ART EDITOR.NIGHT TIME BABYSITTER Work Phone: [facility] 12-29-2022 15:33-0400 Diastolic blood pressure 88 mm[Hg] Ramy Jeffries MD Work Phone: [facility] 12-29-2022 15:33-0400 Heart rate 70 /min Ramy Jeffries MD Work Phone: [facility] 12-29-2022 15:33-0400 Respiratory rate 18 /min Ramy Jeffries MD Work Phone: [facility] 12-29-2022 15:33-0400 SaO2% (BldA) [Mass fraction] 98 % Ramy Jeffries MD Work Phone: [facility] 12-29-2022 15:33-0400 Systolic blood pressure 130 mm[Hg] Ramy Jeffries MD Work Phone: [facility] 12-02-2022 10:40-0400 Body temperature 97.5 [degF] Dr. Ana Lau Work Phone: [facility] 12-02-2022 10:40-0400 Diastolic blood pressure 84 mm[Hg] Dr. Ana Lau Work Phone: [phone] [place] [address] 12-02-2022 10:40-0400 Heart rate 78 /min Dr. Ana Lau Work Phone: [facility] 12-02-2022 10:40-0400 Respiratory rate 16 /min Dr. Ana Lau Work Phone: [facility] 12-02-2022 10:40-0400 SaO2% (BldA) [Mass fraction] 95 % Dr. Ana Lau Work Phone: [facility] 12-02-2022 10:40-0400 Systolic blood pressure 139 mm[Hg] Dr. Ana Lau Work Phone: [facility] 12-02-2022 06:17-0400 Body height 160.[address] Ana Lau Work Phone: [phone] [place] [address] 12-02-2022 06:17-0400 Body mass index (BMI) [Ratio] 44.5 kg/m2 Dr. Ana Lau Work Phone: [facility] 12-02-2022 06:17-0400 Body weight [address] Ana Lau Work Phone: [phone] [place] [address] 10-20-2022 13:18-0400 Body height 160.[address] Ana Lau Work Phone: [facility] 10-20-2022 13:18-0400 Body mass index (BMI) [Ratio] 44.4 kg/m2 Dr. Ana Lau Work Phone: [facility] 10-20-2022 13:18-0400 Body weight 113.[address] Ana Lau Work Phone: [facility] 09-09-2022 14:22-0400 Diastolic blood pressure 94 mm[Hg] Ana Lau MD Work Phone: [facility] 09-09-2022 14:22-0400 Systolic blood pressure 152 mm[Hg] Ana Lau MD Work Phone: [facility] 09-09-2022 13:26-0400 Body height 162.6 cm Ana Lau MD Work Phone: [facility] 09-09-2022 13:26-0400 Body temperature 97.59 [degF] Ana Lau MD Work Phone: [facility] 09-09-2022 13:26-0400 Body weight 114.76 kg Ana Lau MD Work Phone: [facility] 09-09-2022 13:26-0400 Heart rate 90 /min Ana Lau MD Work Phone: [facility] 09-09-2022 13:26-0400 Respiratory rate 14 /min Ana Lau MD Work Phone: [facility] 09-09-2022 13:26-0400 SaO2% (BldA) [Mass fraction] 98 % Ana Lau MD Work Phone: [facility] 08-15-2022 15:19-0400 Body height 162.6 cm Ana Lau MD Work Phone: [facility] 08-15-2022 15:19-0400 Body temperature 97.5 [degF] Ana Lau MD Work Phone: [facility] 08-15-2022 15:19-0400 Body weight 115.21 kg Ana Lau MD Work Phone: [facility] 08-15-2022 15:19-0400 Diastolic blood pressure 88 mm[Hg] Ana Lau MD Work Phone: [facility] 08-15-2022 15:19-0400 Heart rate 89 /min Ana Lau MD Work Phone: [facility] 08-15-2022 15:19-0400 Respiratory rate 16 /min Ana Lau MD Work Phone: [facility] 08-15-2022 15:19-0400 SaO2% (BldA) [Mass fraction] 98 % Ana Lau MD Work Phone: [facility] 08-15-2022 15:19-0400 Systolic blood pressure 172 mm[Hg] Ana Lau MD Work Phone: [facility] 05-05-2022 15:15-0500 Diastolic blood pressure 97 mm[Hg] Ramy Jeffries MD Work Phone: [facility] 05-05-2022 15:15-0500 Heart rate 77 /min Ramy Jeffries MD Work Phone: [facility] 05-05-2022 15:15-0500 Respiratory rate 18 /min Ramy Jeffries MD Work Phone: [facility] 05-05-2022 15:15-0500 SaO2% (BldA) [Mass fraction] 100 % Ramy Jeffries MD Work Phone: [facility] 05-05-2022 15:15-0500 Systolic blood pressure 164 mm[Hg] Ramy Jeffries MD Work Phone: [facility] 03-18-2022 15:38-0500 Body temperature 98.71 [degF] Yocasta Calderón PA-C Work Phone: [facility] 03-18-2022 15:38-0500 Body weight 112.95 kg Yocasta Denbow PA-C Work Phone: [facility] 03-18-2022 15:38-0500 Diastolic blood pressure 80 mm[Hg] Yocasta Denbow PA-C Work Phone: [facility] 03-18-2022 15:38-0500 Heart rate 85 /min Yocasta Denbow PA-C Work Phone: [facility] 03-18-2022 15:38-0500 Respiratory rate 18 /min Yocasta Denbow PA-C Work Phone: [facility] 03-18-2022 15:38-0500 SaO2% (BldA) [Mass fraction] 97 % Yocasta Denbow PA-C Work Phone: [facility] 03-18-2022 15:38-0500 Systolic blood pressure 122 mm[Hg] Yocasta Denbow PA-C Work Phone: [facility] 09-27-2021 12:50-0400 Body temperature 98.4 [degF] Douglas Pendlebury ART EDITOR.NIGHT TIME BABYSITTER Work Phone: [facility] 09-27-2021 12:50-0400 Body weight 111.68 kg Douglas Pendlepavel ART EDITOR.NIGHT TIME BABYSITTER Work Phone: [facility] 09-27-2021 12:50-0400 Diastolic blood pressure 82 mm[Hg] Douglas Pendlebury ART EDITOR.NIGHT TIME BABYSITTER Work Phone: [facility] 09-27-2021 12:50-0400 Heart rate 96 /min Douglas Pendlebury ART EDITOR.NIGHT TIME BABYSITTER Work Phone: [facility] 09-27-2021 12:50-0400 Respiratory rate 20 /min Douglas Pendlebury ART EDITOR.NIGHT TIME BABYSITTER Work Phone: [facility] 09-27-2021 12:50-0400 SaO2% (BldA) [Mass fraction] 98 % Douglas Pendlebury ART EDITOR.NIGHT TIME BABYSITTER Work Phone: [facility] 09-27-2021 12:50-0400 Systolic blood pressure 120 mm[Hg] Douglas Pendlebury ART EDITOR.NIGHT TIME BABYSITTER Work Phone: [facility] 09-24-2021 14:25-0400 Diastolic blood pressure 78 mm[Hg] Ramy Jeffries MD Work Phone: [facility] 09-24-2021 14:25-0400 Heart rate 82 /min Ramy Jeffries MD Work Phone: [facility] 09-24-2021 14:25-0400 Respiratory rate 18 /min Ramy Jeffries MD Work Phone: [facility] 09-24-2021 14:25-0400 SaO2% (BldA) [Mass fraction] 95 % Ramy Jeffries MD Work Phone: [facility] 09-24-2021 14:25-0400 Systolic blood pressure 120 mm[Hg] Ramy Jeffries MD Work Phone: [facility] 09-16-2021 09:49-0400 Body height 162.6 cm Rosalia Lambert MD Work Phone: [facility] 09-16-2021 09:49-0400 Body weight 112 kg Rosalia Lambert MD Work Phone: [facility] 09-16-2021 09:49-0400 Diastolic blood pressure 86 mm[Hg] Rosalia Lambert MD Work Phone: [facility] 09-16-2021 09:49-0400 Heart rate 81 /min Rosalia Lambert MD Work Phone: [facility] 09-16-2021 09:49-0400 SaO2% (BldA) [Mass fraction] 99 % Rosalia Lambert MD Work Phone: [facility] 09-16-2021 09:49-0400 Systolic blood pressure 146 mm[Hg] Rosalia Lambert MD Work Phone: [facility] 08-07-2021 17:11-0400 Heart rate 86 /min [facility] Work Phone: 08-07-2021 17:11-0400 Respiratory rate 18 /min [facility] Work Phone: 08-07-2021 17:11-0400 SaO2% (BldA) [Mass fraction] 97 % [facility] Work Phone: 08-07-2021 14:47-0400 Body height 160.02 cm [facility] Work Phone: 08-07-2021 14:47-0400 Body mass index (BMI) [Ratio] 44.1 kg/m2 [facility] Work Phone: 08-07-2021 14:47-0400 Body temperature 98 [degF] [facility] Work Phone: 08-07-2021 14:47-0400 Body weight 112.94 kg [facility] Work Phone: 08-07-2021 14:47-0400 Diastolic blood pressure 101 mm[Hg] [facility] Work Phone: 08-07-2021 14:47-0400 Systolic blood pressure 207 mm[Hg] [facility] Work Phone: 08-07-2021 14:23-0400 Body temperature 98.49 [degF] Cesar Peral ART EDITOR.NIGHT TIME BABYSITTER Work Phone: [facility] 08-07-2021 14:23-0400 Body weight 113.04 kg Cesar Pearl ART EDITOR.NIGHT TIME BABYSITTER Work Phone: [facility] 08-07-2021 14:23-0400 Diastolic blood pressure 88 mm[Hg] Cesar Dae ART EDITOR.NIGHT TIME BABYSITTER Work Phone: [facility] 08-07-2021 14:23-0400 Heart rate 92 /min Cesar Dae ART EDITOR.NIGHT TIME BABYSITTER Work Phone: [facility] 08-07-2021 14:23-0400 Respiratory rate 18 /min Cesar Pearl ART EDITOR.NIGHT TIME BABYSITTER Work Phone: [facility] 08-07-2021 14:23-0400 SaO2% (BldA) [Mass fraction] 97 % Cesar Pearl APRN.NIGHT TIME BABYSITTER Work Phone: [facility] 08-07-2021 14:23-0400 Systolic blood pressure 148 mm[Hg] Cesar Pearl APRN.NIGHT TIME BABYSITTER Work Phone: [facility] 06-25-2021 15:11-0400 Body temperature 97.5 [degF] Ana Lau MD Work Phone: [facility] 06-25-2021 15:11-0400 Body weight 111.13 kg Ana Lau MD Work Phone: [facility] 06-25-2021 15:11-0400 Diastolic blood pressure 84 mm[Hg] Ana Lau MD Work Phone: [facility] 06-25-2021 15:11-0400 Heart rate 84 /min Ana Lau MD Work Phone: [facility] 06-25-2021 15:11-0400 Respiratory rate 16 /min Ana Lau MD Work Phone: [facility] 06-25-2021 15:11-0400 Systolic blood pressure 138 mm[Hg] Ana Lau MD Work Phone: [facility] Encounters Encounter Date Encounter Type Care Provider Facility Start: 09-24-2024 End: 09-26-2024 Admission to same day surgery center Larisa Bernstein PA-C Work Phone: Orthopaedics Comment on above: Left Knee Replacemen t Surgery Start: 09-24-2024 End: 09-26-2024 ambulatory Larisa DUNLAP-Nandini Work Phone: Orthopaedics Start: 09-05-2024 End: 09-05-2024 Telephone encounter Tomasa Gonzalez APRN.CNP Work Phone: [facility] Start: 09-05-2024 End: 09-05-2024 Telemedicine consultation with patient Tomasa Gonzalez APRN.CNP Work Phone: [facility] Start: 09-05-2024 End: 09-05-2024 ambulatory Tomasa Yamel Gonzalez APRN.NIGHT TIME BABYSITTER Work Phone: [facility] Comment on above: Radiculopathy, lumba r region (Primary Dx); Postlaminectomy syndrome, lumbar region; Spinal stenosis of lumbar region with neurogenic claudication Start: 08-22-2024 End: 08-22-2024 Patient encounter procedure Juan Argueta MD Work Phone: Orthopaedics Comment on above: Primary osteoarthrit is of left knee (Primary Dx); Chronic pain of left knee Start: 08-22-2024 End: 08-22-2024 ambulatory LARISA VETOVITZ Facility:[facility] Start: 08-16-2024 End: 08-16-2024 Patient encounter procedure Larisa Vetovitz PA-C Work Phone: Orthopaedics Comment on above: Primary osteoarthrit is of left knee (Primary Dx) Start: 08-16-2024 End: 08-16-2024 ambulatory LARISA VETOVITZ Facility:[facility] Start: 08-08-2024 End: 08-08-2024 Patient encounter procedure Larisa Vetovitz PA-C Work Phone: Orthopaedics Comment on above: Primary osteoarthrit is of left knee (Primary Dx) Start: 08-08-2024 End: 08-08-2024 ambulatory LARISA VETOVITZ Facility:[facility] Start: 08-05-2024 End: 08-05-2024 Telephone encounter Kenneth Felix MD Work Phone: [facility] Comment on above: Procedure Follow Up Start: 08-04-2024 End: 08-04-2024 Patient encounter procedure Kenneth Felix MD Work Phone: [facility] Start: 08-04-2024 End: 08-04-2024 ambulatory Kenneth Felix MD Work Phone: [facility] Comment on above: Back Pain; Leg Pain (Lower back pain , right side , radiating down right leg) Start: 07-11-2024 End: 07-11-2024 Telephone encounter Larisa Bernstein PA-C Work Phone: Orthopaedics Comment on above: Non-Formulary Medica tion Start: 07-06-2024 End: 07-06-2024 Telephone encounter Jitendra Shell MD, PhD Work Phone: [facility] Comment on above: Injections (QUESTION S) Start: 07-06-2024 End: 07-06-2024 Telemedicine consultation with patient Tomasa Montesinos Carlos [place].NIGHT TIME BABYSITTER Work Phone: [facility] Start: 07-06-2024 End: 07-06-2024 ambulatory Tomasa Buckadelia ART EDITOR.NIGHT TIME BABYSITTER Work Phone: [facility] Comment on above: Postlaminectomy synd bernardino, lumbar region (Primary Dx); Spinal stenosis of lumbar region with neurogenic claudication Start: 07-04-2024 End: 07-07-2024 ambulatory Larisa DUNLAP-C Work Phone: Orthopaedics Comment on above: Euflexxa Joint Injec tion for Left Knee Start: 06-20-2024 End: 06-20-2024 [facility] Facility:[facility] Start: 06-20-2024 End: 06-20-2024 Patient encounter procedure Trav Kelley APRN.NIGHT TIME BABYSITTER Work Phone: [facility] [place] Comment on above: Essential hypertensi on (Primary Dx); Mixed hyperlipidemia; Prediabetes Start: 06-13-2024 End: 06-13-2024 ambulatory [facility] Facility:[facility] Start: 06-07-2024 End: 06-10-2024 ambulatory Ana Lau MD Work Phone: Internal Medicine [facility] Start: 06-02-2024 End: 06-15-2024 Telephone encounter Larisa Bernstein PA-C Work Phone: [facility] Comment on above: Insurance Authorizat ion (Prior Auth Denied: NonCovered Benefit (euflexxa)) Start: 05-30-2024 End: 05-30-2024 ambulatory LARISA BERNSTEIN Facility:[facility] Start: 05-30-2024 End: 05-30-2024 Patient encounter procedure Larisa Ovallejoe PERAZA Work Phone: Orthopaedics Comment on above: Primary osteoarthrit is of left knee (Primary Dx) Start: 04-14-2024 End: 04-14-2024 Patient encounter procedure Maury Cerna ART EDITOR.NIGHT TIME BABYSITTER Work Phone: [facility] Comment on above: Spinal stenosis of l umbar region with neurogenic claudication (Primary Dx); Postlaminectomy syndrome, lumbar region; Radiculopathy, lumbar region Start: 04-14-2024 End: 04-14-2024 ambulatory MAURY PRESH Facility:[facility] Start: 04-04-2024 End: 04-04-2024 Telephone encounter Maury Prevenkat ART EDITOR.NIGHT TIME BABYSITTER Work Phone: [facility] Comment on above: Appointment Start: 03-25-2024 End: 03-25-2024 Telephone encounter Kenneth Felix MD Work Phone: [facility] Comment on above: Procedure Follow Up (CAUDAL NASIR) Start: 03-24-2024 End: 03-24-2024 Patient encounter procedure Kenneth Felix MD Work Phone: [facility] Start: 03-24-2024 End: 03-24-2024 ambulatory Kenneth Felix MD Work Phone: [facility] Comment on above: Procedure (Caudal ES I) Start: 03-21-2024 End: 03-21-2024 ambulatory ANA LAU Facility:[facility] Start: 03-21-2024 End: 03-21-2024 Patient encounter procedure Trav Kelley ART EDITOR.NIGHT TIME BABYSITTER Work Phone: [facility] [place] Comment on above: Essential hypertensi on (Primary Dx); Anemia, unspecified type Start: 03-18-2024 End: 03-18-2024 ambulatory Trav 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 Work Phone: [facility] [place] Comment on above: Prescription Pharmac y Change Start: 02-25-2024 End: 02-25-2024 Patient encounter procedure Maury Prebish CLEM.[place] Work Phone: [facility] Comment on above: Spinal stenosis of l umbar region with neurogenic claudication (Primary Dx); Postlaminectomy syndrome, lumbar region; Post laminectomy syndrome Start: 02-25-2024 End: 02-25-2024 ambulatory MAURY PREBISH Facility:[facility] Start: 02-25-2024 End: 02-25-2024 Telephone encounter Maury Prebish ART EDITOR.NIGHT TIME BABYSITTER Work Phone: [facility] Comment on above: Injections Start: 02-22-2024 End: 02-23-2024 ambulatory Larisa Bernstein PA-C Work Phone: Orthopaedics Comment on above: Euflexxa Joint Injec tion for Left Knee Start: 01-25-2024 Encounter for gynecological examination (general) (routine) without abnormal findings Anali Deutsch [facility] Start: 01-25-2024 End: 01-25-2024 ambulatory [facility] Start: 01-25-2024 ambulatory [facility] Facility:[facility] Start: 12-25-2023 End: 12-25-2023 [facility] Facility:[facility] Start: 12-03-2023 End: 09-01-2024 Telephone encounter Trav 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 Work Phone: [facility] [place] Comment on above: Results Start: 12-01-2023 End: 12-01-2023 Telemedicine consultation with patient Tomasa Yamel Gonzalez APRN.NIGHT TIME BABYSITTER Work Phone: [facility] Start: 12-01-2023 End: 12-01-2023 ambulatory Tomasa Yamel Gonzalez ART EDITOR.NIGHT TIME BABYSITTER Work Phone: [facility] Comment on above: Spinal stenosis of l umbar region with neurogenic claudication (Primary Dx); Radiculopathy, lumbar region; Postlaminectomy syndrome, lumbar region Start: 12-01-2023 End: 12-01-2023 Telephone encounter Tomasa Gonzalez APRN.CNP Work Phone: [facility] Comment on above: Appointment Start: 11-30-2023 End: 11-30-2023 Patient encounter procedure Larisa Bernstein PA-C Work Phone: Orthopaedics Comment on above: Primary osteoarthrit is of left knee (Primary Dx) Start: 11-30-2023 End: 11-30-2023 ambulatory [facility] Facility:[facility] Start: 11-30-2023 Encounter for other preprocedural examination [facility] Start: 11-30-2023 End: 11-30-2023 ambulatory [facility] Facility:[facility] Start: 11-30-2023 End: 11-30-2023 Patient encounter procedure Trav Kelley APRN.CNP Work Phone: [facility] [place] Comment on above: Preop exam for inter nal medicine (Primary Dx); Essential hypertension; Mixed hyperlipidemia; Prediabetes; Anemia, unspecified type Start: 11-30-2023 End: 11-30-2023 Patient encounter status Trav Kelley APRN.CNP Work Phone: [facility] Work Phone: Start: 11-26-2023 End: 11-26-2023 Telephone encounter Rosalia Wilson MD Work Phone: [facility] Comment on above: LMTCB Start: 11-26-2023 End: 11-26-2023 ambulatory Rebecca [place] Start: 11-24-2023 End: 11-24-2023 ambulatory [facility] Facility:[facility] Start: 11-24-2023 End: 11-24-2023 Office outpatient visit 15 minutes Douglas Tee APRN.NIGHT TIME BABYSITTER Work Phone: [facility] Comment on above: Upper back pain (Glory brandon Dx) Start: 11-23-2023 End: 11-23-[address] See [address] [facility] Comment on above: Reassessment; Patien t Education Start: 11-23-2023 End: 11-23-[address] [facility] Start: 11-23-2023 End: 11-23-2023 Patient encounter procedure Larisa Vetovitz PA-C Work Phone: Orthopaedics Comment on above: Primary osteoarthrit is of left knee (Primary Dx) Start: 11-18-2023 Telephone encounter Ramy Jeffries MD Work Phone: [facility] Comment on above: Procedure Start: 11-16-2023 End: 11-16-2023 ambulatory LARISA VETOVITZ Facility:[facility] Start: 11-16-2023 End: 11-16-2023 Patient encounter procedure Larisa Vetovitz PA-C Work Phone: Orthopaedics Comment on above: Primary osteoarthrit is of left knee (Primary Dx) Start: 11-16-2023 End: 11-16-2023 Patient encounter procedure Ramy Jeffries MD Work Phone: [facility] Start: 11-16-2023 End: 11-16-2023 ambulatory Ramy Jeffries MD Work Phone: [facility] Comment on above: Procedure (Caudal ES I) Start: 11-05-2023 ambulatory Larisa Vetovit z PA-C Work Phone: Orthopaedics Comment on above: Left Shoulder Replac ement Left Knee Injections Start: 10-27-2023 Telephone encounter Ramy Jeffries MD Work Phone: [facility] Comment on above: Returning Patient's Call Start: 10-26-2023 End: 10-26-2023 ambulatory LARISA VETOVITZ Facility:[facility] Start: 10-26-2023 End: 10-26-2023 Patient encounter procedure Larisa Vetovitz PA-C Work Phone: Orthopaedics Comment on above: Glenohumeral arthrit is, left (Primary Dx); Primary osteoarthritis of left knee; Chronic pain of left knee; Chronic left shoulder pain Start: 10-22-2023 End: 10-22-2023 ambulatory LARISA VETODHARMESH Facility:[facility] Start: 10-22-2023 End: 10-22-2023 Subsequent hospital visit by physician Renan Radio [facility] Wstr (I-Stat/1.5t) Work Phone: Radiology Comment on above: Tear of left rotator cuff, unspecified tear extent, unspecified whether traumatic [M75.102] Start: 10-20-2023 Telephone encounter Tomasa Buckdainahomy NIGHT TIME BABYSITTER Work Phone: [facility] Comment on above: injection questions Start: 10-20-2023 End: 10-20-2023 Telemedicine consultation with patient Tomasa Gonzalez CLEM.[place]ENCIA Work Phone: [facility] Start: 10-20-2023 End: 10-20-2023 ambulatory Tomasa Gonzalez CLEM.NIGHT TIME BABYSITTER Work Phone: [facility] Comment on above: Spinal stenosis of l umbar region with neurogenic claudication (Primary Dx); Radiculopathy, lumbar region; Postlaminectomy syndrome, lumbar region Start: 10-19-2023 End: 10-19-2023 Patient encounter procedure Rosalia Wilson MD Work Phone: [facility] Comment on above: Radiculopathy, lumba r region (Primary Dx); Obesity, Class III, BMI 40-49.9 (morbid obesity) ([facility]); Chronic right-sided low back pain with right-sided sciatica Start: 10-19-2023 End: 10-19-2023 ambulatory ROSALIA WILSON Facility:[facility] Start: 10-15-2023 End: 10-15-2023 ambulatory ANA LAU Facility:[facility] Start: 10-15-2023 End: 10-15-2023 Subsequent hospital visit by physician Jordyn [facility] Meyer Work Phone: Radiology Comment on above: Radiculopathy, lumba r region [M54.16] Start: 10-13-2023 Telephone encounter Rosalia mckee MD Work Phone: [facility] Comment on above: Event 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 Manager - O ther Start: 10-12-2023 End: 10-12-[address] [facility] Start: 10-12-2023 End: 10-12-[address] See [address] [facility] Comment on above: Reassessment; Patien t Education Start: 10-05-2023 Documentation procedure Mammog kiara Coordinator [facility] Department Start: 10-05-2023 Letter encounter Mammography Coordinator [facility] Start: 10-05-2023 Telephone encounter Larisa daily PA-C Work Phone: Orthopaedics Comment on above: Peer to peer for MRI Start: 10-05-2023 End: 10-05-2023 ambulatory [facility] Facility:[facility] Start: 10-05-2023 End: 10-05-2023 Patient encounter procedure Trav Kelley APRN.NIGHT TIME BABYSITTER Work Phone: Internal Medicine [place] Comment on above: Essential hypertensi on (Primary Dx); Anemia, unspecified type Start: 10-05-2023 End: 10-05-2023 ambulatory [facility] Facility:[facility] Start: 10-05-2023 End: 10-05-2023 Subsequent hospital visit by physician Ana Lau MD Work Phone: Mammogram Comment on above: Screening mammogram for breast cancer [Z12.31] Start: 09-18-2023 End: 09-18-2023 ambulatory Jabier Mart PT [facility] Comment on above: Primary osteoarthrit is of both knees (Primary Dx) PT on Left Knee Start: 09-09-2023 End: 09-09-2023 ambulatory Bridgett Shepard CAMERA ASSEMBLER Work Phone: [facility] Comment on above: Primary osteoarthrit is of both knees (Primary Dx) Start: 09-07-2023 End: 09-07-[address] Mona See RD Nutrition [facility] Comment on above: Reassessment; Patien t Education Start: 09-07-2023 End: 09-07-[address] Nutrition Therapy Start: 09-07-2023 End: 09-07-2023 Patient encounter procedure Luiza Hampton MD Work Phone: General Surgery Comment on above: Anemia, unspecified type; Colon cancer screening; Morbid obesity (HCC) Start: 09-03-2023 ambulatory Larisa LUOC Work Phone: Orthopaedics Comment on above: Left Shoulder Start: 09-02-2023 End: 09-02-2023 ambulatory [facility] Comment on above: Primary osteoarthrit is of both knees (Primary Dx) Start: 08-11-2023 End: 08-11-2023 ambulatory [facility]abier Mart [facility] Comment on above: Primary osteoarthrit is of both knees (Primary Dx) Start: 08-05-2023 Telephone encounter Trav Kelley APRN.CNP Work Phone: Internal Medicine [place] Comment on above: fax rx for bp monito r to [employer] Start: 08-03-2023 End: 08-03-[address] Nutrition Therapy Start: 08-03-2023 End: 08-03-[address]a See RD Nutrition Therapy Comment on above: Assessment; Patient Education Start: 08-03-2023 Telephone encounter Trav Kelley APRN.CNP Work Phone: Family Medicine [place] Comment on above: Results Start: 07-28-2023 Telephone encounter Larisa LUOC Work Phone: [facility] Comment on above: Insurance Authorizat ion (Prior Auth Delayed Additional Information Needed Requested) Start: 07-27-2023 Telephone encounter Ana chairez MD Work Phone: Internal Medicine [place] Comment on above: Orders Start: 07-27-2023 End: 07-27-2023 Subsequent hospital visit by physician Screen Mammo [facility] Mammogram Start: 07-27-2023 End: 07-27-2023 Patient encounter procedure Trav Kelley APRN.CNP Work Phone: Internal Medicine [place] Comment on above: Anemia, unspecified type (Primary Dx); Essential hypertension; Prediabetes; Obesity, Class III, BMI 40-49.9 (morbid obesity) (HCC); Mixed hyperlipidemia; Colon cancer screening Start: 07-24-2023 Telephone encounter Trav Kelley APRN.CNP Work Phone: Internal Medicine [place] Comment on above: Orders Start: 07-21-2023 ambulatory [facility] Facility:[facility] Start: 07-21-2023 End: 07-21-2023 Patient encounter procedure Larisa Vetovitz PA-C Work Phone: Orthopaedics Comment on above: Primary osteoarthrit is of left knee (Primary Dx); Chronic pain of left knee Start: 07-21-2023 End: 07-21-2023 Subsequent hospital visit by physician Radio General Nahomy Meyer Work Phone: Radiology Comment on above: Left knee pain, unsp ecified chronicity [M25.562] Start: 07-16-2023 ambulatory Trav Kelley APRN, .CNP Work Phone: Internal Medicine [place] Comment on above: Blood Pressure Cuff Prescription Start: 07-08-2023 End: 07-08-2023 Patient encounter procedure Larisa Vetovitz PA-C Work Phone: Orthopaedics Comment on above: Acute pain of left s houlder (Primary Dx); Bursitis of left shoulder Start: 07-07-2023 Orders Only Larisa Vetovit z PA-C Work Phone: Orthopaedics Comment on above: Left knee pain, unsp ecified chronicity (Primary Dx) Start: 06-15-2023 ambulatory Larisa Vetovit z PA-C Work Phone: Orthopaedics Comment on above: Left Shoulder Ultras ound Estradiol Strength Start: 06-15-2023 End: 06-15-2023 Patient encounter procedure Trav Kelley APRN.CNP Work Phone: Internal Medicine [place] Comment on above: Essential hypertensi on (Primary Dx); Anemia, unspecified type; Other fatigue; Mixed hyperlipidemia; Abnormal thyroid blood test; History of estrogen therapy Start: 06-12-2023 End: 06-12-2023 Subsequent hospital visit by physician Nahomy Bl 1 Radiology Comment on above: Tear of left rotator cuff, unspecified tear extent, unspecified whether traumatic [M75.102] Start: 05-27-2023 ambulatory Trav SullivanNIGHT TIME BABYSITTER Work Phone: Internal Medicine [place] Comment on above: Bloodwork Additional Screening Request Start: 05-21-2023 Telephone encounter Jada Li ( Coord) Radiology Comment on above: Appointment Start: 05-21-2023 ambulatory ANA LAU Facility:[facility] Start: 05-21-2023 End: 05-21-2023 Patient encounter procedure Larisa Bernstein PA-C Work Phone: Orthopaedics Comment on above: Tear of left rotator cuff, unspecified tear extent, unspecified whether traumatic (Primary Dx); Pain; Acute pain of left shoulder; Glenohumeral arthritis, left Start: 05-21-2023 End: 05-21-2023 Subsequent hospital visit by physician Radio General Nahomy Meyer Work Phone: Radiology Comment on above: Pain [R52] Start: 05-12-2023 End: 05-12-2023 ambulatory Shey Balbuena CLEM.NIGHT TIME BABYSITTER Work Phone: [facility] [place] Comment on above: Post laminectomy syn drome (Primary Dx) Start: 05-12-2023 End: 05-12-2023 Telemedicine consultation with patient Shey Balbuena ART EDITOR.NIGHT TIME BABYSITTER Work Phone: [facility] Start: 04-20-2023 End: 04-20-[address] nAa Lau Work Phone: [facility] Work Phone: Start: 04-20-2023 End: 04-20-2023 [place]ulatory [place] Start: 04-11-2023 End: 04-11-[address] Ana Lau Work Phone: [facility] Work Phone: Start: 04-11-2023 End: 04-11-[address] Ana Lau Work Phone: [facility] Work Phone: Start: 04-11-2023 End: 04-11-2023 [facility] Start: 04-09-2023 End: 04-09-[address] Ana Lau Work Phone: [facility] Work Phone: Start: 04-09-2023 End: 04-09-[address] Ana Lau Work Phone: [facility] Work Phone: Start: 04-09-[address] Pablo Lau Work Phone: [facility] Work Phone: Start: 03-17-2023 End: 03-17-2023 ambulatory Shey Balbuena ART EDITOR.NIGHT TIME BABYSITTER Work Phone: [facility] Comment on above: Post laminectomy syn drome (Primary Dx) Start: 03-17-2023 End: 03-17-2023 Telemedicine consultation with patient Shey Balbuena ART EDITOR.NIGHT TIME BABYSITTER Work Phone: [facility] Start: 02-24-2023 End: 02-24-[address] Ana Lau Work Phone: [facility] Work Phone: Start: 02-24-2023 End: 02-24-2023 ambulatory Ana Lau [facility] Start: 02-17-2023 End: 02-17-2023 Subsequent hospital visit by physician [facility] Work Phone: Radiology Comment on above: Pain [R52] Start: 02-17-2023 End: 02-17-2023 Patient encounter procedure Juliana Zamora ART EDITOR.NIGHT TIME BABYSITTER Work Phone: [facility] Comment on above: Pain (Primary Dx) Start: 02-04-2023 End: 02-04-[address] Ana Lau Work Phone: [facility] Work Phone: Start: 02-04-2023 End: 02-04-2023 ambulatory Janes Fletcher [facility] Start: 02-02-2023 End: 02-02-[address] Ana Lau Work Phone: [facility] Work Phone: Start: 02-02-2023 End: 02-02-2023 ambulatory Janes Fletcher Facility:[facility] Start: 01-15-2023 End: 01-15-[address] Ana Lau Work Phone: [facility] Work Phone: Start: 01-13-2023 End: 01-13-2023 ambulatory Shey Balbuena ART EDITOR.NIGHT TIME BABYSITTER Work Phone: [facility] Comment on above: Post laminectomy syn drome (Primary Dx) Start: 01-13-2023 End: 01-13-2023 Telemedicine consultation with patient Shey Balbuena APRN.NIGHT TIME BABYSITTER Work Phone: [facility] Start: 12-29-2022 End: 12-29-2022 ambulatory Ramy Jeffries MD Work Phone: [facility] Comment on above: Procedure Start: 12-29-2022 End: 12-29-2022 Patient encounter procedure Ramy Jeffries MD Work Phone: [facility] Start: 12-02-2022 Non-patient / Non-visit Dr. Jacey Lau Work Phone: [facility] Start: 12-02-2022 End: 12-02-2022 Admission to same day surgery center Dr. Ana Lau Work Phone: [facility] Start: 12-02-2022 End: 12-02-[address] Ana Lau Work Phone: [facility] Work Phone: Start: 11-25-2022 End: 11-25-[address] Ana Lau Work Phone: [facility] Start: 11-14-2022 Telephone encounter Richele Sm art ART EDITOR.NIGHT TIME BABYSITTER Work Phone: [facility] Comment on above: injection questions Start: 11-13-2022 Telephone encounter Richele Sm art ART EDITOR.NIGHT TIME BABYSITTER Work Phone: [facility] Comment on above: Appointment Start: 11-13-2022 End: 11-13-2022 ambulatory Richele Smart ART EDITOR.NIGHT TIME BABYSITTER Work Phone: [facility] Comment on above: Post laminectomy syn drome (Primary Dx) Start: 11-13-2022 End: 11-13-2022 Telemedicine consultation with patient Richele Smart ART EDITOR.NIGHT TIME BABYSITTER Work Phone: [facility] Start: 11-12-2022 End: 11-12-[address] Ana Lau Work Phone: [facility] Work Phone: Start: 11-06-2022 End: 11-06-[address] Ana Lau Work Phone: [facility] Work Phone: Start: 11-06-2022 End: 11-06-[address] Ana Lau Work Phone: [facility] Work Phone: Start: 10-20-2022 End: 10-20-[address] Ana Lau Work Phone: [facility] Work Phone: Start: 10-06-2022 Telephone encounter Ana chairez MD Work Phone: Internal Medicine [place] Comment on above: Results; Electronic Communication Start: 10-02-2022 Documentation procedure Mammog kiara Coordinator [facility] Start: 10-02-2022 Letter encounter Mammography Coordinator [facility] Department Start: 10-01-2022 End: 10-01-2022 Subsequent hospital visit by physician Screen Mammo [facility] Mammogram Comment on above: Encounter for screen ing mammogram for breast cancer [Z12.31] Start: 09-09-2022 End: 09-09-2022 Patient encounter procedure Ana Lau MD Work Phone: Internal Medicine [place] Comment on above: Annual physical exam (Primary Dx); Essential hypertension; Mixed hyperlipidemia; PE (physical exam), annual Start: 08-15-2022 End: 08-15-2022 Patient encounter procedure Ana Lau MD Work Phone: Internal Medicine [place] Comment on above: Hypothyroidism, unsp ecified type (Primary Dx); Essential hypertension; Screening for HIV (human immunodeficiency virus); Special screening examination for viral disease; Pain of left lower extremity Start: 05-30-2022 End: 05-30-2022 ambulatory Becki Thole PA-C Work Phone: [facility] Comment on above: Post laminectomy syn drome (Primary Dx) Start: 05-30-2022 End: 05-30-2022 Telemedicine consultation with patient Becki Thole PA-C Work Phone: [facility] Start: 05-05-2022 End: 05-05-2022 ambulatory Ramy Jeffries MD Work Phone: [facility] Comment on above: Procedure Start: 05-05-2022 End: 05-05-2022 Patient encounter procedure Ramy Jeffries MD Work Phone: [facility] Start: 03-28-2022 End: 03-28-2022 ambulatory Becki Thole PA-C Work Phone: [facility] Comment on above: Post laminectomy syn drome (Primary Dx) Start: 03-28-2022 End: 03-28-2022 Telemedicine consultation with patient Becki Beasley GERMÁN-C Work Phone: [facility] Start: 03-18-2022 End: 03-18-2022 Patient encounter procedure Yocasta Calderón GERMÁN-C Work Phone: [facility] Comment on above: Acute non-recurrent sinusitis, unspecified location (Primary Dx); Cough, unspecified type Start: 09-30-2021 Telephone encounter Ramy Jeffries MD Work Phone: [facility] Comment on above: Patient Question Start: 09-27-2021 End: 09-27-2021 Subsequent hospital visit by physician Xr [facility] [place] Work Phone: Radiology Comment on above: Acute pain of left k nee [M25.562] Start: 09-27-2021 End: 09-27-2021 Patient encounter procedure Douglas Tee ART EDITOR.NIGHT TIME BABYSITTER Work Phone: [facility] Comment on above: Acute pain of left k nee (Primary Dx); Injury of right shoulder, initial encounter Start: 09-26-2021 Telephone encounter Ramy Jeffries MD Work Phone: [facility] Comment on above: Procedure Follow Up Start: 09-24-2021 End: 09-24-2021 ambulatory Ramy Jeffries MD Work Phone: [facility] Comment on above: Procedure Start: 09-24-2021 End: 09-24-2021 Patient encounter procedure Ramy Jeffries MD Work Phone: [facility] Start: 09-16-2021 End: 09-16-2021 Patient encounter procedure Rosalia Wilson MD Work Phone: [facility] Comment on above: Radiculopathy, lumba r region (Primary Dx); Spondylolisthesis of lumbar region Start: 09-16-2021 End: 09-16-2021 Subsequent hospital visit by physician Xr [place] [employer] [facility] [place] [employer] SCIENT[employer] Comment on above: Radiculopathy, lumba r region [M54.16] Start: 08-07-2021 End: 08-07-2021 Emergency department patient visit [facility] Start: 08-07-2021 End: 08-07-2021 Patient encounter procedure Cesar King LUIS MNIGHT TIME BABYSITTER Work Phone: [facility] Comment on above: Chest pain, unspecif ied type (Primary Dx) Start: 08-01-2021 Telephone encounter Ana chairez MD Work Phone: Internal Medicine [place] Comment on above: Orders Start: 08-01-2021 End: 08-01-2021 Subsequent hospital visit by physician Mri Radio [facility] (I-Stat/1.5t) Work Phone: Radiology Comment on above: Spinal stenosis of l umbar region with neurogenic claudication [M48.062] Start: 07-15-2021 End: 07-15-2021 ambulatory Julieta Malik CAMERA ASSEMBLER Work Phone: [facility] Comment on above: Chronic right-sided low back pain with right-sided sciatica Start: 07-12-2021 End: 07-12-2021 ambulatory Julieta King CAMERA ASSEMBLER Work Phone: [facility] Comment on above: Chronic right-sided low back pain with right-sided sciatica Start: 07-05-2021 End: 07-05-2021 ambulatory Holly O'John PT Work Phone: [facility] Comment on above: Chronic right-sided low back pain with right-sided sciatica Start: 07-03-2021 End: 07-03-2021 ambulatory Holly O'John PT Work Phone: [facility] Comment on above: Right-sided low back pain with right-sided sciatica, unspecified chronicity (Primary Dx); Chronic right-sided low back pain with right-sided sciatica Start: 06-26-2021 Telephone encounter Ana chairez MD Work Phone: Internal Medicine [place] Comment on above: Results Start: 06-25-2021 End: 06-25-2021 Subsequent hospital visit by physician Xr [facility] [place] Work Phone: Radiology Comment on above: Right-sided low back pain with right-sided sciatica, unspecified chronicity [M54.41] Start: 06-25-2021 End: 06-25-2021 Patient encounter procedure Ana Lau MD Work Phone: Internal Medicine [place] Comment on above: Right-sided low back pain with right-sided sciatica, unspecified chronicity (Primary Dx); Essential hypertension; Mixed hyperlipidemia Start: 01-24-2021 End: 01-24-2021 ambulatory [facility] Start: 01-16-2021 Preoperative state Ana serna MD Work Phone: [facility] Work Phone: Start: 11-14-2020 End: 11-14-2020 Subsequent hospital visit by physician Xr [facility] [place] Work Phone: Radiology Comment on above: Pain of left heel [M 79.672] Start: 08-27-2020 End: 08-27-2020 Subsequent hospital visit by physician Xr [facility] [place] Work Phone: Radiology Comment on above: Chronic pain of righ t knee [M25.561, G89.29] Procedures Date Procedure Procedure Detail Performing Clinician Start: 08-22-2024 Arthrocentesis aspir &/inj major jt/bursa w/o us Juan Argueta MD Work Phone: Start: 08-16-2024 Arthrocentesis aspir &/inj major jt/bursa w/o us Larisa Bernstein PA-C Work Phone: Start: 08-08-2024 Arthrocentesis aspir &/inj major jt/bursa w/o us Larisa Bernstein PA-C Work Phone: Start: 06-13-2024 Lipid 1996 panel - S london or Plasma Larisa Vetovitz PA-C Work Phone: Start: 11-30-2023 Arthrocentesis aspir &/inj major jt/bursa w/o us Larisa Vetovitz PA-C Work Phone: Start: 11-23-2023 Arthrocentesis aspir &/inj major jt/bursa w/o us Larisa Vetovitz PA-C Work Phone: Start: 11-16-2023 Arthrocentesis aspir &/inj major jt/bursa w/o us Larisa Vetovitz PA-C Work Phone: Start: 10-22-2023 Mri any jt upper ext remity w/o contrast matrl Larisa Vetovitz PA-C Work Phone: Start: 10-05-2023 Screening digital br east tomosynthesis bi Neisha Elizabeth ART EDITOR.NIGHT TIME BABYSITTER Work Phone: Start: 07-21-2023 Arthrocentesis aspir &/inj major jt/bursa w/o us Larisa Vetovitz PA-C Work Phone: Start: 07-21-2023 Radiologic exam knee complete 4/more views Larisa Vetovitz PA-C Work Phone: Start: 07-08-2023 Arthrocentesis aspir &/inj major jt/bursa w/o us Larisa Vetovitz PA-C Work Phone: Start: 06-12-2023 Us lmtd joint/oth no nvasc xtr strux r-t w/img Larisa Vetovitz PA-C Work Phone: Start: 06-08-2023 Lipid 1996 panel - S london or Plasma Larisa Vetovitz PA-C Work Phone: Start: 05-21-2023 Radex shoulder compl ete minimum 2 views Larisa Vetovitz PA-C Work Phone: Start: 04-20-2023 Radiologic examinati on of knee Dr. Ana Lau Work Phone: Start: 04-11-2023 MRI of joint of lowe r extremity Dr. Ana Lau Work Phone: Start: 02-24-2023 Plain X-ray of shoulder Dr. Ana Lau Work Phone: Start: 02-17-2023 Radex shoulder compl ete minimum 2 views Juliana Zamora APRN.NIGHT TIME BABYSITTER Work Phone: Start: 02-02-2023 MRI of lumbar spine Dr. Ana Lau Work Phone: Start: 01-15-2023 X-ray of lumbar spin e, two or three views Dr. Ana aLu Work Phone: Start: 12-02-[address] Ana Lau Work Phone: Start: 11-25-2022 X-ray of both feet Dr. Ana Lau Work Phone: Start: 11-06-2022 MRI of joint of lowe r extremity Dr. Ana Lau Work Phone: Start: 10-20-2022 Radiologic examinati on of knee Dr. Ana Lau Work Phone: Start: 10-01-2022 End: 10-01-2022 Mammography Bulk Order Provider Start: 09-08-2022 Lipid 1996 panel - S london or Plasma Ramy Jeffries MD Work Phone: Start: 09-27-2021 Radex shoulder compl ete minimum 2 views Douglas Tee APRN.NIGHT TIME BABYSITTER Work Phone: Start: 09-27-2021 Radiologic exam knee complete 4/more views Douglas Tee APRN.NIGHT TIME BABYSITTER Work Phone: Start: 09-16-2021 Radex spine lumbosac ral 2/3 views Rosalia Wilson MD Work Phone: Start: 08-07-2021 Plain chest X-ray Start: 08-07-2021 X-ray of cervical spine Start: 08-01-2021 Mri spinal canal lum bar w/o contrast material Ana Lau MD Work Phone: Start: 06-25-2021 Radex spine lumbosac ral 2/3 views Ana Lau MD Work Phone: Start: 11-14-2020 Radex calcaneus mini mum 2 views Cesar Pearl ART EDITOR.NIGHT TIME BABYSITTER Work Phone: Start: 08-27-2020 Radiologic exam knee complete 4/more views Claudette Prado ART EDITOR.MATERIALS SCIENTIST Work Phone: Start: 08-13-2020 Mammography Ana chairez MD Work Phone: Start: 03-23-2018 Adult depression scr eening assessment Ana Lau MD Work Phone: Plan of Treatment Date Care Activity Detail Author Start: 06-13-2029 Lipid panel Lipid Screening [facility] Start: 06-07-2028 Lipid panel Lipid Screening [facility] Start: 09-09-2027 Lipid 1996 panel - Serum or Plasma Lipid Screening [facility] Start: 09-09-2027 Lipid panel Lipid Screening [facility] Start: 09-09-2027 LIPID SCREEN LIPID SCREEN [facility] Start: 11-29-2026 Diabetes Screening Diabetes Screening [facility] Start: 10-04-2026 Diabetes Screening Diabetes Screening [facility] Start: 06-07-2026 Diabetes Screening Diabetes Screening [facility] Start: 01-14-2026 LIPID SCREEN LIPID SCREEN [facility] Start: 09-08-2025 DIABETES SCREEN DIABETES SCREEN [facility] Start: 09-08-2025 Diabetes Screening Diabetes Screening [facility] Start: 08-01-2025 HPV TESTING HPV TESTING [facility] Start: 08-01-2025 PAP TESTING PAP TESTING [facility] Start: 08-01-2025 Screening for malignant neoplasm of cervix [facility] Start: 06-20-2025 Annual PCP Team Chronic Disease Visit Annual PCP Team Chronic Disease Visit [facility] Start: 03-21-2025 Annual PCP Team Chronic Disease Visit Annual PCP Team Chronic Disease Visit [facility] Start: 03-21-2025 Hepatitis B Vaccine (1 of 3 - 19+ 3-dose series) Hepatitis B Vaccine (1 of 3 - 19+ 3-dose series) [facility] Comment on above: Postponed from 1989 (Declined at t his time) Start: 03-21-2025 Pneumococcal Vaccine: 50+ (1 of 1 - PCV) Pneumococcal Vaccine: 50+ (1 of 1 - PCV) [facility] Comment on above: Postponed from 2020 (Declined at t his time) Start: 03-21-2025 Shingrix Vaccine (1 of 2) Shingrix Vaccine (1 of 2) [facility] Comment on above: Postponed from 2020 (Declined at t his time) Start: 03-21-2025 Urine microalbumin profile DTaP,Tdap,Td Vaccine (1 - Tdap) [facility] Comment on above: Postponed from 1989 (Declined at t his time) Start: 12-08-2024 End: 12-08-2024 Patient encounter procedure 12/08/2024 2:30 PM EDT Office Visit [facility] [address] [place] [address] Maury Cerna APRN.NIGHT TIME BABYSITTER [address] [place] [address] follow up - discuss procedure [facility] Comment on above: follow up - discuss procedure Start: 12-05-2024 Influenza vaccination Influenza Vaccine (Season Ended) [facility] Start: 11-29-2024 Annual PCP Team Chronic Disease Visit Annual PCP Team Chronic Disease Visit [facility] Start: 11-28-2024 End: 11-28-2024 Patient encounter procedure 11/28/2024 8:20 AM EDT Office Visit [facility] [address] [place] [address] Trav Kelley APRN.NIGHT TIME BABYSITTER [address] [place] [address] BP follow up [facility] [place] Comment on above: BP follow up Start: 10-20-2024 End: 10-20-2024 Patient encounter procedure 10/20/2024 10:20 AM EDT Office Visit Orthopaedics [address] [place] [address] Juan Argueta MD [address] [place] [address] left knee move forward with replacement Orthopaedics Comment on above: left knee move forward with replacement Start: 10-04-2024 Annual PCP Team Chronic Disease Visit Annual PCP Team Chronic Disease Visit [facility] Start: 10-04-2024 Screening for malignant neoplasm of breast Mammogram Screening [facility] Start: 10-03-2024 Influenza vaccination Influenza Vaccine (#1) [facility] Comment on above: Postponed from 12/06/2023 (Declined at t his time) Start: 09-19-2024 End: 09-19-2024 Patient encounter procedure 09/19/2024 8:00 AM EDT Office Visit [facility] [place] [address] [place] [address] Trav Kelley, ART EDITOR.NIGHT TIME BABYSITTER [address] [place] [address] BP follow up [facility] [place] Comment on above: BP follow up Start: 09-12-2024 End: 09-12-2024 Patient encounter procedure 09/12/2024 10:00 AM EDT Office Visit [facility] [place] [address] [place] [address] Trav Kelley ART EDITOR.NIGHT TIME BABYSITTER [address] [place] [address] BP follow up [facility] [place] Comment on above: BP follow up Start: 09-05-2024 End: 09-05-2024 Follow-up encounter 09/05/2024 7:45 AM EDT [facility] [address] [place], [place] [id number] Tomasa Gonzalez, ART EDITOR.NIGHT TIME BABYSITTER [place] [phone] Caudal injection follow up [facility] Comment on above: Caudal injection follow up Start: 08-22-2024 End: 08-22-2024 Patient encounter procedure 08/22/2024 1:45 PM EDT Office Visit Orthopaedics [address] [place] [address] Juan Argueta MD [address] [address] Orthovisc injection # 3 into left knee - medication approved through [employer] benefits - medication has arrived Orthopaedics Comment on above: Orthovisc injection # 3 into left knee - medication approved through [employer] benefits - medication has arrived Start: 08-16-2024 End: 08-16-2024 Patient encounter procedure 08/16/2024 11:00 AM EDT Office Visit Orthopaedics [address] [address] Larisa Bernstein PA-Nandini [address] [place] [address] Orthovisc injection # 2 into left knee - medication approved through [employer] benefits - patient will bring medication- ok per SV Orthopaedics Comment on above: Orthovisc injection # 2 into left knee - medication approved through [employer] benefits - patient will bring medication- ok per SV Start: 08-15-2024 End: 08-15-2024 Patient encounter procedure 08/15/2024 7:30 AM EDT Office Visit Orthopaedics [address] [place] [address] Larisa Bernstein PA-C [address] [place], [place] [id number] Orthovisc injection # 2 into left knee - medication approved through [employer] benefits - medication has arrived Orthopaedics Comment on above: Orthovisc injection # 2 into left knee - medication approved through [employer] benefits - medication has arrived Start: 08-08-2024 End: 08-08-2024 Patient encounter procedure 08/08/2024 11:30 AM EDT Office Visit Orthopaedics [address] [place] [address] Larisa Bernstein PA-C [address] [place] [address] Orthovisc injection # 1 into left knee - medication approved through [employer] benefits- medication has arrived Orthopaedics Comment on above: Orthovisc injection # 1 into left knee - medication approved through [employer] benefits- medication has arrived Start: 08-04-2024 End: 08-04-2024 ambulatory 08/04/2024 2:20 PM EDT Procedure [facility] [address] [place] [address] Kenneth Felix MD [address] [facility] [address] [place] [address] Caudal under fluro: no restrictions [facility] Comment on above: Caudal under fluro: no restrictions Start: 07-26-2024 Annual PCP Team Chronic Disease Visit Annual PCP Team Chronic Disease Visit [facility] Start: 07-18-2024 End: 07-18-2024 Patient encounter procedure 07/18/2024 9:20 AM EDT Office Visit [facility] [place] [address] [place] [address] Trav Kelley APRN.NIGHT TIME BABYSITTER [address] [place] [address] BP follow up [facility] [place] Comment on above: BP follow up Start: 06-20-2024 End: 09-19-2024 CBC W Auto Differential panel - Blood COMPLETE BLOOD COUNT AND DIFFERENTIAL Lab Routine Essential hypertension Prediabetes Expected: 06/20/2024, Expires: 09/19/2024 [facility] Comment on above: Expected: 06/20/2024, Expires: Start: 06-20-2024 End: 09-19-2024 Comprehensive metabolic 2000 panel - Serum or Plasma COMPREHENSIVE METABOLIC PANEL Lab Routine Mixed hyperlipidemia Essential hypertension Prediabetes Expected: 06/20/2024, Expires: 09/19/2024 [facility] Comment on above: Expected: 06/20/2024, Expires: Start: 06-20-2024 End: 09-19-2024 Hemoglobin A1c in Blood HEMOGLOBIN A1C Lab Routine Prediabetes Expected: 06/20/2024, Expires: 09/19/2024 Work Phone: Comment on above: Expected: 06/20/2024, Expires: Start: 06-20-2024 End: 06-20-2024 Patient encounter procedure 06/20/2024 9:20 AM EDT Office Visit Internal Medicine [place] [address] [facility] [place] [address] Trav Kelley APRN.NIGHT TIME BABYSITTER [address] [facility] [address] 3 month follow up [facility] [place] Comment on above: 3 month follow up Start: 06-18-2024 Screening for malignant neoplasm of colon [facility] Start: 06-14-2024 Annual PCP Team Chronic Disease Visit Annual PCP Team Chronic Disease Visit [facility] Start: 06-13-2024 End: 06-13-2024 ambulatory 06/13/2024 9:45 AM EDT Results Only [facility] [address] [facility] [place] [address] [facility] Start: 06-07-2024 End: 09-06-2024 Lipid 1996 panel - Serum or Plasma LIPID PANEL BASIC Lab Routine Mixed hyperlipidemia Expected: 06/07/2024, Expires: 09/06/2024 Work Phone: Comment on above: Expected: 06/07/2024, Expires: Start: 04-14-2024 End: 04-14-2024 Patient encounter procedure 04/14/2024 1:30 PM EST Office Visit [facility] [address] [place] [address] Maury Cerna APRN.NIGHT TIME BABYSITTER [address] [place] [address] NASIR follow up [facility] Comment on above: NASIR follow up Start: 04-11-2024 End: 04-11-2024 Patient encounter procedure 04/11/2024 8:40 AM EST Office Visit [facility] [place] [address] [facility] [place] [address] Trav Kelley ART EDITOR.NIGHT TIME BABYSITTER [address] [facility] [place] [address] 6 month follow up [facility] [place] Comment on above: 6 month follow up Start: 04-08-2024 End: 04-08-2024 Follow-up encounter 04/08/2024 7:15 AM EST [facility] [address] [place] [address] [place] [address] Maury Cerna, CLEM.NIGHT TIME BABYSITTER [address] [place] [address] NASIR follow up [facility] Comment on above: NASIR follow up Start: 03-24-2024 End: 03-24-2024 ambulatory [facility] Comment on above: Caudal NASIR w fluoro at [facility] 03/14 PENDING LMS - C audal NASIR w fluoro at [facility] Start: 03-21-2024 End: 03-21-2024 Patient encounter procedure 03/21/2024 8:40 AM EST Office Visit [facility] [place] [address] [facility] [place] [address] Trav Kelley ART EDITOR.NIGHT TIME BABYSITTER [address] [facility] [place] [address] 6 month follow up [facility] [place] Comment on above: 6 month follow up Start: 02-25-2024 End: 02-25-2024 Patient encounter procedure 02/25/2024 2:30 PM EST Office Visit [facility] [address] [place] [address] Maury eCrna APRN.NIGHT TIME BABYSITTER [address] [place] [address] 3 mos ov [facility] Comment on above: 3 mos ov Start: 02-11-2024 End: 02-11-2024 Patient encounter procedure 02/11/2024 8:00 AM EST Appointment [facility] [address] [place] [address] Luiza Hampton MD [address] [place] [phone] Anemia, unspecified type [D64.9] [facility] Comment on above: Anemia, unspecified type [D64.9] Start: 01-25-2024 End: 01-25-2024 Follow-up encounter 01/25/2024 8:00 AM EDT [facility] [address] [place], [place] [id number] Mona See [address] [place] [address] 8 week follow up Nutrition Therapy Comment on above: 8 week follow up Start: 01-23-2024 COLOGUARD (FIT-DNA) COLOGUARD (FIT-DNA) [facility] Start: 01-23-2024 COLORECTAL CANCER SCREENING COLORECTAL CANCER SCREENING [facility] Start: 01-23-2024 Screening for malignant neoplasm of colon [facility] Start: 01-15-2024 DIABETES SCREEN DIABETES SCREEN [facility] Start: 12-16-2023 End: 12-16-2023 Patient encounter procedure 12/16/2023 8:30 AM EDT Office Visit [facility] [address] [place] [address] Jitendra Shell MD [address] [place] [address] follow up from [facility] Comment on above: follow up from [facility] Start: 12-11-2023 Annual PCP Team Chronic Disease Visit Annual PCP Team Chronic Disease Visit [facility] Start: 12-11-2023 Hepatitis B Vaccine (1 of - 19+ 3-dose series) Hepatitis B Vaccine (1 of 3 - 19+ 3-dose series) [facility] Comment on above: Postponed from 1989 (Declined at t his time) Start: 12-11-2023 Hepatitis B Vaccine (1 of 3 - 3-dose series) Hepatitis B Vaccine (1 of 3 - 3-dose series) [facility] Comment on above: Postponed from 1970 (Declined at t his time) Start: 12-11-2023 Shingrix Vaccine (1 of 2) Shingrix Vaccine (1 of 2) [facility] Comment on above: Postponed from 2020 (Declined at t his time) Start: 12-11-2023 Urine microalbumin profile DTaP,Tdap,Td Vaccine (1 - Tdap) [facility] Comment on above: Postponed from 1989 (Declined at t his time) Start: 12-06-2023 Influenza vaccination [facility] Start: 12-03-2023 End: 12-03-2023 Patient encounter procedure [facility] Start: 12-01-2023 End: 12-01-2023 Follow-up encounter 12/01/2023 2:45 PM EDT [facility] [address] [place] [address] Tomasa Gonzalez APRN.NIGHT TIME BABYSITTER [address] [place] [phone] NASIR follow up [facility] Comment on above: NASIR follow up Start: 12-01-2023 End: 12-01-2023 ambulatory 12/01/2023 1:20 PM EDT Procedure [facility] [address] [address] Jitendra Shell MD [address] [facility] [place] [address] Caudal NASIR [facility] Comment on above: Caudal NASIR Start: 11-30-2023 End: 02-29-2024 Basic metabolic 2000 panel - Serum or Plasma [facility] Comment on above: Expected: 11/30/2023, Expires: Start: 11-30-2023 End: 02-29-2024 CBC panel - Blood by Automated count [facility] Comment on above: Expected: 11/30/2023, Expires: Start: 11-30-2023 End: 02-29-2024 Hemoglobin A1c in Blood [facility] Comment on above: Expected: 11/30/2023, Expires: Start: 11-30-2023 End: 11-30-2023 Patient encounter procedure 11/30/2023 10:30 AM EDT Office Visit Orthopaedics [address] [place] [address] Larisa Bernstein PA-C [address] [place] [address] Euflexxa injectiojn # 3 left knee Orthopa[facility]ics Comment on above: Euflexxa injectiojn # 3 left knee Start: 11-30-2023 End: 11-30-2023 Patient encounter procedure 11/30/2023 8:20 AM EDT Office Visit [facility] [place] [address] [place] [address] Trav Kelley APRN.NIGHT TIME BABYSITTER [address] [place] [address] Surgical Clearance for procedure on 12/28/23 [facility] [place] Comment on above: Surgical Clearance for procedure on 12/27 Start: 11-23-2023 End: 11-23-2023 Follow-up encounter 11/23/2023 8:45 AM EDT [facility] [address] [place] [address] Mona See, RD [address] [place] [address] 4 week follow-up Nutrition Therapy Comment on above: 4 week follow-up Start: 11-23-2023 End: 11-23-2023 Patient encounter procedure 11/23/2023 8:00 AM EDT Office Visit Orthopaedics [address] [place] [address] Larisa Bernstein PA-C [address] [place] [address] Euflexxa injection # 2 Left knee Orthopaedics Comment on above: Euflexxa injection # 2 Left knee Start: 11-16-2023 End: 11-16-2023 ambulatory [facility] Comment on above: Caudal NASIR AUTH GOOD SR Caudal NASIR Start: 10-26-2023 End: 10-26-2023 Patient encounter procedure 10/26/2023 10:00 AM EDT Office Visit Orthopaedics [address] [place] [address] Larisa Bernstein PA-C [address] [place] [address] left shoulder cortisone inj on 07/08/23 Orthopaedics Comment on above: left shoulder cortisone inj on 07/08/23 Start: 10-22-2023 End: 10-22-2023 Patient encounter procedure 10/22/2023 10:40 AM EDT Appointment Radiology [address] [place] [address] Tear of left rotator cuff, unspecified tear extent, unspecified whether traumatic [M75.102]; Glenohumeral arthritis, left [M19.012] Radiology Comment on above: Tear of left rotator cuff, unspecified t ear extent, unspecified whether traumatic [M75.102]; Glenohumeral arthritis, left [M19.012] Start: 10-20-2023 End: 10-20-2023 ambulatory 10/20/2023 7:30 AM EDT [facility] [address] [place] [address] Tomasa Gonzalez, ART EDITOR.[facility] [address] [place] [address] discuss back injections [facility] Comment on above: discuss back injections Start: 10-19-2023 End: 10-19-2023 Patient encounter procedure 10/19/2023 10:45 AM EDT Office Visit [facility] [address] [phone] Rosalia Wilson I, MD [address] [place] [address] Degenerative spondylolisthesis (MRI from Jan 2023 in [facility]) [facility] Comment on above: Degenerative spondylolisthesis (MRI from Jan 2023 in [facility]) Start: 10-15-2023 End: 10-15-2023 Patient encounter procedure 10/15/2023 3:00 PM EDT Appointment Radiology [address] [place] [address] Tear of left rotator cuff, unspecified tear extent, unspecified whether traumatic [M75.102]; Glenohumeral arthritis, left [M19.012] Radiology Comment on above: Tear of left rotator cuff, unspecified t ear extent, unspecified whether traumatic [M75.102]; Glenohumeral arthritis, left [M19.012] Start: 10-12-2023 End: 10-12-2023 Nutrition therapy 10/12/2023 8:00 AM EDT [facility] [address] [facility] [place] [address] Mona See, CHADWICK [address] [place] [address] 4 week follw up Nutrition Therapy Comment on above: 4 week follw up Start: 10-05-2023 End: 01-04-2024 Basic metabolic 2000 panel - Serum or Plasma [facility] Comment on above: Expected: 10/05/2023, Expires: 4 Start: 10-05-2023 End: 01-04-2024 CBC panel - Blood by Automated count Work Phone: Comment on above: Expected: 10/05/2023, Expires: 4 Start: 10-05-2023 End: 10-05-2023 Patient encounter procedure Mammogram Comment on above: SCREENING WITH TIEN 4 week BP check Start: 10-04-2023 Influenza vaccination Influenza Vaccine (#1) [facility] Comment on above: Postponed from 12/05/2022 (Declined at t his time) Start: 10-02-2023 Mammography [facility] Start: 10-02-2023 Screening for malignant neoplasm of breast Mammogram Screening [facility] Start: 09-24-2023 End: 09-24-2023 ambulatory 09/24/2023 3:45 PM EDT OT/PT/Speech Visit [facility] [address] [place] [address] Jabier Mart, PT Primary osteoarthritis of both knees [M17.0] [facility] Comment on above: Primary osteoarthritis of both knees [M1 7.0] Start: 09-16-2023 End: 09-16-2023 ambulatory 09/16/2023 2:45 PM EDT OT/PT/Speech Visit [facility] [address] [place] [address] Bridgett Shepard, CAMERA ASSEMBLER [address] [place] [address] Primary osteoarthritis of both knees [M17.0] [facility] Comment on above: Primary osteoarthritis of both knees [M1 7.0] Start: 09-10-2023 ANNUAL PCP TEAM CHRONIC DISEASE VISIT ANNUAL PCP TEAM CHRONIC DISEASE VISIT [facility] Start: 09-09-2023 End: 09-09-2023 ambulatory 09/09/2023 3:30 PM EDT OT/PT/Speech Visit [facility] [address] [place] [address] Bridgett Shepard, CAMERA ASSEMBLER [address] [place] [address] Primary osteoarthritis of both knees [M17.0] [facility] Comment on above: Primary osteoarthritis of both knees [M1 7.0] Start: 09-07-2023 End: 09-07-2023 Nutrition therapy 09/07/2023 8:45 AM EDT [facility] [address] [place] [address] Mona See, CHADWICK [address] [place] [address] Prediabetes [R73.03] [facility] Comment on above: Prediabetes [R73.03] Start: 09-07-2023 End: 09-07-2023 Patient encounter procedure General Surgery Comment on above: Anemia, unspecified type [D64.9] Anemia, unspecified type [D64.9] Colon cancer screening [Z12.11]- [facility] Start: 08-16-2023 ANNUAL PCP TEAM CHRONIC DISEASE VISIT ANNUAL PCP TEAM CHRONIC DISEASE VISIT [facility] Start: 08-11-2023 End: 08-11-2023 ambulatory 08/11/2023 3:00 PM EDT OT/PT/Speech Visit [facility] [address] [place] [address] Jabier Mart PT Primary osteoarthritis of both knees [M17.0] [facility] Comment on above: Primary osteoarthritis of both knees [M1 7.0] Start: 08-03-2023 End: 08-03-2023 Nutrition therapy 08/03/2023 2:30 PM EDT [facility] [address] [place] [address] [place] [address] Prediabetes [R73.03] Nutrition Therapy Comment on above: Prediabetes [R73.03] Start: 04-06-2023 Behavioral Health Screening Behavioral Health Screening [facility] Start: 04-06-2023 Depression Assessment Depression Assessment [facility] Start: 12-05-2022 Influenza vaccination [facility] Start: 12-02-2022 Gait training procedure [facility] Start: 12-02-2022 Patient discharge [facility] Start: 12-02-2022 Application of ice collar, cap or bag [facility] Start: 12-02-2022 Catheterization of vein [facility] Start: 12-02-2022 Elevation of affected extremity [facility] Start: 12-02-2022 Following clinical pathway protocol [facility] Start: 12-02-2022 Procedure discontinued [facility] Start: 12-02-2022 Provision of mobility device [facility] Start: 12-02-2022 Taking patient vital signs [facility] Start: 12-02-2022 Vital signs measurements [facility] Start: 12-02-2022 End: 12-02-2022 [facility] Start: 12-02-2022 Medication education [facility] Start: 08-15-2022 End: 10-15-2022 Comprehensive metabolic 2000 panel - Serum or Plasma Work Phone: Comment on above: Expected: 08/15/2022, Expires: 3 Start: 08-15-2022 End: 10-15-2022 Hepatitis C virus Ab [Presence] in Serum Work Phone: Comment on above: Expected: 08/15/2022, Expires: 3 Start: 08-15-2022 End: 10-15-2022 HIV 1+2 Ab [Presence] in Serum or Plasma by Immunoassay Work Phone: Comment on above: Expected: 08/15/2022, Expires: 3 Start: 08-15-2022 End: 08-16-2023 Thyrotropin [Units/volume] in Serum or Plasma Work Phone: Comment on above: Expected: 08/15/2022, Expires: 4 Start: 08-15-2022 End: 08-16-2023 Thyroxine (T4) free [Mass/volume] in Serum or Plasma Work Phone: Comment on above: Expected: 08/15/2022, Expires: 4 Start: 08-15-2022 End: 08-16-2023 Triiodothyronine (T3) Free [Mass/volume] in Serum or Plasma Work Phone: Comment on above: Expected: 08/15/2022, Expires: 4 Start: 06-25-2022 ANNUAL PCP TEAM CHRONIC DISEASE VISIT ANNUAL PCP TEAM CHRONIC DISEASE VISIT [facility] Start: 04-06-2022 DEPRESSION ASSESSMENT DEPRESSION ASSESSMENT [facility] Start: 12-05-2021 Influenza vaccination [facility] Start: 08-13-2021 Mammography MAMMOGRAM [facility] Start: 04-06-2021 DEPRESSION ASSESSMENT DEPRESSION ASSESSMENT [facility] Start: 12-05-2020 Influenza vaccination INFLUENZA (#1) [facility] Start: 2020 SHINGRIX VACCINE (1 of 2) SHINGRIX VACCINE (1 of 2) [facility] Start: 03-23-2019 Adult depression screening assessment DEPRESSION SCREENING [facility] Start: 05-25-2016 FECAL OCCULT BLOOD FECAL OCCULT BLOOD [facility] Start: 05-25-2016 Screening for malignant neoplasm of colon Fecal Occult Blood [facility] Start: 07-23-2015 Colonoscopy COLONOSCOPY [facility] Start: 07-23-[address] COLONOGRAPHY [facility] Start: 07-23-2015 Screening for malignant neoplasm of colon [facility] Start: 07-23-2015 SIGMOIDOSCOPY SIGMOIDOSCOPY [facility] Start: 1989 Hepatitis B Vaccine (1 of 3 - 19+ 3-dose series) Hepatitis B Vaccine (1 of 3 - 19+ 3-dose series) [facility] Start: 1989 Urine microalbumin profile [facility] Start: 1988 Anxiety Screening Anxiety Screening [facility] Start: 1988 BP CONTROLLED (<130/80) BP CONTROLLED (<130/80) [facility] Start: 1988 Depression Screening Depression Screening [facility] Start: 1988 HEPATITIS C SCREENING HEPATITIS C SCREENING [facility] Start: 1988 HIV SCREENING HIV SCREENING [facility] Start: 07-23-1975 COVID-19 VACCINE (#1) COVID-19 VACCINE (#1) [facility] Start: 07-23-1975 COVID-19 VACCINE (1) COVID-19 VACCINE (1) [facility] Start: 01-21-1971 COVID-19 VACCINE (#1) COVID-19 VACCINE (#1) [facility] Start: 1970 HEPATITIS B (1 of 3 - 3-dose series) HEPATITIS B (1 of 3 - 3-dose series) [facility] End: 08-26-2024 DBT Breast - bilateral screening THIERNO SCREENING W TIEN Radiology Routine Screening mammogram for breast cancer 1 Occurrences starting 07/28/2023 until 08/26/2024 Work Phone: Comment on above: 1 Occurrences starting 07/28/2023 until 08/26/2024 ECG COMPLETE ECG COMPLETE ECG Routine Preop exam for internal medicine Ordered: 11/30/2023 Work Phone: Comment on above: Ordered: 11/30/2023 End: 09-06-2024 EGD DIAGNOSTIC EGD DIAGNOSTIC Endoscopy Routine Anemia, unspecified type 1 Occurrences starting 09/07/2023 until 09/06/2024 [facility] Comment on above: 1 Occurrences starting 09/07/2023 until 09/06/2024 End: 09-06-2024 Flexible sigmoidoscopy study COLONOSCOPY DIAGNOSTIC Endoscopy Routine Anemia, unspecified type 1 Occurrences starting 09/07/2023 until 09/06/2024 Work Phone: Comment on above: 1 Occurrences starting 09/07/2023 until 09/06/2024 Hemoglobin.gastroint estin al.lower [Presence] in Stool by Immunoassay FECAL OCCULT BLOOD TEST Lab Routine Anemia, unspecified type Other fatigue Ordered: 06/15/2023 Work Phone: Comment on above: Ordered: 06/15/2023 End: 10-02-2024 MR Shoulder - left WO contrast MRI SHOULDER WO IVCON LEFT Radiology Routine Tear of left rotator cuff, unspecified tear extent, unspecified whether traumatic Glenohumeral arthritis, left 1 Occurrences starting 09/03/2023 until 10/02/2024 Work Phone: Comment on above: 1 Occurrences starting 09/03/2023 until 10/02/2024 Njx dx/ther sbst int rlmnr lmbr/sac w/img gdn EPI LUMBAR OR SACRAL W/IMAGING Procedures Routine Post laminectomy syndrome Ordered: 09/24/2021 Work Phone: Comment on above: Ordered: 09/24/2021 Njx dx/ther sbst int rlmnr lmbr/sac w/img gdn EPI LUMBAR OR SACRAL W/IMAGING Procedures Routine Post laminectomy syndrome Ordered: 05/05/2022 Work Phone: Comment on above: Ordered: 05/05/2022 Njx dx/ther sbst int rlmnr lmbr/sac w/img gdn EPI LUMBAR OR SACRAL W/IMAGING Procedures Routine Post laminectomy syndrome Ordered: 12/29/2022 Work Phone: Comment on above: Ordered: 12/29/2022 Njx dx/ther sbst int rlmnr lmbr/sac w/img gdn EPI LUMBAR OR SACRAL W/IMAGING Procedures Routine Post laminectomy syndrome Ordered: 11/16/2023 Work Phone: Comment on above: Ordered: 11/16/2023 Njx dx/ther sbst int rlmnr lmbr/sac w/img gdn EPI LUMBAR OR SACRAL W/IMAGING Procedures Routine Spinal stenosis of lumbar region with neurogenic claudication Ordered: 03/24/2024 Work Phone: Comment on above: Ordered: 03/24/2024 Njx dx/ther sbst int rlmnr lmbr/sac w/img gdn EPI LUMBAR OR SACRAL W/IMAGING Procedures Routine Radiculopathy, lumbar region Ordered: 08/04/2024 Work Phone: Comment on above: Ordered: 08/04/2024 Patient Education ED Gastritis ( Adult) ED Neck Pain [facility] Work Phone: Patient referral [facility] Work Phone: PT PLAN OF CARE CERTIFICATION PT PLAN OF CARE CERTIFICATION Procedures Routine Right-sided low back pain with right-sided sciatica, unspecified chronicity Chronic right-sided low back pain with right-sided sciatica Ordered: 07/03/2021 Work Phone: Comment on above: Ordered: 07/03/2021 Radex spine lumbosac ral 2/3 views XR LUMBAR LIMITED 2V FLEX/EXT Radiology Routine Radiculopathy, lumbar region 09/16/2021 9:44 AM EDT Work Phone: End: 08-16-2023 US LEG VEIN DVT UNL VAS LAB US LEG VEIN DVT UNL VAS LAB Vascular Lab Routine Pain of left lower extremity 1 Occurrences starting 08/15/2022 until 08/16/2023 Work Phone: Comment on above: 1 Occurrences starting 08/15/2022 until 08/16/2023 End: 06-19-2024 US Shoulder - left US SHOULDER LEFT Radiology Routine Tear of left rotator cuff, unspecified tear extent, unspecified whether traumatic 1 Occurrences starting 05/21/2023 until 06/19/2024 Work Phone: Comment on above: 1 Occurrences starting 05/21/2023 until 06/19/2024 End: 08-05-2024 XR Knee - left 4 Views XR KNEE GENERAL 4V AP BOTH/PA BOTH/LAT/MERC LEFT Radiology Routine Left knee pain, unspecified chronicity 1 Occurrences starting 07/07/2023 until 08/05/2024 Work Phone: Comment on above: 1 Occurrences starting 07/07/2023 until 08/05/2024 XR Lumbar spine View s W flexion and W extension XR LUMBAR MOTION 4V AP/LAT/ FLEX/EXT Radiology Routine Radiculopathy, lumbar region 10/15/2023 2:36 PM EDT Work Phone: [facility] Immunizations Immunization Date Immunization Notes Care Provider Fran oliveros 03-23-2018 influenza virus vacc ine, unspecified formulation Ramy Jeffries MD Work Phone: [facility] Payers Date Payer Category Payer Self-pay [id number] 2020 [employer] BLUE CARD PPO OOS [id number] 2020 Unknown [employer] BLUE CARD PPO OOS [id number] 2020-Present [phone] [place], [place] [id number] PPO [id number] 2020 Unknown [id number] 2020 Unknown [id number] Unknown [id number] Unknown [id number]. [id number] Unknown [id number]. 2.462 Unknown [id number]. 2.462 Unknown [id number]. 2.462 Unknown [id number]. 2.462 Unknown [id number]. 2.462 Unknown [id number]. 2.462 Unknown [id number]. 2.462 Unknown [id number]. 2.462 Unknown [id number]. 2.462 Unknown [id number]. 2.462 Unknown [id number] 2.462 Social History Date Type Detail Facility Start: 07-28-2011 End: 03-18-2022 Tobacco smoking status NHIS Never smoked tobacco [facility] Work Phone: Start: 06-25-2021 End: 09-05-2024 Alcohol intake Current non-drinker of alcohol (finding) [facility] Start: 1970 Sex Assigned At Not on file [facility] [place] Start: 07-28-2020 End: 09-27-2021 Exposure to SARS-CoV-2 (event) Not sure [facility] Work Phone: Start: 08-07-2021 End: 04-20-2023 Tobacco smoking status MNIS Unknown if ever smoked [facility] Start: 1970 Sex Assigned At Female W [facility] Start: 07-28-2011 End: 03-18-2022 Tobacco use and exposure Smokeless tobacco non-user [facility] Start: 08-15-2022 End: 09-09-2022 History of Social function [facility] Start: 08-15-2022 End: 09-09-2022 Tobacco use panel [facility] Adult Depression Screening Assessment 0 [facility] Start: 11-07-2020 Gender identity Identifies as female gender (finding) [facility] Start: 11-07-2020 Sexual orientation Heterosexual (fin greer) [facility] Do you belong to any clubs or organizations such as sikhism groups, unions, fraternal or athletic groups, or school groups? Yes [facility] Are you now , , , , never or living with a partner? [facility] How often to you hav e a drink containing alcohol? Never [facility] Do you feel stress - tense, restless, nervous, or anxious, or unable to sleep at night because your mind is troubled all the time - these days [OSQ] Only a little [facility] (I/We) worried wheth er (my/our) food would run out before (I/we) got money to buy more. Never true [facility] In the past 12 month s, was there a time when you were not able to pay the mortgage or rent on time? No [facility] NEGATED: Highlighted row [facility] Medical Equipment Procedure Code Equipment Code Equipment Origin al Text Equipment Identifier Dates Robot-assisted total abdominal hysterectomy with bilateral salpingo-oophorectomy (RYAN MARYCRUZ 3GRM HEMOSTAT ABS FDA Start: 09-24-2020 Robot-assisted total abdominal hysterectomy with bilateral salpingo-oophorectomy (RYAN MARYCRUZ 3GRM HEMOSTAT ABS FDA Start: 09-24-2020 Robot-assisted total abdominal hysterectomy with bilateral salpingo-oophorectomy (RYAN MARYCRUZ 3GRM HEMOSTAT ABS FDA Start: 09-24-2020 Robot-assisted total abdominal hysterectomy with bilateral salpingo-oophorectomy (RYAN MARYCRUZ 3GRM HEMOSTAT ABS FDA Start: 09-24-2020 Robot-assisted total abdominal hysterectomy with bilateral salpingo-oophorectomy (RYAN MARYCRUZ 3GRM HEMOSTAT ABS FDA Start: 09-24-2020 Goals Date Patient Goal Desired Activity /State Functional Status Date Assessment Result Facility 03-18-2024 Total score [AUDIT-C] 0 03/18/20 24 5:38 AM EST Jean Paul Lawrence [facility] 03-18-2024 How often to you hav e a drink containing alcohol? Never 03/18/2024 5:38 AM EST UserJean Paul Never [facility] 03-18-2024 Functional status Patient does n ot drink 03/18/2024 5:38 AM EST Jean Paul Lawrence Patient does not drink [facility] 03-18-2024 How often do you hav e 6 or more drinks on 1 occasion? Never 03/18/2024 5:38 AM EST UserJean Paul Never [facility] 12-02-2022 Functional status Ambulates [facility] Work Phone: 10-27-2014 Are you deaf, or do you have serious difficulty hearing No 10/27/2014 8:36 AM Coco Longo Ma No [facility] 10-27-2014 Are you blind, or do you have serious difficulty seeing, even when wearing glasses No 10/27/2014 8:36 AM Coco Longo Ma No [facility] 10-27-2014 Do you have serious difficulty walking or climbing stairs No 10/27/2014 8:36 AM Coco oLngo Ma No [facility] 10-27-2014 Do you have difficul ty dressing or bathing No 10/27/2014 8:36 AM Coco Longo Ma No [facility] 10-27-2014 Because of a physica l, mental, or emotional condition, do you have difficulty doing errands alone such as visiting a physician's office or shopping No 10/27/2014 8:36 AM Coco Longo Ma No [facility] Mental Status Date Assessment Result Facility 12-02-2022 Cognitive function Voice/Name;Touch/Shaki ng [facility] Work Phone: 08-07-2021 Cognitive function Level Of Cons ciousness Awake;Alert;Appropriate;Fol lows Commands [facility] Work Phone: 10-27-2014 Because of a physica l, mental, or emotional condition, do you have serious difficulty concentrating, remembering, or making decisions No 10/27/2014 8:36 AM EDT Coco Romero Ma No [facility] Clinical Notes 08-27-2020 to 09-05-2024 Telephone Encounter - Pelon Brooks - 09/05/2024 9:58 AM EDTTelephone Encounter - Pelon Brooks - 09/05/2024 9:58 AM Tomasa Amanda APRN.NIGHT TIME BABYSITTER - 09/05/2024 7:45 AM EDT Note Date & Type Note Facility 09-05-2024 Telephone encounter Note LVM-- to call and schedule a 4 months follow up OV> Pelon Brooks [facility] 09-05-2024 Miscellaneous Notes LVM-- to call and schedule a 4 months follow up OV> Pelon Brooks documented in this encounter [facility] 09-05-2024 History of Present illness Narrative Images from the original note were not included. This is a virtual visit using [employer] Video Visit. It required patient-provider interaction for the medical decision making as documented below. I have communicated my name and active licensure. The patient's identity and physical location were verified at the time of this visit. Either the patient or their legal provider service representative has been informed of the risks and benefits of -- and alternatives to -- treatment through a remote evaluation and consents to proceed with the evaluation remotely. [facility] Today's Date: 09/05/2024 Name: Khadijah Mahmood : 1970 Purpose: Follow-up Patient Evaluation - This is an established patient, returning today for continued evaluation and management of the chief complaint noted below Chief complaint: back pain Pertinent Past Medical History: DM Pertinent Past Surgeries: back surgery times 2 (Dr Torito Riggins) Plan at last visit: (Seen on 07/06/2024 Tomasa Gonzalez APRN.NIGHT TIME BABYSITTER) She states the pain is slowly returning. It starts in the right back and into the buttocks, right hip and right calf. She isn't sleeping well due to the pain. She feels the caudal injections help for 3-4 months by over 60% relief. . The pain will cause leg fatigue but not weakness. She has to sit to get relief. She is not ready for surgery but wants another caudal injection, IMPRESSION: 54 year old female presents with complaint(s) of worsening radicular symptoms. She has had 2 previous spine surgeries and does not want another as the next 1 will be a fusion. The caudal injections helped the pain by 60% for 3 to 4 months at a time. I am open to having her pursue a repeat caudal injection. In the future we could always consider spinal cord stimulation as well Interval History: Overall pain and functional disability since last visit: better New Complaints since last visit: No She had the caudal injection on 08/04/[address] Felix that has helped the pain here by 50%. She has residual back pain mostly that is manageable. She has been gardening. She moves carefully to avoid the back pain. She is pleased with the injection result Current Pain Medications: Neuropathics: NSAIDS: motrin Muscle Relaxants: Topicals: Other Prescription or OTC Pain Medications: acetaminophen Opioids (when applicable): Anti-depressants or Mood-Stabilizers: Anti-Coagulants: Therapies Attended (Current or Most Recent): Daily Home Exercise Program as directed by PT/Chiropractor, under direct supervision of clinician (Physician/AMELIA) 02/25/2024 AG SPINE COMBINATION Questionnaire Opiod Risk Tool Completed Date 02/25/2024 Comments low risk-0 No question data found. Notable Events During Course of Treatment: 03/28/2022 - Initial HPI (Obtained by Becki DUNLAP). Patient underwent the following injection with Dr. [...] leg pain is starting to get worse. 10/19/2023 Dr Wilson I had extensive conversation with the patient clinic today regarding her imaging. She wanted to check to get an update on her imaging. I explained her to my eye her imaging does look completely stable. She has persistent disc degeneration. She is planning on returning to see Dr. Jeffries for another injection. I think that is a good idea as she has had good shelter relief with them. I would however encourage her to continue on her weight loss journey. That is adding to degeneration of the spine and if ever she decides she wants to have surgery because the injections stop working then she would need to target a BMI of less than 35 to qualify. At that point we would be looking at a lumbar spinal fusion at least at L4-5 possibly L5-S1 as well. The downside of course is with spinal fusion the risk of adjacent segment disease as well as the risk of the surgery itself. She seems to understand that. She will continue with her current treatment plan with Dr. Jeffries. I also discouraged regular imaging follow-up in cases like this unless new symptoms present themselves given that this is a degenerative condition that naturally will progress on imaging but unless there is a thought to change treatment strategies because of new symptoms for example it would not add much to her management on an ongoing basis. She can follow-up with me on an as needed basis Treatment History: PAIN PROCEDURES: 08/04/2024 Dr Felix consider L4/5 ILESI DATE PROCEDURE IMPROVEMENT 03/24/2021 Caudal 80% 09/24/2021 Caudal 90% 05/05/2022 Caudal 80% 12/29/2022 Caudal 80% 04/27/2023 Caudal 90% 11/16/2023 Caudal 80% 08/04/1014 Caudal 50% MEDICATIONS Taken TO DATE (for the chief complaint(s)): Neuropathics: NSAIDS: Muscle Relaxants: Topicals: Other Prescription or OTC Pain Medications: Opioids: Data Reviewed Today: Allergies: ALLERGIES Allergen Reactions Penicillins can take amoxicillin Poison Yusra Itching Social History Tobacco Use Smoking status: Never Smokeless tobacco: Never Vaping Use Vaping status: Never Used Substance Use Topics Alcohol use: No Drug use: No 08/15/2024 08/30/2024 INTAKE PAIN ASSESSMENT Are you having pain associated with your visit today? Yes, Provider notified Yes, Provider notified Pain Level 8 8 5 Pain Location Back-Lower Description Aching;Sore;Stiffness Aching;Radiating;Sore;Stiffness Duration Amount of Time 24 24 Duration Units Hours Hours Frequency Continuous Continuous Intervention/Comfort measure Medication;Reposition;Cold;Heat Reposition;Cold;Heat;Pillow support;Positioning Compliance: PDMP website checked and validated on 09/05/2024 by Tomasa Gonzalez APRN.NIGHT TIME BABYSITTER All prescriptions have been APPROPRIATELY filled. No suspicious activity was identified. Risk Assessment: WILLIAMS-7: 02/25/2024 WILLIAMS - 7 SCORES Score 0 (0-4) minimal anxiety, (5-9) mild anxiety, (10-14) moderate anxiety, (15-21) severe anxiety PHQ-9: 02/25/2024 PHQ-9 Score 0 (0-4) minimal depression, (5-9) mild depression, (10-14) moderate depression, (15-19) moderately severe depression, (20-27) severe depression Diagnostic Studies: Relevant Imaging: MRI Spine Report MRI LUMBAR SPINE WO IVCON Exam End: 08/01/2021 8:34 AM (Final result) Narrative: * * *Final Report* * * DATE OF EXAM: Aug 01 2021 8:34AM WRM [id number] - MRI LUMBAR SPINE WO IVCON [...] and assume there are 5 lumbar-type vertebrae. Test Baker: LAURA Transcribe Date/Time: Aug 01 2021 9:25A Dictated by : FABIANA MORROW MD This examination was interpreted and the report reviewed and electronically signed by: FABIANA MORROW MD on Aug 01 2021 9:28AM EST Electrodiagnostic Study (EMG): None Recent Labs: Creatinine Date Value Ref Range Status 11/30/2023 0.63 0.58 - 0.96 mg/dL Final No results found for: GFR No results found for: PCGLUCOSE Current Medications, Past Medical History, Past Surgical History, Family History & Social History: Reviewed on today's date. Review of Systems: Reviewed on today's date. GENERAL: no fever HEENT: no nasal congestion or rhinorrhea NECK: denies swelling or pain in neck RESPIRATORY: no cough, no wheezing or shortness of breath CARDIOVASCULAR: no chest pain, no palpitations GI: no abdominal pain : urination is normal MUSCULOSKELETAL: low back pain as noted above SKIN: no rash PSYCH: sleeping better HEMATOLOGY/LYMPHOLOGY: negative for prolonged bleeding ENDOCRINE: hot flashes due to menopause NEURO: admits to paresthesia in the right leg and foot and admits to weakness in the right leg and foot Physical Exam: Ht 162.6 cm (5' 4) Wt 113.9 kg (251 lb) LMP 09/28/2017 (LMP Unknown) BMI 43.08 kg/m GENERAL: alert and appropriate, in no distress, well-hydrated, well nourished, and happy, smiling, interactive SKIN: no rash noted HEAD: normocephalic, no abnormality or lesion noted EYES: no injection and visual acuity is grossly normal EARS: hearing grossly normal NOSE: external nose normal without rhinorrhea NECK: full ROM, no cervical LNs noted RESPIRATORY: breathing non-labored CHEST: equal chest rise with normal respiratory effort BACK: ROM decreased because of pain EXTREMITIES: right leg per pt NEUROLOGIC: no obvious deficit IMPRESSION: 54 year old female presents with complaint(s) of improving lumbar and radicular pain since the NASIR from the previous spine surgery. She is doing well and feels the pain is manageable for now. Dr. Felix did note we could always attempt L4/5 I LESI as this region looks patent. She may be a spinal cord stimulator candidate in the future as well Diagnoses: (M54.16) Radiculopathy, lumbar region (primary encounter diagnosis) (M96.1) Postlaminectomy syndrome, lumbar region (M48.062) Spinal stenosis of lumbar region with neurogenic claudication PLAN: Khadijah Mahmood would benefit from the following to reach personal goals for decreasing pain, improving function and work participation, and/or improving quality of life: Medications: No Changes - Continue Current Medications Interventional Procedures: None Studies: None Functional Caodaism: Daily Home Exercise Program under direct supervision of this clinician (Physician/AMELIA) Referrals: No additional considerations at present Follow-up: 5 months Depending on response to the above plan, consider: Caudal vs L4/5 Patient Education, Compliance and Clinic Policies Reviewed and/or Discussed Today: None Attribution: In addition to reviewing the information noted above, some elements copied from my most recent clinical note(s), including the physical exam (completed in entirety today), and the impression and plan sections, have been updated where appropriate. All reflect current medical decision making from today's date. Tomasa Gonzalez APRN.[facility] documented in this encounter [facility] 09-05-2024 Note HNO ID: [id number] Author: TOMASA GONZALEZ APRN.CNP Service: ? Author Type: Nurse Practitioner Type: Progress Notes Filed: 09/05/2024 07:48 Note Text: This is a virtual visit using [employer] Z[employer] Video Visit. It required patient-provider interaction for the medical decision making as documented below. I have communicated my name and active licensure. The patient's identity and physical location were verified at the time of this visit. Either the patient or their legal provider service representative has been informed of the risks and benefits of -- and alternatives to -- treatment through a remote evaluation and consents to proceed with the evaluation remotely. [facility] Today's Date: 09/05/2024 Name: Khadijah Mahmood : 1970 Purpose: Follow-up Patient Evaluation - This is an established patient, returning today for continued evaluation and management of the chief complaint noted below Chief complaint: back pain Pertinent Past Medical History: DM Pertinent Past Surgeries: back surgery times 2 (Dr Torito Riggins) Plan at last visit: (Seen on 07/06/2024 Tomasa Gonzalez APRN.CNP) She states the pain is slowly returning. It starts in the right back and into the buttocks, right hip and right calf. She isn't sleeping well due to the pain. She feels the caudal injections help for 3-4 months by over 60% relief. . The pain will cause leg fatigue but not weakness. She has to sit to get relief. She is not ready for surgery but wants another caudal injection, IMPRESSION: 54 year old female presents with complaint(s) of worsening radicular symptoms. She has had 2 previous spine surgeries and does not want another as the next 1 will be a fusion. The caudal injections helped the pain by 60% for 3 to 4 months at a time. I am open to having her pursue a repeat caudal injection. In the future we could always consider spinal cord stimulation as well Interval History: Overall pain and functional disability since last visit: better New Complaints since last visit: No She had the caudal injection on 08/04/[address] Felix that has helped the pain here by 50%. She has residual back pain mostly that is manageable. She has been gardening. She moves carefully to avoid the back pain. She is pleased with the injection result Current Pain Medications: Neuropathics: NSAIDS: motrin Muscle Relaxants: Topicals: Other Prescription or OTC Pain Medications: acetaminophen Opioids (when applicable): Anti-depressants or Mood-Stabilizers: Anti-Coagulants: Therapies Attended (Current or Most Recent): Daily Home Exercise Program as directed by PT/Chiropractor, under direct supervision of clinician (Physician/AMELIA) 02/25/2024 AG SPINE COMBINATION Questionnaire Opiod Risk Tool Completed Date 02/25/2024 Comments low risk-0 No question data found. Notable Events During Course of Treatment: 03/28/2022 - Initial HPI (Obtained by Becki DUNLAP). Patient underwent the following injection with Dr. [...] leg pain is starting to get worse. 10/19/2023 Dr Wilson I had extensive conversation with the patient clinic today regarding her imaging. She wanted to check to get an update on her imaging. I explained her to my eye her imaging does look completely stable. She has persistent disc degeneration. She is planning on returning to see Dr. Jeffries for another injection. I think that is a good idea as she has had good shelter relief with them. I would however encourage her to continue on her weight loss journey. That is adding to degeneration of the spine and if ever she decides she wants to have surgery because the injections stop working then she would need to target a BMI of less than 35 to qualify. At that point we would be looking at a lumbar spinal fusion at least at L4-5 possibly L5-S1 as well. The downside of course is with spinal fusion the risk of adjacent segment disease as well as the risk of the surgery itself. She seems to understand that. She willcontinue with her current treatment plan with Dr. Jeffries. I also discouraged regular imaging follow-up in cases like this unless new symptoms present themselves given that this is a degenerative condition that naturally will progress o (more content not included)... [facility] 09-05-2024 Instructions Tomasa Gonzalez APRN.[facility] - 09/05/2024 7:38 AM EDT Ice and heat as tolerated Activity as tolerated documented in this encounter [facility] 08-22-2024 Note HNO ID: [id number] Author: MARNIE MUNOZ MA Service: ? Author Type: Seed Laboratory Technician Type: Progress Notes Filed: 08/22/2024 14:29 Note Text: Orthovisc Injection # 3 into left knee. LOT # [id number] EXP 03/05/2026 Marnie Munoz MA [facility] 08-22-2024 History of Present illness Narrative Orthovisc Injection # 3 into left knee. LOT # [id number] EXP 03/05/2026 Marnie Munoz MA Associated Order(s): Large Joint Arthro/Inj: L knee joint Post-Procedure Diagnose(s): Primary osteoarthritis of left knee; Chronic pain of left knee Juan Argueta MD Department of Orthopaedics [facility] [address] [place] [address] Dept: [phone] Dept August 22, 2024 CHIEF COMPLAINT: Injections of the Left Knee HPI: HPI Patient here today for Orthovisc injection # 3 into left knee. She is feeling some improvement in her pain. ASSESSMENT: M17.12 Primary osteoarthritis of left knee (primary encounter diagnosis) M25.562, G89.29 Chronic pain of left knee Large Joint Arthro/Inj: L knee joint 08/22/2024 2:08 PM The procedure site was prepped in the usual sterile fashion. Site: L knee joint Medications: 30 mg Sodium Hyaluronate 30 mg/2 mL Outcome: Tolerated well, no immediate complications Post-injection instructions were reviewed with the patient and the patient voiced understanding of these instructions. Informed Consent Consent Obtained: Verbal [place] Protocol A moment to CARE was completed. SIGN IN Personnel directly involved with the procedure wore the appropriate PPE. Special Equipment: N/A Patient/Surrogate Stated/Verified: Patient name, Date of , Relevant allergies and Intended procedure TIME OUT Relevant labs, photos, and/or imaging studies have been reviewed. Intended patient and procedure match source documents. Consent obtained and matches the intended procedure. Correct side/site marked and visible. Medications required for procedure verified. Fire risk assessed and interventions discussed. No implant(s) inserted. SIGN OUT All specimens correctly labeled and sent. All instruments, equipment, possible retained foreign bodies accounted for. No post-procedure POC communication to the patient or surrogate applicable. No post-procedure POC communication to the patient's multidisciplinary team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 HYSTERECTOMY 09/24/2020 [facility],[id number] Left 12/02/2022 MRI LUMBAR SPINE W/O CONTRAST 03/05/2015 [facility]-mild degenerative changes NEPHRECTOMY PARTIAL left 1992 Nephrectomy PAST SURGICAL HISTORY OF 04/06/1992 partial colectomy PAST SURGICAL HISTORY OF 05/05/2006 [facility]ICS Left SHOULDER SURGERY HX Right 01/2021 [facility] SHOULDER SURGERY HX Left 12/28/2023 VAGINAL HYSTERECTOMY 09/24/2020 [facility] Penicillins and Poison Yusra MEDICATIONS sodium hyaluronate 10 mg/mL injection 1 syringe of 2 ml sodium hyaluronate 10mg/ml intra articular injection in left knee weekly for 3 weeks, total of 3 injections. acetaminophen 325 mg cap Take by mouth as needed for pain. losartan (COZAAR) 100 mg tablet Take 1 tablet by mouth once daily. Blood Pressure Kit-Extra Large kit 1 Each once daily. Blood Pressure Monitor For home monitoring Dx: I10 estradiol (ESTRACE) 1 mg tablet Take 1 tablet by mouth every afternoon. FAMILY HISTORY Problem Relation Age of Onset Hypertension Mother Heart Mother other (elevated cholesterol) Mother Diabetes Father Hypertension Father Stroke Father Arthritis Father other (elevated cholesterol) Father smoker, mild stroke, arthritis Hypertension Sister Diabetes Sister Social History Tobacco Use Smoking status: Never Smokeless tobacco: Never Vaping Use Vaping status: Never Used Substance Use Topics Alcohol use: No Drug use: No PHYSICAL EXAM BP 138/88 Pulse 78 Resp 16 Wt 113.9 kg (251 lb) LMP 09/28/2017 (LMP Unknown) SpO2 97% BMI 43.08 kg/m General Appearance: well appearing, in no acute distress, alert Eyes: conjunctiva pink and moist, no icterus, sclera white, non-injected Lungs: Lungs clear to auscultation. No wheezing, rhonchi, rales. Heart: RRR without murmur, gallop, or rubs. No ectopy Health maintenance reviewed with patient: Depression Screening Never done Anxiety Screening Never done BP Controlled (<130/80) Never done Colorectal Cancer Screening due on 06/18/2024 Mammogram Screening due on 10/04/2024 Influenza Vaccine(1) due on 10/03/2024 DTaP,Tdap,Td Vaccine(1 - Tdap) due on 03/21/2025 Hepatitis B Vaccine(1 of 3 - 19+ 3-dose series) due on 03/21/2025 Shingrix Vaccine(1 of 2) due on 03/21/2025 Pneumococcal Vaccine: 50+(1 of 1 - PCV) due on 03/21/2025 Annual PCP Team Chronic Disease Visit due on 03/21/2025 Cervical Cancer Screening due on 08/01/2025 Diabetes Screening due on 11/29/2026 Lipid Screening due on 06/13/2029 Hepatitis C Screening Completed HIV Screening Completed Covid-19 Vaccine Discontinued DATA REVIEWED: Most recent labs ASSESSMENT/PLAN: 1. Essential hypertension - ICD9: 401.9, ICD10: I10 (primary diagnosis) - Uncontrolled but did not take home meds this morning Follow up in 2 -4 week but take meds prior to appointment - Continue current medications - Recommend home blood pressure monitoring, to bring results to next visit - Encouraged sodium restriction, DASH or Mediterranean diet - Recommend regular aerobic exercise - COMPREHENSIVE METABOLIC PANEL - COMPLETE BLOOD COUNT AND DIFFERENTIAL 2. Mixed hyperlipidemia - ICD9: 272.2, ICD10: E78.2 - Controlled - Continue current medications - Counseled on healthy diet and regular exercise - Discussed need for and benefit of weight loss. BMI 43.08 kg/(m^2) - COMPREHENSIVE METABOLIC PANEL 3. Prediabetes - ICD9: 790.29, ICD10: R73.03 Control undetermined, due for labs - HEMOGLOBIN A1C - COMPREHENSIVE METABOLIC PANEL - COMPLETE BLOOD COUNT AND DIFFERENTIAL Prescription instructions reviewed with patient as applicable. Potential red flag symptoms discussed with the patient. Reviewed appropriate action plan to take if red flag symptoms occur. Patient agreeable to treatment plan. Trav Kelley APRN.CNP documented in this encounter [facility] 06-07-2024 Telephone encounter Note Printed order for euflexxa and faxed to the pharmacy we used for her previously. [facility] 06-07-2024 Miscellaneous Notes Printed order for euflexxa and faxed to the pharmacy we used for her previously. Additional Clinical Information Request Please reply all to this email Please provide the following information to facilitate or complete the prior authorization Clinical Information - See Comments Sign OV Notes Clarify Information Updated / Correct Insurance Updated diagnosis code on order and or office note Medical Necessity Not Met Per Payer Guidelines Payer Request Additional Information x Other (must complete Comment section) Patient Name: Khadijah mahmood Appt Date: HCPCS code(s) & drug name(s): [id number] euflexxa Comments: Non covered service per payer documented in this encounter [facility] 06-07-2024 Note Patient Outreach (IN TMMN) KHADIJAH MAHMOOD ([id number]) 1970 F Date Time Provider Department 06/07/24 ANA LAU During your visit today, we recorded the following information about you: Allergies As of Date: 06/07/2024 Noted Allergy Reaction PENICILLINS 05/16/2005 Comments: can take amoxicillin POISON YUSRA 01/12/2009 9 - Itching Date Reviewed: 05/30/2024 Reviewed by: Luiza Aden MA - Fully Assessed Visit Diagnosis:Mixed hyperlipidemia [E78.2] Order(s):LIPID PANEL BASIC [SQLIPB] Order #: [id number] FUTURE Prescriptions as of 06/10/2024 - sodium hyaluronate 10 mg/mL injection 1 syringe of 2 ml sodium hyaluronate 10mg/ml intra articular injection in left knee weekly for 3 weeks, total of 3 injections. - acetaminophen 325 mg cap Take by mouth as needed for pain. - losartan (COZAAR) 100 mg tablet Take 1 tablet by mouth once daily. - Blood Pressure Kit-Extra Large kit 1 Each once daily. - Blood Pressure Monitor For home monitoring Dx: I10 - estradiol (ESTRACE) 1 mg tablet Take 1 tablet by mouth every afternoon. - acetaminophen (TYLENOL ARTHRITIS ORAL) Take by mouth as needed (pain). Problem List As Of Date 06/07/2024 Noted Resolved Mixed hyperlipidemia [E78.2] DYSMETABOLIC SYNDROME [...] 09/16/2021 Spondylolisthesis of lumbar region [M43.16] 09/16/2021 Primary osteoarthritis of both knees [M17.0] 08/14/2023 Encounter Status:Closed by SAIRA, PRODUSER on 06/10/24 [facility] 06-02-2024 Telephone encounter Note Additional Clinical Information Request Please reply all to this email Please provide the following information to facilitate or complete the prior authorization Clinical Information - See Comments Sign OV Notes Clarify Information Updated / Correct Insurance Updated diagnosis code on order and or office note Medical Necessity Not Met Per Payer Guidelines Payer Request Additional Information x Other (must complete Comment section) Patient Name: Khadijah mahmood Appt Date: HCPCS code(s) & drug name(s): [id number] euflexxa Comments: Non covered service per payer [facility] 05-30-2024 Note HNO ID: [id number] Author: LARISA BERNSTEIN PA-C Service: ? Author Type: Physician Home Theater Expert Type: Progress Notes Filed: 05/30/2024 15:11 Note Text: Larisa Bernstein PA-C Department of Orthopaedics Orthopaedics [address] [facility] [address] Dept: [phone] Dept May 30, 2024 CHIEF COMPLAINT: Follow Up and Knee Pain of the Left Knee. ASSESSMENT: M17.12 Primary osteoarthritis of left knee (primary encounter diagnosis) SUMMARY/PLAN: Patient presents requesting repeat left knee Euflexxa injections, her previous Euflexxa injections were November 2023. She reports that her pain was a 4 out of 10 following the injections, she reports that she had several months of pain relief following the Euflexxa injections, pain started to return this past March, pain has been getting progressively worse over the past few months and is in 8 out of 10 today, pain is mostly medial. The patient reports that her pain is worse when she is walking for prolonged distances. We will submit for repeat left knee Euflexxa injections today. Imaging: IMPRESSION: Progressive osteoarthrosis Test Baker: LAURA Transcribe Date/Time: 2023 1:35P Dictated by : MAURICE FERNANDEZ MD This examination was interpreted and the report reviewed and electronically signed by: MAURICE FERNANDEZ MD on 2023 1:36PM EST Results-Findings * * *Final Report* * * DATE OF EXAM: Jul 21 2023 12:29PM CARLOS 5202 - XR KNEE 4V AP/PA BOTH+LAT/KAROLINA LT / PROCEDURE REASON: M25.562-Left knee pain, unspecified chronicity * * * * Physician Interpretation * * * * PROCEDURE: Left knee INDICATION: Left knee pain, unspecified chronicity .LEFT KNEE PAIN TECHNIQUE: XR KNEE 4V AP/PA BOTH+LAT/KAROLINA LT COMPARISON: 09/27/2021 FINDINGS: Moderate to advanced medial joint compartment narrowing with mild tricompartment spur formation, greater than previous. No fracture. Small suprapatellar joint effusion. Mild to moderate right knee osteoarthrosis. Ms. Khadijah Mahmood was advised as to contrast therapies and/or to take analgesics/anti-inflammatories as needed and all contraindications were reviewed. Supporting Information Below: Medications: Current Outpatient Medications Medication Sig losartan (COZAAR) 100 mg tablet Take 1 tablet by mouth once daily. estradiol (ESTRACE) 1 mg tablet Take 1 tablet by mouth every afternoon. acetaminophen 325 mg cap Take by mouth as needed for pain. Blood Pressure Kit-Extra Large kit 1 Each once daily. Blood Pressure Monitor For home monitoring Dx: I10 acetaminophen (TYLENOL ARTHRITIS ORAL) Take by mouth as needed (pain). (Patient not taking: Reported on 05/30/2024) No current facility-administered medications for this visit. Allergies: Penicillins and Poison Yusra This note was partially generated using [employer] voice recognition system, and there may be some incorrect words, spellings, and punctuation that were not noted in checking the note before saving. Larisa Bernstein PA-C Rationale for Viscosupplementation: Renewal Request As a part of a multimodal treatment plan, we are requesting authorization of hyaluronic acid viscosupplementation injections for the improvement of symptoms related to osteoarthritis. Authorization is being requested for treatment of the Left knee. Rationale for authorization of these injections is based on the following elements: Signs and Symptoms Length of symptoms > 3 months Pain interferes with ADLs? Yes Radiographic evidence of OA? Yes Previous Treatments Bracing attempted? No Formal Physical Therapy (PT)/ Home Exercise Program (HEP) attempted? Patient completed an outlined HEP NSAID medication attempted? Yes Corticosteroid injection attempted? Patient has had a previous CSI with intermittent relief Weight management attempted? No Prior Viscosupplementation Prior viscosupplementation? Yes Prior viscosupplementation improved symptoms? Yes Prior viscosupplementation improved symptoms at least 6 months? Yes Patient continues to be symptomatic despite above treatment attempts. Requested Viscosupplementation Preferred product: Euflexxa Alternative product: Euflexxa or payor preferred [facility] 05-30-2024 History of Present illness Narrative Larisa Bernstein PA-C Department of Orthopaedics Orthopaedics [address] [facility] [address] Dept: [phone] Dept May 30, 2024 CHIEF COMPLAINT: Follow Up and Knee Pain of the Left Knee. ASSESSMENT: M17.12 Primary osteoarthritis of left knee (primary encounter diagnosis) SUMMARY/PLAN: Patient presents requesting repeat left knee Euflexxa injections, her previous Euflexxa injections were November 2023. She reports that her pain was a 4 out of 10 following the injections, she reports that she had several months of pain relief following the Euflexxa injections, pain started to return this past March, pain has been getting progressively worse over the past few months and is in 8 out of 10 today, pain is mostly medial. The patient reports that her pain is worse when she is walking for prolonged distances. We will submit for repeat left knee Euflexxa injections today. Imaging: IMPRESSION: Progressive osteoarthrosis Test Baker: LAURA Transcribe Date/Time: 2023 1:35P Dictated by : MAURICE FERNANDEZ MD This examination was interpreted and the report reviewed and electronically signed by: MAURICE FERNANDEZ MD on 2023 1:36PM EST Results-Findings * * *Final Report* * * DATE OF EXAM: Jul 21 2023 12:29PM CARLOS 5202 - XR KNEE 4V AP/PA BOTH+LAT/KAROLINA LT / PROCEDURE REASON: M25.562-Left knee pain, unspecified chronicity * * * * Physician Interpretation * * * * PROCEDURE: Left knee INDICATION: Left knee pain, unspecified chronicity .LEFT KNEE PAIN TECHNIQUE: XR KNEE 4V AP/PA BOTH+LAT/KAROLINA LT COMPARISON: 09/27/2021 FINDINGS: Moderate to advanced medial joint compartment narrowing with mild tricompartment spur formation, greater than previous. No fracture. Small suprapatellar joint effusion. Mild to moderate right knee osteoarthrosis. Ms. Khadijah Mahmood was advised as to contrast therapies and/or to take analgesics/anti-inflammatories as needed and all contraindications were reviewed. Supporting Information Below: Medications: Current Outpatient Medications Medication Sig losartan (COZAAR) 100 mg tablet Take 1 tablet by mouth once daily. estradiol (ESTRACE) 1 mg tablet Take 1 tablet by mouth every afternoon. acetaminophen 325 mg cap Take by mouth as needed for pain. Blood Pressure Kit-Extra Large kit 1 Each once daily. Blood Pressure Monitor For home monitoring Dx: I10 acetaminophen (TYLENOL ARTHRITIS ORAL) Take by mouth as needed (pain). (Patient not taking: Reported on 05/30/2024) No current facility-administered medications for this visit. Allergies: Penicillins and Poison Yusra This note was partially generated using [employer] voice recognition system, and there may be some incorrect words, spellings, and punctuation that were not noted in checking the note before saving. Larisa Bernstein PA-C Rationale for Viscosupplementation: Renewal Request As a part of a multimodal treatment plan, we are requesting authorization of hyaluronic acid viscosupplementation injections for the improvement of symptoms related to osteoarthritis. Authorization is being requested for treatment of the Left knee. Rationale for authorization of these injections is based on the following elements: Signs and Symptoms Length of symptoms > 3 months Pain interferes with ADLs? Yes Radiographic evidence of OA? Yes Previous Treatments Bracing attempted? No Formal Physical Therapy (PT)/ Home Exercise Program (HEP) attempted? Patient completed an outlined HEP NSAID medication attempted? Yes Corticosteroid injection attempted? Patient has had a previous CSI with intermittent relief Weight management attempted? No Prior Viscosupplementation Prior viscosupplementation? Yes Prior viscosupplementation improved symptoms? Yes Prior viscosupplementation improved symptoms at least 6 months? Yes Patient continues to be symptomatic despite above treatment attempts. Requested Viscosupplementation Preferred product: Euflexxa Alternative product: Euflexxa or payor preferred Patient presents with: Left Knee - Follow Up, Knee Pain AMB ROOMING INTAKE FLOWSHEET DATA Risk Screening Do you have concerns about personal safety or safety in the home?: No Pain Pain Level: 9 Pain Location: Knee-Left Description: Aching, Sore, Stiffness, Throbbing Frequency: Continuous Intervention/Comfort measure: Medication Patient here for follow up left knee pain. Patient feels injections did help. In the past 1-2 months ago she started having pain again. Here for referral for injections again. documented in this encounter [facility] 05-30-2024 Note HNO ID: [id number] Author: LUIZA ADEN MA Service: ? Author Type: Seed Laboratory Technician Type: Progress Notes Filed: 05/30/2024 15:11 Note Text: Patient presents with: Left Knee - Follow Up, Knee Pain AMB ROOMING INTAKE FLOWSHEET DATA Risk Screening Do you have concerns about personal safety or safety in the home?: No Pain Pain Level: 9 Pain Location: Knee-Left Description: Aching, Sore, Stiffness, Throbbing Frequency: Continuous Intervention/Comfort measure: Medication Patient here for follow up left knee pain. Patient feels injections did help. In the past 1-2 months ago she started having pain again. Here for referral for injections again. [facility] 04-14-2024 Note HNO ID: [id number] Author: MAURY CERNA APRN.NIGHT TIME BABYSITTER Service: ? Author Type: Nurse Practitioner Type: Progress Notes Filed: 04/14/2024 15:23 Note Text: [facility] Today's Date: 04/14/2024 Name: Khadijah Mahmood : 1970 Purpose: Follow-up Patient Evaluation - This is an established patient, returning today for continued evaluation and management of the chief complaint noted below Chief complaint: back pain Pertinent Past Medical History: DM Pertinent Past Surgeries: back surgery (Dr Torito Riggins) Plan at last visit: (Seen on 02/25/2024 Maury Cerna APRN.NIGHT TIME BABYSITTER) IMPRESSION: 53 year old female presents with complaint(s) of low back pain with radicular symptoms. Will repeat the caudal injection as the pt receives excellent relief from this procedure in the past. Diagnoses: (M48.062) Spinal stenosis of lumbar region with neurogenic claudication (primary encounter diagnosis) (M96.1) Postlaminectomy syndrome, lumbar region (M96.1) Post laminectomy syndrome PLAN: Khadijah Mahmood would benefit from the following to reach personal goals for decreasing pain, improving function and work participation, and/or improving quality of life: Medications: No Changes - Continue Current Medications Interventional Procedures: Epidural Steroid Injection - Caudal Approach under fluoroscopic guidance NONE at Sacral Hiatus ? Application Systems Administrator Needed: Epidural - YES ? Anticoagulant - Hold Needed: N/A (Not currently on Anticoagulants) ? Anticoagulant - Currently Taking: None ? Allergies (relevant): None ? Scheduling - Mobility (Can Patient independently transfer on/off an OR or Procedure table?): YES (May schedule at any location) ? Scheduling - Additional Info: None Studies: None Functional Caodaism: Continue HEP Referrals: No additional considerations at present Follow-up: March in person Depending on response to the above plan, consider: Repeat caudal Interval History: Overall pain and functional disability since last visit: better New Complaints since last visit: No On 03/24/2024 patient had a caudal injection reporting 80% relief. Patient stating at this time she feels her pain is managed. Current Pain Medications: Neuropathics: NSAIDS: motrin Muscle Relaxants: Topicals: Other Prescription or OTC Pain Medications: acetaminophen Opioids (when applicable): Anti-depressants or Mood-Stabilizers: Anti-Coagulants: Therapies Attended (Current or Most Recent): Daily Home Exercise Program as directed by PT/Chiropractor, under direct supervision of clinician (Physician/AMELIA) 02/25/2024 [facility] SPINE COMBINATION Questionnaire Opiod Risk Tool Completed Date 02/25/2024 Comments low risk-0 No question data found. Pt will need a greenlight when seen. She is VV today. Notable Events During Course of Treatment: 03/28/2022 - Initial HPI (Obtained by Becki DUNLAP ). Patient underwent the following injection with Dr. [...] leg pain is starting to get worse. 10/19/2023 Dr Wilson I had extensive conversation with the patient clinic today regarding her imaging. She wanted to check to get an update on her imaging. I explained her to my eye her imaging does look completely stable. She has persistent disc degeneration. She is planning on returning to see Dr. Jeffries for another injection. I think that is a good idea as she has had good shelter relief with them. I would however encourage her to continue on her weight loss journey. That is adding to degeneration of the spine and if ever she decides she wants to have surgery because the injections stop working then she would need to target a BMI of less than 35 to qualify. At that point we would be looking at a lumbar spinal fusion at least at L4-5 possibly L5-S1 as well. The downside of course is with spinal fusion the risk of adjacent segment disease as well as the risk of the surgery itself. She seems to understand that. She willcontinue with her current treatment plan with Dr. Jeffries. I also discouraged regular imaging follow-up in cases like this unless new symptoms present themselves given that this is a degenerative condition that naturally will progress on imaging but unless there is a thought to change josue (more content not included)... [facility] 04-14-2024 History of Present illness Narrative Images from the original note were not included. [facility] Today's Date: 04/14/2024 Name: Khadijah Mahmood : 1970 Purpose: Follow-up Patient Evaluation - This is an established patient, returning today for continued evaluation and management of the chief complaint noted below Chief complaint: back pain Pertinent Past Medical History: DM Pertinent Past Surgeries: back surgery (Dr Torito Riggins) Plan at last visit: (Seen on 02/25/2024 Maury Cerna APRN.NIGHT TIME BABYSITTER) IMPRESSION: 53 year old female presents with complaint(s) of low back pain with radicular symptoms. Will repeat the caudal injection as the pt receives excellent relief from this procedure in the past. Diagnoses: (M48.062) Spinal stenosis of lumbar region with neurogenic claudication (primary encounter diagnosis) (M96.1) Postlaminectomy syndrome, lumbar region (M96.1) Post laminectomy syndrome PLAN: Khadijah Mahmood would benefit from the following to reach personal goals for decreasing pain, improving function and work participation, and/or improving quality of life: Medications: No Changes - Continue Current Medications Interventional Procedures: Epidural Steroid Injection - Caudal Approach under fluoroscopic guidance NONE at [facility] [employer] Application Systems Administrator Needed: Epidural - YES Anticoagulant - Hold Needed: N/A (Not currently on Anticoagulants) Anticoagulant - Currently Taking: None Allergies (relevant): None Scheduling - Mobility (Can Patient independently transfer on/off an OR or Procedure table?): YES (May schedule at any location) Scheduling - Additional Info: None Studies: None Functional Caodaism: Continue HEP Referrals: No additional considerations at present Follow-up: March in person Depending on response to the above plan, consider: Repeat caudal Interval History: Overall pain and functional disability since last visit: better New Complaints since last visit: No On 03/24/2024 patient had a caudal injection reporting 80% relief. Patient stating at this time she feels her pain is managed. Current Pain Medications: Neuropathics: NSAIDS: motrin Muscle Relaxants: Topicals: Other Prescription or OTC Pain Medications: acetaminophen Opioids (when applicable): Anti-depressants or Mood-Stabilizers: Anti-Coagulants: Therapies Attended (Current or Most Recent): Daily Home Exercise Program as directed by PT/Chiropractor, under direct supervision of clinician (Physician/AMEILA) 02/25/2024 AG SPINE COMBINATION Questionnaire Opiod Risk Tool Completed Date 02/25/2024 Comments low risk-0 No question data found. Pt will need a greenlight when seen. She is VV today. Notable Events During Course of Treatment: 03/28/2022 - Initial HPI (Obtained by Becki DUNLAP ). Patient underwent the following injection with Dr. [...] leg pain is starting to get worse. 10/19/2023 Dr Wilson I had extensive conversation with the patient clinic today regarding her imaging. She wanted to check to get an update on her imaging. I explained her to my eye her imaging does look completely stable. She has persistent disc degeneration. She is planning on returning to see Dr. Jeffries for another injection. I think that is a good idea as she has had good manager intermediate relief with them. I would however encourage her to continue on her weight loss journey. That is adding to degeneration of the spine and if ever she decides she wants to have surgery because the injections stop working then she would need to target a BMI of less than 35 to qualify. At that point we would be looking at a lumbar spinal fusion at least at L4-5 possibly L5-S1 as well. The downside of course is with spinal fusion the risk of adjacent segment disease as well as the risk of the surgery itself. She seems to understand that. She will continue with her current treatment plan with Dr. Jeffries. I also discouraged regular imaging follow-up in cases like this unless new symptoms present themselves given that this is a degenerative condition that naturally will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 options as far as a total knee replacement. Unfortunately this is complicated by her concurrent shoulder issues. Imaging: IMPRESSION: Rotator cuff tendinosis without tear. There is calcific tendinosis of the supraspinatus tendon. Moderate osteoarthritis of the glenohumeral joint. Mild subdeltoid/subacromial bursal distention. Test Baker: LAURA Transcribe Date/Time: Oct 22 2023 12:48P Dictated by : GIANNA JACOME MD This examination was interpreted and the report reviewed and electronically signed by: JL BOLIVAR MD on Oct 22 2023 2:23PM EST Results-Findings * * *Final Report* * * DATE OF EXAM: Oct 22 2023 11:07AM [facility] 0239 - MRI SHOULDER WO IVCON LT / PROCEDURE REASON: multiple diagnoses * * * * Physician Interpretation * * * * EXAMINATION: MRI SHOULDER WO [facility] HISTORY: Chronic left shoulder pain. Anterior discomfort, specifically at night. TECHNIQUE: Routine non-contrast MRI of the shoulder. MQ: MRS_1A COMPARISON: Radiographs dated 02/17/2023 and shoulder ultrasound 06/12/2023 RESULT: TENDONS: Rotator cuff tendons: -Supraspinatus: Intact with tendinosis with small calcification anteriorly -Infraspinatus: Intact with mild tendinosis -Subscapularis: Intact with tendinosis -Teres Minor: Intact tendon Biceps (Long head) Tendon: Intact , with normal course MUSCLES: Rotator cuff muscles: -Supraspinatus: Preserved bulk and no fatty changes. -Infraspinatus: Preserved bulk and no fatty changes. -Subscapularis: Preserved bulk and no fatty changes. -Teres Minor: Preserved bulk and no fatty changes. Other muscles: Preserved signal and bulk in the deltoid. JOINTS: Glenohumeral Joint: -Labrum: Degeneration and tearing in the anterior, superior, and posterior labrum -Cartilage: Large area(s) of predominantly high grade (greater than 50% thickness) cartilage loss and or fissuring with smaller area(s) of full thickness cartilage loss and or fissuring with reactive subchondral cysts in the anterior glenoid -Joint Fluid: Small effusion . Mild synovitis. Acromioclavicular Joint: Mild hypertrophic degenerative changes BONES AND MARROW: No evidence of fracture or suspicious bone marrow replacing process OTHER: Subdeltoid/Subacromial Bursa: Mild bursal distention Other: No other significant findings. Localizer images: Unremarkable. Ms. Khadijah Mahmood was advised as to contrast therapies and/or to take analgesics/anti-inflammatories as needed and all contraindications were reviewed. Supporting Information Below: Medications: Current Outpatient Medications Medication Sig progesterone micronized (PROMETRIUM) 200 mg capsule Blood Pressure Kit-Extra Large kit 1 Each once daily. Blood Pressure Monitor For home monitoring Dx: I10 (more content not included)... [facility] 10-26-2023 History of Present illness Narrative Larisa Bernstein PA-C Department of Orthopaedics Orthopaedics [address] [facility] [address] Dept: [phone] Dept October 26, 2023 CHIEF COMPLAINT: Established Patient of the Left Shoulder and MRI results Left shoulder. ASSESSMENT: M19.012 Glenohumeral arthritis, left (primary encounter diagnosis) M17.12 Primary osteoarthritis of left knee M25.562, G89.29 Chronic pain of left knee M25.512, G89.29 Chronic left shoulder pain SUMMARY/PLAN: Patient presents to discuss results of her recent left shoulder MRI. She has had worsening left shoulder pain for several months. She tried uckq-naz-rwkkvjg anti-inflammatories and subacromial corticosteroid injections with little to no improvement. She has had a previous right shoulder replacement but reports that her left shoulder pain feels different than her arthritis pain that she had in the other shoulder. Her MRI does confirm that she in fact has severe glenohumeral joint arthritis. No tear of the rotator cuff is noted. We discussed the patient's surgical options, she had her previous right shoulder replacement done by a provider in [place]. She is not sure if she would like to see that surgeon to discuss a left shoulder replacement and or try a glenohumeral corticosteroid injection. She will contact us when she has made her decision. She also complains of worsening medial left knee pain. Has been taking Advil which is only somewhat helpful for her knee pain. She had a previous corticosteroid injection in the knee and reports only a few weeks of relief. She has a knee brace that she wears when she is walking longer distances, brace is somewhat helpful. She was interested in trying some viscosupplementation. Unfortunately her insurance company does not cover it. She was told if the medication was sent to [facility] that it would be covered. We will try to see if we can get her Euflexxa sent in through the mail pharmacy. We briefly discussed her surgical options as far as a total knee replacement. Unfortunately this is complicated by her concurrent shoulder issues. Imaging: IMPRESSION: Rotator cuff tendinosis without tear. There is calcific tendinosis of the supraspinatus tendon. Moderate osteoarthritis of the glenohumeral joint. Mild subdeltoid/subacromial bursal distention. Test Baker: LAURA Transcribe Date/Time: Oct 22 2023 12:48P Dictated by : GIANNA JACOME MD This examination was interpreted and the report reviewed and electronically signed by: JL BOLIVAR MD on Oct 22 2023 2:23PM EST Results-Findings * * *Final Report* * * DATE OF EXAM: Oct 22 2023 11:07AM [facility] 0239 - MRI SHOULDER WO IVCON LT / PROCEDURE REASON: multiple diagnoses * * * * Physician Interpretation * * * * EXAMINATION: MRI SHOULDER WO IVCON LT HISTORY: Chronic left shoulder pain. Anterior discomfort, specifically at night. TECHNIQUE: Routine non-contrast MRI of the shoulder. MQ: MRS_1A COMPARISON: Radiographs dated 02/17/2023 and shoulder ultrasound 06/12/2023 RESULT: TENDONS: Rotator cuff tendons: -Supraspinatus: Intact with tendinosis with small calcification anteriorly -Infraspinatus: Intact with mild tendinosis -Subscapularis: Intact with tendinosis -Teres Minor: Intact tendon Biceps (Long head) Tendon: Intact , with normal course MUSCLES: Rotator cuff muscles: -Supraspinatus: Preserved bulk and no fatty changes. -Infraspinatus: Preserved bulk and no fatty changes. -Subscapularis: Preserved bulk and no fatty changes. -Teres Minor: Preserved bulk and no fatty changes. Other muscles: Preserved signal and bulk in the deltoid. JOINTS: Glenohumeral Joint: -Labrum: Degeneration and tearing in the anterior, superior, and posterior labrum -Cartilage: Large area(s) of predominantly high grade (greater than 50% thickness) cartilage loss and or fissuring with smaller area(s) of full thickness cartilage loss and or fissuring with reactive subchondral cysts in the anterior glenoid -Joint Fluid: Small effusion . Mild synovitis. Acromioclavicular Joint: Mild hypertrophic degenerative changes BONES AND MARROW: No evidence of fracture or suspicious bone marrow replacing process OTHER: Subdeltoid/Subacromial Bursa: Mild bursal distention Other: No other significant findings. Localizer images: Unremarkable. Ms. Khadijah Mahmood was advised as to contrast therapies and/or to take analgesics/anti-inflammatories as needed and all contraindications were reviewed. Supporting Information Below: Medications: Current Outpatient Medications Medication Sig progesterone micronized (PROMETRIUM) 200 mg capsule Blood Pressure Kit-Extra Large kit 1 Each once daily. Blood Pressure Monitor For home monitoring Dx: I10 losartan (COZAAR) 100 mg tablet Take 1 tablet by mouth once daily. estradiol (ESTRACE) 1 mg tablet Take 1 tablet by mouth every afternoon. ibuprofen (MOTRIN) 200 mg tablet Take 800 mg by mouth every 6 hours as needed. acetaminophen (TYLENOL ARTHRITIS ORAL) Take by mouth as needed (pain). No current facility-administered medications for this visit. Allergies: Penicillins and Poison Yusra This note was partially generated using [employer] voice recognition system, and there may be some incorrect words, spellings, and punctuation that were not noted in checking the note before saving. Larisa Bernstein PA-C AMB ROOMING INTAKE FLOWSHEET DATA Pain Pain Level: 8 Pain Location: (left shoulder does go down arm) Description: (achy, throbbing) Frequency: Continuous Intervention/Comfort measure: (advil, tylenol - takes edge off. reposition.) Patient presents with: Left Shoulder - Established Patient MRI results Left shoulder documented in this encounter [facility] 10-26-2023 Note HNO ID: [id number] Author: HANNA DELEON RN Service: ? Author Type: Registered Nurse Type: Progress Notes Filed: 10/26/2023 10:48 Note Text: AMB ROOMING INTAKE FLOWSHEET DATA Pain Pain Level: 8 Pain Location: (left shoulder does go down arm) Description: (achy, throbbing) Frequency: Continuous Intervention/Comfort measure: (advil, tylenol - takes edge off. reposition.) Patient presents with: Left Shoulder - Established Patient MRI results Left shoulder [facility] 10-22-2023 History of Present illness Narrative Radiology Service Progress Note PATIENT NAME: Khadijah Mahmood DATE OF SERVICE: October 22, 2023 TIME: 11:06 AM PATIENT IDENTITY VERIFICATION COMPLETED USING TWO (2) IDENTIFIERS: Name and Date of confirmed by patient verbally. FALL SCREENING: Has the patient had 2 falls in the last year or 1 fall with injury or currently using an Ambulatory Assistive Device (Walker, Cane, Wheelchair, Crutches, etc.)? No PATIENT GENDER DATA: Female. status: : No status: NO. PATIENT RELEVANT IMPLANT DATA REVIEWED: Yes PATIENT PRESENTS WITH AN IMPLANTABLE OR ATTACHED HAND COLLATOR: No RADIOLOGY DEPARTMENT: MR; Exam(s) Completed: Upper MSK: Shoulder, left PERIPHERAL IV DATA: Not applicable SIGNED BY: RT Brionna(Kalpesh) October 22, 2023 11:06 AM documented in this encounter [facility] 10-22-2023 Note HNO ID: [id number] Author: MAURY GRIFFIN RT(R) Service: ? Author Type: Technologist Type: Progress Notes Filed: 10/22/2023 11:07 Note Text: Radiology Service Progress Note PATIENT NAME: Khadijah Mahmood DATE OF SERVICE: October 22, 2023 TIME: 11:06 AM PATIENT IDENTITY VERIFICATION COMPLETED USING TWO (2) IDENTIFIERS: Name and Date of confirmed by patient verbally. FALL SCREENING: Has the patient had 2 falls in the last year or 1 fall with injury or currently using an Ambulatory Assistive Device (Walker, Cane, Wheelchair, Crutches, etc.)? No PATIENT GENDER DATA: Female. status: : No status: NO. PATIENT RELEVANT IMPLANT DATA REVIEWED: Yes PATIENT PRESENTS WITH AN IMPLANTABLE OR ATTACHED HAND COLLATOR: No RADIOLOGY DEPARTMENT: MR; Exam(s) Completed: Upper MSK: Shoulder, left PERIPHERAL IV DATA: Not applicable SIGNED BY: RT Brionna(R) October 22, 2023 11:06 AM [facility] 10-20-2023 Telephone encounter Note Procedure(s) being scheduled: 1.Are you diabetic No 2. Are you on any blood thinners? No If yes, does it require a hold? No If yes, was approval letter sent? No 3. Are you taking any aspirin? No 4. Are you currently taking any antibiotics? No If yes, is it prophylactic or for treatment of an infection? NA 5. Do you have any allergies to latex? No 6. Do you have any allergies to seafood or shellfish? No 7. Do you have any allergies to x-ray dye? No 8. Did the physician instruct you to take any medication prior to your procedure? No 9. Does this procedure require a recycle driver? Yes If yes, has patient been notified that a recycle driver is needed and must be present at check in? YES 10. Were the pre-procedure instructions explained and provided to the patient? Yes 11. Do you have a pacemaker? No 12. Do you have an internal stimulator of any kind? No If yes, please bring the remote with you to your procedure visit. 13. Have you received the COVID-19 Vaccine? No. If yes, date(s) received: NA (Patient should not receive a procedure including steroids 14 days prior to their first dose of the COVID vaccine. They should not receive any procedure containing steroids in the time frame between their 1st and 2nd doses of the COVID vaccine. They should not receive a procedure containing steroids 14 days after their 2nd dose of the COVID vaccine.) [facility] 10-20-2023 Miscellaneous Notes Procedure(s) being scheduled: 1.Are you diabetic No 2. Are you on any blood thinners? No If yes, does it require a hold? No If yes, was approval letter sent? No 3. Are you taking any aspirin? No 4. Are you currently taking any antibiotics? No If yes, is it prophylactic or for treatment of an infection? NA 5. Do you have any allergies to latex? No 6. Do you have any allergies to seafood or shellfish? No 7. Do you have any allergies to x-ray dye? No 8. Did the physician instruct you to take any medication prior to your procedure? No 9. Does this procedure require a recycle driver? Yes If yes, has patient been notified that a recycle driver is needed and must be present at check in? YES 10. Were the pre-procedure instructions explained and provided to the patient? Yes 11. Do you have a pacemaker? No 12. Do you have an internal stimulator of any kind? No If yes, please bring the remote with you to your procedure visit. 13. Have you received the COVID-19 Vaccine? No. If yes, date(s) received: NA (Patient should not receive a procedure including steroids 14 days prior to their first dose of the COVID vaccine. They should not receive any procedure containing steroids in the time frame between their 1st and 2nd doses of the COVID vaccine. They should not receive a procedure containing steroids 14 days after their 2nd dose of the COVID vaccine.) documented in this encounter [facility] 10-20-2023 Note HNO ID: [id number] Author: TOMASA GONZALEZ APRN.NIGHT TIME BABYSITTER Service: ? Author Type: Nurse Practitioner Type: Progress Notes Filed: 10/20/2023 07:47 Note Text: VIRTUAL VISIT PROGRESS NOTE This is a virtual visit using [employer] Video Visit. It required patient-provider interaction for the medical decision making as documented below. I have communicated my name and active licensure. The patient's identity and physical location were verified at the time of this visit. Either the patient or their legal provider service representative has been informed of the risks and benefits of -- and alternatives to -- treatment through a remote evaluation and consents to proceed with the evaluation remotely. [facility] Today's Date: 10/20/2023 Name: Khadijah Mahmood : 1970 Purpose: Follow-up Patient Evaluation - This is an established patient, returning today for continued evaluation and management of the chief complaint noted below Chief complaint: back pain Pertinent Past Medical History: DM Pertinent Past Surgeries: back surgery (Dr Torito Riggins) Plan at last visit: (Seen on 05/12/2023 by Shey Balbuena CNP) Patient reports 80-90 % relief from procedure with pain score of 0/10 since the injection. Patient reports improved quality of life and increase in ability to perform ADL's. She reports being very pleased with the injection. Her radicular sx have resolved. Denies LOC of bowel and bladder, no saddle anesthesia, no BLE weakness, no recent falls. Her sleeping has improved and she has been able to sleep through the night. She states she had some dizziness a few days after the caudal injection - she still feels a little woozy. Interval History: Overall pain and functional disability since last visit: Worse New Complaints since last visit: No She was last seen in 05/2023 after a caudal injection. She was doing well until a few weeks ago. She denies any provocation of the pain. The pain is going into the legs. She is wondering about a repeat NASIR. Current Pain Medications: Neuropathics: NSAIDS: motrin Muscle Relaxants: Topicals: Other Prescription or OTC Pain Medications: acetaminophen Opioids (when applicable): Anti-depressants or Mood-Stabilizers: Anti-Coagulants: Therapies Attended (Current or Most Recent): Daily Home Exercise Program as directed by PT/Chiropractor, under direct supervision of clinician (Physician/AMELIA) No data to display No question data found. Pt will need a greenlight when seen. She is VV today. Notable Events During Course of Treatment: 03/28/2022 - Initial HPI (Obtained by Becki DUNLAP ). Patient underwent the following injection with Dr. [...] leg pain is starting to get worse. 10/19/2023 Dr Wilson I had extensive conversation with the patient clinic today regarding her imaging. She wanted to check to get an update on her imaging. I explained her to my eye her imaging does look completely stable. She has persistent disc degeneration. She is planning on returning to see Dr. Jeffries for another injection. I think that is a good idea as she has had good manager intermediate relief with them. I would however encourage her to continue on her weight loss journey. That is adding to degeneration of the spine and if ever she decides she wants to have surgery because the injections stop working then she would need to target a BMI of less than 35 to qualify. At that point we would be looking at a lumbar spinal fusion at least at L4-5 possibly L5-S1 as well. The downside of course is with spinal fusion the risk of adjacent segment disease as well as the risk of the surgery itself. She seems to understand that. She willcontinue with her current treatment plan with Dr. Jeffries. I also discouraged regular imaging follow-up in cases like this unless new symptoms present themselves given that this is a degenerative condition that naturally will progress on imaging but unless there is a thought to change treatment strategies because of new symptoms for example it would not add much to her management on an ongoing basis. She can follow-up with me on an as needed basis Treatment History: PAIN PRO (more content not included)... [facility] 10-20-2023 History of Present illness Narrative Images from the original note were not included. VIRTUAL VISIT PROGRESS NOTE This is a virtual visit using [employer] Video Visit. It required patient-provider interaction for the medical decision making as documented below. I have communicated my name and active licensure. The patient's identity and physical location were verified at the time of this visit. Either the patient or their legal provider service representative has been informed of the risks and benefits of -- and alternatives to -- treatment through a remote evaluation and consents to proceed with the evaluation remotely. [facility] Today's Date: 10/20/2023 Name: Khadijah Mahmood : 1970 Purpose: Follow-up Patient Evaluation - This is an established patient, returning today for continued evaluation and management of the chief complaint noted below Chief complaint: back pain Pertinent Past Medical History: DM Pertinent Past Surgeries: back surgery (Dr Torito Riggins) Plan at last visit: (Seen on 05/12/2023 by Shey Dapoz, NIGHT TIME BABYSITTER) Patient reports 80-90 % relief from procedure with pain score of 0/10 since the injection. Patient reports improved quality of life and increase in ability to perform ADL's. She reports being very pleased with the injection. Her radicular sx have resolved. Denies LOC of bowel and bladder, no saddle anesthesia, no BLE weakness, no recent falls. Her sleeping has improved and she has been able to sleep through the night. She states she had some dizziness a few days after the caudal injection - she still feels a little woozy. Interval History: Overall pain and functional disability since last visit: Worse New Complaints since last visit: No She was last seen in 05/2023 after a caudal injection. She was doing well until a few weeks ago. She denies any provocation of the pain. The pain is going into the legs. She is wondering about a repeat NASIR. Current Pain Medications: Neuropathics: NSAIDS: motrin Muscle Relaxants: Topicals: Other Prescription or OTC Pain Medications: acetaminophen Opioids (when applicable): Anti-depressants or Mood-Stabilizers: Anti-Coagulants: Therapies Attended (Current or Most Recent): Daily Home Exercise Program as directed by PT/Chiropractor, under direct supervision of clinician (Physician/AMELIA) No data to display No question data found. Pt will need a greenlight when seen. She is VV today. Notable Events During Course of Treatment: 03/28/2022 - Initial HPI (Obtained by Becki DUNLAP ). Patient underwent the following injection with Dr. [...] leg pain is starting to get worse. 10/19/2023 Dr Wilson I had extensive conversation with the patient clinic today regarding her imaging. She wanted to check to get an update on her imaging. I explained her to my eye her imaging does look completely stable. She has persistent disc degeneration. She is planning on returning to see Dr. Jeffries for another injection. I think that is a good idea as she has had good manager intermediate relief with them. I would however encourage her to continue on her weight loss journey. That is adding to degeneration of the spine and if ever she decides she wants to have surgery because the injections stop working then she would need to target a BMI of less than 35 to qualify. At that point we would be looking at a lumbar spinal fusion at least at L4-5 possibly L5-S1 as well. The downside of course is with spinal fusion the risk of adjacent segment disease as well as the risk of the surgery itself. She seems to understand that. She will continue with her current treatment plan with Dr. Jeffries. I also discouraged regular imaging follow-up in cases like this unless new symptoms present themselves given that this is a degenerative condition that naturally will progress on imaging but unless there is a thought to change treatment strategies because of new symptoms for example it would not add much to her management on an ongoing basis. She can follow-up with me on an as needed basis Treatment History: PAIN PROCEDURES: DATE PROCEDURE IMPROVEMENT 09/24/2021 Caudal 90% 05/05/2022 Caudal 80% 12/29/2022 Caudal 80% 04/27/2023 Caudal 90% MEDICATIONS Taken TO DATE (for the chief complaint(s)): Neuropathics: NSAIDS: Muscle Relaxants: Topicals: Other Prescription or OTC Pain Medications: Opioids: Data Reviewed Today: Allergies: ALLERGIES Allergen Reactions Penicillins can take amoxicillin Poison Yusra Itching Social History Tobacco Use Smoking status: Never Smokeless tobacco: Never Vaping Use Vaping Use: Never used Substance Use Topics Alcohol use: No Drug use: No 10/05/2023 10/17/2023 INTAKE PAIN ASSESSMENT Are you having pain associated with your visit today? No Yes, Provider notified Pain Level 8 8 Pain Location Back-Lower Description Aching;Radiating;Sore;Stiffness;Ti ghtness Duration Units Months Frequency Continuous Intervention/Comfort measure Medication;Reposition;Positioning Compliance: PDMP website checked and validated on 10/20/2023 by Tomasa Gonzalez APRN.NIGHT TIME BABYSITTER All prescriptions have been APPROPRIATELY filled. No suspicious activity was identified. No data to display (All drug screens are appropriate unless indicated otherwise) Risk Assessment: WILLIAMS-7: No data to display (0-4) minimal anxiety, (5-9) mild anxiety, (10-14) moderate anxiety, (15-21) severe anxiety PHQ-9: No data to display (0-4) minimal depression, (5-9) mild depression, (10-14) moderate depression, (15-19) moderately severe depression, (20-27) severe depression Diagnostic Studies: Relevant Imaging: MRI Spine Report MRI LUMBAR SPINE WO IVCON Exam End: 08/01/2021 8:34 AM (Final result) Narrative: * * *Final Report* * * DATE OF EXAM: Aug 01 2021 8:34AM [facility]M [id number] - MRI LUMBAR SPINE WO IVCON [...] and assume there are 5 lumbar-type vertebrae. [facility] Transcribe Date/Time: Aug 01 2021 9:25A Dictated by : FABIANA MORROW MD This examination was interpreted and the report reviewed and electronically signed by: FABIANA MORROW MD on Aug 01 2021 9:28AM EST Electrodiagnostic Study (EMG): None Recent Labs: Creatinine Date Value Ref Range Status 10/05/2023 0.62 0.58 - 0.96 mg/dL Final No results found for: EGFR No results found for: PCGLUCOSE Current Medications, Past Medical History, Past Surgical History, Family History, Social History and Review of Systems: On today's date, noted above, I have confirmed and edited as necessary, the PFSH and ROS obtained by others. Physical Exam: 10/20/23 0734 Weight: 114.8 kg (253 lb) Height: 162.6 cm (5' 4) REVIEW OF SYSTEMS: GENERAL: no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 met Patient will increase active ROM of B knees to 0-120 degrees to allow pt to to improve performance of ADLs. Not met Patient will demonstrate increase in BLE strength to 5/5 during manual muscle testing in order to improve function for home management tasks, leisure / recreation skills, prior functional tasks, and work tasks. Not met Perform stairs with decreased report of symptoms/pain in 6-8 weeks. Not met Perform walking, standing without pain. Not met SUBJECTIVE: patient notes no change in knee pain, function. If she is doing steps she feels like the L knee can give out on her, and it is getting more and more painful to bear weight. She has been compliant with her HEP 2x/day, and it has actually started to hurt worse the longer she has done it. Functional Limitations: rising from a chair, standing, walking, stair negotiation, bending, heavy exertion, lifting, physical activities, recreational activities, squatting, working Pain: Pain Pain Level: 8 Pain Location: Knee - Left, Knee - Right Frequency: Continuous PROMIS Scales 08/31/2023 07/20/2023 05/21/2023 Higher is Better Phys Func - Score 37 (moderate dysfunction) 35 (moderate dysfunction) 31 (moderate dysfunction) Phys Func - Percentile 10 7 3 Self-Eff Symptom - Score 35 (Low) Self-Eff Symptom - Percentile 7 T-scores: mean of general population = 50. 5 points is clinically meaningfully difference Percentiles provide an indication of how the patient's score ranks in relation to the general population. Higher percentile rankings indicate better function/quality of life. 50th percentile is the average of the general population and indicates half of respondents had a worse score. OBJECTIVE MEASURES WITH LEVEL OF FUNCTION: LE AROM R Knee Extension: 2 Degrees R Knee Flexion: 115 Degrees L Knee Extension: 0 Degrees L Knee Flexion: 102 Degrees LE Strength R LE Strength: 4+/5 grossly L LE Strength: 4-/5 grossly Dynamometer Strength Right Quadriceps Strength (lbs): 45.5 Left Quadriceps Strength (lbs): 25.5 Quad Strength Limb Symmetry Index (%): 56.04 Right Hamstring Strength (lbs): 39.9 Left Hamstring Strength (lbs): 31.9 Hamstring Strength Limb Symmetry Index(%): 79.95 TREATMENT: Therapeutic Exercise: 1: SciFit seated stepper x 5 minutes, seat #12 2: Heel slides x10 B 3: Quad sets x10 B 4: LAQ x10 each 5: Objective measures obtained 6: Discussed howto continue HEP and plan of care update during above exercises and obtaining objective measures Skilled Intervention: Patient was educated in proper exercise technique and purpose for exercises. Skilled judgment was used in selection of appropriate interventions. Correct performance of therapeutic exercises was facilitated with verbal and visual cuing. Billing Therapeutic Exercise Treatment Minutes: 25 Skilled Treatment Time Minutes (timed and untimed codes): 25 Total Session Time (minutes): 25 Session Start Time : 729 Session Stop Time : 754 Jabier Mart, PT [facility] 09-18-2023 History of Present illness Narrative Images from the original note were not included. Episode Visit Count: 4 Therapist That Will Accept/Oversee The Plan Of Care: Jabier Mart Start of Care Date: 08/11/23 Onset Date: 05/05/21 Plan of Care Certification Date: 07/03/21 Next Certification Due Date: 08/07/21 REHABILITATION AND SPORTS THERAPY PHYSICAL THERAPY DISCONTINUANCE OF CARE PLAN OF CARE UPDATE: Assessment: Khadijah Mahmood is discontinued from Physical Therapy services due to maximal benefit.. Patient was seen for 4 visits from Start of Care Date: 08/11/23 to 09/18/2023 and treatment included: Therapeutic exercise. Despite being compliant with therapy, patients symptoms, function, strength, and range of motion is worsening on the left knee. Patient will be referred back to referring physician for updated plan of care. Goals updated on 09/18/2023. Goals for Episode of Care: created on 08/11/23 through 10/11/23 [place] in home exercise program. Met Patient will decrease pain rating by 2 points to meet minimal clinical important difference for numeric pain rating scale. Not met Patient will increase active ROM of B knees to 0-120 degrees to allow pt to to improve performance of ADLs. Not met Patient will demonstrate increase in BLE strength to 5/5 during manual muscle testing in order to improve function for home management tasks, leisure / recreation skills, prior functional tasks, and work tasks. Not met Perform stairs with decreased report of symptoms/pain in 6-8 weeks. Not met Perform walking, standing without pain. Not met SUBJECTIVE: patient notes no change in knee pain, function. If she is doing steps she feels like the L knee can give out on her, and it is getting more and more painful to bear weight. She has been compliant with her HEP 2x/day, and it has actually started to hurt worse the longer she has done it. Functional Limitations: rising from a chair, standing, walking, stair negotiation, bending, heavy exertion, lifting, physical activities, recreational activities, squatting, working Pain: Pain Pain Level: 8 Pain Location: Knee - Left, Knee - Right Frequency: Continuous PROMIS Scales 08/31/2023 07/20/2023 05/21/2023 Higher is Better Phys Func - Score 37 (moderate dysfunction) 35 (moderate dysfunction) 31 (moderate dysfunction) Phys Func - Percentile 10 7 3 Self-Eff Symptom - Score 35 (Low) Self-Eff Symptom - Percentile 7 T-scores: mean of general population = 50. 5 points is clinically meaningfully difference Percentiles provide an indication of how the patient's score ranks in relation to the general population. Higher percentile rankings indicate better function/quality of life. 50th percentile is the average of the general population and indicates half of respondents had a worse score. OBJECTIVE MEASURES WITH LEVEL OF FUNCTION: LE AROM R Knee Extension: 2 Degrees R Knee Flexion: 115 Degrees L Knee Extension: 0 Degrees L Knee Flexion: 102 Degrees LE Strength R LE Strength: 4+/5 grossly L LE Strength: 4-/5 grossly Dynamometer Strength Right Quadriceps Strength (lbs): 45.5 Left Quadriceps Strength (lbs): 25.5 Quad Strength Limb Symmetry Index (%): 56.04 Right Hamstring Strength (lbs): 39.9 Left Hamstring Strength (lbs): 31.9 Hamstring Strength Limb Symmetry Index(%): 79.95 TREATMENT: Therapeutic Exercise: 1: SciFit seated stepper x 5 minutes, seat #12 2: Heel slides x10 B 3: Quad sets x10 B 4: LAQ x10 each 5: Objective measures obtained 6: Discussed howto continue HEP and plan of care update during above exercises and obtaining objective measures Skilled Intervention: Patient was educated in proper exercise technique and purpose for exercises. Skilled judgment was used in selection of appropriate interventions. Correct performance of therapeutic exercises was facilitated with verbal and visual cuing. Billing Therapeutic Exercise Treatment Minutes: 25 Skilled Treatment Time Minutes (timed and untimed codes): 25 Total Session Time (minutes): 25 Session Start Time : 729 Session Stop Time : 754 Jabier Mart PT documented in this encounter [facility] 09-09-2023 Note HNO ID: [id number] Author: BARRON, JABIER, PT Service: ? Author Type: Physical Therapist Type: Progress Notes Filed: 09/10/2023 13:24 Note Text: Episode Visit Count: 3 Therapist That Will Accept/Oversee The Plan Of Care: Jabier Barron Start of Care Date: 08/11/23 Onset Date: 05/05/21 Plan of Care Certification Date: 07/03/21 Next Certification Due Date: 08/07/21 Patient Identified by Name and Date of : Yes REHABILITATION AND SPORTS THERAPY PHYSICAL THERAPY TREATMENT NOTE ASSESSMENT: Kahdijah Mahmood tolerated the session with fatigue, decreased symptoms, and expected muscle soreness. She demonstrated difficulty with LAQ. The patient will continue to benefit from ongoing skilled physical therapy to progress toward set goals. PLAN FOR NEXT VISIT: Asses response to additional strengthening erxercises and give for HEP SUBJECTIVE: Pt reports that her knees are about the same. Pt states that she is able to do HEP 2x per day. Pt states heel slides and SLR are hard on the R side in the morning due to her sciatica being flared in the mornings. Pain: Pain Pain Level: 8 (with weight bearing, sitting they aren't too bad) Pain Location: Knee - Left, Knee - Right Frequency: Continuous Post Treatment Pain Post Treatment Pain Level: Better Post Treatment Pain Location: Knee - Left, Knee - Right OBJECTIVE MEASURES WITH LEVEL OF FUNCTION: LE AROM R Knee Extension: 0 Degrees R Knee Flexion: 105 Degrees L Knee Extension: 0 Degrees L Knee Flexion: 107 Degrees TREATMENT: Therapeutic Exercise: 1: SciFit seated stepper x 5 minutes, seat #12 (1:1 throughout.) 2: Heel slides 2x10 B 3: Quad sets 2x10 B 4: LAQ 1x10 B (hurt in L knee, discontinued) 5: Standing hip abduction 2x15 B 6: Standing hip extension 2x15 B 7: SLR x15, then x 10 B woth quad set first 8: Seated HS stretch 3x30 seconds B 9: Seated hip adduction ball squeeze 3x10 10: Seated HS curl with OTB 2x10 B Skilled Intervention: Patient was educated in proper exercise technique and purpose for exercises. Skilled judgment was used in selection of appropriate interventions. Correct performance of therapeutic exercises was facilitated with verbal and visual cuing. Billing Therapeutic Exercise Treatment Minutes: 43 Skilled Treatment Time Minutes (timed and untimed codes): 43 Total Session Time (minutes): 43 Session Start Time : 1530 Session Stop Time : 1613 Bridgett Shepard, CAMERA ASSEMBLER Jabier Mart, PT [facility] 09-09-2023 History of Present illness Narrative Episode Visit Count: 3 Therapist That Will Accept/Oversee The Plan Of Care: Jabier Mart Start of Care Date: 08/11/23 Onset Date: 05/05/21 Plan of Care Certification Date: 07/03/21 Next Certification Due Date: 08/07/21 Patient Identified by Name and Date of : Yes REHABILITATION AND SPORTS THERAPY PHYSICAL THERAPY TREATMENT NOTE ASSESSMENT: Khadijah Mahmood tolerated the session with fatigue, decreased symptoms, and expected muscle soreness. She demonstrated difficulty with LAQ. The patient will continue to benefit from ongoing skilled physical therapy to progress toward set goals. PLAN FOR NEXT VISIT: Asses response to additional strengthening erxercises and give for HEP SUBJECTIVE: Pt reports that her knees are about the same. Pt states that she is able to do HEP 2x per day. Pt states heel slides and SLR are hard on the R side in the morning due to her sciatica being flared in the mornings. Pain: Pain Pain Level: 8 (with weight bearing, sitting they aren't too bad) Pain Location: Knee - Left, Knee - Right Frequency: Continuous Post Treatment Pain Post Treatment Pain Level: Better Post Treatment Pain Location: Knee - Left, Knee - Right OBJECTIVE MEASURES WITH LEVEL OF FUNCTION: LE AROM R Knee Extension: 0 Degrees R Knee Flexion: 105 Degrees L Knee Extension: 0 Degrees L Knee Flexion: 107 Degrees TREATMENT: Therapeutic Exercise: 1: SciFit seated stepper x 5 minutes, seat #12 (1:1 throughout.) 2: Heel slides 2x10 B 3: Quad sets 2x10 B 4: LAQ 1x10 B (hurt in L knee, discontinued) 5: Standing hip abduction 2x15 B 6: Standing hip extension 2x15 B 7: SLR x15, then x 10 B woth quad set first 8: Seated HS stretch 3x30 seconds B 9: Seated hip adduction ball squeeze 3x10 10: Seated HS curl with OTB 2x10 B Skilled Intervention: Patient was educated in proper exercise technique and purpose for exercises. Skilled judgment was used in selection of appropriate interventions. Correct performance of therapeutic exercises was facilitated with verbal and visual cuing. Billing Therapeutic Exercise Treatment Minutes: 43 Skilled Treatment Time Minutes (timed and untimed codes): 43 Total Session Time (minutes): 43 Session Start Time : 1530 Session Stop Time : 1613 Bridgett Shepard [employer]SEMBLER Jabier Mart PT documented in this encounter [facility] 09-07-2023 Instructions Mona See, [place] - 09/07/2023 9:08 AM EDT Have a protein drink in the morning, aim for 30 grams, then move yogurt and fruit to midmorning snack Continue tracking intake with amelia aiming for 1400 calories, OK to track 3 days per week (two work days and one weekend day) Aim for 30 grams protein in each meal, measure and weigh portions once per week Follow the Plate Method at lunch and dinner: Use a 9 plate - 1/2 plate vegetables-non starchy such as green beans, greens, broccoli, cauliflower, etc (1 serving of fruit optional outside of plate) - 1/4 plate lean protein-primarily chicken, turkey fish, lean red 1-2 x per week at most (size of palm) - 1/4 plate whole grain or starchy vegetable such as corn, peas, potatoes, beans (size of fist, 1 cup) Continue working on mindful eating Exercise as able documented in this encounter [facility] 09-07-2023 Note Education (NUTRWS) KHADIJAH MAHMOOD ([id number]) 1970 F Date Time Provider Department 09/07/23 8:45 AM MONA SEE NUTRWS Reason for Visit: Reassessment [674] Patient Education [91] Primary Visit Diagnosis:Prediabetes [R73.03] Other Visit Diagnoses:Obesity, Class III, BMI 40-49.9 (morbid obesity) ([facility]) [E66.01] Mixed hyperlipidemia [E78.2] Essential hypertension [I10] Dietary counseling [Z71.3] During your visit today, we recorded the following information about you: Weight Height 114.9 kg 1.626 m Allergies As of Date: 09/07/2023 Noted Allergy Reaction PENICILLINS 05/16/2005 Comments: can take amoxicillin POISON YUSRA 01/12/2009 9 - Itching Date Reviewed: 09/07/2023 Reviewed by: Mona See RD - Fully Assessed Prescriptions as of 09/07/2023 - peg 3350-Electrolytes (GOLYTELY) 236-22.74-6.74 -5.86 gram suspension Take 4,000 mL by mouth one time only for 1 dose. Refer to printed prep instructions from your provider. - Blood Pressure Kit-Extra Large kit 1 Each once daily. - Blood Pressure Monitor For home monitoring Dx: I10 - losartan (COZAAR) 100 mg tablet Take 1 tablet by mouth once daily. - estradiol (ESTRACE) 1 mg tablet Take 1 tablet by mouth every afternoon. - progesterone micronized (PROMETRIUM) 100 mg capsule Take 2 capsules by mouth every afternoon. - ibuprofen (MOTRIN) 200 mg tablet Take 800 mg by mouth every 6 hours as needed. - acetaminophen (TYLENOL ARTHRITIS ORAL) Take by mouth as needed (pain). Encounter Status:Closed by MONA SEE on 09/07/23 [facility] 09-07-2023 Note HNO ID: [id number] Author: MONA SEE RD Service: ? Author Type: Registered Dietitian Type: Progress Notes Filed: 09/07/2023 15:32 Note Text: Nutritional Therapy Re-Assessment Nutrition Diagnosis: Overweight/obesity, related to, excess energy intake and physical inactivity, as evidenced by BMI above normative standard for age and gender RECOMMENDED MALNUTRITION DIAGNOSIS: NO MALNUTRITION IDENTIFIED NUTRITION CARE PLAN: Nutrition Intervention 09/07/2023: modify type and amount of food or beverage Have a protein drink in the morning, aim for 30 grams, then move yogurt and fruit to midmorning snack Continue tracking intake with amelia aiming for 1400 calories, OK to track 3 days per week (two work days and one weekend day) Aim for 30 grams protein in each meal, measure and weigh portions once per week Follow the Plate Method at lunch and dinner: Use a 9 plate - 1/2 plate vegetables-non starchy such as green beans, greens, broccoli, cauliflower, etc (1 serving of fruit optional outside of plate) - 1/4 plate lean protein-primarily chicken, turkey fish, lean red 1-2 x per week at most (size of palm) - 1/4 plate whole grain or starchy vegetable such as corn, peas, potatoes, beans (size of fist, 1 cup) Continue working on mindful eating Exercise as able Nutrition Monitoring AND Evaluation: half to 2 lb weight loss per week Need for Follow up: 4-6 weeks PROGRESS: Interval History: Following as relates to class 3 obesity Body mass index is 43.5 kg/m?., HLD, HTN, prediabetes. Just back from vacation/cruise. Week back has been very busy and eventful. Has been tracking intake as able, exercise less than recommended, limited with knee pain, is in physical therapy for this . Nutrition Intervention 08/03/23 Have a protein drink in the morning, aim for 30 grams, then move yogurt and fruit to midmorning snack Try tracking intake with amelia aiming for 1400 calories, OK to track 3 days per week (two work days and one weekend day) Aim for 30 grams protein in each meal, measure and weigh portions once per week Follow the Plate Method at lunch and dinner: Use a 9 plate - 1/2 plate vegetables-non starchy such as green beans, greens, broccoli, cauliflower, etc (1 serving of fruit optional outside of plate) - 1/4 plate lean protein-primarily chicken, turkey fish, lean red 1-2 x per week at most (size of palm) - 1/4 plate whole grain or starchy vegetable such as corn, peas, potatoes, beans (size of fist, 1 cup) All meals and snacks at the dinner table; minimize distractions, no TV while eating. Make meals last at least 20 min, chew each bite of food 20 x per bite.Portion out all foods, never eat out of container. Become more mindful of meal: Enjoy flavors, textures etc. Use hunger/fullness scale. Start regular exercise as able, try an exercise bike, a pool, seated exercise as available on youtube; add weight resistance 2-3 days per week (seated youtube videos) and core exercise most days Actions to implement interventions: Now in physical therapy Tracking intake Diet History: Breakfast - yesterday 2 eggs, fried potatoes and smoked pork chop; was doing protein drink until vacation. Snack - cheese stick, or yogurt and granola or fruit Lunch - yesterday later lunch for hamburger and hot dog no bun, potato salad; normally leftovers Snack - not usually Dinner - tonight ital sausage with onions and peppers with tator tots; water Snack - occ. 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 for knee just started, doing those exercises at home as well Anthropometrics: Height: Last 1 Encounter Ht Readings: Date: Ht: 09/07/2023 162.6 cm (5' 4) Current weight: Last 1 Encounter Wt Readings: Date: Wt: 09/07/2023 114.9 kg (253 lb 6.4 oz) Body mass index is 43.5 kg/m?. Resting Metabolic Rate: 1742 Malnutrition Screening Significant unintentional weight loss? No Eating less than 75% of usual intake for more than 2 weeks? No Potential Signs of Inflammation: no identifiable sources Nutritional status: Education Materials Provided: None this visit READINESS TO LEARN Cognitive ability: Alert and oriented Motivation to learn: Interested Family support: Unable to assess - Family not present Instruction provided to: Patient Patient learns best by: Individual Instruction Factors affecting learning: None Physical limitations affecting learning: None Likelihood of Adherence: Moderate Referred/Supervised by: Warren/Stevie BLAKE Billing Type: Re-assess/15 min 2 units SIGNATURE: Mona See RD PATIENT NAME: Khadijah Mahmood DATE: September 07, 2023 (more content not included)... [facility] 09-07-2023 History of Present illness Narrative Nutritional Therapy Re-Assessment Nutrition Diagnosis: Overweight/obesity, related to, excess energy intake and physical inactivity, as evidenced by BMI above normative standard for age and gender RECOMMENDED MALNUTRITION DIAGNOSIS: NO MALNUTRITION IDENTIFIED NUTRITION CARE PLAN: Nutrition Intervention 09/07/2023: modify type and amount of food or beverage Have a protein drink in the morning, aim for 30 grams, then move yogurt and fruit to midmorning snack Continue tracking intake with amelia aiming for 1400 calories, OK to track 3 days per week (two work days and one weekend day) Aim for 30 grams protein in each meal, measure and weigh portions once per week Follow the Plate Method at lunch and dinner: Use a 9 plate - 1/2 plate vegetables-non starchy such as green beans, greens, broccoli, cauliflower, etc (1 serving of fruit optional outside of plate) - 1/4 plate lean protein-primarily chicken, turkey fish, lean red 1-2 x per week at most (size of palm) - 1/4 plate whole grain or starchy vegetable such as corn, peas, potatoes, beans (size of fist, 1 cup) Continue working on mindful eating Exercise as able Nutrition Monitoring & Evaluation: half to 2 lb weight loss per week Need for Follow up: 4-6 weeks PROGRESS: Interval History: Following as relates to class 3 obesity Body mass index is 43.5 kg/m ., HLD, HTN, prediabetes. Just back from vacation/cruise. Week back has been very busy and eventful. Has been tracking intake as able, exercise less than recommended, limited with knee pain, is in physical therapy for this . Nutrition Intervention 08/03/23 Have a protein drink in the morning, aim for 30 grams, then move yogurt and fruit to midmorning snack Try tracking intake with amelia aiming for 1400 calories, OK to track 3 days per week (two work days and one weekend day) Aim for 30 grams protein in each meal, measure and weigh portions once per week Follow the Plate Method at lunch and dinner: Use a 9 plate - 1/2 plate vegetables-non starchy such as green beans, greens, broccoli, cauliflower, etc (1 serving of fruit optional outside of plate) - 1/4 plate lean protein-primarily chicken, turkey fish, lean red 1-2 x per week at most (size of palm) - 1/4 plate whole grain or starchy vegetable such as corn, peas, potatoes, beans (size of fist, 1 cup) All meals and snacks at the dinner table; minimize distractions, no TV while eating. Make meals last at least 20 min, chew each bite of food 20 x per bite.Portion out all foods, never eat out of container. Become more mindful of meal: Enjoy flavors, textures etc. Use hunger/fullness scale. Start regular exercise as able, try an exercise bike, a pool, seated exercise as available on youtube; add weight resistance 2-3 days per week (seated youtube videos) and core exercise most days Actions to implement interventions: Now in physical therapy Tracking intake Diet History: Breakfast - yesterday 2 eggs, fried potatoes and smoked pork chop; was doing protein drink until vacation. Snack - cheese stick, or yogurt and granola or fruit Lunch - yesterday later lunch for hamburger and hot dog no bun, potato salad; normally leftovers Snack - not usually Dinner - tonight ital sausage with onions and peppers with tator tots; water Snack - occ. 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 for knee just started, doing those exercises at home as well Anthropometrics: Height: Last 1 Encounter Ht Readings: Date: Ht: 09/07/2023 162.6 cm (5' 4) Current weight: Last 1 Encounter Wt Readings: Date: Wt: 09/07/2023 114.9 kg (253 lb 6.4 oz) Body mass index is 43.5 kg/m . Resting Metabolic Rate: 1742 Malnutrition Screening Significant unintentional weight loss? No Eating less than 75% of usual intake for more than 2 weeks? No Potential Signs of Inflammation: no identifiable sources Nutritional status: Education Materials Provided: None this visit READINESS TO LEARN Cognitive ability: Alert and oriented Motivation to learn: Interested Family support: Unable to assess - Family not present Instruction provided to: Patient Patient learns best by: Individual Instruction Factors affecting learning: None Physical limitations affecting learning: None Likelihood of Adherence: Moderate Referred/Supervised by: Warren/Stevie BLAKE Billing Type: Re-assess/15 min 2 units SIGNATURE: Mona See RD PATIENT NAME: Khadijah Mahmood DATE: September 07, 2023 TIME: 8:45 AM documented in this encounter [facility] 09-07-2023 Instructions Luiza Hampton MD - 09/07/2023 8:18 AM EDT Images from the original note were not included. Bowel Preparation Instructions for: Golytely, Nulytely, Trilyte or Colyte (polyethylene glycol 3350 and electrolytes) IF YOU DO NOT FOLLOW THESE DIRECTIONS, YOUR COLONOSCOPY WILL BE CANCELLED. [place]in Instructions: Your bowel must be empty so that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 Onset Date Resolution Status Degenerative spondylolisthesis acute Lumbar pain acute Degenerative spondylolisthesis acute Herniated nucleus pulposus, L5-S1 acute Calcific tendonitis of left shoulder acute Impingement of left shoulder acute Left shoulder pain acute Primary osteoarthritis, left shoulder acute [facility] Work Phone: Evaluation note* Diagnosis Post laminectomy syndrome- Primary Postlaminectomy syndrome, unspecified region [facility]* Diagnosis Tear of left rotator cuff, unspecified tear extent, unspecified whether traumatic- Primary Pain Generalized pain Acute pain of left shoulder Glenohumeral arthritis, left [facility]* Diagnosis Essential hypertension- Primary Unspecified essential hypertension Anemia, unspecified type Other fatigue Mixed hyperlipidemia Abnormal thyroid blood test Nonspecific abnormal results of thyroid function study History of estrogen therapy Personal history of estrogen therapy [facility]* Diagnosis Left knee pain, unspecified chronicity- Primary [facility]* Diagnosis Acute pain of left shoulder- Primary Bursitis of left shoulder Disorders of bursae and tendons in shoulder region, unspecified [facility]* Diagnosis Onset Date Resolution Status Osteoarthritis of left knee acute [facility] Work Phone: Evaluation note* Diagnosis Essential hypertension Unspecified essential hypertension [facility]* Diagnosis Primary osteoarthritis of left knee- Primary Primary localized osteoarthrosis, lower leg Chronic pain of left knee Pain in joint, lower leg [facility]* Diagnosis Essential hypertension- Primary Unspecified essential hypertension [facility]* Diagnosis Anemia, unspecified type- Primary Essential hypertension Unspecified essential hypertension Prediabetes Other abnormal glucose Obesity, Class III, BMI 40-49.9 (morbid obesity) (HCC) Morbid obesity Mixed hyperlipidemia Colon cancer screening Special screening for malignant neoplasms, colon [facility]* Diagnosis Encounter for screening mammogram for breast cancer documented in this encounter [facility] note* Diagnosis Screening mammogram for breast cancer- Primary [facility]* Diagnosis Primary osteoarthritis of both knees- Primary Primary localized osteoarthrosis, lower leg [facility]* Diagnosis Dietary counseling- Primary Dietary surveillance and counseling Prediabetes Other abnormal glucose Obesity, Class III, BMI 40-49.9 (morbid obesity) (HCC) Morbid obesity Mixed hyperlipidemia Essential hypertension Unspecified essential hypertension [facility]* Diagnosis Essential hypertension Unspecified essential hypertension documented in this encounter [facility] note* Diagnosis Primary osteoarthritis of both knees- Primary Primary localized osteoarthrosis, lower leg [facility]* Diagnosis Primary osteoarthritis of both knees- Primary Primary localized osteoarthrosis, lower leg [facility]* Diagnosis Tear of left rotator cuff, unspecified tear extent, unspecified whether traumatic- Primary Glenohumeral arthritis, left [facility]* Diagnosis Prediabetes- Primary Other abnormal glucose Obesity, Class III, BMI 40-49.9 (morbid obesity) (HCC) Morbid obesity Mixed hyperlipidemia Essential hypertension Unspecified essential hypertension Dietary counseling Dietary surveillance and counseling [facility]* Diagnosis Anemia, unspecified type Colon cancer screening Special screening for malignant neoplasms, colon Morbid obesity (HCC) Morbid obesity [facility]* Diagnosis Primary osteoarthritis of both knees- Primary Primary localized osteoarthrosis, lower leg [facility]* Diagnosis Primary osteoarthritis of both knees- Primary Primary localized osteoarthrosis, lower leg [facility]* Diagnosis Essential hypertension- Primary Unspecified essential hypertension Anemia, unspecified type [facility]* Diagnosis Screening mammogram for breast cancer [facility]* Diagnosis Prediabetes- Primary Other abnormal glucose Obesity, Class III, BMI 40-49.9 (morbid obesity) (HCC) Morbid obesity Mixed hyperlipidemia Essential hypertension Unspecified essential hypertension Dietary counseling Dietary surveillance and counseling documented in this encounter [facility] note* Diagnosis Radiculopathy, lumbar region Thoracic or lumbosacral neuritis or radiculitis, unspecified Radiculopathy, lumbar region- Primary Thoracic or lumbosacral neuritis or radiculitis, unspecified [facility]* Diagnosis Radiculopathy, lumbar region Thoracic or lumbosacral neuritis or radiculitis, unspecified Radiculopathy, lumbar region- Primary Thoracic or lumbosacral neuritis or radiculitis, unspecified Obesity, Class III, BMI 40-49.9 (morbid obesity) (HCC) Morbid obesity Chronic right-sided low back pain with right-sided sciatica documented in this encounter [facility] note* Diagnosis Spinal stenosis of lumbar region with neurogenic claudication- Primary Spinal stenosis, lumbar region, with neurogenic claudication Radiculopathy, lumbar region Thoracic or lumbosacral neuritis or radiculitis, unspecified Postlaminectomy syndrome, lumbar region [facility]* Diagnosis Tear of left rotator cuff, unspecified tear extent, unspecified whether traumatic Glenohumeral arthritis, left [facility]* Diagnosis Glenohumeral arthritis, left- Primary Primary osteoarthritis of left knee Primary localized osteoarthrosis, lower leg Chronic pain of left knee Pain in joint, lower leg Chronic left shoulder pain Pain in joint, shoulder region [facility]* Diagnosis Post laminectomy syndrome- Primary Postlaminectomy syndrome, unspecified region [facility]* Diagnosis Primary osteoarthritis of left knee- Primary Primary localized osteoarthrosis, lower leg [facility]* Diagnosis Primary osteoarthritis of left knee- Primary Primary localized osteoarthrosis, lower leg [facility]* Diagnosis Prediabetes- Primary Other abnormal glucose Obesity, Class III, BMI 40-49.9 (morbid obesity) (HCC) Morbid obesity Essential hypertension Unspecified essential hypertension Dietary counseling Dietary surveillance and counseling [facility]* Diagnosis Upper back pain- Primary [facility]* Diagnosis Preop exam for internal medicine- Primary Other specified pre-operative examination Essential hypertension Unspecified essential hypertension Mixed hyperlipidemia Prediabetes Other abnormal glucose Anemia, unspecified type [facility]* Diagnosis Primary osteoarthritis of left knee- Primary Primary localized osteoarthrosis, lower leg [facility]* Diagnosis Spinal stenosis of lumbar region with neurogenic claudication- Primary Spinal stenosis, lumbar region, with neurogenic claudication Radiculopathy, lumbar region Thoracic or lumbosacral neuritis or radiculitis, unspecified Postlaminectomy syndrome, lumbar region [facility]* Diagnosis Left knee pain, unspecified chronicity [facility]* Diagnosis Tear of left rotator cuff, unspecified tear extent, unspecified whether traumatic [facility]* Diagnosis Pain Generalized pain [facility]* Diagnosis Acute pain of left knee Injury of right shoulder, initial encounter [facility] Diagnosis Right-sided low back pain with right-sided sciatica, unspecified chronicity [facility]* Diagnosis Chronic pain of right knee Chronic pain of left knee Pain in joint, lower leg [facility]* Diagnosis Spinal stenosis of lumbar region with neurogenic claudication- Primary Spinal stenosis, lumbar region, with neurogenic claudication Postlaminectomy syndrome, lumbar region Post laminectomy syndrome Postlaminectomy syndrome, unspecified region [facility]* Diagnosis Essential hypertension- Primary Unspecified essential hypertension Anemia, unspecified type [facility]* Diagnosis Spinal stenosis of lumbar region with neurogenic claudication- Primary Spinal stenosis, lumbar region, with neurogenic claudication [facility]* Diagnosis Spinal stenosis of lumbar region with neurogenic claudication- Primary Spinal stenosis, lumbar region, with neurogenic claudication Postlaminectomy syndrome, lumbar region Radiculopathy, lumbar region Thoracic or lumbosacral neuritis or radiculitis, unspecified [facility] Diagnosis Primary osteoarthritis of left knee- Primary Primary localized osteoarthrosis, lower leg [facility]* Diagnosis Mixed hyperlipidemia [facility] [facility] Diagnosis Primary osteoarthritis of left knee- Primary Primary localized osteoarthrosis, lower leg [facility] Diagnosis Essential hypertension- Primary Unspecified essential hypertension Mixed hyperlipidemia Prediabetes Other abnormal glucose [facility] Diagnosis Postlaminectomy syndrome, lumbar region- Primary Spinal stenosis of lumbar region with neurogenic claudication Spinal stenosis, lumbar region, with neurogenic claudication documented [facility] Diagnosis Primary osteoarthritis of left knee- Primary Primary localized osteoarthrosis, lower leg [facility] Diagnosis Radiculopathy, lumbar region- Primary Thoracic or lumbosacral neuritis or radiculitis, unspecified [facility] Diagnosis Primary osteoarthritis of left knee- Primary Primary localized osteoarthrosis, lower leg [facility] Diagnosis Primary osteoarthritis of left knee- Primary Primary localized osteoarthrosis, lower leg Chronic pain of left knee Pain in joint, lower leg [facility] Diagnosis Radiculopathy, lumbar region- Primary Thoracic or lumbosacral neuritis or radiculitis, unspecified Postlaminectomy syndrome, lumbar region Spinal stenosis of lumbar region with neurogenic claudication Spinal stenosis, lumbar region, with neurogenic claudication documented in this encounter [facility] Discharge instructions Additional Instructions 1. You should not take ibuprofen or Aleve for your pain since you only have 1 kidney and the medicine is causing irritation of your esophagus and stomachWT[facility]carawas [facility] Work Phone: Reason for referral (narrative)* Diagnostic Procedure Only (Routine) - Closed Specialty Diagnoses / Procedures Referred By Contac t Referred To Contact XR IMAGING Diagnoses Radiculopathy, lumbar region Procedures XR LUMBAR LIMITED 2V FLEX/EXT RADEX SPINE LUMBOSACRAL 2/3 VIEWS Rosalia Wilson I, MD [address] [place] [address] Xr Imaging Referral ID Status Reason Start Date Expiration Date V isits Requested Visits Authorized [id number] Closed Auto-Generate d Referral 09/06/2021 10/06/[address] [facility] for referral (narrative)* Diagnostic Procedure Only (Urgent) - Closed Specialty Diagnoses / Procedures Referred By Contac t Referred To Contact XR IMAGING Diagnoses Injury of right shoulder, initial encounter Procedures XR SHOULDER GENERAL 3V OR MORE AP/TRUE AP/OTHER RIGHT RADEX SHOULDER COMPLETE MINIMUM 2 VIEWS Douglas Tee APRN.NIGHT TIME BABYSITTER [address] [place] [address] Xr Imaging Referral ID Status Reason Start Date Expiration Date V isits Requested Visits Authorized [id number] Closed Auto-Generate d Referral 09/27/2021 10/27/2022 1 1 * Diagnostic Procedure Only (Urgent) - Closed Specialty Diagnoses / Procedures Referred By Contac t Referred To Contact XR IMAGING Diagnoses Acute pain of left knee Procedures XR KNEE GENERAL 4V AP BOTH/PA BOTH/LAT/MERC LEFT RADIOLOGIC EXAM KNEE COMPLETE 4/MORE VIEWS Douglas Tee APRN.NIGHT TIME BABYSITTER [address] [place] [address] Xr Imaging Referral ID Status Reason Start Date Expiration Date V isits Requested Visits Authorized [id number] Closed Auto-Generate d Referral 09/27/2021 10/27/[address] [facility] for referral (narrative)* Outpatient Procedure (Routine) - Additional Clinical Info Needed Specialty Diagnoses / Procedures Referred By Contac t Referred To Contact [facility] Diagnoses Pain of left lower extremity Procedures US LEG VEIN DVT UNL VAS LAB DUP-SCAN XTR VEINS UNILATERAL/LIMITED STUDY Ana Lau MD [address] [place] [address] [facility] [address] [place] [address] Referral ID Status Reason Start Date Expiration Date Visits Requested Visits Authorized [id number] Additional Clinical Info Needed Auto-Generat ed Referral 08/15/2022 08/15/[address] [facility] for referral (narrative)* Diagnostic Procedure Only (Routine) - Closed Specialty Diagnoses / Procedures Referred By Raymond henriquez Referred To Contact BR IMAGING Diagnoses Encounter for screening mammogram for breast cancer Procedures THIERNO SCREENING W TIEN SCREENING DIGITAL BREAST TOMOSYNTHESIS BI SCREENING MAMMOGRAPHY BI 2-VIEW BREAST INC Ana Garcia MD [address] [place] [address] [facility] [address] [place] [address] Referral ID Status Reason Start Date Expiration Date V isits Requested Visits Authorized [id number] Closed Auto-Generate d Referral 09/18/2021 10/18/[address] [facility] for referral (narrative)* Diagnostic Procedure Only (Routine) - Authorized Specialty Diagnoses / Procedures Referred By Raymond henriquez Referred To Contact US IMAGING Diagnoses Tear of left rotator cuff, unspecified tear extent, unspecified whether traumatic Procedures US SHOULDER LEFT US COMPL JOINT R-T W/IMAGE DOCUMENTATION Larisa Bernstein PA-C [address] [place] [address] [place] [address] Referral ID Status Reason Start Date Expiration Date Visits Requested Visits Authorized [id number] Authorized Auto-Generat ed Referral 05/21/2023 06/19/[address] [facility] for referral (narrative)* Diagnostic Procedure Only (Routine) - Pending Review Specialty Diagnoses / Procedures Referred By Raymond henriquez Referred To Contact XR IMAGING Diagnoses Left knee pain, unspecified chronicity Procedures XR KNEE GENERAL 4V AP BOTH/PA BOTH/LAT/MERC LEFT RADIOLOGIC EXAM KNEE COMPLETE 4/MORE VIEWS Larisa Bernstein PA-C [address] [place] [address] [place] [address] Referral ID Status Reason Start Date Expiration Date Visits Requested Visits Authorized [id number] Pending Review Auto-Generat ed Referral 07/07/2023 08/05/[address] [facility] for referral (narrative)* Diagnostic Procedure Only (Routine) - Pending Review Specialty Diagnoses / Procedures Referred By Raymond henriquez Referred To Contact [facility] Diagnoses Screening mammogram for breast cancer Procedures THIERNO SCREENING W TIEN SCREENING DIGITAL BREAST TOMOSYNTHESIS BI SCREENING MAMMOGRAPHY BI 2-VIEW BREAST INC CAD Neisha Elizabeth ART EDITOR.NIGHT TIME BABYSITTER [address] [place] [address] [facility] [address] [place] [address] Referral ID Status Reason Start Date Expiration Date Visits Requested Visits Authorized [id number] Pending Review Auto-Generat ed Referral 07/28/2023 08/26/[address] [facility] for referral (narrative)* Outpatient Procedure (Routine) - Pending Review Specialty Diagnoses / Procedures Referred By Raymond henriquez Referred To Contact [facility] Diagnoses Anemia, unspecified type Procedures EGD DIAGNOSTIC ESOPHAGOGASTRODUODENOSC OPY TRANSORAL DIAGNOSTIC Luiza Hampton MD [address] [place] [address] [facility] [address] [place] [address] Referral ID Status Reason Start Date Expiration Date Visits Requested Visits Authorized [id number] Pending Review Auto-Generat ed Referral 09/07/2023 09/06/2024 1 1 * Outpatient Procedure (Routine) - Pending Review Specialty Diagnoses / Procedures Referred By Contac t Referred To Contact [facility] Diagnoses Anemia, unspecified type Procedures COLONOSCOPY DIAGNOSTIC COLONOSCOPY FLX DX W/COLLJ SPEC WHEN Luiza Urena MD [address] [place] [address] [facility] [address] [place] [address] Referral ID Status Reason Start Date Expiration Date Visits Requested Visits Authorized [id number] Pending Review Auto-Generat ed Referral 09/07/2023 09/06/[address] [facility] for referral (narrative)* Diagnostic Procedure Only (Routine) - Closed Specialty Diagnoses / Procedures Referred By Contac t Referred To Contact [facility] Diagnoses Screening mammogram for breast cancer Procedures THIERNO SCREENING W TIEN SCREENING DIGITAL BREAST TOMOSYNTHESIS BI SCREENING MAMMOGRAPHY BI 2-VIEW BREAST INC CAD Neisha Elizabeth, ART EDITOR.NIGHT TIME BABYSITTER [address] [place] [address] [facility] [address] [place] [address] Referral ID Status Reason Start Date Expiration Date V isits Requested Visits Authorized [id number] Closed Auto-Generate d Referral 07/28/2023 08/26/[address] [facility] for referral (narrative)* Diagnostic Procedure Only (Routine) - Authorized Specialty Diagnoses / Procedures Referred By Contac t Referred To Contact XR IMAGING Diagnoses Radiculopathy, lumbar region Procedures XR LUMBAR MOTION 4V AP/LAT/ FLEX/EXT RADEX SPINE LUMBOSACRAL MINIMUM 4 VIEWS Rosalia Wilson I, MD [address] [place] [address] [place] [address] Referral ID Status Reason Start Date Expiration Date Visits Requested Visits Authorized [id number] Authorized Auto-Generat ed Referral 10/15/2023 04/05/[address] [facility] for referral (narrative)* Outpatient Procedure (Routine) - New Request Specialty Diagnoses / Procedures Referred By Raymond henriquez Referred To [facility] Diagnoses Preop exam for internal medicine Procedures ECG COMPLETE ECG ROUTINE ECG W/LEAST 12 LDS W/I&R Trav Kelley APRN.NIGHT TIME BABYSITTER [address] [place] [address] [facility] [address] [facility] [place] [address] Referral ID Status Reason Start Date Expiration Date Visits Requested Visits Authorized [id number] New Request Auto-Generat ed Referral 11/30/2023 11/29/[address] [facility] for referral (narrative)* Diagnostic Procedure Only (Routine) - Closed Specialty Diagnoses / Procedures Referred By Raymond henriquez Referred To Contact XR IMAGING Diagnoses Left knee pain, unspecified chronicity Procedures XR KNEE GENERAL 4V AP BOTH/PA BOTH/LAT/MERC LEFT RADIOLOGIC EXAM KNEE COMPLETE 4/MORE VIEWS Larisa Bernstein PA-C [address] [place] [address] [place] [address] Referral ID Status Reason Start Date Expiration Date V isits Requested Visits Authorized [id number] Closed Auto-Generate d Referral 07/07/2023 08/05/2024 1 1 [facility] Diagnostic Procedure Only (Routine) - Closed Specialty Diagnoses / Procedures Referred By Raymond henriquez Referred To Contact US IMAGING Diagnoses Tear of left rotator cuff, unspecified tear extent, unspecified whether traumatic Procedures US SHOULDER LEFT US COMPL JOINT R-T W/IMAGE DOCUMENTATION Larisa Bernstein PA-C [address] [place] [address] [place] [address] Referral ID Status Reason Start Date Expiration Date V isits Requested Visits Authorized [id number] Closed Auto-Generate d Referral 05/21/2023 06/19/2024 1 1 [facility] for referral (narrative)* Diagnostic Procedure Only (Routine) - Closed Specialty Diagnoses / Procedures Referred By Contac t Referred To Contact XR IMAGING Diagnoses Pain Procedures XR SHOULDER GENERAL 3V OR MORE AP/TRUE AP/OTHER LEFT RADEX SHOULDER COMPLETE MINIMUM 2 VIEWS Larisa Bernstein PA-C [address] [place] [address] [place] [address] Referral ID Status Reason Start Date Expiration Date V isits Requested Visits Authorized [id number] Closed Auto-Generate d Referral 05/05/2023 06/03/2024 1 1 [facility] for referral (narrative)* Diagnostic Procedure Only (Urgent) - Closed Specialty Diagnoses / Procedures Referred By Contac t Referred To Contact XR IMAGING Diagnoses Pain Procedures XR SHOULDER LIMITED 2V AP/TRUE AP LEFT RADEX SHOULDER COMPLETE MINIMUM 2 VIEWS Juliana Zamora APRN.NIGHT TIME BABYSITTER [address] [place] [address] [place] [address] Referral ID Status Reason Start Date Expiration Date V isits Requested Visits Authorized [id number] Closed Auto-Generate d Referral 02/17/2023 03/18/2024 1 1 [facility] for referral (narrative)* Diagnostic Procedure Only (Urgent) - Closed Specialty Diagnoses / Procedures Referred By Contac t Referred To Contact XR IMAGING Diagnoses Injury of right shoulder, initial encounter Procedures XR SHOULDER GENERAL 3V OR MORE AP/TRUE AP/OTHER RIGHT RADEX SHOULDER COMPLETE MINIMUM 2 VIEWS Douglas Tee APRN.NIGHT TIME BABYSITTER [address] [place] [address] [place] [address] Referral ID Status Reason Start Date Expiration Date V isits Requested Visits Authorized [id number] Closed Auto-Generate d Referral 09/27/2021 10/27/2022 1 1 * Diagnostic Procedure Only (Urgent) - Closed Specialty Diagnoses / Procedures Referred By Contac t Referred To Contact XR IMAGING Diagnoses Acute pain of left knee Procedures XR KNEE GENERAL 4V AP BOTH/PA BOTH/LAT/MERC LEFT RADIOLOGIC EXAM KNEE COMPLETE 4/MORE VIEWS Douglas Tee APRN.NIGHT TIME BABYSITTER [address] [address] [place] [address] Referral ID Status Reason Start Date Expiration Date V isits Requested Visits Authorized [id number] Closed Auto-Generate d Referral 09/27/2021 10/27/[address] [facility] for referral (narrative)* Diagnostic Procedure Only (Routine) - Closed Specialty Diagnoses / Procedures Referred By Contac t Referred To Contact XR IMAGING Diagnoses Right-sided low back pain with right-sided sciatica, unspecified chronicity Procedures XR LUMBAR GENERAL 3V AP/LAT/L5-S1 RADEX SPINE LUMBOSACRAL 2/3 VIEWS Ana Lau MD [address] [place] [address] [place] [address] Referral ID Status Reason Start Date Expiration Date V isits Requested Visits Authorized [id number] Closed Auto-Generate d Referral 06/25/2021 07/25/[address] [facility] for visit Narrative* Diagnostic Procedure Only (Routine) - Closed Specialty Diagnoses / Procedures Referred By Contac t Referred To Contact XR IMAGING Diagnoses Radiculopathy, lumbar region Procedures XR LUMBAR LIMITED 2V FLEX/EXT RADEX SPINE LUMBOSACRAL 2/3 VIEWS Rosalia Wilson I, MD [address] [place] [address] Xr Imaging Referral ID Status Reason Start Date Expiration Date V isits Requested Visits Authorized [id number] Closed Auto-Generate d Referral 09/06/2021 10/06/[address] [facility] for visit Narrative* Diagnostic Procedure Only (Routine) - Closed Specialty Diagnoses / Procedures Referred By Contac t Referred To Contact BR IMAG[facility] Diagnoses Encounter for screening mammogram for breast cancer Procedures THIERNO SCREENING W TIEN SCREENING DIGITAL BREAST TOMOSYNTHESIS BI SCREENING MAMMOGRAPHY BI 2-VIEW BREAST INC CAD Ana Lau MD [address] [place] [address] [facility] [address] [place] [address] Referral ID Status Reason Start Date Expiration Date V isits Requested Visits Authorized [id number] Closed Auto-Generate d Referral 09/18/2021 10/18/[address] [facility] for visit Narrative* Diagnostic Procedure Only (Routine) - Closed Specialty Diagnoses / Procedures Referred By Contac t Referred To Contact BR IMAG[facility] Diagnoses Screening mammogram for breast cancer Procedures THIERNO SCREENING W TIEN SCREENING DIGITAL BREAST TOMOSYNTHESIS BI SCREENING MAMMOGRAPHY BI 2-VIEW BREAST INC CAD Neisha Elizabeth, CLEM.NIGHT TIME BABYSITTER [address] [place] [address] [facility] [address] [place] [address] Referral ID Status Reason Start Date Expiration Date V isits Requested Visits Authorized [id number] Closed Auto-Generate d Referral 07/28/2023 08/26/[address] [facility] for visit Narrative* Diagnostic Procedure Only (Routine) - Closed Specialty Diagnoses / Procedures Referred By Contac t Referred To Contact XR IMAGING Diagnoses Radiculopathy, lumbar region Procedures XR LUMBAR MOTION 4V AP/LAT/ FLEX/EXT RADEX SPINE LUMBOSACRAL MINIMUM 4 VIEWS Rosalia Wilson I, [address] [facility] [place] [address] [place] [address] Referral ID Status Reason Start Date Expiration Date V isits Requested Visits Authorized [id number] Closed Auto-Generate d Referral 10/15/2023 04/05/[address] [facility] for visit Narrative* Diagnostic Procedure Only (Routine) - Closed Specialty Diagnoses / Procedures Referred By Contac t Referred To Contact XR IMAGING Diagnoses Left knee pain, unspecified chronicity Procedures XR KNEE GENERAL 4V AP BOTH/PA BOTH/LAT/MERC LEFT RADIOLOGIC EXAM KNEE COMPLETE 4/MORE VIEWS Larisa Bernstein PA-C [address] [place] [address] [place] [address] Referral ID Status Reason Start Date Expiration Date V isits Requested Visits Authorized [id number] Closed Auto-Generate d Referral 07/07/2023 08/05/[address] [facility] for visit Narrative* Diagnostic Procedure Only (Routine) - Closed Specialty Diagnoses / Procedures Referred By Contac t Referred To Contact US IMAGING Diagnoses Tear of left rotator cuff, unspecified tear extent, unspecified whether traumatic Procedures US SHOULDER LEFT US COMPL JOINT R-T W/IMAGE DOCUMENTATION Larisa Bernstein PA-C [address] [place] [address] [place] [address] Referral ID Status Reason Start Date Expiration Date V isits Requested Visits Authorized [id number] Closed Auto-Generate d Referral 05/21/2023 06/19/[address] [facility] for visit Narrative* Diagnostic Procedure Only (Routine) - Closed Specialty Diagnoses / Procedures Referred By Contac t Referred To Contact XR IMAGING Diagnoses Pain Procedures XR SHOULDER GENERAL 3V OR MORE AP/TRUE AP/OTHER LEFT RADEX SHOULDER COMPLETE MINIMUM 2 VIEWS Larisa Bernstein PA-C [address] [place] [address] [place] [address] Referral ID Status Reason Start Date Expiration Date V isits Requested Visits Authorized [id number] Closed Auto-Generate d Referral 05/05/2023 06/03/[address] [facility] for visit Narrative* Diagnostic Procedure Only (Urgent) - Closed Specialty Diagnoses / Procedures Referred By Contac t Referred To Contact XR IMAGING Diagnoses Pain Procedures XR SHOULDER LIMITED 2V AP/TRUE AP LEFT RADEX SHOULDER COMPLETE MINIMUM 2 VIEWS Juliana Zamora, ART EDITOR.NIGHT TIME BABYSITTER [address] [place] [address] [place] [address] Referral ID Status Reason Start Date Expiration Date V isits Requested Visits Authorized [id number] Closed Auto-Generate d Referral 02/17/2023 03/18/[address] [facility] for visit Narrative* Diagnostic Procedure Only (Urgent) - Closed Specialty Diagnoses / Procedures Referred By Contac t Referred To Contact XR IMAGING Diagnoses Injury of right shoulder, initial encounter Procedures XR SHOULDER GENERAL 3V OR MORE AP/TRUE AP/OTHER RIGHT RADEX SHOULDER COMPLETE MINIMUM 2 VIEWS Douglas Tee, ART EDITOR.NIGHT TIME BABYSITTER [address] [place] [address] [place] [address] Referral ID Status Reason Start Date Expiration Date V isits Requested Visits Authorized [id number] Closed Auto-Generate d Referral 09/27/2021 10/27/[address] [facility] for visit Narrative* Diagnostic Procedure Only (Routine) - Closed Specialty Diagnoses / Procedures Referred By Contac t Referred To Contact XR IMAGING Diagnoses Right-sided low back pain with right-sided sciatica, unspecified chronicity Procedures XR LUMBAR GENERAL 3V AP/LAT/L5-S1 RADEX SPINE LUMBOSACRAL 2/3 VIEWS Ana Lau MD [address] [place] [address] [place] [address] Referral ID Status Reason Start Date Expiration Date V isits Requested Visits Authorized [id number] Closed Auto-Generate d Referral 06/25/2021 07/25/[address] [facility] for visit Narrative* Diagnostic Procedure Only (Urgent) - Closed Specialty Diagnoses / Procedures Referred By Contac t Referred To Contact XR IMAGING Diagnoses Pain of left heel Procedures XR CALCANEUS 2V AXIAL/LAT LT X-RAY HEEL Cesar Pearl ART EDITOR.NIGHT TIME BABYSITTER [address] [place] [address] [place] [address] Referral ID Status Reason Start Date Expiration Date V isits Requested Visits Authorized [id number] Closed Auto-Generate d Referral 11/14/2020 12/14/2021 1 1 [facility] Summary Purpose Family History No Family History Records FoundNo Family History Records FoundNo Family History Records FoundNo Family History Records FoundNo Family History Records Found Advance Directives Documents on File Type Date Recorded 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 Advance Directive(s) 08/15/2011 9:14 PM Documents on File Type Date Recorded 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 Advance Directive(s) 08/15/2011 9:14 PM Advance Directive Response Recorded Date/ Time Living Will Yes August 07, 2021 3: 15pm Power of Sales Account Coordinator Yes August 07, 2021 3:15pm Advance Directive Response Recorded Date/ Time Name of Medical Power of Sales Account Coordinator SPOUSE November 27, 2022 3:22pm Living Will Yes November 27 3:22pm Power of Sales Account Coordinator Yes November 27, 2 023 3:22pm Advance Directive Response Recorded Date/ Time Living Will Yes November 27 2:22pm Power of Sales Account Coordinator Yes November 27, 2 023 2:22pm Advance Directive Response Recorded Date/ Time Living Will Yes November 27 3:22pm Power of Sales Account Coordinator Yes November 27, 2 023 3:22pm Reason for Referral Specialty Diagnoses / Procedures Referred By Raymond henriquez Referred To Contact [facility] Diagnoses Right-sided low back pain with right-sided sciatica, unspecified chronicity Procedures CONSULT TO PHYSICAL THERAPY PHYSICAL THERAPY EVALUATION HIGH COMPLEX 45 MINS Ana Lau MD [address] [place] [address] [facility] [address] [place] [address] Referral ID Status Reason Start Date Expiration Date Visits Requested Visits Authorized [id number] Pending Review Auto-Generat ed Referral 06/25/2021 06/25/2022 1 1 Specialty Diagnoses / Procedures Referred By Raymond henriquez Referred To Contact XR IMAGING Diagnoses Right-sided low back pain with right-sided sciatica, unspecified chronicity Procedures XR LUMBAR GENERAL 3V AP/LAT/L5-S1 RADEX SPINE LUMBOSACRAL 2/3 VIEWS Ana Lau MD [address] [place] [address] X[facility] Imaging Referral ID Status Reason Start Date Expiration Date V isits Requested Visits Authorized [id number] Closed Auto-Generate d Referral 06/25/2021 07/25/2022 1 1 Specialty Diagnoses / Procedures Referred By Contac t Referred To Contact MR IMAGING Diagnoses Spinal stenosis of lumbar region with neurogenic claudication Procedures MRI LUMBAR SPINE WO IVCON MRI SPINAL CANAL LUMBAR W/O CONTRAST MATERIAL Ana Lau MD [address] [place] [address] Mr Imaging Referral ID Status Reason Start Date Expiration Date V isits Requested Visits Authorized [id number] Closed Auto-Generate d Referral 07/17/2021 08/15/2021 1 1 Specialty Diagnoses / Procedures Referred By Contac t Referred To Contact [facility] Diagnoses Spinal stenosis at L4-L5 level Facet hypertrophy Procedures CONSULT TO [facility] OFFICE/OUTPATIENT [facility] MDM 60-74 MINUTES Older, CLEM Townsend.NIGHT TIME BABYSITTER [address] [place] [address] [facility] [address] [place] [address] Referral ID Status Reason Start Date Expiration Date Visits Requested Visits Authorized [id number] Authorized PCP Requested Referral 08/01/2021 08/01/2022 1 1 Specialty Diagnoses / Procedures Referred By Contac t Referred To Contact Pain Management Diagnoses Radiculopathy, lumbar region Spondylolisthesis of lumbar region Procedures CONSULT TO PAIN MGT Rosalia Wilson I, MD [address] [facility] [facility] [place] [address] Referral ID Status Reason Start Date Expiration Date Visits Requested Visits Authorized [id number] Ref Not Required PCP Requested Referral 09/16/2021 12/15/2021 3 3 Specialty Diagnoses / Procedures Referred By Contac t Referred To Contact XR IMAGING Diagnoses Radiculopathy, lumbar region Procedures XR LUMBAR LIMITED 2V FLEX/EXT RADEX SPINE LUMBOSACRAL 2/3 VIEWS Rosalia Wilson I, MD [address] [place] [address] Xr Imaging Referral ID Status Reason Start Date Expiration Date V isits Requested Visits Authorized [id number] Closed Auto-Generate d Referral 09/06/2021 10/06/2022 1 1 Specialty Diagnoses / Procedures Referred By Contac t Referred To Contact Orthopedics Diagnoses Pain Procedures CONSULT TO ORTHOPAEDICS OFFICE/OUTPATIENT [facility] 60-74 MINUTES Juliana Zamora APRN.[employer] [address] [place] [address] Referral ID Status Reason Start Date Expiration Date Visits Requested Visits Authorized [id number] Authorized PCP Requested Referral 02/17/2024 1 1 Specialty Diagnoses / Procedures Referred By Contac t Referred To Contact XR IMAGING Diagnoses Pain Procedures XR SHOULDER LIMITED 2V AP/TRUE AP LEFT RADEX SHOULDER COMPLETE MINIMUM 2 VIEWS Juliana Zamora APRN.[employer] [address] [place] [address] [place] [address] Referral ID Status Reason Start Date Expiration Date V isits Requested Visits Authorized [id number] Closed Auto-Generate d Referral 02/17/2023 03/18/2024 1 1 Specialty Diagnoses / Procedures Referred By Contac t Referred To Contact Nutrition Diagnoses Prediabetes Obesity, Class III, BMI 40-49.9 (morbid obesity) (HCC) Mixed hyperlipidemia Essential hypertension Procedures CONSULT TO NUTRITION THERAPY MEDICAL NUTRITION ASSMT&IVNTJ INDIV EACH 15 ID Trav Kelley APRN.[employer] [address] [place] [address] Referral ID Status Reason Start Date Expiration Date Visits Requested Visits Authorized [id number] Authorized PCP Requested Referral 07/27/2023 07/26/2024 1 4 Specialty Diagnoses / Procedures Referred By Contac t Referred To Contact General Surgery Diagnoses Anemia, unspecified type Colon cancer screening Procedures CONSULT TO GENERAL SURGERY OFFICE/OUTPATIENT [facility] MDM 60 MINUTES Trav Kelley APRN.[employer] [address] [place] [address] Referral ID Status Reason Start Date Expiration Date Visits Requested Visits Authorized [id number] Authorized PCP Requested Referral 07/27/2023 07/26/2024 1 1 Specialty Diagnoses / Procedures Referred By Raymond t Referred To Contact [facility] Diagnoses Primary osteoarthritis of both knees Procedures CONSULT TO PHYSICAL THERAPY PHYSICAL THERAPY EVALUATION HIGH COMPLEX 45 MINS Larisa Bernstein PA-C [address] [place] [address] [facility] [address] [place] [address] Referral ID Status Reason Start Date Expiration Date Visits Requested Visits Authorized [id number] Pending Review Auto-Generat ed Referral 04/06/2023 04/05/2024 1 1 Specialty Diagnoses / Procedures Referred By Raymond henriquez Referred To Contact MR IMAGING Diagnoses Tear of left rotator cuff, unspecified tear extent, unspecified whether traumatic Glenohumeral arthritis, left Procedures MRI SHOULDER WO IVCON LEFT MRI ANY JT UPPER EXTREMITY W/O CONTRAST MATRL Larisa Bernstein PA-C [address] [place] [address] [id number] Referral ID Status Reason Start Date Expiration Date Visits Requested Visits Authorized [id number] Pending Review Auto-Generat ed Referral 09/03/2023 10/02/2024 1 1 Referral ID Status Reason Start Date Expiration Date V isits Requested Visits Authorized [id number] Closed Auto-Generate d Referral 09/30/2023 10/29/2023 1 1 Chief Complaint and Reason for Visit Chief Complaint NECK/BACK/CHEST Chief Complaint LEFT KNEE Room 5 PAIN IN LEFT KNEE Reason for Visit Internal derangement of left knee Chief Complaint LEFT KNEE Room 5 PAIN IN LEFT KNEE LEFT KNEE XRAY Left knee arthroscopy partial media Left knee arthroscopy partial media Reason for Visit Internal derangement of left knee Osteoarthritis of left knee Tear of medial meniscus of left knee Chief Complaint LUMBAR SPINE Room 5 LUMBAR PAIN LUMBAR SPINE LEFT SHOULDER RM 1 ACHILLES TENDONITIS RIGHT/RX HERE RT ACHILLES TENDINITIS Reason for Visit Degenerative spondyl olisthesis Lumbar pain Degenerative spondylolisthesis Herniated nucleus pulposus, L5-S1 Calcific tendonitis of left shoulder Impingement of left shoulder Left shoulder pain Primary osteoarthritis, left shoulder Chief Complaint ACHILLES TENDONITIS RIGHT/RX HERE RT ACHILLES TENDINITIS LEFT KNEE room 2 Reason for Visit Osteoarthritis of le ft knee Medications Administered Section Inactive Administered Medications - up to 3 most recent administrations Medication Order MAR Action Action Date Dose Rate Site 0.9% NaCl 10 mL flush 10 mL, OTHER, ONCE, 1 dose, On Thu09/24/21 at 1430 Given by [facility] 09/24/2021 2:15 PM EDT 10 mL iohexol 300 mg IV injection (OMNIPAQUE 300) 300 mg, OTHER, ONCE, 1 dose, On Thu09/24/21 at 1430 Given by [facility] 09/24/2021 2:16 PM EDT 300 mg lidocaine (PF) 10 mg/mL (1 %) 50 mg injection (XYLOCAINE) 50 mg (5 mL), OTHER, ONCE, 1 dose, On Thu09/24/21 at 1430 Given by [facility] 09/24/2021 2:16 PM EDT 50 mg lidocaine (PF) 20 mg/mL (2 %) 100 mg injection (XYLOCAINE) 100 mg (5 mL), OTHER, ONCE, 1 dose, On Thu09/24/21 at 1430 Given by [facility] 09/24/2021 2:17 PM EDT 100 mg methylPREDNISolone acetate 40 mg injection (DEPO-Medrol) 40 mg, OTHER, ONCE, 1 dose, On Thu09/24/21 at 1430 Given by [facility] 09/24/2021 2:17 PM EDT 40 mg Inactive Administered Medications - up to 3 most recent administrations Medication Order MAR Action Action Date Dose Rate Site 0.9% NaCl 5 mL flush 5 mL, OTHER, ONCE, 1 dose, On Thu05/05/22 at 1530 Given by [facility] 05/05/2022 3:07 PM EST 5 mL iohexol 300 mg IV injection (OMNIPAQUE 300) 300 mg, OTHER, ONCE, 1 dose, On Thu05/05/22 at 1530 Given by [facility] 05/05/2022 3:07 PM EST 300 mg lidocaine (PF) 10 mg/mL (1 %) 50 mg injection (XYLOCAINE) 50 mg (5 mL), OTHER, ONCE, 1 dose, On Thu05/05/22 at 1530 Given by [facility] 05/05/2022 3:06 PM EST 50 mg lidocaine (PF) 20 mg/mL (2 %) 100 mg injection (XYLOCAINE) 100 mg (5 mL), OTHER, ONCE, 1 dose, On Thu05/05/22 at 1530 Given by [facility] 05/05/2022 3:06 PM EST 100 mg methylPREDNISolone acetate 40 mg injection (DEPO-Medrol) 40 mg, OTHER, ONCE, 1 dose, On Thu05/05/22 at 1530 Given by [facility] 05/05/2022 3:07 PM EST 40 mg Inactive Administered Medications - up to 3 most recent administrations Medication Order MAR Action Action Date Dose Rate Site 0.9% NaCl 10 mL flush 10 mL, OTHER, ONCE, 1 dose, On Thu12/29/22 at 1430 Given by [facility] 12/29/2022 3:55 PM EDT 10 mL iohexol 300 mg IV injection (OMNIPAQUE 300) 300 mg, OTHER, ONCE, 1 dose, On Thu12/29/22 at 1430 Given by [facility] 12/29/2022 3:55 PM EDT 300 mg lidocaine (PF) 10 mg/mL (1 %) 100 mg injection (XYLOCAINE) 100 mg, OTHER, ONCE, 1 dose, On Thu12/29/22 at 1430 Given by [facility] 12/29/2022 3:55 PM EDT 100 mg methylPREDNISolone acetate 40 mg injection (DEPO-Medrol) 40 mg, OTHER, ONCE, 1 dose, On Thu12/29/22 at 1430 Given by [facility] 12/29/2022 3:56 PM EDT 40 mg Additional Source Comments INFORMATION SOURCE (unrecogn ized section and content) DATE CREATED AUTHOR 01/25/2021 [facility] DATE CREATED AUTHOR AUTHOR'S ORGANIZ ATION 2023 [facility] DATE CREATED AUTHOR AUTHOR'S ORGANIZ ATION 01/26/2024 [facility] DATE CREATED AUTHOR AUTHOR'S ORGANIZ ATION 09/03/2024 [facility] DATE CREATED AUTHOR AUTHOR'S ORGANIZ ATION 09/05/2024 [facility] Source Comments (unrecognize d section and content) In the event this informatio n is protected by the Federal Confidentiality of Alcohol and Drug Abuse Patient Records regulations: The Federal rules restrict any use of the information to criminally investigate or prosecute any alcohol or drug abuse patient.[facility] the event this information is protected by the Federal Confidentiality of Alcohol and Drug Abuse Patient Records regulations: The Federal rules restrict any use of the information to criminally investigate or prosecute any alcohol or drug abuse patient.[facility] HospitalIn the event this information is protected by the Federal Confidentiality of Alcohol and Drug Abuse Patient Records regulations: The Federal rules restrict any use of the information to criminally investigate or prosecute any alcohol or drug abuse patient.[facility] HospitalIn the event this information is protected by the Federal Confidentiality of Alcohol and Drug Abuse Patient Records regulations: The Federal rules restrict any use of the information to criminally investigate or prosecute any alcohol or drug abuse patient.[facility] HospitalIn the event this information is protected by the Federal Confidentiality of Alcohol and Drug Abuse Patient Records regulations: The Federal rules restrict any use of the information to criminally investigate or prosecute any alcohol or drug abuse patient.[facility] HospitalIn the event this information is protected by the Federal Confidentiality of Alcohol and Drug Abuse Patient Records regulations: The Federal rules restrict any use of the information to criminally investigate or prosecute any alcohol or drug abuse patient.[facility] HospitalIn the event this information is protected by the Federal Confidentiality of Alcohol and Drug Abuse Patient Records regulations: The Federal rules restrict any use of the information to criminally investigate or prosecute any alcohol or drug abuse patient.[facility] HospitalIn the event this information is protected by the Federal Confidentiality of Alcohol and Drug Abuse Patient Records regulations: The Federal rules restrict any use of the information to criminally investigate or prosecute any alcohol or drug abuse patient.[facility] HospitalIn the event this information is protected by the Federal Confidentiality of Alcohol and Drug Abuse Patient Records regulations: The Federal rules restrict any use of the information to criminally investigate or prosecute any alcohol or drug abuse patient.[facility] HospitalIn the event this information is protected by the Federal Confidentiality of Alcohol and Drug Abuse Patient Records regulations: The Federal rules restrict any use of the information to criminally investigate or prosecute any alcohol or drug abuse patient.[facility] HospitalIn the event this information is protected by the Federal Confidentiality of Alcohol and Drug Abuse Patient Records regulations: The Federal rules restrict any use of the information to criminally investigate or prosecute any alcohol or drug abuse patient.[facility] HospitalIn the event this information is protected by the Federal Confidentiality of Alcohol and Drug Abuse Patient Records regulations: The Federal rules restrict any use of the information to criminally investigate or prosecute any alcohol or drug abuse patient.[facility] HospitalIn the event this information is protected by the Federal Confidentiality of Alcohol and Drug Abuse Patient Records regulations: The Federal rules restrict any use of the information to criminally investigate or prosecute any alcohol or drug abuse patient.[facility] HospitalIn the event this information is protected by the Federal Confidentiality of Alcohol and Drug Abuse Patient Records regulations: The Federal rules restrict any use of the information to criminally investigate or prosecute any alcohol or drug abuse patient.[facility] HospitalIn the event this information is protected by the Federal Confidentiality of Alcohol and Drug Abuse Patient Records regulations: The Federal rules restrict any use of the information to criminally investigate or prosecute any alcohol or drug abuse patient.[facility] HospitalIn the event this information is protected by the Federal Confidentiality of Alcohol and Drug Abuse Patient Records regulations: The Federal rules restrict any use of the information to criminally investigate or prosecute any alcohol or drug abuse patient.[facility] HospitalIn the event this information is protected by the Federal Confidentiality of Alcohol and Drug Abuse Patient Records regulations: The Federal rules restrict any use of the information to criminally investigate or prosecute any alcohol or drug abuse patient.[facility] HospitalIn the event this information is protected by the Federal Confidentiality of Alcohol and Drug Abuse Patient Records regulations: The Federal rules restrict any use of the information to criminally investigate or prosecute any alcohol or drug abuse patient.[facility] HospitalIn the event this information is protected by the Federal Confidentiality of Alcohol and Drug Abuse Patient Records regulations: The Federal rules restrict any use of the information to criminally investigate or prosecute any alcohol or drug abuse patient.[facility] HospitalIn the event this information is protected by the Federal Confidentiality of Alcohol and Drug Abuse Patient Records regulations: The Federal rules restrict any use of the information to criminally investigate or prosecute any alcohol or drug abuse patient.[facility] HospitalIn the event this information is protected by the Federal Confidentiality of Alcohol and Drug Abuse Patient Records regulations: The Federal rules restrict any use of the information to criminally investigate or prosecute any alcohol or drug abuse patient.[facility] HospitalIn the event this information is protected by the Federal Confidentiality of Alcohol and Drug Abuse Patient Records regulations: The Federal rules restrict any use of the information to criminally investigate or prosecute any alcohol or drug abuse patient.[facility] HospitalIn the event this information is protected by the Federal Confidentiality of Alcohol and Drug Abuse Patient Records regulations: The Federal rules restrict any use of the information to criminally investigate or prosecute any alcohol or drug abuse patient.[facility] HospitalIn the event this information is protected by the Federal Confidentiality of Alcohol and Drug Abuse Patient Records regulations: The Federal rules restrict any use of the information to criminally investigate or prosecute any alcohol or drug abuse patient.[facility] HospitalIn the event this information is protected by the Federal Confidentiality of Alcohol and Drug Abuse Patient Records regulations: The Federal rules restrict any use of the information to criminally investigate or prosecute any alcohol or drug abuse patient.[facility] HospitalIn the event this information is protected by the Federal Confidentiality of Alcohol and Drug Abuse Patient Records regulations: The Federal rules restrict any use of the information to criminally investigate or prosecute any alcohol or drug abuse patient.[facility] HospitalIn the event this information is protected by the Federal Confidentiality of Alcohol and Drug Abuse Patient Records regulations: The Federal rules restrict any use of the information to criminally investigate or prosecute any alcohol or drug abuse patient.[facility] HospitalIn the event this information is protected by the Federal Confidentiality of Alcohol and Drug Abuse Patient Records regulations: The Federal rules restrict any use of the information to criminally investigate or prosecute any alcohol or drug abuse patient.[facility] HospitalIn the event this information is protected by the Federal Confidentiality of Alcohol and Drug Abuse Patient Records regulations: The Federal rules restrict any use of the information to criminally investigate or prosecute any alcohol or drug abuse patient.[facility] HospitalIn the event this information is protected by the Federal Confidentiality of Alcohol and Drug Abuse Patient Records regulations: The Federal rules restrict any use of the information to criminally investigate or prosecute any alcohol or drug abuse patient.[facility] HospitalIn the event this information is protected by the Federal Confidentiality of Alcohol and Drug Abuse Patient Records regulations: The Federal rules restrict any use of the information to criminally investigate or prosecute any alcohol or drug abuse patient.[facility] HospitalIn the event this information is protected by the Federal Confidentiality of Alcohol and Drug Abuse Patient Records regulations: The Federal rules restrict any use of the information to criminally investigate or prosecute any alcohol or drug abuse patient.[facility] HospitalIn the event this information is protected by the Federal Confidentiality of Alcohol and Drug Abuse Patient Records regulations: The Federal rules restrict any use of the information to criminally investigate or prosecute any alcohol or drug abuse patient.[facility] HospitalIn the event this information is protected by the Federal Confidentiality of Alcohol and Drug Abuse Patient Records regulations: The Federal rules restrict any use of the information to criminally investigate or prosecute any alcohol or drug abuse patient.[facility] HospitalIn the event this information is protected by the Federal Confidentiality of Alcohol and Drug Abuse Patient Records regulations: The Federal rules restrict any use of the information to criminally investigate or prosecute any alcohol or drug abuse patient.[facility] HospitalIn the event this information is protected by the Federal Confidentiality of Alcohol and Drug Abuse Patient Records regulations: The Federal rules restrict any use of the information to criminally investigate or prosecute any alcohol or drug abuse patient.[facility] HospitalIn the event this information is protected by the Federal Confidentiality of Alcohol and Drug Abuse Patient Records regulations: The Federal rules restrict any use of the information to criminally investigate or prosecute any alcohol or drug abuse patient.[facility] HospitalIn the event this information is protected by the Federal Confidentiality of Alcohol and Drug Abuse Patient Records regulations: The Federal rules restrict any use of the information to criminally investigate or prosecute any alcohol or drug abuse patient.[facility] HospitalIn the event this information is protected by the Federal Confidentiality of Alcohol and Drug Abuse Patient Records regulations: The Federal rules restrict any use of the information to criminally investigate or prosecute any alcohol or drug abuse patient.[facility] HospitalIn the event this information is protected by the Federal Confidentiality of Alcohol and Drug Abuse Patient Records regulations: The Federal rules restrict any use of the information to criminally investigate or prosecute any alcohol or drug abuse patient.[facility] HospitalIn the event this information is protected by the Federal Confidentiality of Alcohol and Drug Abuse Patient Records regulations: The Federal rules restrict any use of the information to criminally investigate or prosecute any alcohol or drug abuse patient.[facility] HospitalIn the event this information is protected by the Federal Confidentiality of Alcohol and Drug Abuse Patient Records regulations: The Federal rules restrict any use of the information to criminally investigate or prosecute any alcohol or drug abuse patient.[facility] HospitalIn the event this information is protected by the Federal Confidentiality of Alcohol and Drug Abuse Patient Records regulations: The Federal rules restrict any use of the information to criminally investigate or prosecute any alcohol or drug abuse patient.[facility] HospitalIn the event this information is protected by the Federal Confidentiality of Alcohol and Drug Abuse Patient Records regulations: The Federal rules restrict any use of the information to criminally investigate or prosecute any alcohol or drug abuse patient.[facility] HospitalIn the event this information is protected by the Federal Confidentiality of Alcohol and Drug Abuse Patient Records regulations: The Federal rules restrict any use of the information to criminally investigate or prosecute any alcohol or drug abuse patient.[facility] HospitalIn the event this information is protected by the Federal Confidentiality of Alcohol and Drug Abuse Patient Records regulations: The Federal rules restrict any use of the information to criminally investigate or prosecute any alcohol or drug abuse patient.[facility] HospitalIn the event this information is protected by the Federal Confidentiality of Alcohol and Drug Abuse Patient Records regulations: The Federal rules restrict any use of the information to criminally investigate or prosecute any alcohol or drug abuse patient.[facility] HospitalIn the event this information is protected by the Federal Confidentiality of Alcohol and Drug Abuse Patient Records regulations: The Federal rules restrict any use of the information to criminally investigate or prosecute any alcohol or drug abuse patient.[facility] HospitalIn the event this information is protected by the Federal Confidentiality of Alcohol and Drug Abuse Patient Records regulations: The Federal rules restrict any use of the information to criminally investigate or prosecute any alcohol or drug abuse patient.[facility] HospitalIn the event this information is protected by the Federal Confidentiality of Alcohol and Drug Abuse Patient Records regulations: The Federal rules restrict any use of the information to criminally investigate or prosecute any alcohol or drug abuse patient.[facility] HospitalIn the event this information is protected by the Federal Confidentiality of Alcohol and Drug Abuse Patient Records regulations: The Federal rules restrict any use of the information to criminally investigate or prosecute any alcohol or drug abuse patient.[facility] HospitalIn the event this information is protected by the Federal Confidentiality of Alcohol and Drug Abuse Patient Records regulations: The Federal rules restrict any use of the information to criminally investigate or prosecute any alcohol or drug abuse patient.[facility] HospitalIn the event this information is protected by the Federal Confidentiality of Alcohol and Drug Abuse Patient Records regulations: The Federal rules restrict any use of the information to criminally investigate or prosecute any alcohol or drug abuse patient.[facility] HospitalIn the event this information is protected by the Federal Confidentiality of Alcohol and Drug Abuse Patient Records regulations: The Federal rules restrict any use of the information to criminally investigate or prosecute any alcohol or drug abuse patient.[facility] HospitalIn the event this information is protected by the Federal Confidentiality of Alcohol and Drug Abuse Patient Records regulations: The Federal rules restrict any use of the information to criminally investigate or prosecute any alcohol or drug abuse patient.[facility] HospitalIn the event this information is protected by the Federal Confidentiality of Alcohol and Drug Abuse Patient Records regulations: The Federal rules restrict any use of the information to criminally investigate or prosecute any alcohol or drug abuse patient.[facility] HospitalIn the event this information is protected by the Federal Confidentiality of Alcohol and Drug Abuse Patient Records regulations: The Federal rules restrict any use of the information to criminally investigate or prosecute any alcohol or drug abuse patient.[facility] HospitalIn the event this information is protected by the Federal Confidentiality of Alcohol and Drug Abuse Patient Records regulations: The Federal rules restrict any use of the information to criminally investigate or prosecute any alcohol or drug abuse patient.[facility] HospitalIn the event this information is protected by the Federal Confidentiality of Alcohol and Drug Abuse Patient Records regulations: The Federal rules restrict any use of the information to criminally investigate or prosecute any alcohol or drug abuse patient.[facility] HospitalIn the event this information is protected by the Federal Confidentiality of Alcohol and Drug Abuse Patient Records regulations: The Federal rules restrict any use of the information to criminally investigate or prosecute any alcohol or drug abuse patient.[facility] HospitalIn the event this information is protected by the Federal Confidentiality of Alcohol and Drug Abuse Patient Records regulations: The Federal rules restrict any use of the information to criminally investigate or prosecute any alcohol or drug abuse patient.[facility] HospitalIn the event this information is protected by the Federal Confidentiality of Alcohol and Drug Abuse Patient Records regulations: The Federal rules restrict any use of the information to criminally investigate or prosecute any alcohol or drug abuse patient.[facility] HospitalIn the event this information is protected by the Federal Confidentiality of Alcohol and Drug Abuse Patient Records regulations: The Federal rules restrict any use of the information to criminally investigate or prosecute any alcohol or drug abuse patient.[facility] HospitalIn the event this information is protected by the Federal Confidentiality of Alcohol and Drug Abuse Patient Records regulations: The Federal rules restrict any use of the information to criminally investigate or prosecute any alcohol or drug abuse patient.[facility] HospitalIn the event this information is protected by the Federal Confidentiality of Alcohol and Drug Abuse Patient Records regulations: The Federal rules restrict any use of the information to criminally investigate or prosecute any alcohol or drug abuse patient.[facility] HospitalIn the event this information is protected by the Federal Confidentiality of Alcohol and Drug Abuse Patient Records regulations: The Federal rules restrict any use of the information to criminally investigate or prosecute any alcohol or drug abuse patient.[facility] HospitalIn the event this information is protected by the Federal Confidentiality of Alcohol and Drug Abuse Patient Records regulations: The Federal rules restrict any use of the information to criminally investigate or prosecute any alcohol or drug abuse patient.[facility] HospitalIn the event this information is protected by the Federal Confidentiality of Alcohol and Drug Abuse Patient Records regulations: The Federal rules restrict any use of the information to criminally investigate or prosecute any alcohol or drug abuse patient.[facility] HospitalIn the event this information is protected by the Federal Confidentiality of Alcohol and Drug Abuse Patient Records regulations: The Federal rules restrict any use of the information to criminally investigate or prosecute any alcohol or drug abuse patient.[facility] HospitalIn the event this information is protected by the Federal Confidentiality of Alcohol and Drug Abuse Patient Records regulations: The Federal rules restrict any use of the information to criminally investigate or prosecute any alcohol or drug abuse patient.[facility] HospitalIn the event this information is protected by the Federal Confidentiality of Alcohol and Drug Abuse Patient Records regulations: The Federal rules restrict any use of the information to criminally investigate or prosecute any alcohol or drug abuse patient.[facility] HospitalIn the event this information is protected by the Federal Confidentiality of Alcohol and Drug Abuse Patient Records regulations: The Federal rules restrict any use of the information to criminally investigate or prosecute any alcohol or drug abuse patient.[facility] HospitalIn the event this information is protected by the Federal Confidentiality of Alcohol and Drug Abuse Patient Records regulations: The Federal rules restrict any use of the information to criminally investigate or prosecute any alcohol or drug abuse patient.[facility] HospitalIn the event this information is protected by the Federal Confidentiality of Alcohol and Drug Abuse Patient Records regulations: The Federal rules restrict any use of the information to criminally investigate or prosecute any alcohol or drug abuse patient.[facility] HospitalIn the event this information is protected by the Federal Confidentiality of Alcohol and Drug Abuse Patient Records regulations: The Federal rules restrict any use of the information to criminally investigate or prosecute any alcohol or drug abuse patient.[facility] HospitalIn the event this information is protected by the Federal Confidentiality of Alcohol and Drug Abuse Patient Records regulations: The Federal rules restrict any use of the information to criminally investigate or prosecute any alcohol or drug abuse patient.[facility] HospitalIn the event this information is protected by the Federal Confidentiality of Alcohol and Drug Abuse Patient Records regulations: The Federal rules restrict any use of the information to criminally investigate or prosecute any alcohol or drug abuse patient.[facility] HospitalIn the event this information is protected by the Federal Confidentiality of Alcohol and Drug Abuse Patient Records regulations: The Federal rules restrict any use of the information to criminally investigate or prosecute any alcohol or drug abuse patient.[facility] HospitalIn the event this information is protected by the Federal Confidentiality of Alcohol and Drug Abuse Patient Records regulations: The Federal rules restrict any use of the information to criminally investigate or prosecute any alcohol or drug abuse patient.[facility] HospitalIn the event this information is protected by the Federal Confidentiality of Alcohol and Drug Abuse Patient Records regulations: The Federal rules restrict any use of the information to criminally investigate or prosecute any alcohol or drug abuse patient.[facility] HospitalIn the event this information is protected by the Federal Confidentiality of Alcohol and Drug Abuse Patient Records regulations: The Federal rules restrict any use of the information to criminally investigate or prosecute any alcohol or drug abuse patient.[facility] HospitalIn the event this information is protected by the Federal Confidentiality of Alcohol and Drug Abuse Patient Records regulations: The Federal rules restrict any use of the information to criminally investigate or prosecute any alcohol or drug abuse patient.[facility] HospitalIn the event this information is protected by the Federal Confidentiality of Alcohol and Drug Abuse Patient Records regulations: The Federal rules restrict any use of the information to criminally investigate or prosecute any alcohol or drug abuse patient.[facility] HospitalIn the event this information is protected by the Federal Confidentiality of Alcohol and Drug Abuse Patient Records regulations: The Federal rules restrict any use of the information to criminally investigate or prosecute any alcohol or drug abuse patient.[facility] HospitalIn the event this information is protected by the Federal Confidentiality of Alcohol and Drug Abuse Patient Records regulations: The Federal rules restrict any use of the information to criminally investigate or prosecute any alcohol or drug abuse patient.[facility] HospitalIn the event this information is protected by the Federal Confidentiality of Alcohol and Drug Abuse Patient Records regulations: The Federal rules restrict any use of the information to criminally investigate or prosecute any alcohol or drug abuse patient.[facility] HospitalIn the event this information is protected by the Federal Confidentiality of Alcohol and Drug Abuse Patient Records regulations: The Federal rules restrict any use of the information to criminally investigate or prosecute any alcohol or drug abuse patient.[facility] HospitalIn the event this information is protected by the Federal Confidentiality of Alcohol and Drug Abuse Patient Records regulations: The Federal rules restrict any use of the information to criminally investigate or prosecute any alcohol or drug abuse patient.[facility] HospitalIn the event this information is protected by the Federal Confidentiality of Alcohol and Drug Abuse Patient Records regulations: The Federal rules restrict any use of the information to criminally investigate or prosecute any alcohol or drug abuse patient.[facility] HospitalIn the event this information is protected by the Federal Confidentiality of Alcohol and Drug Abuse Patient Records regulations: The Federal rules restrict any use of the information to criminally investigate or prosecute any alcohol or drug abuse patient.[facility] HospitalIn the event this information is protected by the Federal Confidentiality of Alcohol and Drug Abuse Patient Records regulations: The Federal rules restrict any use of the information to criminally investigate or prosecute any alcohol or drug abuse patient.[facility] HospitalIn the event this information is protected by the Federal Confidentiality of Alcohol and Drug Abuse Patient Records regulations: The Federal rules restrict any use of the information to criminally investigate or prosecute any alcohol or drug abuse patient.[facility] HospitalIn the event this information is protected by the Federal Confidentiality of Alcohol and Drug Abuse Patient Records regulations: The Federal rules restrict any use of the information to criminally investigate or prosecute any alcohol or drug abuse patient.[facility] HospitalIn the event this information is protected by the Federal Confidentiality of Alcohol and Drug Abuse Patient Records regulations: The Federal rules restrict any use of the information to criminally investigate or prosecute any alcohol or drug abuse patient.[facility] HospitalIn the event this information is protected by the Federal Confidentiality of Alcohol and Drug Abuse Patient Records regulations: The Federal rules restrict any use of the information to criminally investigate or prosecute any alcohol or drug abuse patient.[facility] HospitalIn the event this information is protected by the Federal Confidentiality of Alcohol and Drug Abuse Patient Records regulations: The Federal rules restrict any use of the information to criminally investigate or prosecute any alcohol or drug abuse patient.[facility] HospitalIn the event this information is protected by the Federal Confidentiality of Alcohol and Drug Abuse Patient Records regulations: The Federal rules restrict any use of the information to criminally investigate or prosecute any alcohol or drug abuse patient.[facility] HospitalIn the event this information is protected by the Federal Confidentiality of Alcohol and Drug Abuse Patient Records regulations: The Federal rules restrict any use of the information to criminally investigate or prosecute any alcohol or drug abuse patient.[facility] HospitalIn the event this information is protected by the Federal Confidentiality of Alcohol and Drug Abuse Patient Records regulations: The Federal rules restrict any use of the information to criminally investigate or prosecute any alcohol or drug abuse patient.[facility] HospitalIn the event this information is protected by the Federal Confidentiality of Alcohol and Drug Abuse Patient Records regulations: The Federal rules restrict any use of the information to criminally investigate or prosecute any alcohol or drug abuse patient.[facility] HospitalIn the event this information is protected by the Federal Confidentiality of Alcohol and Drug Abuse Patient Records regulations: The Federal rules restrict any use of the information to criminally investigate or prosecute any alcohol or drug abuse patient.[facility] HospitalIn the event this information is protected by the Federal Confidentiality of Alcohol and Drug Abuse Patient Records regulations: The Federal rules restrict any use of the information to criminally investigate or prosecute any alcohol or drug abuse patient.[facility] HospitalIn the event this information is protected by the Federal Confidentiality of Alcohol and Drug Abuse Patient Records regulations: The Federal rules restrict any use of the information to criminally investigate or prosecute any alcohol or drug abuse patient.[facility] HospitalIn the event this information is protected by the Federal Confidentiality of Alcohol and Drug Abuse Patient Records regulations: The Federal rules restrict any use of the information to criminally investigate or prosecute any alcohol or drug abuse patient.[facility] HospitalIn the event this information is protected by the Federal Confidentiality of Alcohol and Drug Abuse Patient Records regulations: The Federal rules restrict any use of the information to criminally investigate or prosecute any alcohol or drug abuse patient.[facility] HospitalIn the event this information is protected by the Federal Confidentiality of Alcohol and Drug Abuse Patient Records regulations: The Federal rules restrict any use of the information to criminally investigate or prosecute any alcohol or drug abuse patient.[facility] HospitalIn the event this information is protected by the Federal Confidentiality of Alcohol and Drug Abuse Patient Records regulations: The Federal rules restrict any use of the information to criminally investigate or prosecute any alcohol or drug abuse patient.[facility] HospitalIn the event this information is protected by the Federal Confidentiality of Alcohol and Drug Abuse Patient Records regulations: The Federal rules restrict any use of the information to criminally investigate or prosecute any alcohol or drug abuse patient.[facility] HospitalIn the event this information is protected by the Federal Confidentiality of Alcohol and Drug Abuse Patient Records regulations: The Federal rules restrict any use of the information to criminally investigate or prosecute any alcohol or drug abuse patient.[facility] HospitalIn the event this information is protected by the Federal Confidentiality of Alcohol and Drug Abuse Patient Records regulations: The Federal rules restrict any use of the information to criminally investigate or prosecute any alcohol or drug abuse patient.[facility] HospitalIn the event this information is protected by the Federal Confidentiality of Alcohol and Drug Abuse Patient Records regulations: The Federal rules restrict any use of the information to criminally investigate or prosecute any alcohol or drug abuse patient.[facility] HospitalIn the event this information is protected by the Federal Confidentiality of Alcohol and Drug Abuse Patient Records regulations: The Federal rules restrict any use of the information to criminally investigate or prosecute any alcohol or drug abuse patient.[facility] HospitalIn the event this information is protected by the Federal Confidentiality of Alcohol and Drug Abuse Patient Records regulations: The Federal rules restrict any use of the information to criminally investigate or prosecute any alcohol or drug abuse patient.[facility] HospitalIn the event this information is protected by the Federal Confidentiality of Alcohol and Drug Abuse Patient Records regulations: The Federal rules restrict any use of the information to criminally investigate or prosecute any alcohol or drug abuse patient.[facility] HospitalIn the event this information is protected by the Federal Confidentiality of Alcohol and Drug Abuse Patient Records regulations: The Federal rules restrict any use of the information to criminally investigate or prosecute any alcohol or drug abuse patient.[facility] HospitalIn the event this information is protected by the Federal Confidentiality of Alcohol and Drug Abuse Patient Records regulations: The Federal rules restrict any use of the information to criminally investigate or prosecute any alcohol or drug abuse patient.[facility] HospitalIn the event this information is protected by the Federal Confidentiality of Alcohol and Drug Abuse Patient Records regulations: The Federal rules restrict any use of the information to criminally investigate or prosecute any alcohol or drug abuse patient.[facility] HospitalIn the event this information is protected by the Federal Confidentiality of Alcohol and Drug Abuse Patient Records regulations: The Federal rules restrict any use of the information to criminally investigate or prosecute any alcohol or drug abuse patient.[facility] HospitalIn the event this information is protected by the Federal Confidentiality of Alcohol and Drug Abuse Patient Records regulations: The Federal rules restrict any use of the information to criminally investigate or prosecute any alcohol or drug abuse patient.[facility] Reason for Visit (unrecogniz ed section and content) Reason Comments Injections Specialty Diagnoses / Procedures Referred By Raymond t Referred To Contact Orthopedics / ORTHOPAEDIC SURGERY Diagnoses Unilateral primary osteoarthritis, left knee Orthovisc injection # 3 into left knee - medication approved through [employer] - medication has arrived Procedures ORTHOVISC INJ PER DOSE ESTRELLA INJECT 3 Larisa Bernstein PA-C [address] [place] [address] Phone: tel: Juan Argueta MD [address] [place] [address] Phone: tel: fax: Referral ID Status Reason Start Date Expiration Date V isits Requested Visits Authorized [id number] Closed Patient Cleared - Admin/Chairm an/Director advise to proceed or did not respond 08/22/2024 11/20/2024 1 1 Reason Comments Established Patient Injections Specialty Diagnoses / Procedures Referred By Contact Referred To Contact Orthopedics / ORTHOPAEDIC SURGERY Diagnoses Unilateral primary osteoarthritis, left knee Orthovisc injection # 1 into left knee - medication approved through [employer]- medication has arrived Procedures EUFLEXXA INJ PER DOSE ESTRELLA INJECT 3 Larisa Bernstein PA-C [address] [place] [address] Phone: tel:[phone] Larisa Bernstein PA-C [address] [place] [address] Phone: tel: fax: Referral ID Status Reason Start Date Expiration Date Visits Requested Visits Authorized [id number] Pending Review Patient Cleared - Admin/Chair man/Directo r advise to proceed or did not respond 08/08/2024 11/06/2024 1 1 Reason Comments Injections Euflexxa injection # 3 left knee Specialty Diagnoses / Procedures Referred By Contac t Referred To Contact Orthopedics / ORTHOPAEDIC SURGERY Diagnoses Euflexxa injection # 1 left knee Procedures ESTRELLA INJECT 1 only Larisa Bernstein PA-C [address] [place] [address] Larisa Bernstein PA-C [address] [place] [address] Referral ID Status Reason Start Date Expiration Date Visits Re quested Visits Authorized [id number] Closed 11/16/2023 02/14/2024 3 3 Reason Comments PT Discharge Specialty Diagnoses / Procedures Referred By Contac t Referred To Contact Physical Therapy / PHYSICAL THERAPY Diagnoses Primary osteoarthritis of both knees [M17.0] Procedures NEW RS PT ORTH MSK Larisa Bernstein, PA-C [address] [place] [address] J[address], [place] Referral ID Status Reason Start Date Expiration Date V isits Requested Visits Authorized [id number] Authorized 08/13/2023 04/05/2024 20 20 Reason Comments Reassessment Patient Education Specialty Diagnoses / Procedures Referred By Contac t Referred To Contact Nutrition Diagnoses Prediabetes Obesity, Class III, BMI 40-49.9 (morbid obesity) (HCC) Mixed hyperlipidemia Essential hypertension Procedures CONSULT TO NUTRITION THERAPY MEDICAL NUTRITION ASSMT&IVNTJ INDIV EACH 15 ID 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 Ana Lau MD [address] [place] [address] [facility] [place] [address] [place] [address] Referral ID Status Reason Start Date Expiration Date V isits Requested Visits Authorized [id number] Authorized 06/26/2021 04/05/2022 20 20 Reason Comments F/U 3 Month Reason Comments Results Specialty Diagnoses / Procedures Referred By Contac t Referred To Contact MR IMAGING Diagnoses Spinal stenosis of lumbar region with neurogenic claudication Procedures MRI LUMBAR SPINE WO IVCON MRI SPINAL CANAL LUMBAR W/O CONTRAST MATERIAL Ana Lau MD [address] [place] [address] Mr Imaging Referral ID Status Reason Start Date Expiration Date V isits Requested Visits Authorized [id number] Closed Auto-Generate d Referral 07/17/2021 08/15/2021 1 [...] W/IMG GDN Ramy Jeffries MD [address] [address] [facility] [place] [address] [address] Referral ID Status Reason Start Date Expiration Date Visits Re quested Visits Authorized [id number] Closed 09/17/2021 04/05/2022 1 1 Reason Comments [...] LMBR/SAC W/IMG GDN PROCEDURE Becki Beasley PA-C [address] [place] [address] Ramy Jeffries MD [address] [place] [address] Referral ID Status Reason Start Date Expiration Date Visits Re quested Visits Authorized [id number] Closed 05/05/2022 04/05/2023 1 1 Specialty Diagnoses / Procedures Referred By Contac t Referred To Contact Pain Management / PAIN MANAGEMENT Diagnoses Follow-up exam follow up from [facility] Procedures OFFICE/OUTPATIENT ESTABLISHED MOD [facility] 30-39 MIN PROVIDER SPECIALTY PHONE CALL Becki Beasley PA-C [address] [address] Becki Beasley PA-C [address] [address] [place] [address] Referral ID Status Reason Start Date Expiration Date Visits Re quested Visits Authorized [id number] Closed 04/06/2022 04/05/2023 1 1 Reason Comments [...] GDN FLUOR NEEDLE/CATH SPINE/PARASPINAL DX/THER ADDON PROCEDURE Ana Lau MD [address] [place] [address] Ramy Jeffries MD [address] [address] Referral ID Status Reason Start Date Expiration Date Visits Re quested Visits Authorized [id number] Closed 04/06/2022 04/05/2023 1 1 Reason Comments Follow Up 12/29/22 caudal injec tion . Reason Comments Shoulder Injury Pain in left shoulde r x3 weeks. Reason Comments Follow Up Injection request Reason Comments Follow Up Epidural Steroid Inj ection - Caudal Approach under fluoroscopic guidance Reason Comments New Left shoulder/left u pper arm pain Pain Left shoulder/left u pper arm pain Specialty Diagnoses / Procedures Referred By Contac t Referred To Contact Orthopedics Diagnoses Pain Procedures CONSULT TO ORTHOPAEDICS OFFICE/OUTPATIENT NEW HIGH MDM 60-74 MINUTES Juliana Zamora APRN.[employer] [address] [place] [address] Referral ID Status Reason Start Date Expiration Date V isits Requested Visits Authorized [id number] Closed PCP Requested Referral 02/17/2023 02/17/2024 1 1 Reason Comments Recheck 6 month follow up Reason Comments Established Patient Pain Reason Comments New Knee Pain Reason Comments Orders Reason Comments Recheck BP follow up Reason Comments Insurance Authorization Prior Auth Delay ed Additional Information Needed Requested Reason Comments Assessment Patient Education Reason Comments fax rx for bp monitor to [employer] Reason Comments Consult Anemia/ colon cancer screening Specialty Diagnoses / Procedures Referred By Contac t Referred To Contact General Surgery Diagnoses Anemia, unspecified type Colon cancer screening Procedures CONSULT TO GENERAL SURGERY OFFICE/OUTPATIENT NEW HIGH MDM 60 MINUTES Warren, CLEM Townsend.NIGHT TIME BABYSITTER [address] [place] [address] Referral ID Status Reason Start Date Expiration Date V isits Requested Visits Authorized [id number] Closed PCP Requested Referral 07/27/2023 07/26/2024 1 1 Reason Comments Recheck BP check 4 weeks 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 Reason Comments Peer to peer for MRI Reason Comments Established Patient Reason Comments Low Back Pain Specialty Diagnoses / Procedures Referred By Contac t Referred To Contact MR IMAGING Diagnoses Tear of left rotator cuff, unspecified tear extent, unspecified whether traumatic Glenohumeral arthritis, left Procedures MRI SHOULDER WO IVCON LEFT MRI ANY JT UPPER EXTREMITY W/O CONTRAST Larisa Tovar PA-C [address] [place] [address] [place] [address] Referral ID Status Reason Start Date Expiration Date V isits Requested Visits Authorized [id number] Closed Auto-Generate d Referral 09/30/2023 10/29/2023 1 1 Reason Comments Established Patient MRI results Left shoulder Reason Comments Returning Patient's Call Reason Comments Procedure Caudal NASIR Specialty Diagnoses / Procedures Referred By Contac t Referred To Contact Pain Management / PAIN MANAGEMENT Diagnoses Spinal stenosis, lumbar region with neurogenic claudication Caudal NASIR Procedures NJX DX/THER SBST INTRLMNR LMBR/SAC W/IMG GDN PROCEDURE Jitendra Shell MD [address] [place] [id number] Jitendra Shell MD [address] [place] [id number] Referral ID Status Reason Start Date Expiration Date Visits Re quested Visits Authorized [id number] Closed 04/06/2023 04/05/2024 1 1 Referral ID Status Reason Start Date Expiration Date V isits Requested Visits Authorized [id number] Authorized 11/16/2023 02/14/2024 3 3 Reason Comments Back Pain Mid back pain into l eft leg x 3 days Reason Comments LMTCB Reason Comments Pre-Op Exam Pre -op Reason Comments Follow Up Caudal injection Low Back Pain Reason Comments Established Patient Follow Up NASIR followup 11/15 Specialty Diagnoses / Procedures Referred By Contac t Referred To Contact Pain Management / PAIN MANAGEMENT Diagnoses Spinal stenosis, lumbar region with neurogenic claudication Postlaminectomy syndrome, not elsewhere classified Caudal NASIR w fluoro at Sacral Hiatus Procedures NJX DX/THER SBST INTRLMNR LMBR/SAC W/IMG GDN PROCEDURE Maury Cerna, ART EDITOR.NIGHT TIME BABYSITTER [address] [place] [address] Kenneth Felix MD [address] [address] Referral ID Status Reason Start Date Expiration Date Visits Re quested Visits Authorized [id number] Closed 03/22/2024 04/05/2024 1 1 Reason Comments Procedure Follow Up CAUDAL NASIR Reason Comments Follow Up Back Pain Lower Reason Comments Follow Up Knee Pain Reason Comments Insurance Authorization Prior Auth Denie d: NonCovered Benefit (euflexxa) Reason Comments Recheck 3 month follow up Reason Comments Injections QUESTIONS Reason Comments Non-Formulary Medication Reason Comments Back Pain Leg Pain Lower back pain , ri ght side , radiating down right leg Specialty Diagnoses / Procedures Referred By Contac t Referred To Contact Pain Management / PAIN MANAGEMENT Diagnoses Postlaminectomy syndrome, not elsewhere classified Caudal under fluro: no restrictions Procedures NJX DX/THER SBST INTRLMNR LMBR/SAC W/IMG GDN PROCEDURE Tomasa Gonzalez, ART EDITOR.NIGHT TIME BABYSITTER [address] [facility] [address] [place] [address] Phone: tel: Kenneth Felix MD [address] [facility] [address] [place] [address] Phone: tel: fax: Referral ID Status Reason Start Date Expiration Date V isits Requested Visits Authorized [id number] Pending Review 08/04/2024 11/02/2024 1 1 Reason Comments Established Patient Knee Pain Injections Specialty Diagnoses / Procedures Referred By Contact Referred To Contact Orthopedics / ORTHOPAEDIC SURGERY Diagnoses Unilateral primary osteoarthritis, left knee Orthovisc injection # 1 into left knee - medication approved through [employer] benefits- medication has arrived Procedures EUFLEXXA INJ PER DOSE ORTHOVISC INJ PER DOSE ESTRELLA INJECT 3 Larisa Bernstein PA-C [address] [place] [address] Phone: tel:[phone] Larisa Bernstein PA-C [address] [place] [address] Phone: tel: fax: Referral ID Status Reason Start Date Expiration Date V isits Requested Visits Authorized [id number] Denied Patient Cleared - Admin/Chairm an/Director advise to proceed or did not respond 08/08/2024 11/06/2024 1 0 Reason Comments Low Back Pain Follow Up Lumbar NASIR Care Teams (unrecognized sec tion and content) 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 Relationship Specialty Start Date End Date Ana Lau MD [address] [place] [address] PCP - General Internal Medicine 05/02/13 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 Relationship Specialty Start Date End Date Ana Lau MD [address] [place] [address] PCP - General Internal Medicine 05/02/13 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 Relationship Specialty Start Date End Date Ana Lau MD [address] [place] [address] PCP - General Internal Medicine 05/02/13 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 Relationship Specialty Start Date End Date Ana Lau MD [address] [place] [address] PCP - General Internal Medicine 05/02/13 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 Relationship Specialty Start Date End Date Ana Lau MD [address] [place] [address] PCP - General Internal Medicine 05/02/13 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 Relationship Specialty Start Date End Date Ana Lau MD [address] [place] [address] PCP - General Internal Medicine 05/02/13 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 Relationship Specialty Start Date End Date Ana Lau MD [address] [place] [address] PCP - General Internal Medicine 05/02/13 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 Relationship Specialty Start Date End Date Ana Lau MD [address] [place] [address] PCP - General Internal Medicine 05/02/13 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 Relationship Specialty Start Date End Date Ana Lau MD [address] [place] [address] PCP - General Internal Medicine 05/02/13 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 Relationship Specialty Start Date End Date Ana Lau MD [address] [place] [address] PCP - General Internal Medicine 05/02/13 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 Relationship Specialty Start Date End Date Ana Lau MD [address] [place] [address] PCP - General Internal Medicine 05/02/13 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 Relationship Specialty Start Date End Date Ana Lau MD [address] [place] [address] PCP - General Internal Medicine 05/02/13 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 Relationship Specialty Start Date End Date Ana Lau MD [address] [place] [address] PCP - General Internal Medicine 05/02/13 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 Relationship Specialty Start Date End Date Ana Lau MD [address] [place] [address] PCP - General Internal Medicine 05/02/13 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 Relationship Specialty Start Date End Date Ana Lau MD [address] [facility] [place] [address] PCP - General Internal Medicine 05/02/13 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 Relationship Specialty Start Date End Date Ana Lau MD [address] [facility] [place] [address] PCP - General Internal Medicine 05/02/13 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 Relationship Specialty Start Date End Date Ana Lau MD [address] [facility] [place] [address] PCP - General Internal Medicine 05/02/13 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 Relationship Specialty Start Date End Date Ana Lau MD [address] [facility] [place] [address] PCP - General Internal Medicine 05/02/13 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 Relationship Specialty Start Date End Date Ana Lau MD [address] [facility] [place] [address] PCP - General Internal Medicine 05/02/13 Team Status: Active Member Role Status Dates Dr. Ana Lau MD Family Provider Active Dr. Ana Lau MD Primary Care Provider Active Team Status: Inactive Member Role Status Dates Dr. Ana Lau MD Primary Care Provider, Referring Provider Active Dr. Toy Soriano DO Attending Provider Active Team Status: Inactive Member Role Status Dates Dr. Ana Lau MD Primary Care Provider Active Dr. Alfredo Valencia MD Attending Provider Active Team Status: Inactive Member Role Status Dates Dr. Ana Lau MD Primary Care Provider Active Dr. Toy Soriano DO Attending Provider, Referring Provider Active 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 Relationship Specialty Start Date End Date Ana Lau MD [address] [facility] [place] [address] PCP - General Internal Medicine 05/02/13 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 Relationship Specialty Start Date End Date Ana Lau MD [address] [facility] [place] [address] PCP - General Internal Medicine 05/02/13 Team Status: Active Member Role Status Dates Dr. Ana Lau MD Primary Care Provider Active Dr. Toy Soriano DO Attending Provid er, Referring Provider, Other Provider Active 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 Relationship Specialty Start Date End Date Ana Lau MD [address] [facility] [place] [address] PCP - General Internal Medicine 05/02/13 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 Relationship Specialty Start Date End Date Ana Lau MD [address] [facility] [place] [address] PCP - General Internal Medicine 05/02/13 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 Relationship Specialty Start Date End Date Ana Lau MD [address] [facility] [place] [address] PCP - General Internal Medicine 05/02/13 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 Relationship Specialty Start Date End Date Ana Lau MD [address] [facility] [place] [address] PCP - General Internal Medicine 05/02/13 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 Relationship Specialty Start Date End Date Ana Lau MD [address] [facility] [place] [address] PCP - General Internal Medicine 05/02/13 Team Status: Inactive Member Role Status Dates Dr. Ana Lau MD Primary Care Provider, Referring Provider Active Dr. Janes Fletcher DO Attending Provider Active Team Status: Inactive Member Role Status Dates Dr. Ana Lau MD Primary Care Provider, Referring Provider Active Joshua Mayo MD Attending Provider Active Team Status: Active Member Role Status Dates Dr. Ana Lau MD Primary Care Provider Active Dr. Tamara Martinez DPM Attending Provider, Referring Pr ovider Active Team Status: Inactive Member Role Status Dates Dr. Ana Lau MD Primary Care Provider Active Dr. Tamara Martinez DPM Attending Provider, Referring Pr benjamin Active Team Status: Inactive Member Role Status Dates Dr. Ana Lau MD Primary Care Provider Active Dr. Janes Fletcher DO Attending Provider, Referring P geremias Active 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 Relationship Specialty Start Date End Date Ana Lau MD [address] [facility] [place] [address] PCP - General Internal Medicine 05/02/13 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 Relationship Specialty Start Date End Date Ana Lau MD [address] [facility] [place] [address] PCP - General Internal Medicine 05/02/13 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 Relationship Specialty Start Date End Date Ana Lau MD [address] [facility] [place] [address] PCP - General Internal Medicine 05/02/13 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 Relationship Specialty Start Date End Date Ana Lau MD [address] [facility] [place] [address] PCP - General Internal Medicine 05/02/13 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 Relationship Specialty Start Date End Date Ana Lau MD [address] [facility] [place] [address] PCP - General Internal Medicine 05/02/13 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 Relationship Specialty Start Date End Date Ana Lau MD [address] [facility] [place] [address] PCP - General Internal Medicine 05/02/13 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 Relationship Specialty Start Date End Date Ana Lau MD [address] [facility] [place] [address] PCP - General Internal Medicine 05/02/13 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 Relationship Specialty Start Date End Date Ana Lau MD [address] [facility] [place] [address] PCP - General Internal Medicine 05/02/13 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 Relationship Specialty Start Date End Date Ana Lau MD [address] [facility] [place] [address] PCP - General Internal Medicine 05/02/13 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 Relationship Specialty Start Date End Date Ana Lau MD [address] [facility] [place] [address] PCP - General Internal Medicine 05/02/13 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 Relationship Specialty Start Date End Date Ana Lau MD [address] [facility] [place] [address] PCP - General Internal Medicine 05/02/13 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 Relationship Specialty Start Date End Date Ana Lau MD [address] [facility] [place] [address] PCP - General Internal Medicine 05/02/13 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 Relationship Specialty Start Date End Date Ana Lau MD [address] [facility] [place] [address] PCP - General Internal Medicine 05/02/13 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 Relationship Specialty Start Date End Date Ana Lau MD [address] [facility] [place] [address] PCP - General Internal Medicine 05/02/13 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 Relationship Specialty Start Date End Date Ana Lau MD [address] [facility] [place] [address] PCP - General Internal Medicine 05/02/13 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 Relationship Specialty Start Date End Date Ana Lau MD [address] [facility] [place] [address] PCP - General Internal Medicine 05/02/13 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 Relationship Specialty Start Date End Date Ana Lau MD [address] [facility] [place] [address] PCP - General Internal Medicine 05/02/13 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 Relationship Specialty Start Date End Date Ana Lau MD [address] [facility] [place] [address] PCP - General Internal Medicine 05/02/13 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 Relationship Specialty Start Date End Date Ana Lau MD [address] [facility] [place] [address] PCP - General Internal Medicine 05/02/13 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 Relationship Specialty Start Date End Date Ana Lau MD [address] [facility] [place] [address] PCP - General Internal Medicine 05/02/13 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 Relationship Specialty Start Date End Date Ana Lau MD [address] [facility] [place] [address] PCP - General Internal Medicine 05/02/13 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 Relationship Specialty Start Date End Date Ana Lau MD [address] [facility] [place] [address] PCP - General Internal Medicine 05/02/13 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 Relationship Specialty Start Date End Date Ana Lau MD [address] [place] [address] PCP - General Internal Medicine 05/02/13 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 Relationship Specialty Start Date End Date Ana Lau MD [address] [place] [address] PCP - General Internal Medicine 05/02/13 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 Relationship Specialty Start Date End Date Ana Lau MD [address] [place] [address] PCP - General Internal Medicine 05/02/13 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 Relationship Specialty Start Date End Date Ana Lau MD [address] [place] [address] PCP - General Internal Medicine 05/02/13 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 Relationship Specialty Start Date End Date Ana Lau MD [address] [place] [address] PCP - General Internal Medicine 05/02/13 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 Relationship Specialty Start Date End Date Ana Lau MD [address] [place] [address] PCP - General Internal Medicine 05/02/13 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 Relationship Specialty Start Date End Date Ana Lau MD [address] [place] [address] PCP - General Internal Medicine 05/02/13 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 Relationship Specialty Start Date End Date Ana Lau MD [address] [place] [address] PCP - General Internal Medicine 05/02/13 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 Relationship Specialty Start Date End Date Ana Lau MD [address] [place], [place] [address]24[address] PCP - General Internal Medicine 05/02/13 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 Relationship Specialty Start Date End Date Ana Lau MD [address] [place], [place] 406396 [phone] PCP - General Internal Medicine 05/02/13 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 Relationship Specialty Start Date End Date Ana Lau MD [address] [place], [place] [address]22[address] PCP - General Internal Medicine 05/02/13 Yocasta Calderón PA-C [address] [place] [address] [phone] Barrel Handler Family Medicine 03/13/24 Trav Kelley APRN.CNP [address] [place], [place] [address]91 Barrel Handler Internal Medicine 03/13/24 Beulah Daniel PA-C [address] [place] [address] Barrel Handler Family Medicine 03/13/24 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 Relationship Specialty Start Date End Date Ana Lau MD [address] [place] [address] PCP - General Internal Medicine 05/02/13 Yocasta Calderón PA-C [address] [place] [address] [phone] Barrel Handler Family Medicine 03/13/24 Trav Kelley APRN.NIGHT TIME BABYSITTER [address] [place] [address] Barrel Handler Internal Medicine 03/13/24 Beulah Daniel PA-C [address] [place] [address] Barrel Handler Family Medicine 03/13/24 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 Relationship Specialty Start Date End Date Ana Lau MD [address] [facility] [place] [address] PCP - General Internal Medicine 05/02/13 Yocasta Calderón PA-C [address] [place] [address] Barrel Handler Family Medicine 03/13/24 Trav Kelley APRN.NIGHT TIME BABYSITTER [address] [facility] [place] [address] Barrel Handler Internal Medicine 03/13/24 Beulah Daniel PA-C [address] [place] [address] Barrel Handler Family Medicine 03/13/24 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 Relationship Specialty Start Date End Date Ana Lau MD [address] [place] [address] PCP - General Internal Medicine 05/02/13 Yocasta Calderón PA-C [address] [place] [phone] Barrel Handler Family Medicine 03/13/24 Trav Kelley APRN.NIGHT TIME BABYSITTER [address] [facility] [place] [address] Barrel Handler Internal Medicine 03/13/24 Beulah Daniel PA-C [address] [facility] [place] [address] Barrel Handler Family Medicine 03/13/24 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 Relationship Specialty Start Date End Date Ana Lau MD [address] [place] [address] PCP - General Internal Medicine 05/02/13 Yocasta Calderón PA-C [address] [place] [phone] Barrel Handler Family Medicine 03/13/24 Trav Kelley APRN.NIGHT TIME BABYSITTER [address] [place] [address] Barrel Handler Internal Medicine 03/13/24 Beulah Daniel PA-C [address] [place] [address] Barrel Handler Family Medicine 03/13/24 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 Relationship Specialty Start Date End Date Ana Lau MD [address] [facility] [place] [address] PCP - General Internal Medicine 05/02/13 Trav Kelley APRN.NIGHT TIME BABYSITTER [address] [place] [address] Barrel Handler Internal Medicine 03/13/24 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 Relationship Specialty Start Date End Date Ana Lau MD [address] [place] [address] PCP - General Internal Medicine 05/02/13 Trav Kelley APRN.NIGHT TIME BABYSITTER [address] [facility] [place] [address] Barrel Handler Internal Medicine 03/13/24 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 Relationship Specialty Start Date End Date Ana Lau MD [address] [facility] [place] [address] PCP - General Internal Medicine 05/02/13 Trav Kelley APRN.NIGHT TIME BABYSITTER [address] [facility] [address] Barrel Handler Internal Medicine 03/13/24 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 Relationship Specialty Start Date End Date Ana Lau MD [address] [facility] [place] [address] PCP - General Internal Medicine 05/02/13 Trav Kelley ART EDITOR.NIGHT TIME BABYSITTER [address] [facility] [address] Barrel Handler Internal Medicine 03/13/24 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 Relationship Specialty Start Date End Date Ana Lau MD [address] [facility] [place] [address] PCP - General Internal Medicine 05/02/13 Trav Kelley, ART EDITOR.NIGHT TIME BABYSITTER [address] [facility] [place] [address] Barrel Handler Internal Medicine 03/13/24 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 Relationship Specialty Start Date End Date Ana Lau MD [address] [facility] [place] [address] PCP - General Internal Medicine 05/02/13 Trav Kelley APRN.NIGHT TIME BABYSITTER [address] [facility], [place] [address] Barrel Handler Internal Medicine 03/13/24 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 Relationship Specialty Start Date End Date Ana Lau MD [address] [facility], [place] [address] PCP - General Internal Medicine 05/02/13 Trav Kelley APRN.NIGHT TIME BABYSITTER [address] [place] [address] Barrel Handler Internal Medicine 03/13/24 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 Relationship Specialty Start Date End Date Ana Lau MD [address] [place] [address] PCP - General Internal Medicine 05/02/13 Trav Kelley APRN.NIGHT TIME BABYSITTER [address] [place] [address] Barrel Handler Internal Medicine 03/13/24 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 Relationship Specialty Start Date End Date Ana Lua MD [address] [place] [address] PCP - General Internal Medicine 05/02/13 Yocasta Calderón PA-C [address] [place] [address] Barrel Handler Family Medicine 03/13/24 06/26/24 Trav Kelley APRN.NIGHT TIME BABYSITTER [address] [place] [address] Barrel Handler Internal Medicine 03/13/24 Beulah Daniel PA-C [address] [place] [address] Barrel Handler Family Medicine 03/13/24 06/26/24 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 Relationship Specialty Start Date End Date Ana Lau MD [address] [place], [place] 3480[address] PCP - General Internal Medicine 05/02/13 Trav Kelley APRN.NIGHT TIME BABYSITTER [address] [place], [place] 123351 Barrel Handler Internal Medicine 03/13/24 Goals (unrecognized section and content) Goals may be documented in a n alternate sectionGoals may be documented in an alternate sectionGoals may be documented in an alternate sectionGoals may be documented in an alternate section Inactive Administered Medications - up to 3 most recent administrations Administered Medications (un recognized section and content) Medication Order MAR Action Action Date Dose Rate Site betamethasone acetate-betamethasone sodium phosphate 6 mg injection (CELESTONE) 6 mg, Injection - FOR ORTHO USE ONLY, ONCE, 1 dose, Starting on Thu07/08/23 at 1127, Until Thu07/08/23 at 1127 Given 07/08/2023 11:27 AM EDT 6 mg Shoulder, Left lidocaine (PF) 10 mg/mL (1 %) 4 mL injection (XYLOCAINE) 4 mL, Injection - FOR ORTHO USE ONLY, ONCE, 1 dose, Starting on Thu07/08/23 at 1127, Until Thu07/08/23 at 1127 Given 07/08/2023 11:27 AM EDT 4 mL Shoulder, Left Inactive Administered Medications - up to 3 most recent administrations Medication Order MAR Action Action Date Dose Rate Site betamethasone acetate-betamethasone sodium phosphate 6 mg injection (CELESTONE) 6 mg, Injection - FOR ORTHO USE ONLY, ONCE, 1 dose, Starting on Thu07/21/23 at 1418, Until Thu07/21/23 at 1418 Given 07/21/2023 2:18 PM EDT 6 mg Knee, Left lidocaine (PF) 10 mg/mL (1 %) 4 mL injection (XYLOCAINE) 4 mL, Injection - FOR ORTHO USE ONLY, ONCE, 1 dose, Starting on Thu07/21/23 at 1418, Until Thu07/21/23 at 1418 Given 07/21/2023 2:18 PM EDT 4 mL Knee, Left FOR RECORDS PERTAINING TO PATIENTS WHO ARE [...] BE BASED ON THE PRIMARY CLINICAL RECORDS. [facility] [employer] provides no warranty or guarantee of the accuracy or completeness of information in this document.
[2024-10-22 10:37] VITALS: BP 174/97; PULSE 70; RESP 16; TEMP 37.1; O2SAT 100
== END 2024-10-22 10:39 | disposition home or self-care (01) ==
PROVIDERS: Emergency Provider Emergency Medicine; PCP Nurse Practitioner; Visit Provider Emergency Medicine
DX: M54.16 Radiculopathy, lumbar region (principal); Z90.710 Acquired absence of both cervix and uterus; I10 Essential (primary) hypertension; Z98.890 Other specified postprocedural states; X58.XXXA Exposure to other specified factors, initial encounter; Z79.899 Other long term (current) drug therapy; Z96.612 Presence of left artificial shoulder joint; Z90.5 Acquired absence of kidney
CPT/HCPCS: 99283